=== PATIENT | male | born 1950 | race Caucasian/White ===

== ENCOUNTER 2020-04-23 07:27 | Day surgery (SDC) | payer OTHER, SELFPAY ==
[2020-04-18 10:55] VITALS: BMI 55.4
--- NOTE | 2020-04-20 09:23 | P.CONAN_ITS ---
Documented by User: Rema Frazier 04/20/20 09:24 HPI - Anesthesia Eval Consult details Narrative: 70yo M for Colonoscopy [facility] Past Medical History Medical History Arthritis HTN (hypertension) Hx of gout Sleep apnea Surgical History Surgical History H/O colonoscopy History of ankle surgery History of esophagogastroduodenoscopy (EGD) Hx of detached retina repair Social History Social History Smoking Status: Unknown if ever smoked Advance Directives Information Provided: No Meds Allergies Allergy/AdvReac Type Severity Reaction Status Date / Time No Known Allergies Allergy Verified 04/18/20 11:18 Home Medications Medication Instructions Recorded Confirmed Type allopurinol 1 tab PO DAILY 04/18/20 04/18/20 History diltiazem HCl 1 cap PO DAILY 04/18/20 04/18/20 History furosemide 1.5 tab PO DAILY 04/18/20 04/18/20 History hydralazine 1 tab PO TID 04/18/20 04/18/20 History indomethacin 1 - 2 cap PO TID 04/18/20 04/18/20 History metoprolol succinate 1 tab PO DAILY 04/18/20 04/18/20 History valsartan 1 tab PO DAILY 04/18/20 04/18/20 History Exam Exam Date and Time: April 20, 2020 0923 Height,Weight and Vital Signs: Height 5 ft 7 in Weight 160.572 kg Assessment and Plan Assessment Anesthesia Assessment: Chart Reviewed Documented by User: Junaid Mccarthy 04/23/20 07:23 [facility] Past Medical History Medical History Arthritis HTN (hypertension) Hx of gout Sleep apnea Surgical History Surgical History H/O colonoscopy History of ankle surgery History of esophagogastroduodenoscopy (EGD) Hx of detached retina repair Social History Social History Smoking Status: Unknown if ever smoked Advance Directives Information Provided: No Meds Allergies Allergy/AdvReac Type Severity Reaction Status Date / Time No Known Allergies Allergy Verified 04/18/20 11:18 Home Medications Medication Instructions Recorded Confirmed Type allopurinol 1 tab PO DAILY 04/18/20 04/18/20 History diltiazem HCl 1 cap PO DAILY 04/18/20 04/18/20 History furosemide 1.5 tab PO DAILY 04/18/20 04/18/20 History hydralazine 1 tab PO TID 04/18/20 04/18/20 History indomethacin 1 - 2 cap PO TID 04/18/20 04/18/20 History metoprolol succinate 1 tab PO DAILY 04/18/20 04/18/20 History valsartan 1 tab PO DAILY 04/18/20 04/18/20 History Exam Airway Mallampati Class: III TM Dist: >3cm Neck ROM: Full Loose/Missing/Broken Teeth: No Heart: [id number] Lungs: cta b/l Assessment and Plan Assessment Anesthesia Assessment: Anesthesia Plan Discussed, PAT Visit and Chart Reviewed Final Anesthetic Review NPO: Yes ASA Class: III Final Preanesthetic Review: No Changes in Pt Med Stat, Meds/Allgs Chart Rev iewed, Consent Obtained/Reviewed and Anes Risks/Benef Reviewed Patient Risk: Intermediate Procedure Risk: Low Anesthetic Plan Anesthetic Plan: MAC: Disposition: Standard PACU
[2020-04-23 06:59] VITALS: BP 179/87; PULSE 80; RESP 20; TEMP 36.6; O2SAT 97
[2020-04-23] MEDS: Lactated Ringers 1,000 ML 100 ML IVCONT (07:20)
[2020-04-23 08:32] VITALS: BP 141/102; PULSE 72; RESP 16; TEMP 37.4; O2SAT 98
--- NOTE | 2020-04-23 08:32 | PM.OP ---
Brief Operative Note Date of Service: 04/23/20 Pre-op diagnosis: Screening Post-op diagnosis: other (Same, Diverticulosis, Internal hemorrhoids) Procedure: Colonoscopy to cecum Surgeon: Chris Nicole Anesthesia: MAC Estimated blood loss (mL): 0 Pathology: none sent Condition: stable Disposition: PACU
[2020-04-23 08:47] VITALS: BP 119/64; PULSE 75; RESP 16; TEMP 37.4; O2SAT 96
--- NOTE | 2020-04-23 08:47 | OP_ITS ---
SURGEON: Chris Nicole MD INDICATIONS: The patient presents for evaluation of colorectal cancer screening, as well as prior history of tubular adenoma of the colon. Full consent has been obtained from him for this, including risks of bleeding and perforation. PREOPERATIVE DIAGNOSIS: POSTOPERATIVE DIAGNOSIS: PROCEDURE PERFORMED: Colonoscopy to cecum. ESTIMATED BLOOD LOSS: COMPLICATIONS: ANESTHESIA: Monitored anesthesia care. ASSISTANTS: SPECIMENS: PREOPERATIVE DIAGNOSES: Colorectal cancer screening and personal history of tubular adenoma of the colon. POSTOPERATIVE DIAGNOSES: Colorectal cancer screening and personal history of tubular adenoma of the colon, sigmoid diverticulosis, and internal hemorrhoids. DESCRIPTION OF PROCEDURE: The patient was placed in the left lateral decubitus position. The digital rectal exam revealed no abnormalities. The Olympus video pediatric colonoscope was entered into the rectum and advanced easily to the cecum. Once in the cecum, I did identify normal-appearing cecal pouch with appendiceal orifice and a normal-appearing ileocecal valve. There was transillumination of light deep in the right lower quadrant. The entire cecum and ileocecal valve appeared normal. The scope was then slowly withdrawn assessing all mucosal surfaces carefully. Preparation was excellent. I did not visualize any sign of polyps, colitis, nor angiodysplasia. There was a mild amount of sigmoid diverticulosis. In the rectum, scope was retroflexed visualizing small internal hemorrhoids, but no other pathology. The rectal mucosa appeared normal. The scope was straightened out and withdrawn from the patient. He tolerated the procedure well and was returned to the recovery area in stable condition. IMPRESSION: 1. Sigmoid diverticulosis. 2. Internal hemorrhoids. PLAN: Given the patient's negative exam, and a negative exam in 2010, and the previous history of just a small polyp removed in 2002, I do not think he will need another colonoscopy for screening until 10 years. He will otherwise see me in the interim on a p.r.n. basis. This has been discussed with his family. MD FRANCIS Borrego/RENEEL / [phone]
--- NOTE | 2020-04-23 12:31 | HO.POSTANES ---
Post Anesthesia Evaluation Post Anesthesia Evaluation Vital Signs: Vital Signs Temp Pulse Resp BP Pulse Ox 04/23/20 08:47 99.4 F 75 16 119/64 96 04/23/20 08:32 99.4 F 72 16 141/102 H 98 04/23/20 06:59 97.9 F 80 20 179/87 H 97 Anesthesia: Monitored Mental Status: Awake Pain Control: Satisfactory Nausea/Vomiting: None Hydration: Adequate Anesthesia-Related Issues: No Anes. Related Issues
== END 2020-04-23 09:04 | disposition home or self-care (01) ==
PROVIDERS: PCP Internal Medicine; Visit Provider Internal Medicine
PROC: 0DJD8ZZ Inspection of Lower Intestinal Tract, Via Natural or Artificial Opening Endoscopic (ICD-10-PCS; CPT 45378; principal; 2020-04-23 07:30)
DX: Z12.11 Encounter for screening for malignant neoplasm of colon (principal); K57.30 Diverticulosis of large intestine without perforation or abscess without bleeding; K64.8 Other hemorrhoids; Z86.010 Personal history of colon polyps
CPT/HCPCS: 45378; J2370

== ENCOUNTER 2020-06-09 10:04 | Outpatient (REF) | payer OTHER, SELFPAY ==
[2020-06-09 11:40] LABS: Anion Gap 14 (12-20); Blood Urea Nitrogen 24 mg/dL (9-16); Calcium 8.2 mg/dL (8.4-10.2); Carbon Dioxide 27 mmol/L (22-29); Chloride 104 mmol/L (96-108); Estimated Glomerular Filt Rate > 60; Glucose Fasting 109 mg/dL (60-99); Potassium 4.1 mmol/l (3.3-5.1); Sodium 141 mmol/L (135-145)
[2020-06-09 11:49] LABS: Estimated Average Glucose 100 mg/dL; Hemoglobin A1c % 5.1 %
== END 2020-06-09 10:05 | disposition home or self-care (01) ==
LOC: HO.LAB 10:04
PROVIDERS: PCP Internal Medicine; Visit Provider Surgery
DX: I83.009 Varicose veins of unspecified lower extremity with ulcer of unspecified site (principal)
CPT/HCPCS: 36415; 80048; 83036

== ENCOUNTER 2020-08-02 10:33 | Outpatient (REF) | payer OTHER, SELFPAY ==
[2020-08-02 10:52] LABS: MANUAL DIFF FLAG NO
[2020-08-02 11:01] LABS: Basophils Absolute Auto 0.1 X10*3/uL (0.0-0.2); Basophils Percent Auto 0.7 % (0-2); Eosinophils Absolute Auto 0.4 X10*3/uL (0.0-0.4); Eosinophils Percent Auto 4.9 % (0-4); Hematocrit 44.6 % (42-52); Hemoglobin 14.5 g/dl (14.0-18.0); Imm Gran Abs Auto 0.03 X10*3/uL (0.00-0.03); Imm Gran Pct Auto 0.4 % (0.0-0.4); Lymphocytes Absolute Auto 1.5 X10*3/uL (1.2-4.9); Lymphocytes Percent Auto 18.3 % (20-40); Mean Corpuscular HGB Conc 32.5 g/dl (31.0-36.0); Mean Corpuscular Hemoglobin 30.7 pg (27.0-33.0); Mean Corpuscular Volume 94.3 fL (80-98); Mean Platelet Volume 9.9 fL (9.4-12.4); Monocytes Absolute Auto 0.7 X10*3/uL (0.1-1.2); Monocytes Percent Auto 8.1 % (2-11); Neutrophils Absolute Auto 5.4 X10*3/uL (2.0-8.3); Neutrophils Percent Auto 67.6 % (45-73); Platelet Count 272 X10*3/uL (160-400); Red Blood Count 4.73 X10*6/uL (4.60-5.80); Red Cell Distribution Width 13.7 % (11.0-16.0)
[2020-08-02 11:20] LABS: Estimated Average Glucose 97 mg/dL
[2020-08-02 12:20] LABS: Alanine Aminotransferase 27 U/L (0-40); Albumin Level 4.6 g/dL (3.5-5.0); Alkaline Phosphatase 75 U/L (39-117); Anion Gap 12 (12-20); Aspartate Amino Transferase 45 U/L (5-37); Bilirubin Total 0.8 mg/dL (0.0-1.0); Blood Urea Nitrogen 33 mg/dL (9-16); Calcium 8.5 mg/dL (8.4-10.2); Carbon Dioxide 30 mmol/L (22-29); Chloride 106 mmol/L (96-108); Cholesterol 241 mg/dL; Estimated Glomerular Filt Rate > 60; Glucose Fasting 100 mg/dL (60-99); HDL Cholesterol 37 mg/dL; LDL Cholesterol Calculated 168 mg/dl; Potassium 4.7 mmol/L (3.3-5.1); Sodium 143 mmol/L (135-145); Total Protein 7.5 g/dL (6.5-8.0); Triglycerides 180 mg/dL
[2020-08-02 12:32] LABS: Uric Acid 7.6 mg/dL (3.4-7.0)
== END 2020-08-02 10:34 | disposition home or self-care (01) ==
LOC: HO.LNP 10:33
PROVIDERS: Visit Provider Internal Medicine
DX: I10 Essential (primary) hypertension (principal)
CPT/HCPCS: 80053; 80061; 83036; 84550; 85025

== ENCOUNTER 2020-09-20 09:21 | Inpatient (IN) | payer MEDICARE, OTHER, SELFPAY ==
[2020-09-20] VITALS (9 sets, daily range): BP systolic 91–146; BP diastolic 42–83; PULSE 35–63; RESP 15–24; TEMP 36.8–37.1; O2SAT 96–97; BMI 53.4
--- NOTE | ~2020-09-20 | XR_ITS ---
EXAMINATION: XR CHEST CLINICAL INFORMATION: Dyspnea COMPARISON: None TECHNIQUE: AP portable view of the chest was obtained. FINDINGS: There is no evidence of acute parenchymal disease, pneumothorax, or pleural effusion. The cardiopericardial silhouette is upper limits of normal in size. No evidence of pulmonary edema. XR/XR chest 1V IMPRESSION: No acute disease.
--- NOTE | 2020-09-20 09:30 | ECG_ITS ---
Test Reason : LOW HR Blood Pressure : / mmHG Vent. Rate : 037 BPM Atrial Rate : 037 BPM P-R Int : 184 ms QRS Dur : 094 ms QT Int : 470 ms P-R-T Axes : 000 -18 046 degrees QTc Int : 368 ms Marked sinus bradycardia Abnormal ECG No previous ECGs available Referred By: Christen Bailey Electronically Signed By:VIANEY KAMARA
--- NOTE | 2020-09-20 09:40 | ED.SOB ---
HPI - SOB/Dyspnea General Chief Complaint: Arrhythmia/Palpitations Stated Complaint: LOW HEART RATE Time Seen by Provider: 09/20/20 09:23 Source: patient Mode of arrival: ambulatory Limitations: no limitations History of Present Illness HPI Narrative: 70 yo male with HTN on valsartan, hydralazine, diltiazem, metoprolol - c/o dizziness and dyspnea x 1 week noted his PCP said HR was low last week med changes to hydralazine and valsartan - comes from wound clinic today HR in 30s c/o dizziness and dyspnea MD elicited complaint: shortness of breath Pertinent past history: other (HTN) Onset (ago): week(s) (1) Context: other (on bblockers and CCB for HTN) Severity: moderate Exacerbating factors: exertion Relieving factors: rest Associated symptoms: dizziness and lightheadedness Treatment prior to arrival: none Related Data Home Medications Medication Instructions Recorded Confirmed allopurinol 1 tab PO DAILY 04/18/20 09/20/20 diltiazem HCl 1 cap PO DAILY 04/18/20 09/20/20 furosemide 40 mg PO DAILY 04/18/20 09/20/20 hydralazine 1 tab PO TID 04/18/20 09/20/20 indomethacin 2 cap PO DAILY 04/18/20 09/20/20 metoprolol succinate 1 tab PO DAILY 04/18/20 09/20/20 valsartan 1 tab PO DAILY 04/18/20 09/20/20 spironolactone 1 tab PO BEDTIME 09/20/20 09/20/20 Allergies Allergy/AdvReac Type Severity Reaction Status Date / Time No Known Allergies Allergy Verified 04/18/20 11:18 Review of Systems Review of Systems: Constitutional : No Fever, No Chills ENT/Mouth : No sore throat, No Rhinorrhea, No Swallowing Difficulty Eyes: No Eye Pain, No Swelling, No Redness Cardiovascular : No Chest Pain, positive SOB, No Orthopnea, positive Edema Respiratory : No Cough, No Sputum, No Wheezing, positive dyspnea Gastrointestinal : No Nausea, No Vomiting, No Diarrhea, No abdominal Pain, No Hematochezia, No Melena Genitourinary : No Dysuria, No Urinary Frequency, No Hematuria Musculoskeletal : No joint pain, No Myalgias Skin : No Skin Lesions, No rash Neuro : No Weakness, No Numbness, pos Dizziness, No Headache Psych : No Anxiety/Panic, No Depression Heme/Lymph: No Bruising, No Lymphadenopathy Endocrine : No Polyuria, No Polydipsia All other systems reviewed and are negative [facility] Past Medical History Attestation statement: The following information was validated with the patient. Medical History Arthritis HTN (hypertension) Hx of gout Morbid obesity Sleep apnea Surgical History H/O colonoscopy History of ankle surgery History of esophagogastroduodenoscopy (EGD) Hx of detached retina repair Family History Family History (Updated 09/20/20 @ 15:49 by FRANK Hernandez) Mother HTN (hypertension) CVA (cerebral vascular accident) Social History Social History Alcohol intake: never Smoking Status: Never smoker Smoked in Last 30 Days: No Use of substances other than those prescribed or required for medical reasons: No Advance Directives: Yes Advance Directives Information Provided: No Advance Directives on File: No Physical Exam Vital Signs: Vital Signs: Last Vital Signs Temp 98.7 F 09/20/20 14:39 Pulse 40 L 09/20/20 16:10 Resp 15 09/20/20 16:10 BP 91/61 09/20/20 16:10 Pulse Ox 97 09/20/20 16:10 Body Mass Index 53.4 Appearance: Alert. Oriented X3. No acute distress. Eyes: Pupils equal, round and reactive to light. ENT: Pharynx normal. Neck: Normal inspection. Neck supple. CVS:Bradycardic heart rate and rhythm. Pulses normal. Respiratory: No respiratory distress. Breath sounds decreased throughout Abdomen: Soft and non-tender. obese Skin: Skin warm and dry. Normal skin color. Normal skin turgor. Extremities: pitting 1+ edema bilateral LE No calf ttp Neuro: Oriented X 3. No motor deficit. No sensory deficit. Course Course Course Narrative: 950am message sent to Dr. Srivastava discussed with Dr. Srivastava, admit to hospital, hold diuretics, try atropine, hold bb and ccb MDM - SOB/Dyspnea Medical Records Medical records narrative: 70 yo male with hx of HTN on metoprolol/diltiazem/valsartan hydralazine has c/o dizziness and dyspnea x 1 week saw his PCP last week told his heart was low - med adjustments to hydralazine and valsartan - comes from wound clinic today noted HR in 30s at this time will need labs, troponin, lytes, notify cardiology, IV calcium and glucagon suspect admission for CCB and bblocker hold and if no improvement possible PPM - currently not toxic, BP stable planned admit Lab Data Result diagrams: 09/20/20 10:31 09/20/20 11:47 Labs: Lab Results 09/20/20 09/20/20 09/20/20 Range/Units 10:21 10:31 10:31 WBC (4.8-10.8) X10*3/uL RBC (4.60-5.80) X10*6/uL Hgb (14.0-18.0) g/dl Hct (42-52) % MCV (80-98) fL MCH (27.0-33.0) pg MCHC (31.0-36.0) g/dl RDW (11.0-16.0) % Plt Count MPV Immature Gran % (Auto) (0.0-0.4) % Neut % (Auto) (45-73) % Lymph % (Auto) (20-40) % Reynolds % (Auto) (2-11) % Eos % (Auto) (0-4) % Baso % (Auto) (0-2) % Lymph # (Auto) (1.2-4.9) X10*3/uL Reynolds # (Auto) (0.1-1.2) X10*3/uL Eos # (Auto) (0.0-0.4) X10*3/uL Baso # (Auto) (0.0-0.2) X10*3/uL Abs Immat Gran (auto) (0.00-0.03) X10*3/uL Absolute Neuts (auto) (2.0-8.3) X10*3/uL Absolute Nucleated RBC (0.0-0.012) X10*3/uL Nucleated RBC % (auto) (0.0-0.2) /100WBC Smear Tech's Comments PT (10.8-13.0) SEC INR (0.9-1.1) APTT (24.1-38.0) SEC D-Dimer NG/ML Sodium 133 L (135-145) mmol/L Potassium 4.8 (3.3-5.1) mmol/L Chloride 106 (96-108) mmol/L Carbon Dioxide 17 L (22-29) mmol/L Anion Gap 15 (12-20) BUN 51 H D (9-16) mg/dL Creatinine 2.09 H (0.5-1.4) mg/dL Estim Creat Clear Calc 48.5 Estimated GFR 32 Random Glucose 122 H (60-115) mg/dL Calcium 35.7 H* D (8.4-10.2) mg/dL Magnesium (1.6-2.6) mg/dL Total Bilirubin (0.0-1.0) mg/dL Direct Bilirubin (0.0-0.5) mg/dL AST (5-37) U/L ALT (0-40) U/L Alkaline Phosphatase (39-117) U/L Troponin I High Sens (<3.5-35.0) ng/L B-Natriuretic Peptide 735 H (<100) pg/mL Total Protein (6.5-8.0) g/dL Albumin (3.5-5.0) g/dL Lipase (8-78) U/L TSH (0.32-4.0) uIU/mL COVID-19 ([facility]) Negative (Negative) COVID-19 Clin Com See Note 09/20/20 09/20/20 09/20/20 Range/Units 10:31 10:31 10:31 WBC 8.8 (4.8-10.8) X10*3/uL RBC 3.86 L (4.60-5.80) X10*6/uL Hgb 12.1 L (14.0-18.0) g/dl Hct 38.0 L (42-52) % MCV 98.4 H (80-98) fL MCH 31.3 (27.0-33.0) pg MCHC 31.8 (31.0-36.0) g/dl RDW 14.4 (11.0-16.0) % Plt Count TNP MPV TNP Immature Gran % (Auto) 0.3 (0.0-0.4) % Neut % (Auto) 77.9 H (45-73) % Lymph % (Auto) 16.2 L (20-40) % Reynolds % (Auto) 3.3 (2-11) % Eos % (Auto) 2.0 (0-4) % Baso % (Auto) 0.3 (0-2) % Lymph # (Auto) 1.4 (1.2-4.9) X10*3/uL Reynolds # (Auto) 0.3 (0.1-1.2) X10*3/uL Eos # (Auto) 0.2 (0.0-0.4) X10*3/uL Baso # (Auto) 0.0 (0.0-0.2) X10*3/uL Abs Immat Gran (auto) 0.03 (0.00-0.03) X10*3/uL Absolute Neuts (auto) 6.9 (2.0-8.3) X10*3/uL Absolute Nucleated RBC 0.000 (0.0-0.012) X10*3/uL Nucleated RBC % (auto) 0.0 (0.0-0.2) /100WBC Smear Tech's Comments VERIFIED PT (10.8-13.0) SEC INR (0.9-1.1) APTT (24.1-38.0) SEC D-Dimer NG/ML Sodium (135-145) mmol/L Potassium (3.3-5.1) mmol/L Chloride (96-108) mmol/L Carbon Dioxide (22-29) mmol/L Anion Gap (12-20) BUN (9-16) mg/dL Creatinine (0.5-1.4) mg/dL Estim Creat Clear Calc Estimated GFR Random Glucose (60-115) mg/dL Calcium (8.4-10.2) mg/dL Magnesium 2.3 (1.6-2.6) mg/dL Total Bilirubin 0.6 (0.0-1.0) mg/dL Direct Bilirubin 0.2 (0.0-0.5) mg/dL AST 49 H (5-37) U/L ALT 47 H (0-40) U/L Alkaline Phosphatase 67 (39-117) U/L Troponin I High Sens 14.1 (<3.5-35.0) ng/L B-Natriuretic Peptide (<100) pg/mL Total Protein 6.0 L (6.5-8.0) g/dL Albumin 3.7 (3.5-5.0) g/dL Lipase 63 (8-78) U/L TSH 1.22 (0.32-4.0) uIU/mL COVID-19 ([facility]) (Negative) COVID-19 Clin Com 09/20/20 09/20/20 09/20/20 Range/Units 11:38 11:38 11:47 WBC (4.8-10.8) X10*3/uL RBC (4.60-5.80) X10*6/uL Hgb (14.0-18.0) g/dl Hct (42-52) % MCV (80-98) fL MCH (27.0-33.0) pg MCHC (31.0-36.0) g/dl RDW (11.0-16.0) % Plt Count MPV Immature Gran % (Auto) (0.0-0.4) % Neut % (Auto) (45-73) % Lymph % (Auto) (20-40) % Reynolds % (Auto) (2-11) % Eos % (Auto) (0-4) % Baso % (Auto) (0-2) % Lymph # (Auto) (1.2-4.9) X10*3/uL Reynolds # (Auto) (0.1-1.2) X10*3/uL Eos # (Auto) (0.0-0.4) X10*3/uL Baso # (Auto) (0.0-0.2) X10*3/uL Abs Immat Gran (auto) (0.00-0.03) X10*3/uL Absolute Neuts (auto) (2.0-8.3) X10*3/uL Absolute Nucleated RBC (0.0-0.012) X10*3/uL Nucleated RBC % (auto) (0.0-0.2) /100WBC Smear Tech's Comments PT 11.5 (10.8-13.0) SEC INR 1.0 (0.9-1.1) APTT 39.2 H (24.1-38.0) SEC D-Dimer < 200 NG/ML Sodium 139 (135-145) mmol/L Potassium 5.8 H D (3.3-5.1) mmol/L Chloride 107 (96-108) mmol/L Carbon Dioxide 24 (22-29) mmol/L Anion Gap 14 (12-20) BUN 58 H (9-16) mg/dL Creatinine 2.31 H (0.5-1.4) mg/dL Estim Creat Clear Calc 43.9 Estimated GFR 28 Random Glucose 86 (60-115) mg/dL Calcium 9.2 D (8.4-10.2) mg/dL Magnesium (1.6-2.6) mg/dL Total Bilirubin 0.6 (0.0-1.0) mg/dL Direct Bilirubin (0.0-0.5) mg/dL AST 56 H (5-37) U/L ALT 56 H (0-40) U/L Alkaline Phosphatase 82 D (39-117) U/L Troponin I High Sens (<3.5-35.0) ng/L B-Natriuretic Peptide (<100) pg/mL Total Protein 7.4 D (6.5-8.0) g/dL Albumin 4.5 D (3.5-5.0) g/dL Lipase (8-78) U/L TSH (0.32-4.0) uIU/mL COVID-19 ([facility]) (Negative) COVID-19 Clin Com ECG Data Attestation: I personally reviewed and interpreted this ECG as follows: ECG interpretation date: 09/20/20 ECG interpretation time: 09:51 Interpretation: Rate: 37 Rhythm: sinus bradycardia [place]: left Normal P waves. Normal TIA. Normal QRS complex. ST T wave : normal no CHUCKY qTC: normal prior studies: no acute ischemia The study has been interpreted contemporaneously by me. . Critical Care Time Critical Care Time Critical Care Time: Yes Total Critical Care Time: 30 Attestation: medical consult, IV atropine I attest to this time spent taking care of the patient Discharge Plan Discharge Clinical Impression: TAMICA (acute kidney injury), Bradycardia, sinus Patient Disposition: Admitted As Inpatient
[2020-09-20] MEDS: Calcium Gluconate/NaCl,Iso-Osm 2 GM/100 ML PLAST..BAG IV (10:11)
[2020-09-20 10:46] LABS: Basophils Percent Auto 0.3 % (0-2); Hemoglobin 12.1 g/dl (14.0-18.0); MANUAL DIFF FLAG SCAN; PLT CLUMP 1; Red Cell Distribution Width 14.4 % (11.0-16.0); SCAN SMEAR FLAG 1
[2020-09-20 10:47] LABS: Eosinophils Absolute Auto 0.2 X10*3/uL (0.0-0.4); Imm Gran Abs Auto 0.03 X10*3/uL (0.00-0.03); Imm Gran Pct Auto 0.3 % (0.0-0.4); Lymphocytes Absolute Auto 1.4 X10*3/uL (1.2-4.9); Lymphocytes Percent Auto 16.2 % (20-40); Mean Corpuscular HGB Conc 31.8 g/dl (31.0-36.0); Mean Corpuscular Hemoglobin 31.3 pg (27.0-33.0); Mean Corpuscular Volume 98.4 fL (80-98); Monocytes Absolute Auto 0.3 X10*3/uL (0.1-1.2); Monocytes Percent Auto 3.3 % (2-11); Neutrophils Absolute Auto 6.9 X10*3/uL (2.0-8.3); Neutrophils Percent Auto 77.9 % (45-73); Red Blood Count 3.86 X10*6/uL (4.60-5.80); White Blood Count 8.8 X10*3/uL (4.8-10.8)
[2020-09-20 11:08] LABS: COVID-19 Test Negative (Negative)
[2020-09-20 11:11] LABS: Alanine Aminotransferase 47 U/L (0-40); Albumin Level 3.7 g/dL (3.5-5.0); Alkaline Phosphatase 67 U/L (39-117); Aspartate Amino Transferase 49 U/L (5-37); Bilirubin Direct 0.2 mg/dL (0.0-0.5); Bilirubin Total 0.6 mg/dL (0.0-1.0); Lipase 63 U/L (8-78); Magnesium 2.3 mg/dL (1.6-2.6)
[2020-09-20 11:16] LABS: B Type Natriuretic Peptide 735 pg/mL (<100); Troponin-I High Sensitivity 14.1 ng/L (<3.5-35.0)
[2020-09-20 11:25] LABS: Anion Gap 15 (12-20); Blood Urea Nitrogen 51 mg/dL (9-16); Calcium 35.7 mg/dL (8.4-10.2); Carbon Dioxide 17 mmol/L (22-29); Chloride 106 mmol/L (96-108); Creatinine Clr Calc Pharmacy 48.5; Estimated Glomerular Filt Rate 32; Glucose Random 122 mg/dL (60-115); Potassium 4.8 mmol/L (3.3-5.1); Sodium 133 mmol/L (135-145)
[2020-09-20 11:32] LABS: Thyroid Stimulating Hormone 1.22 uIU/mL (0.32-4.0)
--- NOTE | 2020-09-20 11:46 | PC.NURSE ---
Labs drawn above Iv access w/ calcium running. Re-draws ordered per Dr. Bailey. Tech at bedside to obtain
[2020-09-20 11:49] LABS: Prothrombin Time 11.5 SEC (10.8-13.0)
[2020-09-20 11:52] LABS: SLIDE REVIEW VERIFIED
[2020-09-20 11:53] LABS: D Dimer < 200 NG/ML; Partial Thromboplastin Time 39.2 SEC (24.1-38.0)
[2020-09-20] MEDS: Atropine Sulfate 1 MG/ML VIAL 0.5 MG IVPUSH (12:00)
[2020-09-20 12:38] LABS: Alanine Aminotransferase 56 U/L (0-40); Albumin Level 4.5 g/dL (3.5-5.0); Alkaline Phosphatase 82 U/L (39-117); Anion Gap 14 (12-20); Aspartate Amino Transferase 56 U/L (5-37); Bilirubin Total 0.6 mg/dL (0.0-1.0); Blood Urea Nitrogen 58 mg/dL (9-16); Calcium 9.2 mg/dL (8.4-10.2); Carbon Dioxide 24 mmol/L (22-29); Chloride 107 mmol/L (96-108); Creatinine Clr Calc Pharmacy 43.9; Estimated Glomerular Filt Rate 28; Glucose Random 86 mg/dL (60-115); Potassium 5.8 mmol/L (3.3-5.1); Sodium 139 mmol/L (135-145); Total Protein 7.4 g/dL (6.5-8.0)
--- NOTE | 2020-09-20 15:31 | PM.EVENT ---
Event Note Date of Service: 09/20/20 Event Note: Patient seen examined case discussed with APC 70-year-old gentleman with past medical history significant for hypertension, chronic intermittent leg edema, obstructive sleep apnea on cpap, chronic right leg wound being followed at wound clinic presented to [facility] with symptoms of being lightheaded,x few weeks, and shortness of breath of 1 week duration, also heart pounding, symptoms started when aldactone was added and dose of hydralazine uptitrated, Patient has history of chronic htn with sbp in 160s felt above sxs when sbp dropped to 130s In ER patient noted to have sinus bradycardia in mid 30s,labs showed hyperkalemia ,creat 2.31 from baseline 1.1 creat in 07/2020 On examination Morbidly obese,no distress lungs clear cvs bradycardic ext no edema a/p elan with hyperkalemia bradycardia case d/w APC will hold all nephrotoxins and bb and cardizem cont ydralazine ,telemonitoring,obtain nephro eval give ivf and follow labs
--- NOTE | 2020-09-20 15:38 | PM.IMHP ---
History of Present Illness Date of Service: 09/20/20 Chief Complaint: Dizziness This is a 70-year-old male who presents to the emergency department with dizziness. One month ago his blood pressure had been persistently elevated so his hydralazine dose was increased and he was started on spironolactone. Shortly after that he began having dizziness. For the past week to week and a half he started having dyspnea with minimal exertion as well as the pounding feeling in his chest. He has been feeling more fatigued. He denies any PND, orthopnea, chest pain. He was seen by his PCP this past Thursday who recommended to decrease the hydralazine back down to his previous dose. Today he was seen and the wound care clinic and he was noted to be bradycardic and continued to be dizzy and therefore was sent to the emergency department for evaluation. In the emergency department he was noted to be in sinus bradycardia with heart rate in the 30s. Lab work revealed acute kidney injury with creatinine 2.31 and hyperkalemia with potassium 5.8. BNP was 735, chest x-ray unremarkable. Patient was treated with 1 dose of atropine and calcium gluconate. Given persistent bradycardia and TAMICA, the decision was made to admit her for further management. Review of Systems Review of Systems: Yes all other systems are reviewed and are negative Constitutional: Constitutional: Denies chills and Denies fever(s) Cardiovascular: Cardiovascular: Denies chest pain, Reports palpitations, Reports dyspnea on exertion, Denies orthopnea and Denies paroxysmal nocturnal dyspnea Respiratory: Respiratory: Denies cough and Reports dyspnea on exertion Gastrointestinal: Gastrointestinal: Denies abdominal pain Endocrine: Endocrine: Reports palpitations [facility] Medical History Arthritis HTN (hypertension) Hx of gout Morbid obesity Sleep apnea Functional capacity: independent ambulation Family History (Updated 09/20/20 @ 15:49 by FRANK Hernandez) Mother HTN (hypertension) CVA (cerebral vascular accident) Family history: reviewed and not pertinent Surgical History H/O colonoscopy History of ankle surgery History of esophagogastroduodenoscopy (EGD) Hx of detached retina repair Social History Alcohol intake: never Smoking Status: Never smoker Smoked in Last 30 Days: No Use of substances other than those prescribed or required for medical reasons: No Advance Directives: Yes Advance Directives Information Provided: No Advance Directives on File: No Meds Allergies Allergy/AdvReac Type Severity Reaction Status Date / Time No Known Allergies Allergy Verified 04/18/20 11:18 Active Medications: Current Medications Generic Name Dose Route Start Last Admin Trade Name Freq PRN Reason Stop Dose Admin Pharmacy Consult 1 each 09/20/20 09:29 Consult Rx Perform Med Rec MISCELLANE ONCE PRN Consult order Home Medications Medication Instructions Recorded Confirmed Last Taken Type allopurinol 1 tab PO DAILY 04/18/20 09/20/20 Unknown History diltiazem HCl 1 cap PO DAILY 04/18/20 09/20/20 04/23/20 History furosemide 40 mg PO DAILY 04/18/20 09/20/20 Unknown History hydralazine 1 tab PO TID 04/18/20 09/20/20 04/23/20 History indomethacin 2 cap PO DAILY 04/18/20 09/20/20 Unknown History metoprolol succinate 1 tab PO DAILY 04/18/20 09/20/20 04/23/20 History valsartan 1 tab PO DAILY 04/18/20 09/20/20 04/16/20 History spironolactone 1 tab PO BEDTIME 09/20/20 09/20/20 Unknown History Physical Exam Vital Signs and Narrative: Vital Signs: Last Vital Signs Temp 98.7 F 09/20/20 14:39 Pulse 37 L 09/20/20 14:39 Resp 18 09/20/20 14:39 BP 115/83 09/20/20 14:39 Pulse Ox 97 09/20/20 14:39 Body Mass Index 53.4 Const: Nutritional Appearance: well nourished Orientation/consciousness: patient oriented x3 HENMT: Head: Yes normocephalic and Yes atraumatic Eyes: Sclerae: sclerae normal Chest: Chest palpation & inspection: normal inspection of the chest Resp: Effort & Inspection: normal respiratory effort and no respiratory distress Cardio: Jugular venous distension: no JVD Rate: bradycardic GI: Palpation (GI): Soft to palpation and nontender Neuro: General: patient oriented x3 Cranial nerves: Yes CN's II-XII intact bilaterally and Yes Bilaterally intact EOM present Extrem: Other: no edema Results Labs CBC and Chem 7: 09/20/20 10:31 09/20/20 11:47 Labs: Laboratory Results - last 24 hr 09/20/20 09/20/20 09/20/20 10:21 10:31 10:31 MCV MCH MCHC RDW Plt Count MPV Immature Gran % (Auto) Neut % (Auto) Lymph % (Auto) Hanson % (Auto) Eos % (Auto) Baso % (Auto) Lymph # (Auto) Hanson # (Auto) Eos # (Auto) Baso # (Auto) Abs Immat Gran (auto) Absolute Neuts (auto) Absolute Nucleated RBC Nucleated RBC % (auto) Smear Tech's Comments PT INR APTT D-Dimer Anion Gap 15 Estim Creat Clear Calc 48.5 Estimated GFR 32 Random Glucose 122 H Calcium 35.7 H* D Magnesium Total Bilirubin Direct Bilirubin AST ALT Alkaline Phosphatase Troponin I High Sens B-Natriuretic Peptide 735 H Total Protein Albumin Lipase TSH COVID-19 (PEARL) Negative COVID-19 [email or web address] Com See Note 09/20/20 09/20/20 09/20/20 10:31 10:31 10:31 MCV 98.4 H MCH 31.3 MCHC 31.8 RDW 14.4 Plt Count TNP MPV TNP Immature Gran % (Auto) 0.3 Neut % (Auto) 77.9 H Lymph % (Auto) 16.2 L Hanson % (Auto) 3.3 Eos % (Auto) 2.0 Baso % (Auto) 0.3 Lymph # (Auto) 1.4 Hanson # (Auto) 0.3 Eos # (Auto) 0.2 Baso # (Auto) 0.0 Abs Immat Gran (auto) 0.03 Absolute Neuts (auto) 6.9 Absolute Nucleated RBC 0.000 Nucleated RBC % (auto) 0.0 Smear Tech's Comments VERIFIED PT INR APTT D-Dimer Anion Gap Estim Creat Clear Calc Estimated GFR Random Glucose Calcium Magnesium 2.3 Total Bilirubin 0.6 Direct Bilirubin 0.2 AST 49 H ALT 47 H Alkaline Phosphatase 67 Troponin I High Sens 14.1 B-Natriuretic Peptide Total Protein 6.0 L Albumin 3.7 Lipase 63 TSH 1.22 COVID-19 (PEAR[place]) COVID-19 [email or web address] Com 09/20/20 09/20/20 09/20/20 11:38 11:38 11:47 MCV MCH MCHC RDW Plt Count MPV Immature Gran % (Auto) Neut % (Auto) Lymph % (Auto) Hanson % (Auto) Eos % (Auto) Baso % (Auto) Lymph # (Auto) Hanson # (Auto) Eos # (Auto) Baso # (Auto) Abs Immat Gran (auto) Absolute Neuts (auto) Absolute Nucleated RBC Nucleated RBC % (auto) Smear Tech's Comments PT 11.5 INR 1.0 APTT 39.2 H D-Dimer < 200 Anion Gap 14 Estim Creat Clear Calc 43.9 Estimated GFR 28 Random Glucose 86 Calcium 9.2 D Magnesium Total Bilirubin 0.6 Direct Bilirubin AST 56 H ALT 56 H Alkaline Phosphatase 82 D Troponin I High Sens B-Natriuretic Peptide Total Protein 7.4 D Albumin 4.5 D Lipase TSH COVID-19 (PEARL) COVID-19 Clin Com Imaging Radiologist's Impressions: Impressions Chest X-Ray 09/20/20 09:30 IMPRESSION: No acute disease. Assessment and Plan (1) TAMICA (acute kidney injury): Status: Acute (2) Bradycardia, sinus: Status: Acute This is a 70 year old male with history of HTN, HFpEF, morbid obesity, JADEN on cpap, recently started on aldactone who presents to the ED with dizziness found to be bradycardic with HR in 30s and TAMICA. Symptomatic sinus bradycardia r/t medications -hold cardizem, metoprolol -tele monitoring TAMICA r/t diuretics, drop in BP -hold lasix, aldactone, valsartan, indomethacin, allopurinol -gentle IVF -follow BMP -nephrology consult Hyperkalemia K 5.8 r/t above TAMICA -Kayexelate -follow BMP HTN BP low compared to previous, likely contributing to symptoms and TAMICA -Hold valsartan, lasix, aldactone -continue hydralazine -monitor blood pressure closely HFpEF echo from 2016 with preserved EF and diastolic dysfunction although bnp elevated, not clinically in heart failure -hold lasix Morbid obesity BMI 53.4 JADEN -Continue CPAP chronic RLE wound being followed at the wound clinic -continue local wound care elevated troponin, 14 likely r/t elevated renal function no chest pain dvt ppx - heparin code status - full code Attending. Dr. Iniguez
[2020-09-20] MEDS: Sodium Polystyrene Sulfon/Sorb 15 GM/60 ML ORAL.SUSP PO (16:10)
--- NOTE | 2020-09-20 16:15 | PC.NURSE ---
x1 attempt to give report- awaiting bacllback. Pt continues to be sinus maurizio, denies needs or complaints at this time.
[2020-09-20] MEDS: 0.9 % Sodium Chloride Flush 3 ML SYRINGE IVFLUSH ×2 (18:08→23:29)
[2020-09-20] MEDS: 0.9 % Sodium Chloride 500 ML 100 ML IVCONT (18:16)
[2020-09-20] MEDS: Heparin Sodium,Porcine 5,000 UNIT/ML VIAL 5000 UNIT SUBCUT (18:17)
[2020-09-20 18:54] LABS: Anion Gap 14 (12-20); Blood Urea Nitrogen 49 mg/dL (9-16); Carbon Dioxide 22 mmol/L (22-29); Chloride 108 mmol/L (96-108); Creatinine Clr Calc Pharmacy 57.3; Estimated Glomerular Filt Rate 38; Glucose Random 100 mg/dL (60-115); Potassium 5.4 mmol/L (3.3-5.1); Sodium 139 mmol/L (135-145)
[2020-09-21] VITALS (12 sets, daily range): BP systolic 127–164; BP diastolic 60–74; PULSE 59–76; RESP 16–20; TEMP 36.1–37; O2SAT 95–97
--- NOTE | 2020-09-21 00:49 | P.CONNP_ITS ---
History of Present Illness Reason for Consult Consult date: 09/20/20 Reason for consult: TAMICA, HyperK Chief Complaint Chief complaint: Symptomatic bradycardia TAMICA History of Present Illness Narrative: Ask to see PT fro TAMICA and hyperK. Note at wound care to have low HR and low BP so sent to ER note low HR and treated with atropine and IV Ca as K was 5.8. He adm to feeling dizzy past several days and his BP meds were decfr by PCP as our top last week. Overall feeling better now. He reveieved kayexlate in Er x 1. No CP/SOB. Hos outpt meds are noted and include diovan and aldactone and also a BBlocker and CCB Review of Systems Review of Systems Constitutional : No Fever, No Chills ENT/Mouth : No sore throat, No Rhinorrhea, No Swallowing Difficulty Eyes: No Eye Pain, No Swelling, No Redness Cardiovascular : No Chest Pain, positive SOB, No Orthopnea, positive Edema Respiratory : No Cough, No Sputum, No Wheezing, positive dyspnea Gastrointestinal : No Nausea, No Vomiting, No Diarrhea, No abdominal Pain, No Hematochezia, No Melena Genitourinary : No Dysuria, No Urinary Frequency, No Hematuria Musculoskeletal : No joint pain, No Myalgias Skin : No Skin Lesions, No rash Neuro : No Weakness, No Numbness, pos Dizziness, No Headache Psych : No Anxiety/Panic, No Depression Heme/Lymph: No Bruising, No Lymphadenopathy Endocrine : No Polyuria, No Polydipsia All other systems reviewed and are negative Yes all other systems are reviewed and are negative Constitutional: Denies chills and Denies fever(s) Cardiovascular: Denies chest pain, Reports palpitations, Reports dyspnea on exertion, Denies orthopnea and Denies paroxysmal nocturnal dyspnea Respiratory: Denies cough and Reports dyspnea on exertion Gastrointestinal: Denies abdominal pain Endocrine: Reports palpitations PMFSH Past Medical History Medical History Arthritis HTN (hypertension) Hx of gout Morbid obesity Sleep apnea Functional capacity: independent ambulation Family History Family History (Updated 09/20/20 @ 15:49 by FRANK Hernandez) Mother HTN (hypertension) CVA (cerebral vascular accident) Family history: reviewed and not pertinent Surgical History Surgical History H/O colonoscopy History of ankle surgery History of esophagogastroduodenoscopy (EGD) Hx of detached retina repair Social History Social History Household Members: Spouse Housing: House Do you presently have visiting nurse or other home services: No Alcohol intake: never Smoking Status: Never smoker Smoked in Last 30 Days: No Use of substances other than those prescribed or required for medical reasons: No Have you been hit, kicked, punched, or otherwise hurt by someone within the past year? If so, by whom?: No Do you feel safe in your current relationship?: No Is there a partner from a previous relationship who is making you feel unsafe now?: No Are you made to feel afraid or neglected: No Advance Directives: Yes Advance Directives Information Provided: No Advance Directives on File: No Advance Directives Date on File: 09/20/20 Do you have a plan to hurt others: No Plan Recently lost weight without trying: No Eating poorly because of decreased appetite: No Nutrition Risks: No Nutritional Risk Poor oral hygiene: No Meds Allergies Allergy/AdvReac Type Severity Reaction Status Date / Time No Known Allergies Allergy Verified 04/18/20 11:18 Active Medications: Current Medications Generic Name Dose Route Start Last Admin Trade Name Freq PRN Reason Stop Dose Admin Acetaminophen 650 mg 09/20/20 17:37 Acetaminophen 325 Mg Tablet PO Q6H PRN Pain, Mild (Pain Scale 1-3) Docusate Sodium 100 mg 09/20/20 17:37 Docusate Sodium 100 Mg Capsule PO DAILY PRN Constipation Heparin Sodium (Porcine) 5,000 unit 09/20/20 18:00 09/20/20 18:17 Heparin Sodium,Porcine 5,000 Unit/Ml Vial SUBCUT 5,000 unit Q12H VIKRAM Administration Hydralazine HCl 25 mg 09/21/20 09:00 Hydralazine Hcl 25 Mg Tablet PO TID VIKRAM Protocol Ondansetron HCl 4 mg 09/20/20 17:37 Ondansetron Hcl 4 Mg/2 Ml Vial IVPUSH Q8H PRN Nausea and Vomiting Pharmacy Consult 1 each 09/20/20 09:29 Consult Rx Perform Med Rec MISCELLANE ONCE PRN Consult order Sodium Chloride 3 ml 09/20/20 17:37 09/20/20 23:29 0.9 % Sodium Chloride Flush 3 Ml Syringe IVFLUSH 3 ml QSHIFT VIKRAM Administration Sodium Zirconium Cyclosilicate 10 gm 09/21/20 00:47 Sodium Zirconium Cyclosilicate 10 Gm Powd.Pack PO 09/21/20 00:48 ONCE STA Home Medications Medication Instructions Recorded Confirmed Last Taken Type allopurinol 1 tab PO DAILY 04/18/20 09/20/20 Unknown History diltiazem HCl 1 cap PO DAILY 04/18/20 09/20/20 04/23/20 History furosemide 40 mg PO DAILY 04/18/20 09/20/20 Unknown History hydralazine 1 tab PO TID 04/18/20 09/20/20 04/23/20 History indomethacin 2 cap PO DAILY 04/18/20 09/20/20 Unknown History metoprolol succinate 1 tab PO DAILY 04/18/20 09/20/20 04/23/20 History valsartan 1 tab PO DAILY 04/18/20 09/20/20 04/16/20 History spironolactone 1 tab PO BEDTIME 09/20/20 09/20/20 Unknown History Physical Exam Vital Signs: Last Vital Signs Temp 98.3 F 09/20/20 23:29 Pulse 62 09/20/20 23:29 Resp 16 09/20/20 23:29 BP 146/69 H 09/20/20 23:29 Pulse Ox 96 09/20/20 23:29 Body Mass Index 53.4 Const Nutritional Appearance: well nourished Orientation/consciousness: patient oriented x3 HENMT Head: Yes normocephalic and Yes atraumatic Eyes Sclerae: sclerae normal Chest Chest palpation & inspection: normal inspection of the chest Resp Effort & Inspection: normal respiratory effort and no respiratory distress Cardio Jugular venous distension: no JVD Rate: bradycardic GI Palpation (GI): Soft to palpation and nontender Neuro General: patient oriented x3 Cranial nerves: Yes CN's II-XII intact bilaterally and Yes Bilaterally intact EOM present Extrem Other: no edema Results Lab Results Result Diagrams: 09/20/20 10:31 09/20/20 18:24 Lab results: Chemistry 09/20/20 09/20/20 09/20/20 10:31 11:47 18:24 Sodium 133 L 139 139 Potassium 4.8 5.8 H D 5.4 H Carbon Dioxide 17 L 24 22 BUN 51 H D 58 H 49 H Creatinine 2.09 H 2.31 H 1.77 H Calcium 35.7 H* D 9.2 D 9.0 Hematology 09/20/20 10:31 WBC 8.8 Hgb 12.1 L Plt Count TNP Assessment and Plan (1) TAMICA (acute kidney injury): Status: Acute (2) Bradycardia, sinus: Status: Acute This is a 70 year old male with history of HTN, HFpEF, morbid obesity, JADEN on cpap, recently started on aldactone who presents to the ED with dizziness found to be bradycardic with HR in 30s and TAMICA. 1. TAMICA: most c/w renal hypoperfusion as SCr already decr with IVF and improved H R 2. Symptomatic bradycardia: multifact including combo of BBlocker and dilt and hyperK 3. HyperK: unlcear as to why K incr 4.8 to 5.8 in approx 1 hr but repeat tonignht 5.4 despite kayexlate REC: hold diovan and aldactone; lokelma x 1; track UOP, renal func and K level; avoid BBlocker w dilt combo and depending HR may need to avoid both in future; car eval for intrisinc conduction prob will follow with team
[2020-09-21] MEDS: Sodium Zirconium Cyclosilicate 10 GM POWD.PACK PO (01:35)
[2020-09-21] MEDS: Heparin Sodium,Porcine 5,000 UNIT/ML VIAL 5000 UNIT SUBCUT ×2 (06:13→17:55)
[2020-09-21 07:13] LABS: Anion Gap 15 (12-20); Blood Urea Nitrogen 39 mg/dL (9-16); Carbon Dioxide 24 mmol/L (22-29); Chloride 108 mmol/L (96-108); Creatinine Clr Calc Pharmacy 76.3; Estimated Glomerular Filt Rate 53; Glucose Random 102 mg/dL (60-115); Potassium 4.7 mmol/L (3.3-5.1); Sodium 142 mmol/L (135-145)
[2020-09-21] MEDS: 0.9 % Sodium Chloride Flush 3 ML SYRINGE IVFLUSH ×3 (07:55→21:10)
[2020-09-21] MEDS: hydrALAZINE HCl 25 MG TABLET PO ×3 (07:55→19:47)
--- NOTE | 2020-09-21 09:28 | CA_ITS ---
Transthoracic Echocardiogram Patient (Last, First, Middle): Chris Simon J Gender: Male Date of : 1950 Age: 70 Procedure Date: 09/21/2020 Procedure Type: Transthoracic [place] [facility] [place]: 167.64 cm Weight: 154.22 kg BSA: 2.51 m2 Heart Rate: bpm BP: 126 / 68 mmHg Resourcing Advisor: Referring MD: Huy Srivastava MD Symptoms: Bradycardia, aortic sclerotic murmur Study Quality: Technically Difficult ECG Rhythm: Sinus Conclusions: - The left ventricular systolic function is normal. The visually estimated ejection fraction is between 60-65%. - There is moderate calcification of the aortic valve. There is no aortic valve stenosis. Findings Procedure Information Contrast agent, definity, is being given per protocol without apparent complications. Left Ventricle Normal left ventricular cavity size. The left ventricular systolic function is normal. The visually estimated ejection fraction is between 60-65%. There is no evidence of regional wall motion abnormalities. E/E prime ratio is <8, consistent with normal filling pressures. Evidence suggests grade I (mild) diastolic dysfunction. Right Ventricle Normal right ventricular cavity size and systolic function. Atria Both atria are normal in size. Aortic Valve The aortic valve was not well visualized. There is moderate calcification of the aortic valve. There is no aortic valve stenosis. The peak aortic velocity is 2.36 m/s with a calculated peak gradient of 22 mmHg. The mean gradient is 13 mmHg. The aortic valve area is 2.88 cm2. There is no aortic valve regurgitation. Mitral Valve The mitral valve appears normal. There is no mitral valve regurgitation. There is no mitral valve stenosis. Pulmonic Valve The pulmonic valve was not well visualized. Tricuspid Valve There is trace tricuspid valve regurgitation. The pulmonary artery systolic pressure is normal. Great Vessels The aorta was not well visualized. The aortic annulus is normal in size. Venous The inferior vena cava is normal in size and collapses greater than 50% with inspiration. Pericardium/Pleural There is no evidence of pericardial effusion. Prior Study Comparison No significant change compared to prior study dated: 05/19/2015. Measurements 2D Linear Measurements IVSd: 1.70 0.6-0.9/0.6-1.0 cm LVIDd: 3.92 3.9-5.3/4.2-5.9 cm LVIDd Index: 1.56 2.4-3.2/2.2-3.1 cm/m2 LVIDs: 2.59 2.0-3.6 cm LVPWd: 1.63 0.7-1.1 cm LA Diam: 4.50 2.7-3.8/3.0-4.0 cm LAIDs Index: 1.79 1.5-2.3 cm/m2 LV Mass: 333.68 67-162/88-224 g LV Mass Index: 132.94 43-95/49-115 g/m2 LVOT Diam: 2.60 3.0+(-)1.3 cm Mitral Valve MV Pk E: 0.61 MV PK A: 0.92 MV Decel Time: 225.00 E/A: 0.70 E'Lateral: 7.62 E'Medial: 6.09 E/E' Med: 10.00 E/E' Lat: 8.00 PHT: 66.00 MVA PHT: 3.33 Decel [place]: 2.71 Aortic Valve AoV Pk Dariusz: 2.36 AoV Mn Draiusz: 1.64 AoV VTI: 0.50 AoV Pk Grad: 22.00 Aov Mn Grad: 13.00 MEERA Cont.VTI: 2.88 LVOT LVOT Pk Dariusz: 1.22 LVOT Mn Dariusz: 0.84 LVOT VTI: 0.27 LVOT Pk Grad: 6.00 LVOT Mn Grad: 3.00 LVOT Diam: 2.60 LVOT Area: 5.31 Diastolic Function MV Pk E: 0.61 MV Pk A: 0.92 E/A: 0.70 E'Medial: 6.09 E/E' Med: 10.00 E' Laterial: 7.62 E/E' Lat: 8.00 Tricuspid Valve TR Pk Dariusz: 2.06 TR Pk Grad: 17.00 RA Press: 3.00 RVSP: 20.00 Pulmonary Valve PV Pk Dariusz: 1.14 Peak PV Grad: 5.00 Updated in Other Vendor System with Status of Final Huy Srivastava MD electronically signed on 09/21/2020 1:35:02 PM with status of Final
--- NOTE | 2020-09-21 10:24 | MHC.CM.PN ---
met with pt who lives with his pt is indepedent cm interv ention is not indicated home no servceis
[2020-09-21] MEDS: carvediloL 3.125 MG TABLET PO ×2 (10:32→21:09)
[2020-09-21] MEDS: Valsartan 160 MG TABLET PO (10:32)
--- NOTE | 2020-09-21 12:09 | P.CONCA_ITS ---
History of Present Illness History of Present Illness Date of Service: 09/21/20 Consult reason: other (Bradycardia) Chief complaint: Symptomatic bradycardia TAMICA Narrative: This is a cardiology consultation regarding bradycardia. He is admitted to the hospital with complaints of dizziness. It appears that his blood pressure has been high and so apparently the hydralazine dose was increased and then he was also put on spironolactone. In the last few days, he was having shortness of breath with exertion and more fatigued. In this context, he was seen in wound care and thought to be bradycardic and he continued to be dizzy and then he sent to the ER. There the heart rate was in the 30s and subsequently, he was admitted. He was also in acute kidney injury and hyperkalemia. His cardiac BNP was also elevated. He was on diltiazem and metoprolol at the time of admission. The have been held for the last 24 hours or so. Now the heart rate is in the 60s and he states that he is feeling okay. Otherwise there is no history of any coronary disease myocardial infarction or cardiomyopathy or in fact any other cardiac issues in the past. He is morbidly obese and has obstructive sleep apnea for which she uses CPAP. Review of Systems Review of Systems: Yes all other systems are reviewed and are negative Cardiovascular: Cardiovascular: Reports as per HPI, Reports no additional cardiovascular complaints, Denies acrocyanosis, Denies cool extremities, Denies painful fingertips, Denies chest pain, Denies chest pain at rest, Denies diaphoresis, Denies syncope, Denies irregular heart rhythm, Denies claudication, Denies leg edema, Denies lightheadedness, Denies palpitations and Denies dyspnea Respiratory: Respiratory: Denies dyspnea Neurologic: Denies syncope Endocrine: Endocrine: Denies palpitations REPLACED BY [facility] Past Medical History Medical History (Updated 09/21/20 @ 12:14 by Huy Srivastava MD) Arthritis Essential hypertension HTN (hypertension) Hx of gout Morbid obesity Sleep apnea Functional capacity: independent ambulation Family History Family History (Updated 09/20/20 @ 15:49 by FRANK Hernandez) Mother HTN (hypertension) CVA (cerebral vascular accident) Family history: reviewed and not pertinent Surgical History Surgical History H/O colonoscopy History of ankle surgery History of esophagogastroduodenoscopy (EGD) Hx of detached retina repair Social History Social History Household Members: Spouse Housing: House Do you presently have visiting nurse or other home services: No Alcohol intake: never Smoking Status: Never smoker Smoked in Last 30 Days: No Use of substances other than those prescribed or required for medical reasons: No Currently Displaying Signs/Symptoms of Drug Intoxication Withdrawal: No Have you been hit, kicked, punched, or otherwise hurt by someone within the past year? If so, by whom?: No Do you feel safe in your current relationship?: No Is there a partner from a previous relationship who is making you feel unsafe now?: No Are you made to feel afraid or neglected: No Advance Directives: Yes Advance Directives Information Provided: No Advance Directives on File: No Advance Directives Date on File: 09/20/20 Do you have thoughts of harming others: None Do you have a plan to hurt others: No Plan Recently lost weight without trying: No Eating poorly because of decreased appetite: No Nutrition Risks: No Nutritional Risk Poor oral hygiene: No service: No Meds Allergies Allergy/AdvReac Type Severity Reaction Status Date / Time No Known Allergies Allergy Verified 04/18/20 11:18 Active Medications: Current Medications Generic Name Dose Route Start Last Admin Trade Name Freq PRN Reason Stop Dose Admin Acetaminophen 650 mg 09/20/20 17:37 Acetaminophen 325 Mg Tablet PO Q6H PRN Pain, Mild (Pain Scale 1-3) Carvedilol 3.125 mg 09/21/20 09:50 09/21/20 10:32 Carvedilol 3.125 Mg Tablet PO 3.125 mg BID VIKRAM Administration Protocol Docusate Sodium 100 mg 09/20/20 17:37 Docusate Sodium 100 Mg Capsule PO DAILY PRN Constipation Heparin Sodium (Porcine) 5,000 unit 09/20/20 18:00 09/21/20 06:13 Heparin Sodium,Porcine 5,000 Unit/Ml Vial SUBCUT 5,000 unit Q12H VIKRAM Administration Hydralazine HCl 25 mg 09/21/20 09:00 09/21/20 07:55 Hydralazine Hcl 25 Mg Tablet PO 25 mg TID VIKRAM Administration Protocol Ondansetron HCl 4 mg 09/20/20 17:37 Ondansetron Hcl 4 Mg/2 Ml Vial IVPUSH Q8H PRN Nausea and Vomiting Pharmacy Consult 1 each 09/20/20 09:29 Consult Rx Perform Med Rec MISCELLANE ONCE PRN Consult order Sodium Chloride 3 ml 09/20/20 17:37 09/21/20 07:55 0.9 % Sodium Chloride Flush 3 Ml Syringe IVFLUSH 3 ml QSHIFT VIKRAM Administration Valsartan 160 mg 09/21/20 10:00 09/21/20 10:32 Valsartan 160 Mg Tablet PO 160 mg DAILY VIKRAM Administration Protocol Home Medications Medication Instructions Recorded Confirmed Last Taken Type allopurinol 1 tab PO DAILY 04/18/20 09/20/20 Unknown History diltiazem HCl 1 cap PO DAILY 04/18/20 09/20/20 04/23/20 History furosemide 40 mg PO DAILY 04/18/20 09/20/20 Unknown History hydralazine 1 tab PO TID 04/18/20 09/20/20 04/23/20 History indomethacin 2 cap PO DAILY 04/18/20 09/20/20 Unknown History metoprolol succinate 1 tab PO DAILY 04/18/20 09/20/20 04/23/20 History valsartan 1 tab PO DAILY 04/18/20 09/20/20 04/16/20 History spironolactone 1 tab PO BEDTIME 09/20/20 09/20/20 Unknown History Physical Exam Vital Signs: Vital Signs: Last Vital Signs Temp 98.0 F 09/21/20 11:52 Pulse 66 09/21/20 11:52 Resp 20 09/21/20 11:52 BP 158/73 H 09/21/20 11:52 Pulse Ox 97 09/21/20 11:52 Body Mass Index 53.4 Const: General: cooperative, comfortable and no acute distress Orientation/consciousness: patient oriented x3 HENMT: Other: Unremarkable Neck: Neck: Yes normal visual inspection Chest: Chest palpation & inspection: normal inspection of the chest Resp: Auscultation: clear to auscultation bilaterally, no crackles and no wheezes Cardio: Jugular venous distension: no JVD Palpation: normal PMI Heart sounds: S1 normal heart sound present, S2 normal heart sound present, no gallops, Murmur heart sound present systolic early, II/ and at the right sternal border and no rubs GI: Palpation (GI): Soft to palpation Back/Spine/Pelvis: Other: unremarkable Skin: General skin exam: no rashes or lesions noted Neuro: General: patient oriented x3 Extrem: General: Yes no clubbing, cyanosis or edema Psych: Mental Status: mental status grossly normal Results Labs and Meds Result diagrams: 09/20/20 10:31 09/21/20 06:10 Lab results: Laboratory Results - last 24 hr 09/20/20 09/20/20 09/21/20 11:47 18:24 06:10 Sodium 139 139 142 Potassium 5.8 H D 5.4 H 4.7 Chloride 107 108 108 Carbon Dioxide 24 22 24 Anion Gap 14 14 15 BUN 58 H 49 H 39 H Creatinine 2.31 H 1.77 H 1.33 Estim Creat Clear Calc 43.9 57.3 76.3 Estimated GFR 28 38 53 Random Glucose 86 100 102 Calcium 9.2 D 9.0 9.0 Total Bilirubin 0.6 AST 56 H ALT 56 H Alkaline Phosphatase 82 D Total Protein 7.4 D Albumin 4.5 D ECG Attestation: I personally reviewed and interpreted this ECG as follows: Interpretation: EKG today shows sinus bradycardia at 37/Min; no significant ST-T changes and otherwise unremarkable. Assessment and Plan (1) Bradycardia, sinus: Status: Acute (2) Essential hypertension: Status: Acute (3) JADEN on CPAP: Status: Acute Home medications include Diltiazem 240 mg daily and metoprolol succinate ER 50 mg daily. Was 2 point 0 9 but now improved to 1.33. Potassium is also improved. High sensitivity troponin normal range. Cardiac BNP is elevated. Overall, possibly spironolactone induced renal failure but not clear. It is also possible that this sinus bradycardia could have caused reduced renal perfusion. He is now off both diltiazem and metoprolol but the blood pressures going up. Hence we can try a smaller dose of carvedilol which will have a better blood pressure effect at 3.125 mg b.i.d.. Monitor him on telemetry for another 24 hours or so. Echocardiogram for cardiac function assessment. We will follow-up.
--- NOTE | 2020-09-21 13:55 | HO.PM.IMPN ---
Subjective Subjective Date of Service: 09/21/20 Interval History: follow up for bradycardia and tamica heart rate improved dizziness resolved Review of Systems Review of Systems: Yes all other systems are reviewed and are negative Constitutional Constitutional: Denies chills and Denies fever(s) Cardiovascular Cardiovascular: Denies chest pain Respiratory Respiratory: Denies cough Gastrointestinal Gastrointestinal: Denies abdominal pain Physical Exam Vital Signs: Vital Signs: Last Vital Signs Temp 98.0 F 09/21/20 11:52 Pulse 66 09/21/20 11:52 Resp 20 09/21/20 11:52 BP 158/73 H 09/21/20 11:52 Pulse Ox 97 09/21/20 11:52 Body Mass Index 53.4 Const: Nutritional Appearance: obese Orientation/consciousness: patient oriented x3 HENMT: Head: Yes normocephalic and Yes atraumatic Eyes: Sclerae: sclerae normal Chest: Chest palpation & inspection: normal inspection of the chest Resp: Effort & Inspection: normal respiratory effort and no respiratory distress Cardio: Jugular venous distension: no JVD Rate: bradycardic GI: Palpation (GI): Soft to palpation and nontender Neuro: General: patient oriented x3 Cranial nerves: Yes CN's II-XII intact bilaterally and Yes Bilaterally intact EOM present Extrem: Other: no edema, rle wound wrapped in c/d/i bandage Objective Data Current Medications Generic Name Dose Route Start Last Admin Trade Name Freq PRN Reason Stop Dose Admin Acetaminophen 650 mg 09/20/20 17:37 Acetaminophen 325 Mg Tablet PO Q6H PRN Pain, Mild (Pain Scale 1-3) Carvedilol 3.125 mg 09/21/20 09:50 09/21/20 10:32 Carvedilol 3.125 Mg Tablet PO 3.125 mg BID VIKRAM Administration Protocol Docusate Sodium 100 mg 09/20/20 17:37 Docusate Sodium 100 Mg Capsule PO DAILY PRN Constipation Heparin Sodium (Porcine) 5,000 unit 09/20/20 18:00 09/21/20 06:13 Heparin Sodium,Porcine 5,000 Unit/Ml Vial SUBCUT 5,000 unit Q12H VIKRAM Administration Hydralazine HCl 25 mg 09/21/20 09:00 09/21/20 07:55 Hydralazine Hcl 25 Mg Tablet PO 25 mg TID VIKRAM Administration Protocol Ondansetron HCl 4 mg 09/20/20 17:37 Ondansetron Hcl 4 Mg/2 Ml Vial IVPUSH Q8H PRN Nausea and Vomiting Pharmacy Consult 1 each 09/20/20 09:29 Consult Rx Perform Med Rec MISCELLANE ONCE PRN Consult order Sodium Chloride 3 ml 09/20/20 17:37 09/21/20 07:55 0.9 % Sodium Chloride Flush 3 Ml Syringe IVFLUSH 3 ml QSHIFT VIKRAM Administration Valsartan 160 mg 09/21/20 10:00 09/21/20 10:32 Valsartan 160 Mg Tablet PO 160 mg DAILY VIKRAM Administration Protocol Labs CBC & Chem 7: 09/20/20 10:31 09/21/20 06:10 Assessment and Plan (1) TAMICA (acute kidney injury): Status: Acute (2) Bradycardia, sinus: Status: Acute Assessment and Plan: This is a 70 year old male with history of HTN, HFpEF, morbid obesity, JADEN on cpap, recently started on aldactone who presents to the ED with dizziness found to be bradycardic with HR in 30s and TAMICA. Symptomatic sinus bradycardia. HR improved, symtoms resolved r/t medications - metoprolol, cardizem Echo with preserved EF, no valvular abnormality, grade 1 diastolic dysfunction -cardiology following -monitor overnight on telemetry TAMICA SCr improved from 2.31 to 1.33 with baseline around 1 r/t diuretics, drop in BP -hold lasix, aldactone, indomethacin, allopurinol -follow BMP -nephrology following Hyperkalemia K 5.8 on admission, now 4.7 r/t above TAMICA HTN BP lower than baseline on admission, now rebounding. -Hold lasix, aldactone -continue hydralazine -resume lower dose of valsartan -start coreg in place of metoprolol -monitor blood pressure closely HFpEF echo from 2016 with preserved EF and diastolic dysfunction although bnp elevated, not clinically in heart failure -hold lasix Morbid obesity BMI 53.4 JADEN -Continue CPAP chronic RLE wound being followed at the wound clinic -continue local wound care elevated troponin, 14 likely r/t elevated renal function no chest pain dvt ppx - heparin code status - full code Attending. Dr. Mendez
--- NOTE | 2020-09-21 17:30 | PM.PNNEP ---
Subjective Subjective Date of Service: 09/21/20 Interval history: Seen and examined. Events noted Physical Exam Vital Signs: Vital Signs: Last Vital Signs Temp 97.8 F 09/21/20 15:11 Pulse 68 09/21/20 15:11 Resp 18 09/21/20 15:11 BP 140/65 H 09/21/20 15:11 Pulse Ox 96 09/21/20 15:11 Body Mass Index 53.4 Const: Nutritional Appearance: well nourished Orientation/consciousness: patient oriented x3 HENMT: Head: Yes normocephalic and Yes atraumatic Eyes: Sclerae: sclerae normal Chest: Chest palpation & inspection: normal inspection of the chest Resp: Effort & Inspection: normal respiratory effort and no respiratory distress Cardio: Jugular venous distension: no JVD Rate: bradycardic GI: Palpation (GI): Soft to palpation and nontender Neuro: General: patient oriented x3 Cranial nerves: Yes CN's II-XII intact bilaterally and Yes Bilaterally intact EOM present Extrem: Other: no edema Objective Data Labs CBC & Chem 7: 09/20/20 10:31 09/21/20 06:10 Labs: Laboratory Results - last 24 hr 09/20/20 09/21/20 18:24 06:10 Sodium 139 142 Potassium 5.4 H 4.7 Chloride 108 108 Carbon Dioxide 22 24 Anion Gap 14 15 BUN 49 H 39 H Creatinine 1.77 H 1.33 Estim Creat Clear Calc 57.3 76.3 Estimated GFR 38 53 Random Glucose 100 102 Calcium 9.0 9.0 Assessment & Plan Assessment and plan (1) TAMICA (acute kidney injury): Status: Acute (2) Bradycardia, sinus: Status: Acute Assessment and Plan: This is a 70 year old male with history of HTN, HFpEF, morbid obesity, JADEN on cpap, recently started on aldactone who presents to the ED with dizziness found to be bradycardic with HR in 30s and TAMICA. 1. TAMICA:resolving; most c/w renal hypoperfusion as SCr decr with IVF and improved HR 2. Symptomatic bradycardia: multifact including combo of BBlocker and dilt and hyperK 3. HyperK: resolved off aldactone REC: avoid aldactone; avoid BBlocker w dilt combo; will need f/u as outpt if d/c to reassess BP meds will follow with team Time Spent With Patient Time: Total time spent is greater than 50% in coordination of care (as documented) at patient's floor/unit and/or counseling patient:
--- NOTE | 2020-09-21 18:24 | PC.NURSE ---
Patient's HR sustained in the 60s. Nephro consulted for increased renal levels. Echo completed.
[2020-09-22 03:17] VITALS: BP 140/68; PULSE 60; RESP 18; TEMP 36.3; O2SAT 98
[2020-09-22] MEDS: Heparin Sodium,Porcine 5,000 UNIT/ML VIAL 5000 UNIT SUBCUT (05:38)
[2020-09-22 06:55] VITALS: BP 146/74; PULSE 63; RESP 18; TEMP 36.2; O2SAT 98
[2020-09-22 06:56] LABS: Anion Gap 12 (12-20); Blood Urea Nitrogen 27 mg/dL (9-16); Calcium 9.2 mg/dL (8.4-10.2); Carbon Dioxide 27 mmol/L (22-29); Chloride 107 mmol/L (96-108); Creatinine Clr Calc Pharmacy 97.6; Estimated Glomerular Filt Rate > 60; Glucose Random 100 mg/dL (60-115); Potassium 4.7 mmol/L (3.3-5.1); Sodium 141 mmol/L (135-145)
[2020-09-22 07:46] VITALS: BP 146/74; PULSE 63
[2020-09-22] MEDS: hydrALAZINE HCl 25 MG TABLET PO (07:46)
[2020-09-22] MEDS: 0.9 % Sodium Chloride Flush 3 ML SYRINGE IVFLUSH (07:46)
[2020-09-22 07:47] VITALS: BP 146/74; PULSE 63
[2020-09-22] MEDS: carvediloL 3.125 MG TABLET PO (07:47)
[2020-09-22] MEDS: Valsartan 160 MG TABLET PO (07:47)
--- NOTE | 2020-09-22 09:53 | PM.DS ---
DS: Providers Provider Date of Service: 09/22/20 <FRANK Hernandez - Last Filed: 09/22/20 10:26> 09/23/20 <Petey Hastings MD - Last Filed: 09/23/20 09:55> Date of admission: 09/20/20 15:35 <FRANK Hernandez - Last Filed: 09/22/20 10:26> Primary care physician: Billy Dc MD <FRANK Hernandez - Last Filed: 09/22/20 10:26> Consults: 09/20/20 15:35 Consult to Nephrology Routine Consulting Provider: Balaji Collier Reason for consultation: tamica 09/21/20 09:12 Consult to Cardiology Routine Consulting Provider: Huy Srivastava Reason for consultation: bradycardia, htn Has provider been notified: No <FRANK Hernandez - Last Filed: 09/22/20 10:26> DS: Diagnosis Discharge Diagnosis (1) Symptomatic bradycardia: Status: Acute <FRANK Hernandez - Last Filed: 09/22/20 10:26> (2) TAMICA (acute kidney injury): Status: Acute <FRANK eHrnandez - Last Filed: 09/22/20 10:26> (3) Essential hypertension: Status: Acute <FRANK Hernandez - Last Filed: 09/22/20 10:26> (4) JADEN on CPAP: Status: Acute <FRANK Hernandez - Last Filed: 09/22/20 10:26> (5) Morbid obesity with BMI of 50.0-59.9, adult: Status: Acute <FRANK Hernandez - Last Filed: 09/22/20 10:26> DS: Medications Discharge Medications Home Medications: Home Medications Medication Instructions Recorded Confirmed allopurinol 1 tab PO DAILY 04/18/20 09/20/20 diltiazem HCl 1 cap PO DAILY 04/18/20 09/20/20 furosemide 40 mg PO DAILY 04/18/20 09/20/20 hydralazine 1 tab PO TID 04/18/20 09/20/20 indomethacin 2 cap PO DAILY 04/18/20 09/20/20 metoprolol succinate 1 tab PO DAILY 04/18/20 09/20/20 valsartan 1 tab PO DAILY 04/18/20 09/20/20 spironolactone 1 tab PO BEDTIME 09/20/20 09/20/20 <FRANK Hernandez - Last Filed: 09/22/20 10:26> DS: Summary Hospital Course Hospital Course: This is a 70 year old male with history of HTN, morbid obesity, JADEN on CPAP Who presented to the emergency department with dizziness found to have severe bradycardia with heart rate in the 30s and TAMICA. Symptomatic bradycardia. EKG showed sinus bradycardia with no heart block. Likely secondary to medication. Patient was evaluated by cardiology. Metoprolol and Cardizem were placed on hold. Metoprolol was changed to carvedilol. Patient has tolerated heart rate in mid 60s or above. Dizziness has resolved. TAMICA. Secondary to renal hypoperfusion in the setting of multiple antihypertensives, diuretics and bradycardia. Nephrotoxic medication including Lasix, valsartan, Aldactone, indomethacin and allopurinol were initially placed on hold. He was treated with IV fluid. Creatinine improved from 2.31 on admission to 1.04, back to baseline. Aldactone has been discontinued. Valsartan has been resumed at a lower dose. We will place Lasix on hold, can determine further need for ongoing use with PCP. ECHO done showing EF 60-65% grade 1 diastolic dysfunction. moderate calcification of the aortic valve with no aortic valve stenosis. Seen and examined and discussed plan and finding with midlevel provider and I agree with assessment and plan as outlined here--DOS 09/22/20 <FRANK Hernandez - Last Filed: 09/22/20 10:26> Time Spent with Patient Time attestation: Total time spent providing and/or coordinating discharge services: <FRANK Hernandez - Last Filed: 09/22/20 10:26> Discharge coordination time: Greater than 30 minutes <FRANK Hernandez - Last Filed: 09/22/20 10:26> Physical Exam Vital Signs: Vital Signs: Last Vital Signs Temp 97.1 F 09/22/20 06:55 Pulse 63 09/22/20 07:47 Resp 18 09/22/20 06:55 BP 146/74 H 09/22/20 07:47 Pulse Ox 98 09/22/20 06:55 Body Mass Index 53.4 <FRANK Hernandez - Last Filed: 09/22/20 10:26> Const: Nutritional Appearance: obese <FRANK Hernandez - Last Filed: 09/22/20 10:26> Orientation/consciousness: patient oriented x3 <FRANK Hernandez - Last Filed: 09/22/20 10:26> HENMT: Head: Yes normocephalic and Yes atraumatic <FRANK Hernandez - Last Filed: 09/22/20 10:26> Eyes: Sclerae: sclerae normal <FRANK Hernandez - Last Filed: 09/22/20 10:26> Chest: Chest palpation & inspection: normal inspection of the chest <FRANK Hernandez - Last Filed: 09/22/20 10:26> Resp: Effort & Inspection: normal respiratory effort and no respiratory distress <FRANK Hernandez - Last Filed: 09/22/20 10:26> Cardio: Jugular venous distension: no JVD <FRANK Hernandez - Last Filed: 09/22/20 10:26> Rate: bradycardic <FRANK Hernandez - Last Filed: 09/22/20 10:26> GI: Palpation (GI): Soft to palpation and nontender <FRANK Hernandez - Last Filed: 09/22/20 10:26> Neuro: General: patient oriented x3 <FRANK Hernandez - Last Filed: 09/22/20 10:26> Cranial nerves: Yes CN's II-XII intact bilaterally and Yes Bilaterally intact EOM present <FRANK Hernandez - Last Filed: 09/22/20 10:26> Extrem: Other: no edema, rle wound wrapped in c/d/i bandage <FRANK Hernandez - Last Filed: 09/22/20 10:26> DS: Data Data Completed and Pending Labs on day of discharge: Laboratory Results - last 24 hr 09/22/20 06:03 Sodium 141 Potassium 4.7 Chloride 107 Carbon Dioxide 27 Anion Gap 12 BUN 27 H Creatinine 1.04 Estim Creat Clear Calc 97.6 Estimated GFR > 60 Random Glucose 100 Calcium 9.2 <FRANK Hernandez - Last Filed: 09/22/20 10:26> Discharge Plan Discharge Patient Disposition: Home, Self-Care <FRANK Hernandez - Last Filed: 09/22/20 10:26> Discharge Diagnosis: Symptomatic bradycardia TAMICA HTN <FRANK Hernandez - Last Filed: 09/22/20 10:26> Symptomatic bradycardia TAMICA HTN <Petey Hastings MD - Last Filed: 09/23/20 09:55> Referrals: Billy Dc MD [Primary Care Provider] - 1 Week <FRANK Hernandez - Last Filed: 09/22/20 10:26> Discharge Medications: New valsartan 160 mg Tablet 160 mg PO DAILY 30 Days Qty: 30 RF: 0 carvedilol 3.125 mg Tablet 3.125 mg PO BID 30 Days Qty: 60 RF: 0 Continued hydralazine 25 mg tablet 1 tab PO TID RF: 0 allopurinol 300 mg tablet 1 tab PO DAILY RF: 0 Discontinued furosemide 40 mg tablet 40 mg PO DAILY RF: 0 metoprolol succinate 50 mg tablet extended release 24 hr 1 tab PO DAILY RF: 0 diltiazem HCl 240 mg capsule,extended release 24hr 1 cap PO DAILY RF: 0 valsartan 320 mg tablet 1 tab PO DAILY RF: 0 indomethacin 50 mg capsule 2 cap PO DAILY RF: 0 spironolactone 25 mg tablet 1 tab PO BEDTIME RF: 0 <FRANK Hernandez - Last Filed: 09/22/20 10:26> Discharge Orders: Discharge Order (Routine); Ordered 09/22/20 Ordered By: Gabbie Day <FRANK Hernandez - Last Filed: 09/22/20 10:26> Activity on Discharge: As tolerated <FRANK Hernandez Last Filed: 09/22/20 10:26> As tolerated <Petey Hastings MD - Last Filed: 09/23/20 09:55> Stand Alone Forms: Patient Portal Discharge page <FRANK Hernandez Last Filed: 09/22/20 10:26> Care Plan Goals: See below <FRANK Hernandez - Last Filed: 09/22/20 10:26> Health Concerns: Slow heart rate HTN TAMICA <FRANK Hernandez - Last Filed: 09/22/20 10:26> Plan of Treatment: Your blood pressure medication has been adjusted. Valsartan dose has been decreased. Metoprolol has been changed to Carvedilol. Please take as prescribed. Lasix, Aldactone and Indomethacin have been discontinued. Call to schedule a follow up appointment with your PCP to monitor blood pressure and heart rate. <FRANK Hernandez - Last Filed: 09/22/20 10:26> Assessment: See discharge summary <FRANK Hernandez - Last Filed: 09/22/20 10:26> Discharge Date/Time: 09/22/20 11:32 <FRANK Hernandez - Last Filed: 09/22/20 10:26>
--- NOTE | 2020-09-22 10:50 | MHC.CM.PN ---
PT WILL DC HOME TODAY WITH NO SERVICES PT TO SELF ARRANGE TRANSPORT
--- NOTE | 2020-09-22 13:18 | PM.PNCARD ---
Subjective Subjective Date of Service: 09/22/20 Interval history: Seen around 11:00am. No complaints. He states that he feels well. Review of Systems Review of Systems Yes all other systems are reviewed and are negative Cardiovascular: Reports as per HPI, Reports no additional cardiovascular complaints, Denies acrocyanosis, Denies cool extremities, Denies painful fingertips, Denies chest pain, Denies chest pain at rest, Denies diaphoresis, Denies syncope, Denies irregular heart rhythm, Denies claudication, Denies leg edema, Denies lightheadedness, Denies palpitations and Denies dyspnea Respiratory: Denies dyspnea Denies syncope Endocrine: Denies palpitations Physical Exam Vital Signs: Last Vital Signs Temp 97.1 F 09/22/20 06:55 Pulse 63 09/22/20 07:47 Resp 18 09/22/20 06:55 BP 146/74 H 09/22/20 07:47 Pulse Ox 98 09/22/20 06:55 Body Mass Index 53.4 Const General: cooperative, comfortable and no acute distress Orientation/consciousness: patient oriented x3 HENNY Other: Unremarkable Neck Neck: Yes normal visual inspection Chest Chest palpation & inspection: normal inspection of the chest Resp Auscultation: clear to auscultation bilaterally, no crackles and no wheezes Cardio Jugular venous distension: no JVD Palpation: normal PMI Heart sounds: S1 normal heart sound present, S2 normal heart sound present, no gallops, Murmur heart sound present systolic early, II/ and at the right sternal border and no rubs GI Palpation (GI): Soft to palpation Back/Spine/Pelvis Other: unremarkable Skin General skin exam: no rashes or lesions noted Neuro General: patient oriented x3 Extrem General: Yes no clubbing, cyanosis or edema Psych Mental Status: mental status grossly normal Results Labs and Meds Result diagrams: 09/20/20 10:31 09/22/20 06:03 Lab results: Laboratory Results - last 24 hr 09/22/20 06:03 Sodium 141 Potassium 4.7 Chloride 107 Carbon Dioxide 27 Anion Gap 12 BUN 27 H Creatinine 1.04 Estim Creat Clear Calc 97.6 Estimated GFR > 60 Random Glucose 100 Calcium 9.2 Progress Note: A&P Assessment and plan (1) Bradycardia, sinus: Status: Acute (2) Essential hypertension: Status: Acute (3) JADEN on CPAP: Status: Acute Assessment and Plan: Home medications include Diltiazem 240 mg daily and metoprolol succinate ER 50 mg daily. K was 5.8 on arrival but improved to 4.7. Creatinine improved from 2.09-1.04. High sensitivity troponin normal range. Cardiac BNP is elevated. Overall, possibly spironolactone induced renal failure but not clear. It is also possible that this sinus bradycardia could have caused reduced renal perfusion. He is now off both diltiazem and metoprolol but the blood pressures going up. Hence on smaller dose of carvedilol which will have a better blood pressure effect at 3.125 mg b.i.d.. Telemetry appears stable. Echocardiogram with LVEF 60-65% and moderate aortic valve calcification without any stenosis. Upon discharge, we will arrange outpatient follow-up. Time Spent With Patient Time: Total time spent is greater than 50% in coordination of care (as documented) at patient's floor/unit and/or counseling patient: Time with patient: less than 15 minutes
== END 2020-09-22 11:32 | disposition home or self-care (01) | DRG 469 ==
LOC: HO.ED 11:52 → HO.EDOVER 16:02 → HO.IMC 16:03
PROVIDERS: Internal Medicine Nephrology; Admitting Provider Physician Assistant Medical; Emergency Provider Emergency Medicine; PCP Internal Medicine; Visit Provider Internal Medicine
DX: N17.9 Acute kidney failure, unspecified (principal); I11.0 Hypertensive heart disease with heart failure; I50.32 Chronic diastolic (congestive) heart failure; Z68.43 Body mass index [BMI] 50.0-59.9, adult; R00.1 Bradycardia, unspecified; E87.5 Hyperkalemia; E66.01 Morbid (severe) obesity due to excess calories; G47.33 Obstructive sleep apnea (adult) (pediatric); T44.7X5A Adverse effect of beta-adrenoreceptor antagonists, initial encounter; Y92.9 Unspecified place or not applicable; Z20.822 Contact with and (suspected) exposure to COVID-19; Z99.89 Dependence on other enabling machines and devices; Z79.899 Other long term (current) drug therapy
CPT/HCPCS: 36415; 71045; 80048; 80053; 80076; 83690; 83735; 83880; 84443; 84484; 85025; 85379; 85610; 85730; 87635; 93005; 93306; 96365; 96366; 96375; 99285; J0461; J0610; J1610; Q9957

== ENCOUNTER 2020-10-18 08:16 | Outpatient (REF) | payer OTHER, SELFPAY ==
[2020-10-18 10:42] LABS: MANUAL DIFF FLAG NO
[2020-10-18 11:17] LABS: Basophils Absolute Auto 0.1 X10*3/uL (0.0-0.2); Basophils Percent Auto 0.6 % (0-2); Eosinophils Absolute Auto 0.4 X10*3/uL (0.0-0.4); Eosinophils Percent Auto 5.6 % (0-4); Hematocrit 43.6 % (42-52); Hemoglobin 13.8 g/dl (14.0-18.0); Imm Gran Abs Auto 0.02 X10*3/uL (0.00-0.03); Imm Gran Pct Auto 0.3 % (0.0-0.4); Lymphocytes Absolute Auto 1.7 X10*3/uL (1.2-4.9); Lymphocytes Percent Auto 21.9 % (20-40); Mean Corpuscular HGB Conc 31.7 g/dl (31.0-36.0); Mean Corpuscular Hemoglobin 30.3 pg (27.0-33.0); Mean Corpuscular Volume 95.8 fL (80-98); Monocytes Absolute Auto 0.7 X10*3/uL (0.1-1.2); Neutrophils Absolute Auto 4.9 X10*3/uL (2.0-8.3); Neutrophils Percent Auto 62.6 % (45-73); Platelet Count 381 X10*3/uL (160-400); Red Blood Count 4.55 X10*6/uL (4.60-5.80); Red Cell Distribution Width 14.5 % (11.0-16.0); White Blood Count 7.9 X10*3/uL (4.8-10.8)
[2020-10-18 11:31] LABS: Estimated Average Glucose 103 mg/dL; Hemoglobin A1c % 5.2 %
[2020-10-18 11:46] LABS: Glucose Urine UA NEG (NEG); Leukocyte Esterase Urine NEG (NEG); Nitrite Urine NEG (NEG); Specific Gravity - Urine <= 1.005 (1.005-1.025); Urine Blood NEG (NEG); Urine Ketones NEG (NEG); Urine Protein NEG (NEG-TRACE)
[2020-10-18 12:00] LABS: Appearance Urine CLEAR; Color Urine YELLOW
[2020-10-18 12:14] LABS: Creatinine Urine 59.52 mg/dL; Microalbumin Urine < 5.0 mg/L
[2020-10-18 12:59] LABS: PSA,Total (Free>4and<10) 1.67 ng/mL (0.00-4.00)
[2020-10-18 13:11] LABS: Alanine Aminotransferase 25 U/L (0-40); Albumin Level 4.7 g/dL (3.5-5.0); Alkaline Phosphatase 74 U/L (39-117); Anion Gap 15 (12-20); Aspartate Amino Transferase 46 U/L (5-37); Bilirubin Total 0.7 mg/dL (0.0-1.0); Blood Urea Nitrogen 30 mg/dL (9-16); Calcium 9.3 mg/dL (8.4-10.2); Carbon Dioxide 28 mmol/L (22-29); Chloride 101 mmol/L (96-108); Cholesterol 207 mg/dL; Estimated Glomerular Filt Rate 53; Glucose Fasting 101 mg/dL (60-99); HDL Cholesterol 34 mg/dL; LDL Cholesterol Calculated 141 mg/dl; Potassium 4.4 mmol/L (3.3-5.1); Sodium 140 mmol/L (135-145); Total Protein 7.7 g/dL (6.5-8.0); Triglycerides 164 mg/dL
[2020-10-18 13:40] LABS: Reflex LDLD? No
== END 2020-10-18 08:17 | disposition home or self-care (01) ==
LOC: HO.LNP 08:16
PROVIDERS: PCP Internal Medicine; Referring Provider Internal Medicine; Visit Provider Internal Medicine
DX: Z00.00 Encounter for general adult medical examination without abnormal findings (principal); I10 Essential (primary) hypertension; R73.03 Prediabetes; E79.0 Hyperuricemia without signs of inflammatory arthritis and tophaceous disease; R79.89 Other specified abnormal findings of blood chemistry; E78.00 Pure hypercholesterolemia, unspecified; Z12.5 Encounter for screening for malignant neoplasm of prostate; R00.1 Bradycardia, unspecified; I35.9 Nonrheumatic aortic valve disorder, unspecified; G47.33 Obstructive sleep apnea (adult) (pediatric); E66.01 Morbid (severe) obesity due to excess calories; Z68.43 Body mass index [BMI] 50.0-59.9, adult; Z99.89 Dependence on other enabling machines and devices
CPT/HCPCS: 80053; 80061; 81003; 82043; 83036; 84153; 85025

== ENCOUNTER → 2021-04-23 08:29 | Outpatient (BNVA) | payer MEDICARE, SELFPAY | PROVIDERS: PCP Internal Medicine; Referring Provider Internal Medicine; Visit Provider Internal Medicine | DX: R00.1 Bradycardia, unspecified (principal); I10 Essential (primary) hypertension; I35.9 Nonrheumatic aortic valve disorder, unspecified; G47.33 Obstructive sleep apnea (adult) (pediatric); E66.01 Morbid (severe) obesity due to excess calories; Z68.43 Body mass index [BMI] 50.0-59.9, adult | CPT/HCPCS: 99212 ==

== ENCOUNTER → 2021-05-08 14:17 | Outpatient (BNVA) | payer MEDICARE, SELFPAY | PROVIDERS: PCP Internal Medicine; Visit Provider Internal Medicine | DX: G47.33 Obstructive sleep apnea (adult) (pediatric) (principal); E66.01 Morbid (severe) obesity due to excess calories; Z68.43 Body mass index [BMI] 50.0-59.9, adult | CPT/HCPCS: 99202 ==

== ENCOUNTER → 2021-06-05 13:12 | Outpatient (BNVA) | payer MEDICARE, SELFPAY | PROVIDERS: PCP Internal Medicine; Referring Provider Internal Medicine; Visit Provider Nurse Practitioner Family | DX: R00.2 Palpitations (principal); R00.1 Bradycardia, unspecified; I35.9 Nonrheumatic aortic valve disorder, unspecified; I10 Essential (primary) hypertension; G47.33 Obstructive sleep apnea (adult) (pediatric); E66.01 Morbid (severe) obesity due to excess calories; Z68.43 Body mass index [BMI] 50.0-59.9, adult | CPT/HCPCS: 93005; 99212 ==

== ENCOUNTER 2021-06-10 10:39 | Outpatient (REF) | payer MEDICARE, SELFPAY ==
[2021-06-10 12:28] LABS: Blood Urea Nitrogen 36 mg/dL (9-16); Estimated Glomerular Filt Rate > 60
== END 2021-06-10 10:40 | disposition home or self-care (01) ==
LOC: HO.LNP 10:39
PROVIDERS: PCP Internal Medicine; Visit Provider Internal Medicine
DX: Z01.812 Encounter for preprocedural laboratory examination (principal)
CPT/HCPCS: 82565; 84520

== ENCOUNTER 2021-06-24 13:37 | Outpatient (REF) | payer MEDICARE, SELFPAY ==
--- NOTE | ~2021-06-24 | CT_ITS ---
EXAMINATION: CT ANGIOGRAM CHEST CLINICAL INFORMATION: Palpitations. Abdominal aortic aneurysm. COMPARISON: Chest x-ray 09/20/2020 TECHNIQUE: Multiple axial images were obtained through the chest after the administration of 85 mL of Omnipaque 350 intravenous contrast. Reformatted coronal, sagittal and MIP imaging was provided for interpretation. Today's examination is limited secondary to quantum mottle artifact from patient body habitus. This CT examination was performed using dose optimization techniques as appropriate, variously including the following: *Automated exposure control *Adjustment of mA and/or kV according to patient size (this includes techniques or standardized protocols for targeted exams where dose is matched to indication/reason for exam; i.e. extremities or head) *Use of iterative reconstruction technique DLP: 656 mGy-cm FINDINGS: The heart is normal in size. There is no pericardial effusion. Normal caliber thoracic aorta. Normal three-vessel takeoff of the aortic arch. Visualized proximal portions of the bilateral subclavian, common carotid and vertebral arteries are patent. The main pulmonary artery is mildly prominent raising suspicion for pulmonary arterial hypertension. No pathologically enlarged mediastinal or hilar lymph nodes appreciated. No enlarged axillary lymph nodes. Central airways are patent. Lungs are well aerated. There is no lobar consolidation. No pleural effusion or pneumothorax. 3 mm right upper lobe pulmonary nodule (image 135/512, series 9). Visualized portion of the upper abdomen demonstrate diffusely decreased attenuation of the liver suggesting hepatic steatosis. An approximately 4.8 cm right renal cyst is noted. An approximately 1 cm left renal cyst is also noted. Moderate to severe degenerative changes of the spine. CT/CT angio chest aorta IMPRESSION: -Normal caliber thoracic aorta. -No lobar consolidation, pleural effusion or pneumothorax. -3 mm right upper lobe pulmonary nodule. -Diffusely decreased liver attenuation suggesting hepatic steatosis. Correlation with liver enzymes recommended. -Bilateral renal cysts suboptimally evaluated. According to the UPDATED 2017 Fleischner Society recommendations, the advised follow-up imaging for solid nodules < 6 mm is: LOW RISK PATIENT: No routine follow-up. HIGH RISK PATIENT: Optional CT at 12 months. Fleischner guidelines were followed.
--- NOTE | ~2021-06-24 | CT_ITS ---
EXAMINATION: CT SOFT TISSUE NECK WITH CONTRAST CLINICAL INFORMATION: 71-year-old with lymphadenopathy. COMPARISON: None TECHNIQUE: Following the intravenous administration of 100 mL of Omnipaque 350 intravenous contrast, helical imaging was performed in the axial plane with generation of coronal and sagittal reformatted images. This CT examination was performed using dose optimization techniques as appropriate, variously including the following: *Automated exposure control *Adjustment of mA and/or kV according to patient size (this includes techniques or standardized protocols for targeted exams where dose is matched to indication/reason for exam; i.e. extremities or head) *Use of iterative reconstruction technique DLP: 278 mGy-cm FINDINGS: Skull Base: The bony skull base is grossly intact. Visualized calvarium is intact. The left mastoid is sclerotic and contracted and is completely opacified with abnormal soft tissue in the left middle ear cavity suggesting left-sided otomastoiditis. Right mastoid and middle ear cavity are unopacified. Probable retention cyst formation along the floor of the sphenoid sinus, with erosion and/or deossification of the sphenoid sinus floor. Limited visualization of the intracranial contents demonstrates calcification of both ICAs at the carotid siphons. No acute intracranial process. The visualized orbital soft tissues are remarkable for previous lens extraction on the right. Suprahyoid Neck: The nasopharynx, software applications designer and parapharyngeal spaces appear within normal limits. The oropharynx is partially obscured by metallic hardware artifact from dentition in the oral cavity. The parotid glands are normal in morphology and attenuation. Multiple small intraparotid and periparotid lymph nodes are noted, which are not abnormally enlarged. Cannot exclude some thickening of the oropharynx. Correlate with direct visualization. The oral cavity is partially obscured by dental amalgam artifact. The visualized oral tongue, base of the tongue and floor of the mouth structures are grossly intact and unremarkable. The submandibular glands are normal in morphology and attenuation. Note is made of numerous markedly enlarged lymph nodes involving the IJ chains bilaterally and posterior cervical chains, right more than left, some of which are hypodense, with the largest of these nodes on the right measuring 4.4 cm in greatest cross-sectional dimension in the axial plane. The findings are consistent with lymphadenopathy, with some necrosis suspected. There is a possible small defect in the epiglottis which should be correlated with direct visualization. Infrahyoid Neck: There is fullness of the retropharyngeal soft tissues at the level of the hypopharynx which is nonspecific. Cannot exclude tumor in this region. The pharyngeal mucosal space of the hypopharynx appears smoothly contoured. The larynx appears within normal limits. Evaluation of the infrahyoid neck soft tissues is limited due to artifact from the chest and shoulders. There is lymphadenopathy in the IJ chains bilaterally, right more than left, with bulky lymph nodes noted. The thyroid gland is partially obscured by artifact. Upper Chest: See accompanying CT angiogram of the chest. Multiple small mediastinal lymph nodes are noted without lymphadenopathy. Visualized lung parenchyma is grossly unremarkable. Skeletal: Multilevel cervical DDD and spondylosis with lordotic reversal centered at C4-C5 and mild anterolisthesis at C2-C3. Note that the cervicothoracic spine is partially obscured by artifact. Mild cervicothoracic levoscoliosis noted. Other Comments: None. CT/CT soft tissue neck w con IMPRESSION: 1. Limited study due to large body habitus limitations. 2. Extensive cervical lymphadenopathy, with hypodensity seen within some of these enlarged lymph nodes particularly on the right suggesting necrosis. Differential diagnostic considerations include both neoplastic and infectious diseases. 3. Possible thickening of the oropharynx and question of a small defect in the epiglottis. Correlate with direct visualization for these findings. 4. Focal thickening of the prevertebral soft tissues at the level of the hypopharyngeal retropharynx of indeterminate etiology. Cannot exclude neoplastic disease in this region. Consider MRI with contrast for additional assessment. 5. Retention cysts in the sphenoid sinus along the floor of the sinus with possible erosive changes along the sphenoid sinus floor of indeterminate chronicity. This can be better evaluated with MRI without and with contrast if clinically warranted. 6. Multilevel cervical degenerative changes. The [facility] staff will call to confirm receipt of this report with acknowledgement of the findings and any recommendations.
--- NOTE | 2021-06-24 14:16 | HM_ITS ---
Conclusion: 1. Patient was monitored for total period of 6 days and 23 hours 2. Underlying rhythm is sinus bradycardia with average heart of 59 beats per minute 3. Frequent pauses noted with longest pause of 4.08 seconds at 13:42. Most of these pauses were in the afternoon time 4. Marked sinus bradycardia 28 beats per minute noted in director of enterprise strategy hours around 01:00 5. Total of 16,096 PACs accounting for 2.67% total burden accounting for frequent PACs 6. Short burst of SVT longest lasting 12 beats 7. No patient reported events MTDD
[2021-06-24] MEDS: iohexoL 350 MG/ML 100 ML INFUS..BTL IV (14:31)
== END 2021-06-24 13:38 | disposition home or self-care (01) ==
LOC: HO.CT 13:37
PROVIDERS: PCP Internal Medicine; Visit Provider Internal Medicine
DX: R00.2 Palpitations (principal); G47.33 Obstructive sleep apnea (adult) (pediatric); R59.1 Generalized enlarged lymph nodes; I71.2 Thoracic aortic aneurysm, without rupture
CPT/HCPCS: 70491; 71275; 93242; Q9967

== ENCOUNTER → 2021-07-09 14:03 | Outpatient (BNVA) | payer MEDICARE, SELFPAY | PROVIDERS: PCP Internal Medicine; Referring Provider Internal Medicine; Visit Provider Nurse Practitioner Family | DX: R00.2 Palpitations (principal); R00.1 Bradycardia, unspecified; I35.9 Nonrheumatic aortic valve disorder, unspecified; I10 Essential (primary) hypertension; G47.33 Obstructive sleep apnea (adult) (pediatric); E66.01 Morbid (severe) obesity due to excess calories; Z68.43 Body mass index [BMI] 50.0-59.9, adult | CPT/HCPCS: 99212 ==

== ENCOUNTER 2021-07-15 13:30 | Outpatient (REF) | payer MEDICARE, SELFPAY | END 2021-07-15 13:31 | disposition home or self-care (01) | LOC: HO.MRI 13:30 | PROVIDERS: PCP Internal Medicine; Visit Provider Internal Medicine | DX: Z13.89 Encounter for screening for other disorder (principal) ==

== ENCOUNTER 2021-07-19 14:54 | Outpatient (REF) | payer MEDICARE, SELFPAY ==
[2021-07-19 16:25] LABS: Anion Gap 13 (12-20); Blood Urea Nitrogen 23 mg/dL (9-16); Calcium 10.2 mg/dL (8.4-10.2); Carbon Dioxide 31 mmol/L (22-29); Chloride 100 mmol/L (96-108); Estimated Glomerular Filt Rate > 60; Glucose Random 96 mg/dL (60-115); Potassium 4.8 mmol/L (3.3-5.1); Sodium 139 mmol/L (135-145)
== END 2021-07-19 14:55 | disposition home or self-care (01) ==
LOC: HO.LAB 14:54
PROVIDERS: PCP Internal Medicine; Referring Provider Internal Medicine; Visit Provider Nurse Practitioner Family
DX: I10 Essential (primary) hypertension (principal)
CPT/HCPCS: 36415; 80048

== ENCOUNTER 2021-07-30 10:22 | Outpatient (REF) | payer MEDICARE, SELFPAY ==
[2021-07-30 11:03] LABS: Blood Urea Nitrogen 34 mg/dL (9-16); Estimated Glomerular Filt Rate > 60
== END 2021-07-30 10:23 | disposition home or self-care (01) ==
LOC: HO.LNP 10:22
PROVIDERS: PCP Internal Medicine; Visit Provider Internal Medicine
DX: R79.9 Abnormal finding of blood chemistry, unspecified (principal)
CPT/HCPCS: 82565; 84520

== ENCOUNTER 2021-08-07 10:28 | Outpatient (REF) | payer MEDICARE, SELFPAY ==
--- NOTE | ~2021-08-07 | US_ITS ---
PROCEDURE: US-GUIDED FINE-NEEDLE ASPIRATION CLINICAL INFORMATION: Right neck mass. COMPARISON: Previous neck CT June 2021. TECHNIQUE: Procedure and risks and benefits including bleeding and infection were discussed with the patient and informed consent was obtained. The right neck was prepped and draped in the usual sterile fashion. The skin and soft tissues were anesthetized with 1% lidocaine plain. Using ultrasound guidance and a 22-gauge needle, access to an enlarged right neck lymph node was obtained. Four 22-gauge FNA specimens were obtained. Specimen was sent for cytology, flow cytometry and microbiology studies. FINDINGS: Six abnormal-appearing enlarged lymph nodes are identified by ultrasound. The largest lymph node measures 3.4 x 4.1 x 4.5 cm and appears necrotic or cystic. All lymph nodes demonstrate abnormal ultrasound morphology and flow. US/US guided fine needle asp IMPRESSION: Ultrasound-guided right cervical lymph node aspiration.
[2021-08-07] MEDS: Lidocaine HCl 1 % MPF 5 ML VIAL SUBCUT (11:54)
== END 2021-08-07 10:29 | disposition home or self-care (01) ==
LOC: HO.US 10:28
PROVIDERS: Visit Provider Internal Medicine
DX: R22.1 Localized swelling, mass and lump, neck (principal)
CPT/HCPCS: 10005; 87071; 87073; 87102; 87116; 87205; 88172; 88173; 88305; 88341; 88342

== ENCOUNTER 2021-08-14 08:16 | Outpatient (REF) | payer MEDICARE, SELFPAY ==
[2021-08-14 08:58] LABS: MANUAL DIFF FLAG NO
[2021-08-14 09:17] LABS: Appearance Urine CLEAR; Color Urine YELLOW; Glucose Urine UA NEG (NEG); Leukocyte Esterase Urine NEG (NEG); Nitrite Urine NEG (NEG); PH 5.5 (5.0-8.0); Urine Blood NEG (NEG); Urine Ketones NEG (NEG); Urine Protein TRACE MG/DL (NEG-TRACE)
[2021-08-14 09:28] LABS: Basophils Percent Auto 0.3 % (0-2); Eosinophils Absolute Auto 0.3 X10*3/uL (0.0-0.4); Eosinophils Percent Auto 3.5 % (0-4); Hematocrit 43.2 % (42.0-52.0); Hemoglobin 13.7 g/dl (14.0-18.0); Imm Gran Abs Auto 0.07 X10*3/uL (0.00-0.03); Imm Gran Pct Auto 0.8 % (0.0-0.4); Lymphocytes Percent Auto 21.4 % (20-40); Mean Corpuscular HGB Conc 31.7 g/dl (31.0-36.0); Mean Corpuscular Hemoglobin 30.6 pg (27.0-33.0); Mean Corpuscular Volume 96.4 fL (80.0-98.0); Mean Platelet Volume 9.3 fL (9.4-12.4); Monocytes Absolute Auto 0.7 X10*3/uL (0.1-1.2); Monocytes Percent Auto 7.9 % (2-11); Neutrophils Absolute Auto 6.1 x10*3/uL (2.0-8.3); Neutrophils Percent Auto 66.1 % (45-73); Platelet Count 305 X10*3/uL (160-400); Red Blood Count 4.48 X10*6/uL (4.60-5.80); Red Cell Distribution Width 14.9 % (11.0-16.0); White Blood Count 9.2 X10*3/uL (4.8-10.8)
[2021-08-14 09:46] LABS: Albumin Level 4.3 g/dL (3.5-5.0); Anion Gap 13 (12-20); Blood Urea Nitrogen 29 mg/dL (9-16); Calcium 9.4 mg/dL (8.4-10.2); Carbon Dioxide 25 mmol/L (22-29); Chloride 108 mmol/L (96-108); Estimated Glomerular Filt Rate > 60; Magnesium 2.4 mg/dL (1.6-2.6); Phosphorus 3.7 mg/dL (2.7-4.5); Potassium 4.7 mmol/L (3.3-5.1); Sodium 141 mmol/L (135-145)
[2021-08-14 10:12] LABS: Vitamin D 25-OH Total 10.3 ng/mL (>30)
[2021-08-14 10:13] LABS: Creatinine Urine 93.35 mg/dL; Microalbum/Creatinine Ratio Ur 101.7 ug/mg cr; Protein/Creatinine Ratio, Ur 0.28 (<0.2); Total Protein Urine Random 26 mg/dL (<12)
[2021-08-15 12:06] LABS: Calcium (PTHI) 9.2 mg/dL (8.6-10.3); PTHI 193 pg/mL (16-77)
== END 2021-08-14 08:17 | disposition home or self-care (01) ==
LOC: HO.LAB 08:16
PROVIDERS: PCP Internal Medicine; Visit Provider Internal Medicine Nephrology
DX: I12.9 Hypertensive chronic kidney disease with stage 1 through stage 4 chronic kidney disease, or unspecified chronic kidney disease (principal); N18.32 Chronic kidney disease, stage 3b; N25.0 Renal osteodystrophy
CPT/HCPCS: 36415; 80051; 81003; 82040; 82043; 82306; 82310; 82565; 83735; 83970; 84100; 84156; 84520; 85025; 87086

== ENCOUNTER → 2021-08-20 11:18 | Outpatient (REF) | payer MEDICARE, SELFPAY ==
--- NOTE | 2021-08-20 11:21 | HM_ITS ---
Conclusion: 1. Patient was monitored for total period of 3 days 2. Baseline rhythm was normal sinus rhythm with average heart of 63 beats per minute 3. No significant pauses or bradycardia noted 4. Seven short supraventricular runs, longest lasting 6 beats 5. Total of 4782 PACs accounting for 1.75% total burden account for frequent PACs 6. No patient reported events MTDD
== END ==
LOC: HO.CARD 11:18
PROVIDERS: PCP Internal Medicine; Visit Provider Nurse Practitioner Family
DX: R00.1 Bradycardia, unspecified (principal)
CPT/HCPCS: 93242

== ENCOUNTER → 2021-09-09 13:47 | Outpatient (REF) | payer MEDICARE, SELFPAY | LOC: HO.SL 13:47 | PROVIDERS: PCP Internal Medicine; Visit Provider Internal Medicine | DX: G47.33 Obstructive sleep apnea (adult) (pediatric) (principal); E66.01 Morbid (severe) obesity due to excess calories; Z68.43 Body mass index [BMI] 50.0-59.9, adult; I10 Essential (primary) hypertension | CPT/HCPCS: 95806 ==

== ENCOUNTER → 2021-09-23 13:42 | Outpatient (BNVA) | payer MEDICARE, SELFPAY | PROVIDERS: PCP Internal Medicine; Visit Provider Internal Medicine | DX: G47.33 Obstructive sleep apnea (adult) (pediatric) (principal); E66.01 Morbid (severe) obesity due to excess calories; Z68.43 Body mass index [BMI] 50.0-59.9, adult | CPT/HCPCS: 99212 ==

== ENCOUNTER → 2021-10-29 08:18 | Outpatient (BNVA) | payer MEDICARE, SELFPAY | PROVIDERS: PCP Internal Medicine; Referring Provider Internal Medicine; Visit Provider Internal Medicine | DX: R00.1 Bradycardia, unspecified (principal); I10 Essential (primary) hypertension; I35.9 Nonrheumatic aortic valve disorder, unspecified; G47.33 Obstructive sleep apnea (adult) (pediatric); E66.01 Morbid (severe) obesity due to excess calories; Z68.43 Body mass index [BMI] 50.0-59.9, adult; Z79.899 Other long term (current) drug therapy | CPT/HCPCS: 99212 ==

== ENCOUNTER 2022-01-28 10:52 | Outpatient (REF) | payer MEDICARE, SELFPAY ==
[2022-01-28 10:57] LABS: MANUAL DIFF FLAG NO
[2022-01-28 11:04] LABS: Appearance Urine Clear; Color Urine Yellow; Glucose Urine UA Negative (Negative); Leukocyte Esterase Urine Trace (Negative); Nitrite Urine Negative (Negative); PH 5.5 (5.0-9.0); Specific Gravity - Urine 1.015 (1.005-1.025); UMIC TRIGGER UA YES; Urine Blood Negative (Negative); Urine Ketones Negative (Negative); Urine Protein Negative (Neg-Trace)
[2022-01-28 11:07] LABS: Bacteria Urine None Seen (None Seen); Hyaline Casts Urine 0-2 /LPF (0-2); Squamous Epithelial Cell Urine 0-2 /HPF (0-2); WBC Urine 0-5 /HPF (0-5)
[2022-01-28 11:18] LABS: Estimated Average Glucose 111 mg/dL; Hemoglobin A1c % 5.5 %
[2022-01-28 11:22] LABS: Alanine Aminotransferase 23 U/L (0-40); Albumin Level 4.4 g/dL (3.5-5.0); Alkaline Phosphatase 69 U/L (39-117); Anion Gap 20 (12-20); Aspartate Amino Transferase 46 U/L (5-37); Bilirubin Total 0.5 mg/dL (0.0-1.0); Blood Urea Nitrogen 41 mg/dL (9-16); Calcium 8.4 mg/dL (8.4-10.2); Carbon Dioxide 25 mmol/L (22-29); Chloride 101 mmol/L (96-108); Cholesterol 244 mg/dL; Estimated Glomerular Filt Rate 24; Glucose Fasting 105 mg/dL (60-99); HDL Cholesterol 37 mg/dL; LDL Cholesterol Calculated 166 mg/dl; Potassium 4.6 mmol/L (3.3-5.1); Sodium 141 mmol/L (135-145); Total Protein 7.4 g/dL (6.5-8.0); Triglycerides 207 mg/dL
[2022-01-28 11:35] LABS: Basophils Percent Auto 0.3 % (0-2); Eosinophils Absolute Auto 0.3 X10*3/uL (0.0-0.4); Eosinophils Percent Auto 3.7 % (0-4); Imm Gran Pct Auto 1.5 % (0.0-0.4); Lymphocytes Absolute Auto 1.7 X10*3/uL (1.2-4.9); Lymphocytes Percent Auto 25.3 % (20-40); Mean Corpuscular HGB Conc 32.2 g/dl (31.0-36.0); Mean Corpuscular Hemoglobin 30.8 pg (27.0-33.0); Mean Corpuscular Volume 95.8 fL (80.0-98.0); Mean Platelet Volume 9.6 fL (9.4-12.4); Monocytes Absolute Auto 0.7 X10*3/uL (0.1-1.2); Monocytes Percent Auto 10.3 % (2-11); NRBC Pct Auto 0.7 /100WBC (0.0-0.2); Neutrophils Absolute Auto 3.9 x10*3/uL (2.0-8.3); Neutrophils Percent Auto 58.9 % (45-73); Platelet Count 281 X10*3/uL (160-400); Red Cell Distribution Width 19.9 % (11.0-16.0); White Blood Count 6.7 X10*3/uL (4.8-10.8)
[2022-01-28 11:38] LABS: Hemoglobin 7.4 g/dl (14.0-18.0)
[2022-01-28 11:42] LABS: Microalbum/Creatinine Ratio Ur 11.7 ug/mg cr
[2022-01-28 11:43] LABS: PSA,Total (Free>4and<10) 4.98 ng/mL (0.00-4.00)
[2022-01-30 09:36] LABS: Free Prostate Spec Ag 1.3 ng/mL; Percent Free Prostate Spec Ag 25 % (calc) (>25); Prostate Specific Ag Total 5.3 ng/mL (< OR = 4.0)
== END 2022-01-28 10:53 | disposition home or self-care (01) ==
LOC: HO.LNP 10:52
PROVIDERS: Visit Provider Internal Medicine
DX: Z12.5 Encounter for screening for malignant neoplasm of prostate (principal); R73.03 Prediabetes; E78.00 Pure hypercholesterolemia, unspecified; R97.20 Elevated prostate specific antigen [PSA]; R79.89 Other specified abnormal findings of blood chemistry
CPT/HCPCS: 80053; 80061; 81001; 82043; 83036; 84153; 84154; 85025

== ENCOUNTER 2022-01-31 06:34 | Outpatient (REF) | payer MEDICARE, SELFPAY ==
[2022-01-31 06:42] LABS: MANUAL DIFF FLAG NO
[2022-01-31 07:00] LABS: Basophils Percent Auto 0.1 % (0-2); Eosinophils Percent Auto 0.6 % (0-4); Hematocrit 25.5 % (42.0-52.0); Imm Gran Abs Auto 0.14 X10*3/uL (0.00-0.03); Lymphocytes Absolute Auto 1.6 X10*3/uL (1.2-4.9); Lymphocytes Percent Auto 22.5 % (20-40); Mean Corpuscular HGB Conc 31.4 g/dl (31.0-36.0); Mean Corpuscular Hemoglobin 31.3 pg (27.0-33.0); Mean Corpuscular Volume 99.6 fL (80.0-98.0); Mean Platelet Volume 8.6 fL (9.4-12.4); Monocytes Percent Auto 14.7 % (2-11); NRBC Pct Auto 0.3 /100WBC (0.0-0.2); Neutrophils Absolute Auto 4.2 x10*3/uL (2.0-8.3); Neutrophils Percent Auto 60.1 % (45-73); Red Blood Count 2.56 X10*6/uL (4.60-5.80); Red Cell Distribution Width 21.2 % (11.0-16.0); White Blood Count 6.9 X10*3/uL (4.8-10.8)
[2022-01-31 08:11] LABS: Platelet Count 514 X10*3/uL (160-400)
== END 2022-01-31 06:35 | disposition home or self-care (01) ==
LOC: HO.LAB 06:34
PROVIDERS: PCP Internal Medicine; Visit Provider Internal Medicine
DX: D64.9 Anemia, unspecified (principal)
CPT/HCPCS: 36415; 85025

== ENCOUNTER 2022-03-04 11:16 | Outpatient (REF) | payer MEDICARE, SELFPAY ==
[2022-03-04 12:52] LABS: PSA,Total (Free>4and<10) 2.16 ng/mL (0.00-4.00)
== END 2022-03-04 11:17 | disposition home or self-care (01) ==
LOC: HO.LNP 11:16
PROVIDERS: Visit Provider Internal Medicine
DX: Z12.5 Encounter for screening for malignant neoplasm of prostate (principal); R97.20 Elevated prostate specific antigen [PSA]
CPT/HCPCS: 84153

== ENCOUNTER → 2022-03-27 11:00 | Outpatient (BNVA) | payer MEDICARE, SELFPAY | PROVIDERS: PCP Internal Medicine; Visit Provider Internal Medicine | DX: G47.33 Obstructive sleep apnea (adult) (pediatric) (principal); E66.01 Morbid (severe) obesity due to excess calories; Z68.43 Body mass index [BMI] 50.0-59.9, adult; Z68.42 Body mass index [BMI] 45.0-49.9, adult | CPT/HCPCS: 99212 ==

== ENCOUNTER → 2022-05-06 09:44 | Outpatient (BNVA) | payer MEDICARE, SELFPAY | PROVIDERS: PCP Internal Medicine; Referring Provider Internal Medicine; Visit Provider Internal Medicine | DX: I35.9 Nonrheumatic aortic valve disorder, unspecified (principal); I10 Essential (primary) hypertension; G47.33 Obstructive sleep apnea (adult) (pediatric); E66.01 Morbid (severe) obesity due to excess calories; Z68.42 Body mass index [BMI] 45.0-49.9, adult | CPT/HCPCS: 99212 ==

== ENCOUNTER → 2022-05-06 11:56 | Outpatient (RCR) | payer MEDICARE, OTHER, SELFPAY | END | disposition home or self-care (01) | LOC: HO.WCC 02-22 08:30 | PROVIDERS: PCP Internal Medicine; Visit Provider Surgery | DX: Z09 Encounter for follow-up examination after completed treatment for conditions other than malignant neoplasm (principal); L88 Pyoderma gangrenosum; I87.301 Chronic venous hypertension (idiopathic) without complications of right lower extremity; E66.01 Morbid (severe) obesity due to excess calories; C76.0 Malignant neoplasm of head, face and neck; M17.11 Unilateral primary osteoarthritis, right knee; Z92.21 Personal history of antineoplastic chemotherapy; Z92.3 Personal history of irradiation | CPT/HCPCS: 29581; 11042; 11045; 11102; 11103; 11106; 11107; 15271; 15272; 15275; 17250; 29580; 88305; 88312; 99212; 99213; 99215; Q4101; Q4158; Q4186 ==

== ENCOUNTER → 2022-09-25 10:23 | Outpatient (BNVA) | payer MEDICARE, SELFPAY | PROVIDERS: PCP Internal Medicine; Visit Provider Internal Medicine | DX: G47.33 Obstructive sleep apnea (adult) (pediatric) (principal); E66.01 Morbid (severe) obesity due to excess calories; Z68.41 Body mass index [BMI] 40.0-44.9, adult | CPT/HCPCS: 99212 ==

== ENCOUNTER 2022-12-19 12:33 | Outpatient (REF) | payer MEDICARE, SELFPAY ==
[2022-12-19 13:05] LABS: MANUAL DIFF FLAG NO
[2022-12-19 13:47] LABS: Basophils Percent Auto 0.4 % (0-2); Eosinophils Absolute Auto 0.2 X10*3/uL (0.0-0.4); Eosinophils Percent Auto 3.2 % (0-4); Hemoglobin 12.3 g/dl (14.0-18.0); Imm Gran Abs Auto 0.04 X10*3/uL (0.00-0.03); Imm Gran Pct Auto 0.6 % (0.0-0.4); Lymphocytes Absolute Auto 0.8 X10*3/uL (1.2-4.9); Mean Corpuscular HGB Conc 32.4 g/dl (31.0-36.0); Mean Corpuscular Hemoglobin 30.2 pg (27.0-33.0); Mean Corpuscular Volume 93.4 fL (80.0-98.0); Mean Platelet Volume 9.6 fL (9.4-12.4); Monocytes Absolute Auto 0.6 X10*3/uL (0.1-1.2); Monocytes Percent Auto 8.7 % (2-11); Neutrophils Absolute Auto 5.2 x10*3/uL (2.0-8.3); Neutrophils Percent Auto 75.1 % (45-73); Platelet Count 251 X10*3/uL (160-400); Red Blood Count 4.07 X10*6/uL (4.60-5.80); Red Cell Distribution Width 15.3 % (11.0-16.0); White Blood Count 6.9 X10*3/uL (4.8-10.8)
[2022-12-19 13:58] LABS: Appearance Urine Clear; Color Urine Yellow; Glucose Urine UA Negative (Negative); Leukocyte Esterase Urine Negative (Negative); Nitrite Urine Negative (Negative); Specific Gravity - Urine <= 1.005 (1.005-1.025); Urine Blood Negative (Negative); Urine Ketones Negative (Negative); Urine Protein Negative (Neg-Trace)
[2022-12-19 14:43] LABS: Creatinine Urine 15.93 mg/dL; Microalbum/Creatinine Ratio Ur 263.6 ug/mg cr; Total Protein Urine Random < 7 mg/dL (<12)
[2022-12-19 14:59] LABS: Albumin Level 4.3 g/dL (3.5-5.0); Anion Gap 18 (12-20); Blood Urea Nitrogen 20 mg/dL (9-16); Calcium 9.4 mg/dL (8.4-10.2); Carbon Dioxide 24 mmol/L (22-29); Chloride 104 mmol/L (96-108); Estimated Glomerular Filt Rate 58; Magnesium 2.6 mg/dL (1.6-2.6); Phosphorus 3.8 mg/dL (2.7-4.5); Potassium 4.4 mmol/L (3.3-5.1); Sodium 142 mmol/L (135-145)
[2022-12-19 15:17] LABS: Vitamin D 25-OH Total 27.4 ng/mL (>30)
[2022-12-22 12:42] LABS: Calcium (PTHI) 9.2 mg/dL (8.6-10.3); PTHI 215 pg/mL (16-77)
== END 2022-12-19 12:34 | disposition home or self-care (01) ==
LOC: HO.LAB 12:33
PROVIDERS: PCP Internal Medicine; Visit Provider Internal Medicine Nephrology
DX: N25.0 Renal osteodystrophy (principal); N18.31 Chronic kidney disease, stage 3a; R82.90 Unspecified abnormal findings in urine
CPT/HCPCS: 36415; 80051; 81003; 82040; 82043; 82306; 82310; 82565; 83735; 83970; 84100; 84156; 84520; 85025; 87086

== ENCOUNTER → 2023-01-30 08:22 | Outpatient (REF) | payer MEDICARE, SELFPAY ==
--- NOTE | 2023-01-30 08:26 | HM_ITS ---
* Total monitoring time 3 days. * Underlying rhythm is sinus. Average ventricular rate 40/Min. Range 27-99/Min * About 91% the time, rate less than 60/Min. * Pauses noted, longest 3.25 seconds during sleep hours. No significant daytime pauses. * Rare premature ventricular contractions. Brief runs. Longest 7 beats. * No patient markers or events in diary. MTDD
== END ==
LOC: HO.CARD 08:22
PROVIDERS: PCP Internal Medicine; Visit Provider Internal Medicine
DX: R00.1 Bradycardia, unspecified (principal)
CPT/HCPCS: 93242

== ENCOUNTER → 2023-01-30 08:26 | Outpatient (BNV) | payer MEDICARE, SELFPAY | PROVIDERS: PCP Internal Medicine; Visit Provider Internal Medicine | DX: I49.3 Ventricular premature depolarization (principal) | CPT/HCPCS: 93244 ==

== ENCOUNTER 2023-02-03 11:06 | Outpatient (REF) | payer MEDICARE, SELFPAY ==
[2023-02-03 11:55] LABS: MANUAL DIFF FLAG NO
[2023-02-03 12:11] LABS: Appearance Urine Clear; Color Urine Yellow; Glucose Urine UA Negative (Negative); Leukocyte Esterase Urine Negative (Negative); Nitrite Urine Negative (Negative); PH 5.5 (5.0-9.0); Urine Blood Negative (Negative); Urine Ketones Negative (Negative); Urine Protein Trace mg/dL (Neg-Trace)
[2023-02-03 12:14] LABS: Basophils Percent Auto 0.8 % (0-2); Eosinophils Absolute Auto 0.3 X10*3/uL (0.0-0.4); Eosinophils Percent Auto 6.3 % (0-4); Hematocrit 38.1 % (42.0-52.0); Hemoglobin 12.2 g/dl (14.0-18.0); Imm Gran Abs Auto 0.02 X10*3/uL (0.00-0.03); Imm Gran Pct Auto 0.4 % (0.0-0.4); Lymphocytes Absolute Auto 1.2 X10*3/uL (1.2-4.9); Lymphocytes Percent Auto 21.8 % (20-40); Mean Corpuscular Hemoglobin 30.5 pg (27.0-33.0); Mean Corpuscular Volume 95.3 fL (80.0-98.0); Mean Platelet Volume 9.2 fL (9.4-12.4); Monocytes Absolute Auto 0.5 X10*3/uL (0.1-1.2); Monocytes Percent Auto 9.7 % (2-11); Neutrophils Absolute Auto 3.2 x10*3/uL (2.0-8.3); Platelet Count 224 X10*3/uL (160-400); Red Cell Distribution Width 15.1 % (11.0-16.0); White Blood Count 5.3 X10*3/uL (4.8-10.8)
[2023-02-03 12:19] LABS: Estimated Average Glucose 85 mg/dL; Hemoglobin A1c % 4.6 % (<6.0)
[2023-02-03 12:31] LABS: Alanine Aminotransferase 7 U/L (0-40); Albumin Level 4.1 g/dL (3.5-5.0); Alkaline Phosphatase 53 U/L (39-117); Anion Gap 12 (12-20); Aspartate Amino Transferase 29 U/L (5-37); Bilirubin Total 0.6 mg/dL (0.0-1.0); Blood Urea Nitrogen 26 mg/dL (9-16); Calcium 9.4 mg/dL (8.4-10.2); Carbon Dioxide 29 mmol/L (22-29); Chloride 105 mmol/L (96-108); Cholesterol 227 mg/dL (<200); Estimated Glomerular Filt Rate 47; Glucose Fasting 91 mg/dL (60-99); HDL Cholesterol 45 mg/dL (>40); LDL Cholesterol Calculated 163 mg/dL (<100); Potassium 4.2 mmol/L (3.3-5.1); Sodium 142 mmol/L (135-145); Total Protein 7.3 g/dL (6.5-8.0); Triglycerides 95 mg/dL (<150)
[2023-02-03 12:47] LABS: Creatinine Urine 168.33 mg/dL; Microalbum/Creatinine Ratio Ur 49.9 ug/mg cr (<30)
[2023-02-03 12:54] LABS: PSA,Total (Free>4and<10) 1.65 ng/mL (0.00-4.00)
== END 2023-02-03 11:07 | disposition home or self-care (01) ==
LOC: HO.LNP 11:06
PROVIDERS: Visit Provider Internal Medicine
DX: I10 Essential (primary) hypertension (principal); R73.09 Other abnormal glucose; E78.00 Pure hypercholesterolemia, unspecified; R97.20 Elevated prostate specific antigen [PSA]; Z12.5 Encounter for screening for malignant neoplasm of prostate
CPT/HCPCS: 80053; 80061; 81003; 82043; 82570; 83036; 84153; 85025

== ENCOUNTER → 2023-02-09 13:42 | Outpatient (REF) | payer MEDICARE, SELFPAY ==
--- NOTE | 2023-02-09 13:45 | CA_ITS ---
Transthoracic Echocardiogram Patient (Last, First, Middle): Chris Simon J Gender: Male Date of : 1950 Age: 73 Procedure Date: 02/09/2023 Procedure Type: Transthoracic Echocardiogram Location: OP Height: 172.72 cm Weight: 120.2 kg BSA: 2.30 m2 Heart Rate: bpm BP: 142 / 72 mmHg Adult Manager: CAITLYN Referring MD: Huy Srivastava MD Faculty Dean: Saul Reaves MD Symptoms: I35.9 - Nonrheumatic aortic valve disorder, unspecified Study Quality: Technically Difficult ECG Rhythm: Sinus Conclusions: - 1. Technically limited study despite use of contrast agent 2. LV ejection fraction is normal to 70% with elevated filling pressures 3. Mild biatrial enlargement 4. Mild aortic regurgitation with increased gradient across aortic valve of unclear etiology 5. Moderately dilated ascending aorta 6. Normal measured RV systolic pressure Findings Procedure Information Contrast agent, definity, is being given per protocol without apparent complications. Left Ventricle Normal left ventricular size and systolic function. The visually estimated ejection fraction is between 65-70%. Spectral Doppler is indicative of an impaired relaxation filling pattern. Elevated filling pressures. E/E prime ratio is >15, consistent with elevated filling pressures. Right Ventricle Normal right ventricular cavity size and systolic function. Atria The left atrium is mildly dilated. Interatrial shunt cannot be excluded. The right atrium is mildly dilated. Aortic Valve The aortic valve was not well visualized. There is mild calcification of the aortic valve. The peak aortic gradient is 31 mmHg.The mean gradient is 17 mmHg. There is mild aortic valve regurgitation. Mitral Valve The mitral valve was not well visualized. There is trace mitral valve regurgitation. There is no mitral valve stenosis. Pulmonic Valve The pulmonic valve was not well visualized. Tricuspid Valve Likely normal tricuspid valve structure and function. There is trace tricuspid valve regurgitation. The right ventricular systolic pressure is normal. The right ventricular systolic pressure is 21 mmHg. Normal right atrial pressure. There is no evidence of pulmonary hypertension. Great Vessels The pulmonary artery was not well visualized. There is moderate dilatation of the ascending aorta measuring 4.80 cm. Venous The inferior vena cava is mildly dilated and collapses greater than 50% with inspiration. Pericardium/Pleural The pericardium was not well visualized. Prior Study Comparison Changes noted compared to prior study dated: 09/21/2020. Ascending aorta is measured to be 4.8 cm. Consider additional testing and also for better evaluation of aortic valve Recommendations, Care & Conclusions Consider a DOT if clinically appropriate. Measurements 2D Linear Measurements IVSd: 1.60 0.6-0.9/0.6-1.0 cm LVIDd: 5.30 3.9-5.3/4.2-5.9 cm LVIDd Index: 2.30 2.4-3.2/2.2-3.1 cm/m2 LVIDs: 3.20 2.0-3.6 cm LVPWd: 1.10 0.7-1.1 cm LA Diam: 5.10 2.7-3.8/3.0-4.0 cm LAIDs Index: 2.22 1.5-2.3 cm/m2 LV Mass: 377.65 67-162/88-224 g LV Mass Index: 164.19 43-95/49-115 g/m2 LVOT Diam: 2.60 3.0+(-)1.3 cm 2D Systolic Function EF 4C: 68.50 >55% EF 2C: 69.80 >55% EF BiP: 69.40 >55% Mitral Valve MV Pk E: 1.02 MV PK A: 0.78 MV Decel Time: 200.00 E/A: 1.30 E'Lateral: 6.85 E'Medial: 6.09 E/E' Med: 16.70 E/E' Lat: 14.90 PHT: 59.00 MVA PHT: 3.73 Decel [place]: 5.07 Aortic Valve AoV Pk Dariusz: 2.79 AoV Mn Dariusz: 1.88 AoV VTI: 0.73 AoV Pk Grad: 31.00 Aov Mn Grad: 17.00 MEERA Cont.VTI: 2.62 LVOT LVOT Pk Dariusz: 1.38 LVOT Mn Dariusz: 0.84 LVOT VTI: 0.36 LVOT Pk Grad: 8.00 LVOT Mn Grad: 4.00 LVOT Diam: 2.60 LVOT Area: 5.31 Diastolic Function MV Pk E: 1.02 MV Pk A: 0.78 E/A: 1.30 E'Medial: 6.09 E/E' Med: 16.70 E' Laterial: 6.85 E/E' Lat: 14.90 Right Ventricle TAPSE (mm): 36.10 TVS' Dariusz: 19.10 Tricuspid Valve TR Pk Dariusz: 1.81 TR Pk Grad: 13.00 RA Press: 8.00 RVSP: 21.00 Great Vessels Aorta Sinus of Valsalva: 4.20 2.0-3.[address] [place]: 2.80 1.7-3.4 cm Ao Asc: 4.80 2.1-3.4 cm Updated in Other Vendor System with Status of Final Saul Reaves MD electronically signed on 02/10/2023 11:42:59 AM with status of Final
== END ==
LOC: HO.CARD 13:42
PROVIDERS: Visit Provider Internal Medicine
DX: I35.9 Nonrheumatic aortic valve disorder, unspecified (principal)
CPT/HCPCS: 93306; Q9957

== ENCOUNTER → 2023-02-09 13:45 | Outpatient (BNV) | payer MEDICARE, SELFPAY | PROVIDERS: Visit Provider Internal Medicine Cardiovascular Disease | DX: I35.1 Nonrheumatic aortic (valve) insufficiency (principal); I35.8 Other nonrheumatic aortic valve disorders | CPT/HCPCS: 93306 ==

== ENCOUNTER 2023-02-11 10:12 | Outpatient (AMB) | payer MEDICARE, SELFPAY ==
--- NOTE | 2023-02-11 10:19 | MHC.OFFVIS ---
Intake Vital Signs 02/11/23 10:20 Height 5 ft 7 in Weight 266 lb 12.149 oz BMI 41.8 BP 148/74 H Blood Pressure Location Lt brachial Position Sitting Pulse 47 L Intake Visit Reasons: follow up echo Intake Note: follow up w/ EKG Nanoscience Technician Required: No Accompanied by: Self / Same As Patient Allergies No Known Allergies Allergy (Verified 02/11/23 10:20) Medication List - Last Reconciled 02/11/23 by Huy Srivastava MD allopurinol 300 mg PO DAILY amlodipine 10 mg PO DAILY fluoride (sodium) 1.1% (PreviDent 5000 Dry Mouth) dental DIRECTED HPI HPI Comments History of Present Illness Details Chris returns for follow-up. To recall, he was seen in the hospital in the past for bradycardia and in that context, also had acute kidney injury. He was on diltiazem and metoprolol at that time which were later stop. Bradycardia improved after that hospitalization but more recently, patient has been noticing low heart rates. Hence he underwent Holter monitor that does confirm the sinus bradycardia. Patient however states that he is actually feeling fine and has absolutely no concerns like dizziness or presyncope or shortness of breath or in fact anything of that nature. He essentially states he can do anything he wants with no limitations. [facility] [place] Medical History Arthritis Essential hypertension HTN (hypertension) Hx of gout Morbid obesity JADEN on CPAP Sleep apnea Surgical History Hx of detached retina repair History of ankle surgery History of esophagogastroduodenoscopy (EGD) H/O colonoscopy Family History Mother HTN (hypertension) CVA (cerebral vascular accident) Social History Household Members: Spouse Housing: House Do you presently have visiting nurse or other home services: No Alcohol intake: never Patient Tobacco Use Status: Never used Tobacco Advance Directives Date on File: 09/20/20 service: No Review of Systems Const Denies weakness ENT Denies dizziness Card Denies chest pain, Denies chest pain with activity, Denies syncope, Denies rapid heart rate, Denies pedal edema, Denies edema, Denies leg edema, Denies lightheadedness, Denies palpitations, Denies dyspnea, Denies dyspnea on exertion and Denies orthopnea Resp Denies cough, Denies dyspnea and Denies dyspnea on exertion GI Denies hematochezia and Denies change in stool character Musc Denies abnormal gait, Denies muscle cramps, Denies muscle weakness, Denies numbness, Denies radiating pain into limb and Denies tingling Neuro Denies abnormal gait, Denies dizziness, Denies syncope, Denies numbness, Denies tingling and Denies weakness Endo Denies palpitations Physical Exam Vital Signs: Last Vital Signs Pulse 47 L 02/11/23 10:20 BP 148/74 H 02/11/23 10:20 BMI result Body Mass Index 41.8 Const General: comfortable and no acute distress Orientation/consciousness: patient oriented x3 HEENT Other: Unremarkable Head: Yes normal to inspection Neck Neck: Yes normal visual inspection Chest Chest palpation & inspection: normal inspection of the chest Resp Auscultation: clear to auscultation bilaterally Cardio Palpation: normal PMI Heart sounds: S1 normal heart sound present, S2 normal heart sound present, no gallops, Murmur heart sound present systolic III/ and no rubs GI Palpation (GI): Soft to palpation Back/Spine/Pelvis Other: unremarkable Skin General skin exam: no rashes or lesions noted Neuro General: patient oriented x3 Extrem General: Yes normal to inspection Psych Mental Status: mental status grossly normal Office Procedures EKG Details: EKG with sinus bradycardia/47/Min; premature atrial contraction; leftward axis; no significant ST-T changes; borderline AL prolongation; and otherwise unremarkable. [id number], Complete Assessment & Plan Assessment & Plan (1) Bradycardia, sinus: Code(s): R00.1 - Bradycardia, unspecified Plan: He has fairly significant bradycardia based on recent Holter. However, clinically has got absolutely no symptoms. We will do a exercise stress test to assess for chronotropic competence. Possible need for pacemaker in the future but need to see how he does clinically. (2) Essential hypertension: Code(s): I10 - Essential (primary) hypertension Plan: On amlodipine. Due to bradycardia as well as renal insufficiency, options are somewhat limited. Also goes Nephrology for this. (3) JADEN (obstructive sleep apnea): Code(s): G47.33 - Obstructive sleep apnea (adult) (pediatric) Plan: Continue CPAP. (4) Morbid obesity with BMI of 50.0-59.9, adult: Code(s): E66.01 - Morbid (severe) obesity due to excess calories; Z68.43 - Body mass index [BMI] 50.0-59.9, adult Plan: He has lost lot of weight, almost 60-70 lb or so in the last few months. That may also sometimes lead to reduction in heart rate. (5) Aortic valve calcification: Code(s): I35.9 - Nonrheumatic aortic valve disorder, unspecified Plan: Echocardiogram report as well as images reviewed. Some of the gradients are probably related to increased stroke volume. Could have mild aortic stenosis and can not exclude bicuspid type morphology but difficult to see. Will need to follow-up on echocardiograms. (6) Ascending aortic aneurysm: Code(s): I71.21 - Aneurysm of the ascending aorta, without rupture Plan: On the echocardiogram, measurement was 4.8 cm but image quality was not ideal. We will check a noncontrast CT for further evaluation. Due to increased creatinine, avoid contrast. If necessary, we can do an MRA. Plan Discussed with who came for appointment. Orders: Orders CT chest wo IV con Today I71.21 - Aneurysm of the ascending aorta, without rupture CA stress test Today R00.1 - Bradycardia, unspecified Coding Level of Care Code Est Pt Level 4 (44440) Diagnoses Bradycardia, sinus R00.1 Essential hypertension I10 JADEN (obstructive sleep apnea) G47.33 Morbid obesity with BMI of 50.0-59.9, adult E66.01; Z68.43 Aortic valve calcification I35.9 Ascending aortic aneurysm I71.21 CPT Codes EKG - CPT: 05420-[id number], Complete ([id number])
[2023-02-11 10:20] VITALS: BP 148/74; PULSE 47; BMI 41.8
== END 2023-02-11 10:52 | disposition home or self-care (01) ==
PROVIDERS: PCP Internal Medicine; Visit Provider Internal Medicine
DX: R00.1 Bradycardia, unspecified (principal); I10 Essential (primary) hypertension; G47.33 Obstructive sleep apnea (adult) (pediatric); E66.01 Morbid (severe) obesity due to excess calories; Z68.43 Body mass index [BMI] 50.0-59.9, adult; I35.9 Nonrheumatic aortic valve disorder, unspecified; I71.21 Aneurysm of the ascending aorta, without rupture
CPT/HCPCS: 93010; 99214

== ENCOUNTER → 2023-02-11 10:12 | Outpatient (BNVA) | payer MEDICARE, SELFPAY | PROVIDERS: PCP Internal Medicine; Visit Provider Internal Medicine | DX: R00.1 Bradycardia, unspecified (principal); I71.21 Aneurysm of the ascending aorta, without rupture; I35.9 Nonrheumatic aortic valve disorder, unspecified; I10 Essential (primary) hypertension; G47.33 Obstructive sleep apnea (adult) (pediatric); E66.01 Morbid (severe) obesity due to excess calories; Z68.41 Body mass index [BMI] 40.0-44.9, adult | CPT/HCPCS: 93005; 99212 ==

== ENCOUNTER 2023-03-03 07:11 | Outpatient (REF) | payer MEDICARE, SELFPAY ==
--- NOTE | ~2023-03-03 | CT_ITS ---
EXAMINATION: CT CHEST WITHOUT CONTRAST CLINICAL INFORMATION: Ascending aortic aneurysm. COMPARISON: CTA chest 06/24/2021. TECHNIQUE: Multidetector volumetric CT imaging of the chest was done. Axial MIP volume rendering provided. Sagittal and coronal reformatted images were obtained. This CT examination was performed using dose optimization techniques as appropriate, variously including the following: *Automated exposure control *Adjustment of mA and/or kV according to patient size (this includes techniques or standardized protocols for targeted exams where dose is matched to indication/reason for exam; i.e. extremities or head) *Use of iterative reconstruction technique DLP: 280 mGy-cm FINDINGS: LUNGS: New 8 mm nodule left lower lobe. MEDIASTINUM: Significant aortic pulsation artifact limits evaluation. The aorta measures grossly 4.6 x 4.7 cm. The aortic arch and descending thoracic aorta are normal in caliber. The included upper abdominal aorta is normal in caliber. No mediastinal adenopathy. No pericardial effusion. The main pulmonary artery is dilated measuring 4.4 cm which may indicate pulmonary arterial hypertension. CORONARY ARTERY CALCIFICATION: Mild LAD and RCA coronary calcium. PLEURA: There is no pleural effusion. No pleural mass or thickening. AXILLA: No lymphadenopathy. UPPER ABDOMEN: Water density cysts in the upper kidneys. No follow-up imaging is recommended. OSSEOUS STRUCTURES: Extensive degenerative changes in the thoracic spine. CT/CT chest wo IV con IMPRESSION: Significant pulsation artifact limits evaluation. The aorta measures grossly 4.6 x 4.7 cm which could be overestimated due to pulsation artifact. This is likely not significantly changed in size from 07/04/2021. New 8 mm nodule left lower lobe. Per Fleischner Society Guidelines recommend a non-contrast chest CT at 6-12 months; if patient is high risk for malignancy, consider an additional non-contrast chest CT at 18-24 months. If patient is low risk for malignancy, non-contrast chest CT at 18-24 months is optional. Fleischner guidelines were followed.
== END 2023-03-03 07:12 | disposition home or self-care (01) ==
LOC: HO.CT 07:11
PROVIDERS: Visit Provider Internal Medicine
DX: I71.21 Aneurysm of the ascending aorta, without rupture (principal)
CPT/HCPCS: 71250

== ENCOUNTER → 2023-03-10 07:39 | Outpatient (REF) | payer MEDICARE, SELFPAY ==
--- NOTE | 2023-03-10 07:42 | CA_ITS ---
Acquisition Time: 2023-03-10 08:03:58 Total Exercise Time: 00:02:07 Test Indications: BRADYCARDIA Medications: SEE H Protocol: GINA Max HR: 116 BPM 77% of Pred: 149 BPM Max BP: 200/062 mmHG Max Work Load: 4.6 METS Exercise stress test exercise 2 min 7 sec of Gina protocol achieving 64% with no chest discomfort, moderate SOB, with isolated PVC and PACs, with exaggerated response to exercise - peak BP 200/62, with normal chronotropic response to exercise, without EKG changes and achieived workload. Breathing returned to baseline with rest. Test reviewed with Dr. Reaves Referred By: Huy Srivastava Overread By: Fatmata Perez
== END ==
LOC: HO.CARD 07:39
PROVIDERS: Visit Provider Internal Medicine
DX: R00.1 Bradycardia, unspecified (principal)
CPT/HCPCS: 93017

== ENCOUNTER → 2023-03-10 07:42 | Outpatient (BNV) | payer MEDICARE, SELFPAY | PROVIDERS: Visit Provider Nurse Practitioner | DX: R06.02 Shortness of breath (principal); R00.1 Bradycardia, unspecified | CPT/HCPCS: 93016; 93018 ==

== ENCOUNTER 2023-03-31 10:45 | Outpatient (AMB) | payer MEDICARE, SELFPAY ==
--- NOTE | 2023-03-31 10:48 | A.OFFVIS_ITS ---
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 But compared to last year he has lost about 28 lb of weight. Uses CPAP with nasal mask and it is very easy, without any issues. . Sleeps very good He has no issue with the breathing. [facility] Medical History HAYLEE on CPAP Essential hypertension Morbid obesity Hx of gout Arthritis Sleep apnea HTN (hypertension) Surgical History Hx of detached retina repair History of ankle surgery History of esophagogastroduodenoscopy (EGD) H/O colonoscopy Family History Mother HTN (hypertension) CVA (cerebral vascular accident) Social History Household Members: Spouse Housing: House Do you presently have visiting nurse or other home services: No Alcohol intake: never Patient Tobacco Use Status: Never used Tobacco Advance Directives Date on File: 09/20/20 service: No Review of Systems Const All systems reviewed & are unremarkable except as noted in HPI and below Eyes Reports no additional complaints ENT Reports no additional complaints Card Denies chest pain, Denies irregular heart rhythm and Reports dyspnea on exertion (MILD) Resp Denies cough, Reports dyspnea on exertion (MILD) and Denies wheezing GI Reports no additional complaints Reports no additional complaints Musc Reports back pain and Reports arthralgias Skin/Breast Reports system reviewed and no additional complaints, except as documented and Reports skin ulcer (CHRONIC ULCER ON THE RIGHT LEG) Neuro Reports no additional complaints Psych Reports no additional complaints Aller/Immun Denies wheezing Physical Exam Vital Signs: Last Vital Signs Pulse 60 03/31/23 10:49 BP 122/68 03/31/23 10:49 Pulse Ox 99 03/31/23 10:49 Oxygen Delivery Method Room Air 03/31/23 10:49 BMI result Body Mass Index 41.7 Const General: comfortable, no acute distress, alert, awake and other (MARKEDLY OBESE ESPECIALLY WITH A ROUND FACE AND VERY OBESE NECK) Orientation/consciousness: patient oriented x3 HEENT Head: Yes normal to inspection General nose exam: No nasal polyps present and No nasal discharge present Face and sinus: No normal facial exam (Patient has brownish pigmentation of the skin of his face and neck , ) and Yes sinuses nontender Mouth: oropharynx abnormals (VERY CROWDED AND NARROW, MALLAMPATI CLASS 4) Throat: Yes posterior oropharynx normal Eyes General: appearance normal, both eyes and all related structures Neck Neck: Yes normal visual inspection, Yes no lymphadenopathy, Yes trachea midline, Yes no JVD and Yes other (NECK CIRCUMFERENCE 22 IN,WITH EXCESSIVE LOOSE SKIN SKIN AND ADIPOSE TISSUE) Thyroid: Thyroid normal Chest Chest palpation & inspection: normal inspection of the chest, normal palpation of entire chest wall and no tenderness Resp Other: PERCUSSION NOTE NOT PERCEPTIBLE DUE TO THICK CHEST WALL. BREATH SOUNDS ARE QUITE DISTANT ESPECIALLY OVER THE BASILAR AREAS. NO WHEEZES RHONCHI ARE CREPS ARE HEARD. Cardio Palpation: PMI not normal (NOT PALPABLE) Rate: regular rate Rhythm: regular rhythm Heart sounds: no gallops and no murmurs GI Palpation (GI): Soft to palpation, nontender, No hepatosplenomegaly present, no masses and Other GI palpation findings present (ABDOMEN GROSSLY OBESE AND PROTUBERANT) Auscultation: normal bowel sounds Back/Spine/Pelvis Thoracic/Lumbar Spine: thoracic and lumbar spine normal to inspection and thoraco-lumbar ROM limited Skin General skin exam: no rashes or lesions noted and other (CHRONIC ALSO ON THE LATERAL ASPECT OF RIGHT LEG) Neuro General: patient oriented x3 and no focal motor deficits Cranial nerves: Yes CN's II-XII intact bilaterally Extrem General: Yes normal to inspection, Yes no calf tenderness and Yes edema (CHRONIC STASIS EDEMA OF THE RIGHT LEG) Psych Appearance: grossly normal and well kempt Speech and movement: Normal speech and movement present Results Reviewed Results Reviewed: Compliance report for the last 30 nights is reviewed. He missed using only on 1 night. 29/30 nights, 97% of the time. Average use per night 8 hours 19 minutes which is excellent. Pressure 16. Mild air leak is noted. Residual AHI 3.6 Assessment & Plan Assessment & Plan (1) Morbid obesity with BMI of 50.0-59.9, adult: Comment: CURRENT BMI= 41.7 HOLDING STABLE Code(s): E66.01 - Morbid (severe) obesity due to excess calories; Z68.43 - Body mass index [BMI] 50.0-59.9, adult (2) HAYLEE (obstructive sleep apnea): Code(s): G47.33 - Obstructive sleep apnea (adult) (pediatric) Plan IS A VERY REGULAR USER OF CPAP AND SLEEPS WELL. ADVISED TO CONTINUE USING CPAP EVERY NIGHT WITH NASAL MASK, AND PRESSURE OF 18 CM. Coding Level of Care Code Est Pt Level 3 (44621) Diagnoses Morbid obesity with BMI of 50.0-59.9, adult E66.01; Z68.43 HAYLEE (obstructive sleep apnea) G47.33
[2023-03-31 10:49] VITALS: BP 122/68; PULSE 60; O2SAT 99; BMI 41.7
== END 2023-03-31 11:06 | disposition home or self-care (01) ==
PROVIDERS: PCP Internal Medicine; Visit Provider Internal Medicine
DX: E66.01 Morbid (severe) obesity due to excess calories (principal); Z68.43 Body mass index [BMI] 50.0-59.9, adult; G47.33 Obstructive sleep apnea (adult) (pediatric)
CPT/HCPCS: 99213

== ENCOUNTER → 2023-03-31 10:45 | Outpatient (BNVA) | payer MEDICARE, SELFPAY | PROVIDERS: PCP Internal Medicine; Visit Provider Internal Medicine | DX: G47.33 Obstructive sleep apnea (adult) (pediatric) (principal); E66.01 Morbid (severe) obesity due to excess calories; Z68.41 Body mass index [BMI] 40.0-44.9, adult | CPT/HCPCS: 99212 ==

== ENCOUNTER 2023-05-19 12:03 | Outpatient (AMB) | payer MEDICARE, SELFPAY ==
--- NOTE | 2023-05-19 12:33 | A.OFFVIS_ITS ---
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 To recall, he was seen in the hospital in the past for bradycardia and in that context, also had acute kidney injury. He was on diltiazem and metoprolol at that time which were later stopped. Bradycardia improved after that hospitalization but more recently, patient has been noticing low heart rates. Hence he underwent Holter monitor that does confirm the sinus bradycardia. However, he absolutely denies any symptoms including chest pain or shortness of breath or palpitations or syncopal episodes extra. On rare occasions, he can get some orthostatic dizziness but nothing else. [facility] Medical History JADEN on CPAP Essential hypertension Morbid obesity Hx of gout Arthritis Sleep apnea HTN (hypertension) Surgical History Hx of detached retina repair History of ankle surgery History of esophagogastroduodenoscopy (EGD) H/O colonoscopy Family History Mother HTN (hypertension) CVA (cerebral vascular accident) Social History Household Members: Spouse Housing: House Do you presently have visiting nurse or other home services: No Alcohol intake: never Patient Tobacco Use Status: Never used Tobacco Advance Directives Date on File: 09/20/20 service: No Review of Systems Const Denies weakness ENT Denies dizziness Card Denies chest pain, Denies chest pain with activity, Denies syncope, Denies rapid heart rate, Denies pedal edema, Denies edema, Denies leg edema, Denies lightheadedness, Denies palpitations, Denies dyspnea, Denies dyspnea on exertion and Denies orthopnea Resp Denies cough, Denies dyspnea and Denies dyspnea on exertion GI Denies hematochezia and Denies change in stool character Musc Denies abnormal gait, Denies muscle cramps, Denies muscle weakness, Denies numbness, Denies radiating pain into limb and Denies tingling Neuro Denies abnormal gait, Denies dizziness, Denies syncope, Denies numbness, Denies tingling and Denies weakness Endo Denies palpitations Physical Exam Vital Signs: Last Vital Signs Pulse 48 L 05/19/23 12:35 BP 118/60 05/19/23 12:35 BMI result Body Mass Index 42.4 Const General: comfortable and no acute distress Orientation/consciousness: patient oriented x3 HEENT Other: Unremarkable Head: Yes normal to inspection Neck Neck: Yes normal visual inspection Chest Chest palpation & inspection: normal inspection of the chest Resp Auscultation: clear to auscultation bilaterally Cardio Palpation: normal PMI Heart sounds: S1 normal heart sound present, S2 normal heart sound present, no gallops, Murmur heart sound present systolic II/ and at the right sternal border and no rubs GI Palpation (GI): Soft to palpation Back/Spine/Pelvis Other: unremarkable Skin General skin exam: no rashes or lesions noted Neuro General: patient oriented x3 Extrem General: Yes normal to inspection Psych Mental Status: mental status grossly normal Assessment & Plan Assessment & Plan (1) Bradycardia, sinus: Code(s): R00.1 - Bradycardia, unspecified Plan: Holter confirms sinus bradycardia with an average rate in the 40s, but clinically, he denies any symptoms whatsoever. We did put him on the treadmill, but he states he could not keep up with the incline and hence had to stop. We will continue to monitor. No absolute need for pacemaker at this time but may need in the future. (2) Aortic valve calcification: Code(s): I35.9 - Nonrheumatic aortic valve disorder, unspecified Plan: Echocardiogram report as well as images reviewed. Some of the gradients are probably related to increased stroke volume. Could have mild aortic stenosis and can not exclude bicuspid type morphology but difficult to see. He also has high stroke volume based on LVOT VTI and that can also cause murmurs. Will need to follow-up on echocardiograms. (3) Ascending aortic aneurysm: Code(s): I71.21 - Aneurysm of the ascending aorta, without rupture Plan: On the echocardiogram, measurement was 4.8 cm but image quality was not ideal. In the noncontrast CT scan, 4.6/4.7 cm. However, thought to be possible over estimation due to pulsation artifact. Not changed since 06/2021. We discussed about this today. This will need periodic monitoring. It seems that he does get CT scans of chest for Oncology reasons and hence we can probably use that for monitoring the aneurysm. Otherwise, mainly blood pressure management. He states home blood pressures are no more than 130s. (4) Atherosclerotic cardiovascular disease: Code(s): I25.10 - Atherosclerotic heart disease of [place] coronary artery without angina pectoris Plan: CT scan describes mild LAD/RCA coronary calcification. Again clinically he has got absolutely no symptoms. In the recent ETT, he reached only 4.6 METS but no clear ischemic findings or angina. He thinks he might have had some reaction statins in the past but it has been so many years. Hence he may re-attempt. Start Crestor. (5) Essential hypertension: Code(s): I10 - Essential (primary) hypertension Plan: On amlodipine. Due to bradycardia as well as renal insufficiency, options are somewhat limited. Also goes Nephrology for this. Blood pressure looks okay. (6) JADEN (obstructive sleep apnea): Code(s): G47.33 - Obstructive sleep apnea (adult) (pediatric) Plan: Continue CPAP. (7) Morbid obesity with BMI of 50.0-59.9, adult: Code(s): E66.01 - Morbid (severe) obesity due to excess calories; Z68.43 - Body mass index [BMI] 50.0-59.9, adult Plan: He has lost lot of weight, almost 60-70 lb or so in the last few months. That may also sometimes lead to reduction in heart rate. Plan Discussed with who came for appointment. Medications: New rosuvastatin (Crestor) 20 mg PO DAILY 90 tabs 3RF Coding Level of Care Code Est Pt Level 4 (32540) Diagnoses Bradycardia, sinus R00.1 Aortic valve calcification I35.9 Ascending aortic aneurysm I71.21 Atherosclerotic cardiovascular disease I25.10 Essential hypertension I10 JADEN (obstructive sleep apnea) G47.33 Morbid obesity with BMI of 50.0-59.9, adult E66.01; Z68.43
[2023-05-19 12:35] VITALS: BP 118/60; PULSE 48; BMI 42.4
== END 2023-05-19 12:55 | disposition home or self-care (01) ==
PROVIDERS: PCP Internal Medicine; Visit Provider Internal Medicine
DX: R00.1 Bradycardia, unspecified (principal); I35.9 Nonrheumatic aortic valve disorder, unspecified; I71.21 Aneurysm of the ascending aorta, without rupture; I25.10 Atherosclerotic heart disease of native coronary artery without angina pectoris; I10 Essential (primary) hypertension; G47.33 Obstructive sleep apnea (adult) (pediatric); E66.01 Morbid (severe) obesity due to excess calories; Z68.43 Body mass index [BMI] 50.0-59.9, adult
CPT/HCPCS: 99214

== ENCOUNTER → 2023-05-19 12:03 | Outpatient (BNVA) | payer MEDICARE, SELFPAY | PROVIDERS: PCP Internal Medicine; Visit Provider Internal Medicine | DX: R00.1 Bradycardia, unspecified (principal); I35.9 Nonrheumatic aortic valve disorder, unspecified; I71.21 Aneurysm of the ascending aorta, without rupture; I25.10 Atherosclerotic heart disease of native coronary artery without angina pectoris; I10 Essential (primary) hypertension; G47.33 Obstructive sleep apnea (adult) (pediatric); E66.01 Morbid (severe) obesity due to excess calories; Z68.43 Body mass index [BMI] 50.0-59.9, adult; Z99.89 Dependence on other enabling machines and devices | CPT/HCPCS: 99212 ==

== ENCOUNTER 2023-08-14 11:43 | Outpatient (REF) | payer MEDICARE, SELFPAY ==
[2023-08-14 12:49] LABS: Free T4 (Free Thyroxine) 0.83 ng/dL (0.71-1.85); T4 Thyroxine 4.9 ug/dL (4.5-12.0); TSH reflex Free T4 4.42 uIU/mL (0.32-4.0)
== END 2023-08-14 11:44 | disposition home or self-care (01) ==
LOC: HO.LNP 11:43
PROVIDERS: Visit Provider Internal Medicine
DX: E03.9 Hypothyroidism, unspecified (principal)
CPT/HCPCS: 84436; 84439; 84443

== ENCOUNTER 2023-09-29 10:50 | Outpatient (AMB) | payer MEDICARE, SELFPAY ==
[2023-09-29 11:19] VITALS: BP 130/68; PULSE 50; O2SAT 100; BMI 42.3
--- NOTE | 2023-09-29 11:19 | A.OFFVIS_ITS ---
Vital Signs 09/29/23 11:19 Height 5 ft 7 in Weight 270 lb 1.06 oz BMI 42.3 BP 130/68 Blood Pressure Location Lt brachial Position Sitting Pulse 50 Pulse Source Pulse Oximeter Pulse Oximetry (%) 100 Oxygen Delivery Method Room Air Intake Visit Reasons: haylee Intake Note: pt is here for follow up and states he is doing is well with cpap, [place] Required: No Allergies No Known Allergies Allergy (Verified 09/29/23 11:38) Medication List - Last Reconciled 09/29/23 by Aamir Santos MD allopurinol 300 mg PO DAILY amlodipine 10 mg PO DAILY fluoride (sodium) 1.1% (PreviDent 5000 Dry Mouth) dental DIRECTED levothyroxine 25 mcg PO DAILY rosuvastatin (Crestor) 20 mg PO DAILY Do you need a note to return to daycare/school/sports/work: No HPI HPI haylee: Details: NOREEN IS 73 YEARS OLD VERY PLEASANT TANZANIAN GENTLEMAN. HE REMAINS OBESE, BUT FEELS GOOD. .REMAINS PHYSICALLY ACTIVE USES CPAP AT NIGHT AND SLEEPS BETWEEN 8-9 HOURS EVERY NIGHT. HE HAS BEEN USING CPAP REGULARLY, HE MISSED USING IT ONLY A FEW NIGHTS WHEN HE WAS ON VACATION TRAVELING IN [place]. HE HAS NO ISSUE WITH THE CPAP MACHINE OR THE MASK, EXCEPT THAT DURING HIS SLEEP THE MASKS DOES TEND TO SLIP TO THE SIDE. [facility] Medical History HAYLEE on CPAP Essential hypertension Morbid obesity Hx of gout Arthritis Sleep apnea HTN (hypertension) Surgical History Hx of detached retina repair History of ankle surgery History of esophagogastroduodenoscopy (EGD) H/O colonoscopy Family History Mother HTN (hypertension) CVA (cerebral vascular accident) Social History Household Members: Spouse Housing: House Do you presently have visiting nurse or other home services: No Alcohol intake: never Patient Tobacco Use Status: Never used Tobacco Advance Directives Date on File: 09/20/20 service: No Review of Systems Const All systems reviewed & are unremarkable except as noted in HPI and below Eyes Reports no additional complaints ENT Reports no additional complaints Card Denies chest pain, Denies irregular heart rhythm and Reports dyspnea on exertion (MILD) Resp Denies cough, Reports dyspnea on exertion (MILD) and Denies wheezing GI Reports no additional complaints Reports no additional complaints Musc Reports back pain and Reports arthralgias Skin/Breast Reports system reviewed and no additional complaints, except as documented and Reports skin ulcer (CHRONIC ULCER ON THE RIGHT LEG) Neuro Reports no additional complaints Psych Reports no additional complaints Aller/Immun Denies wheezing Physical Exam Vital Signs: Last Vital Signs Pulse 50 09/29/23 11:19 BP 130/68 09/29/23 11:19 Pulse Ox 100 09/29/23 11:19 Oxygen Delivery Method Room Air 09/29/23 11:19 BMI result Body Mass Index 42.3 Const General: comfortable, no acute distress, alert, awake and other (MARKEDLY OBESE ESPECIALLY WITH A ROUND FACE AND VERY OBESE NECK) Orientation/consciousness: patient oriented x3 HEENT Head: Yes normal to inspection General nose exam: No nasal polyps present and No nasal discharge present Face and sinus: No normal facial exam (Patient has brownish pigmentation of the skin of his face and neck , ) and Yes sinuses nontender Mouth: oropharynx abnormals (VERY CROWDED AND NARROW, MALLAMPATI CLASS 4) Throat: Yes posterior oropharynx normal Eyes General: appearance normal, both eyes and all related structures Neck Neck: Yes normal visual inspection, Yes no lymphadenopathy, Yes trachea midline, Yes no JVD and Yes other (NECK CIRCUMFERENCE 22 IN,WITH EXCESSIVE LOOSE SKIN SKIN AND ADIPOSE TISSUE) Thyroid: Thyroid normal Chest Chest palpation & inspection: normal inspection of the chest, normal palpation of entire chest wall and no tenderness Resp Other: PERCUSSION NOTE NOT PERCEPTIBLE DUE TO THICK CHEST WALL. BREATH SOUNDS ARE QUITE DISTANT ESPECIALLY OVER THE BASILAR AREAS. NO WHEEZES RHONCHI ARE CREPS ARE HEARD. Cardio Palpation: PMI not normal (NOT PALPABLE) Rate: regular rate Rhythm: regular rhythm Heart sounds: no gallops and no murmurs GI Palpation (GI): Soft to palpation, nontender, No hepatosplenomegaly present, no masses and Other GI palpation findings present (ABDOMEN GROSSLY OBESE AND PROTUBERANT) Auscultation: normal bowel sounds Back/Spine/Pelvis Thoracic/Lumbar Spine: thoracic and lumbar spine normal to inspection and thoraco-lumbar ROM limited Skin General skin exam: no rashes or lesions noted and other (CHRONIC ALSO ON THE LATERAL ASPECT OF RIGHT LEG) Neuro General: patient oriented x3 and no focal motor deficits Cranial nerves: Yes CN's II-XII intact bilaterally Extrem General: Yes normal to inspection, Yes no calf tenderness and Yes edema (CHRONIC STASIS EDEMA OF THE RIGHT LEG) Psych Appearance: grossly normal and well kempt Speech and movement: Normal speech and movement present Results Reviewed Results Reviewed: COMPLIANCE REPORT FOR THE LAST 30 NIGHTS IS REVIEWED AND HE HAS USED 26/30 NIGHTS, 87%. AVERAGE USE PER NIGHT IS 9 HOURS 1 MINUTE. THERE IS SOME AIR LEAK. AND RESIDUAL AHI 3.3 Assessment & Plan Assessment & Plan (1) Morbid obesity with BMI of 50.0-59.9, adult: Comment: HE HAS LOST SIGNIFICANT WEIGHT BUT STILL REMAINS OBESE. CURRENT BMI 42.3. HE HAS DIFFICULTY IN LOSING MORE WEIGHT. Code(s): E66.01 - Morbid (severe) obesity due to excess calories; Z68.43 - Body mass index [BMI] 50.0-59.9, adult Category: Medical Plan: DISCUSSED WITH HIM AND TOLD HIM TO TRY TO LOSE EVEN IF HE CAN DO 10 LB. (2) HAYLEE (obstructive sleep apnea): Comment: HIS SLEEP APNEA IS WELL CONTROLLED WITH THE USE OF CPAP. HE IS VERY COMPLIANT AND SLEEPS GOOD. Code(s): G47.33 - Obstructive sleep apnea (adult) (pediatric) Category: Medical Plan: COMMENDED FOR GOOD COMPLIANCE AND ADVISED TO KEEP ON USING THE CPAP EVERY NIGHT. REVISIT Q 6 MONTHS. Coding Level of Care Code Est Pt Level 3 (34290) Diagnoses Morbid obesity with BMI of 50.0-59.9, adult E66.01; Z68.43 HAYLEE (obstructive sleep apnea) G47.33
== END 2023-09-29 11:48 | disposition home or self-care (01) ==
PROVIDERS: PCP Internal Medicine; Visit Provider Internal Medicine
DX: E66.01 Morbid (severe) obesity due to excess calories (principal); Z68.43 Body mass index [BMI] 50.0-59.9, adult; G47.33 Obstructive sleep apnea (adult) (pediatric)
CPT/HCPCS: 99213

== ENCOUNTER → 2023-09-29 10:50 | Outpatient (BNVA) | payer MEDICARE, SELFPAY | PROVIDERS: PCP Internal Medicine; Visit Provider Internal Medicine | DX: G47.33 Obstructive sleep apnea (adult) (pediatric) (principal); E66.01 Morbid (severe) obesity due to excess calories; Z68.43 Body mass index [BMI] 50.0-59.9, adult | CPT/HCPCS: 99212 ==

== ENCOUNTER 2023-11-26 08:40 | Outpatient (AMB) | payer MEDICARE, SELFPAY ==
--- NOTE | 2023-11-26 09:04 | A.OFFVIS_ITS ---
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 To recall, he was seen in the hospital in the past for bradycardia and in that context, also had acute kidney injury. He was on diltiazem and metoprolol at that time which were later stopped. Bradycardia improved after that hospitalization but more recently, patient has been noticing low heart rates. Hence he underwent Holter monitor that does confirm the sinus bradycardia. He states he actually feels quite well. Does not have any exercise intolerance, dizziness, presyncope or in fact any cardiac symptoms at all. He states he is able to do all activities with no limitations. He apparently went to [place] recently and walked thousands of steps and miles with no issues. [facility] Medical History JADEN on CPAP Essential hypertension Morbid obesity Hx of gout Arthritis Sleep apnea HTN (hypertension) Surgical History Hx of detached retina repair History of ankle surgery History of esophagogastroduodenoscopy (EGD) H/O colonoscopy Family History Mother HTN (hypertension) CVA (cerebral vascular accident) Social History Household Members: Spouse Housing: House Do you presently have visiting nurse or other home services: No Alcohol intake: never Patient Tobacco Use Status: Never used Tobacco Advance Directives Date on File: 09/20/20 service: No Review of Systems Const Denies chills, Denies fatigue, Denies fever(s), Denies weight gain and Denies weight loss ENT Denies dizziness Card Denies chest pain, Denies leg edema, Denies lightheadedness, Denies palpitations, Denies dyspnea on exertion, Denies orthopnea and Denies other Resp Denies cough and Denies dyspnea on exertion GI Denies hematochezia and Denies change in stool character Musc Denies abnormal gait, Denies muscle weakness, Denies numbness, Denies radiating pain into limb and Denies tingling Neuro Denies abnormal gait, Denies dizziness, Denies numbness and Denies tingling Endo Denies fatigue and Denies palpitations Physical Exam Vital Signs: Last Vital Signs Pulse 42 L 11/26/23 09:05 BP 134/66 11/26/23 09:05 BMI result Body Mass Index 42.3 Const General: comfortable and no acute distress Orientation/consciousness: patient oriented x3 HEENT Other: Unremarkable Head: Yes normal to inspection Neck Neck: Yes normal visual inspection Chest Chest palpation & inspection: normal inspection of the chest Resp Auscultation: clear to auscultation bilaterally Cardio Palpation: normal PMI Heart sounds: S1 normal heart sound present, S2 normal heart sound present, no gallops, Murmur heart sound present systolic III/ and at the right sternal border and no rubs GI Palpation (GI): Soft to palpation Back/Spine/Pelvis Other: unremarkable Skin General skin exam: no rashes or lesions noted Neuro General: patient oriented x3 Extrem General: Yes normal to inspection Psych Mental Status: mental status grossly normal Office Procedures EKG Details: EKG with possible sinus bradycardia versus ectopic rhythm at a rate of 42/Min. Leftward axis.-similar to prior. [id number], Complete Assessment & Plan Assessment & Plan (1) Bradycardia, sinus: Code(s): R00.1 - Bradycardia, unspecified Category: Medical Plan: Asymptomatic sinus bradycardia. He did try ETT but he states that he was weak from cancer and could not keep up from deconditioning. Offered it again but he would rather not. We discussed about potential pacemaker in the future but nothing absolutely necessary at this time. He will contact us with any symptoms. (2) Aortic valve calcification: Code(s): I35.9 - Nonrheumatic aortic valve disorder, unspecified Category: Medical Plan: Echocardiogram report as well as images reviewed. Some of the gradients are probably related to increased stroke volume. Could have mild aortic stenosis and cannot exclude bicuspid type morphology but difficult to see. He also has high stroke volume based on LVOT VTI and that can also cause murmurs. May follow-up with repeat echocardiogram in the future. (3) Ascending aortic aneurysm: Code(s): I71.21 - Aneurysm of the ascending aorta, without rupture Category: Medical Plan: On the echocardiogram, measurement was 4.8 cm but image quality was not ideal. In the noncontrast CT scan, 4.6/4.7 cm. However, thought to be possible over estimation due to pulsation artifact. Not changed since 06/2021. This will need periodic monitoring. It seems that he does get CT scans of chest for Oncology reasons and hence we can probably use that for monitoring the aneurysm. Will check [facility] records. Otherwise, mainly blood pressure management. He states home blood pressures are no more than 130s. (4) Atherosclerotic cardiovascular disease: Code(s): I25.10 - Atherosclerotic heart disease of [place] coronary artery without angina pectoris Category: Medical Plan: CT scan describes mild LAD/RCA coronary calcification. Again clinically he has got absolutely no symptoms. In the recent ETT, he reached only 4.6 METS but no clear ischemic findings or angina. Currently on Crestor. Lipids will need to be rechecked at some point. (5) Essential hypertension: Code(s): I10 - Essential (primary) hypertension Category: Medical Plan: On amlodipine. Due to bradycardia as well as renal insufficiency, options are somewhat limited. Also goes Nephrology for this. Blood pressure looks okay. (6) JADEN (obstructive sleep apnea): Comment: HIS SLEEP APNEA IS WELL CONTROLLED WITH THE USE OF CPAP. HE IS VERY COMPLIANT AND SLEEPS GOOD. Code(s): G47.33 - Obstructive sleep apnea (adult) (pediatric) Category: Medical Plan: Continue CPAP. (7) Morbid obesity with BMI of 50.0-59.9, adult: Comment: HE HAS LOST SIGNIFICANT WEIGHT BUT STILL REMAINS OBESE. CURRENT BMI 42.3. HE HAS DIFFICULTY IN LOSING MORE WEIGHT. Code(s): E66.01 - Morbid (severe) obesity due to excess calories; Z68.43 - Body mass index [BMI] 50.0-59.9, adult Category: Medical Plan: He has lost lot of weight, almost 60-70 lb or so in the last few months. That may also sometimes lead to reduction in heart rate. Plan Discussed with who came for appointment. Orders: Orders CA echo transthoracic complete 6 Months I71.21 - Aneurysm of the ascending aorta, without rupture Coding Level of Care Code Est Pt Level 4 (37848) Diagnoses Bradycardia, sinus R00.1 Aortic valve calcification I35.9 Ascending aortic aneurysm I71.21 Atherosclerotic cardiovascular disease I25.10 Essential hypertension I10 JADEN (obstructive sleep apnea) G47.33 Morbid obesity with BMI of 50.0-59.9, adult E66.01; Z68.43 CPT Codes EKG - CPT: 28390-[id number], Complete ([id number])
[2023-11-26 09:05] VITALS: BP 134/66; PULSE 42; BMI 42.3
== END 2023-11-26 09:33 | disposition home or self-care (01) ==
PROVIDERS: PCP Internal Medicine; Visit Provider Internal Medicine
DX: R00.1 Bradycardia, unspecified (principal); I35.9 Nonrheumatic aortic valve disorder, unspecified; I71.21 Aneurysm of the ascending aorta, without rupture; I25.10 Atherosclerotic heart disease of native coronary artery without angina pectoris; I10 Essential (primary) hypertension; G47.33 Obstructive sleep apnea (adult) (pediatric); E66.01 Morbid (severe) obesity due to excess calories; Z68.43 Body mass index [BMI] 50.0-59.9, adult
CPT/HCPCS: 93010; 99214

== ENCOUNTER → 2023-11-26 08:40 | Outpatient (BNVA) | payer MEDICARE, SELFPAY | PROVIDERS: PCP Internal Medicine; Visit Provider Internal Medicine | DX: R00.1 Bradycardia, unspecified (principal); I35.9 Nonrheumatic aortic valve disorder, unspecified; I71.21 Aneurysm of the ascending aorta, without rupture; I25.10 Atherosclerotic heart disease of native coronary artery without angina pectoris; I10 Essential (primary) hypertension; G47.33 Obstructive sleep apnea (adult) (pediatric); E66.01 Morbid (severe) obesity due to excess calories; Z68.41 Body mass index [BMI] 40.0-44.9, adult | CPT/HCPCS: 93005; 99212 ==

== ENCOUNTER 2023-12-10 11:09 | Outpatient (REF) | payer MEDICARE, SELFPAY ==
[2023-12-10 11:34] LABS: MANUAL DIFF FLAG NO
[2023-12-10 12:43] LABS: Appearance Urine Clear; Color Urine Yellow; Glucose Urine UA Negative (Negative); Leukocyte Esterase Urine Negative (Negative); Nitrite Urine Negative (Negative); UMIC TRIGGER UA YES; Urine Blood Negative (Negative); Urine Ketones Negative (Negative); Urine Protein 30 (1+) mg/dL (Neg-Trace)
[2023-12-10 12:52] LABS: Basophils Percent Auto 0.4 % (0-2); Eosinophils Absolute Auto 0.2 X10*3/uL (0.0-0.4); Hematocrit 39.9 % (42.0-52.0); Hemoglobin 13.2 g/dl (14.0-18.0); Imm Gran Abs Auto 0.02 X10*3/uL (0.00-0.03); Imm Gran Pct Auto 0.4 % (0.0-0.4); Lymphocytes Absolute Auto 0.9 X10*3/uL (1.2-4.9); Lymphocytes Percent Auto 16.6 % (20-40); Mean Corpuscular HGB Conc 33.1 g/dl (31.0-36.0); Mean Corpuscular Hemoglobin 30.9 pg (27.0-33.0); Mean Corpuscular Volume 93.4 fL (80.0-98.0); Mean Platelet Volume 9.1 fL (9.4-12.4); Monocytes Absolute Auto 0.4 X10*3/uL (0.1-1.2); Monocytes Percent Auto 7.7 % (2-11); Neutrophils Absolute Auto 3.9 x10*3/uL (2.0-8.3); Neutrophils Percent Auto 71.9 % (45-73); Platelet Count 230 X10*3/uL (160-400); Red Blood Count 4.27 X10*6/uL (4.60-5.80); Red Cell Distribution Width 14.7 % (11.0-16.0); White Blood Count 5.4 X10*3/uL (4.8-10.8)
[2023-12-10 12:54] LABS: Bacteria Urine None Seen (None Seen); Hyaline Casts Urine 0-2 /LPF (0-2); RBC Urine 0-2 /HPF (0-2); Squamous Epithelial Cell Urine 0-2 /HPF (0-2); WBC Urine 0-5 /HPF (0-5)
[2023-12-10 13:03] LABS: Microalbum/Creatinine Ratio Ur 578.2 ug/mg cr (<30); Protein/Creatinine Ratio, Ur 0.85 (<0.2); Total Protein Urine Random 32 mg/dL (<12)
[2023-12-10 13:03] LABS: Parathyroid Hormone Intact 205.7 pg/mL (8.7-77.1)
[2023-12-10 13:08] LABS: Albumin Level 4.5 g/dL (3.5-5.0); Anion Gap 15 (12-20); Blood Urea Nitrogen 15 mg/dL (9-16); Carbon Dioxide 27 mmol/L (22-29); Chloride 103 mmol/L (96-108); Estimated Glomerular Filt Rate > 60; Magnesium 2.5 mg/dL (1.6-2.6); Phosphorus 3.5 mg/dL (2.7-4.5); Potassium 3.9 mmol/L (3.3-5.1); Sodium 141 mmol/L (135-145)
[2023-12-10 13:24] LABS: Vitamin D 25-OH Total 20.7 ng/mL (>30)
== END 2023-12-10 11:10 | disposition home or self-care (01) ==
LOC: HO.LAB 11:09
PROVIDERS: PCP Internal Medicine; Visit Provider Internal Medicine Nephrology
DX: N18.31 Chronic kidney disease, stage 3a (principal); N25.0 Renal osteodystrophy; I10 Essential (primary) hypertension
CPT/HCPCS: 36415; 80051; 81001; 82040; 82043; 82306; 82310; 82565; 82570; 83735; 83970; 84100; 84156; 84520; 85025

== ENCOUNTER 2024-02-02 11:18 | Outpatient (REF) | payer MEDICARE, SELFPAY ==
[2024-02-02 11:26] LABS: MANUAL DIFF FLAG NO
[2024-02-02 11:38] LABS: Appearance Urine Clear; Color Urine Yellow; Glucose Urine UA Negative (Negative); Leukocyte Esterase Urine Negative (Negative); Nitrite Urine Negative (Negative); PH 6.5 (5.0-9.0); Urine Blood Negative (Negative); Urine Ketones Negative (Negative); Urine Protein Trace mg/dL (Neg-Trace)
[2024-02-02 11:41] LABS: Bacteria Urine None Seen (None Seen); Hyaline Casts Urine 0-2 /LPF (0-2); RBC Urine 0-2 /HPF (0-2); Squamous Epithelial Cell Urine 0-2 /HPF (0-2); WBC Urine 0-5 /HPF (0-5)
[2024-02-02 11:57] LABS: Basophils Percent Auto 0.4 % (0-2); Eosinophils Absolute Auto 0.3 X10*3/uL (0.0-0.4); Eosinophils Percent Auto 5.5 % (0-4); Hematocrit 38.7 % (42.0-52.0); Hemoglobin 12.7 g/dl (14.0-18.0); Imm Gran Abs Auto 0.02 X10*3/uL (0.00-0.03); Imm Gran Pct Auto 0.4 % (0.0-0.4); Lymphocytes Absolute Auto 0.9 X10*3/uL (1.2-4.9); Lymphocytes Percent Auto 20.6 % (20-40); Mean Corpuscular HGB Conc 32.8 g/dl (31.0-36.0); Mean Corpuscular Hemoglobin 30.5 pg (27.0-33.0); Mean Corpuscular Volume 92.8 fL (80.0-98.0); Mean Platelet Volume 9.1 fL (9.4-12.4); Monocytes Absolute Auto 0.5 X10*3/uL (0.1-1.2); Monocytes Percent Auto 10.4 % (2-11); Neutrophils Absolute Auto 2.8 x10*3/uL (2.0-8.3); Neutrophils Percent Auto 62.7 % (45-73); Platelet Count 237 X10*3/uL (160-400); Red Blood Count 4.17 X10*6/uL (4.60-5.80); Red Cell Distribution Width 14.9 % (11.0-16.0); White Blood Count 4.5 X10*3/uL (4.8-10.8)
[2024-02-02 11:59] LABS: Estimated Average Glucose 94 mg/dL; Hemoglobin A1c % 4.9 % (<6.0)
[2024-02-02 12:04] LABS: Alanine Aminotransferase 12 U/L (0-40); Albumin Level 4.3 g/dL (3.5-5.0); Alkaline Phosphatase 63 U/L (39-117); Anion Gap 12 (12-20); Aspartate Amino Transferase 40 U/L (5-37); Bilirubin Total 0.5 mg/dL (0.0-1.0); Blood Urea Nitrogen 19 mg/dL (9-16); Calcium 9.4 mg/dL (8.4-10.2); Carbon Dioxide 28 mmol/L (22-29); Chloride 105 mmol/L (96-108); Cholesterol 128 mg/dL (<200); Estimated Glomerular Filt Rate 56; Glucose Fasting 91 mg/dL (60-99); HDL Cholesterol 41 mg/dL (>40); LDL Cholesterol Calculated 68 mg/dL (<100); Potassium 4.1 mmol/L (3.3-5.1); Sodium 141 mmol/L (135-145); Total Protein 7.8 g/dL (6.5-8.0); Triglycerides 95 mg/dL (<150)
[2024-02-02 12:11] LABS: Creatinine Urine 50.28 mg/dL; Microalbum/Creatinine Ratio Ur 208.8 ug/mg cr (<30)
[2024-02-02 12:15] LABS: PSA,Total (Free>4and<10) 1.56 ng/mL (0.00-4.00)
== END 2024-02-02 11:19 | disposition home or self-care (01) ==
LOC: HO.LNP 11:18
PROVIDERS: Visit Provider Internal Medicine
DX: I10 Essential (primary) hypertension (principal); R73.09 Other abnormal glucose; E78.00 Pure hypercholesterolemia, unspecified; R97.20 Elevated prostate specific antigen [PSA]; E03.9 Hypothyroidism, unspecified; Z12.5 Encounter for screening for malignant neoplasm of prostate
CPT/HCPCS: 80053; 80061; 81001; 82043; 82570; 83036; 84153; 84443; 85025

== ENCOUNTER 2024-03-18 11:04 | Outpatient (REF) | payer MEDICARE, SELFPAY ==
[2024-03-18 12:35] LABS: Appearance Urine Clear; Color Urine Yellow; Glucose Urine UA Negative (Negative); Leukocyte Esterase Urine Negative (Negative); Nitrite Urine Negative (Negative); Urine Blood Negative (Negative); Urine Ketones Negative (Negative); Urine Protein Trace mg/dL (Neg-Trace)
[2024-03-18 13:24] LABS: Anion Gap 12 (12-20); Blood Urea Nitrogen 17 mg/dL (9-16); Calcium 9.7 mg/dL (8.4-10.2); Carbon Dioxide 29 mmol/L (22-29); Chloride 101 mmol/L (96-108); Estimated Glomerular Filt Rate 56; Phosphorus 3.9 mg/dL (2.7-4.5); Potassium 4.3 mmol/L (3.3-5.1); Sodium 138 mmol/L (135-145)
[2024-03-18 13:26] LABS: Creatinine Urine 59.19 mg/dL; Microalbum/Creatinine Ratio Ur 163.8 ug/mg cr (<30); Protein/Creatinine Ratio, Ur 0.37 (<0.2); Total Protein Urine Random 22 mg/dL (<12)
[2024-03-18 13:39] LABS: Parathyroid Hormone Intact 217.2 pg/mL (8.7-77.1)
== END 2024-03-18 11:05 | disposition home or self-care (01) ==
LOC: HO.LAB 11:04
PROVIDERS: PCP Internal Medicine; Visit Provider Internal Medicine Nephrology
DX: N18.31 Chronic kidney disease, stage 3a (principal); N25.0 Renal osteodystrophy; I10 Essential (primary) hypertension
CPT/HCPCS: 36415; 80051; 81003; 82043; 82310; 82565; 82570; 83970; 84100; 84156; 84520

== ENCOUNTER 2024-04-05 10:52 | Outpatient (AMB) | payer MEDICARE, SELFPAY ==
[2024-04-05 11:01] VITALS: BP 130/62; PULSE 50; O2SAT 99; BMI 41.9
--- NOTE | 2024-04-05 11:01 | MHC.OFFVIS ---
Vital Signs 04/05/24 11:01 Height 5 ft 7 in Weight 267 lb 13.786 oz BMI 41.9 BP 130/62 Blood Pressure Location Lt brachial Position Sitting Pulse 50 Pulse Source Pulse Oximeter Pulse Oximetry (%) 99 Oxygen Delivery Method Room Air Intake Visit Reasons: Obstructive sleep apnea Intake Note: pt is here for follow up of JADEN and doing well. Regional Account Director Required: No Allergies No Known Allergies Allergy (Verified 04/05/24 11:28) Medication List - Last Reconciled 04/05/24 by Aamir Santos MD allopurinol 300 mg PO DAILY amlodipine 10 mg PO DAILY calcitriol 0.25 mcg PO Q OTHER DAY cholecalciferol (vitamin D3) 1,250 mcg PO QWEEK levothyroxine 25 mcg PO DAILY rosuvastatin (Crestor) 20 mg PO DAILY Do you need a note to return to daycare/school/sports/work: No HPI HPI Obstructive sleep apnea: Details: This 74 years old very pleasant gentleman a case of morbid obesity and obstructive sleep apnea, comes for 6 months follow-up. He is a very regular user of CPAP, sleeps good for 8-9 hours every night. Gets his supplies right on time. Uses fullface mask and has no issue with the mask or CPAP machine. Denies any daytime sleepiness. Weight knott he is the same as before, he does have chronic renal problem. His weight fluctuates a few lb up and down. [facility] Medical History JADEN on CPAP Essential hypertension Morbid obesity Hx of gout Arthritis Sleep apnea HTN (hypertension) Surgical History Hx of detached retina repair History of ankle surgery History of esophagogastroduodenoscopy (EGD) H/O colonoscopy Family History Mother HTN (hypertension) CVA (cerebral vascular accident) Social History Household Members: Spouse Housing: House Do you presently have visiting nurse or other home services: No Alcohol intake: never Patient Tobacco Use Status: Never used Tobacco Advance Directives Date on File: 09/20/20 service: No Review of Systems Const All systems reviewed & are unremarkable except as noted in HPI and below Eyes Reports no additional complaints ENT Reports no additional complaints Card Denies chest pain, Denies irregular heart rhythm and Reports dyspnea on exertion (MILD) Resp Denies cough, Reports dyspnea on exertion (MILD) and Denies wheezing GI Reports no additional complaints Reports no additional complaints Musc Reports back pain and Reports arthralgias Skin/Breast Reports system reviewed and no additional complaints, except as documented and Reports skin ulcer (CHRONIC ULCER ON THE RIGHT LEG) Neuro Reports no additional complaints Psych Reports no additional complaints Aller/Immun Denies wheezing Physical Exam Vital Signs: Last Vital Signs Pulse 50 04/05/24 11:01 BP 130/62 04/05/24 11:01 Pulse Ox 99 04/05/24 11:01 Oxygen Delivery Method Room Air 04/05/24 11:01 BMI result Body Mass Index 41.9 Const General: comfortable, no acute distress, alert, awake and other (MARKEDLY OBESE ESPECIALLY WITH A ROUND FACE AND VERY OBESE NECK) Orientation/consciousness: patient oriented x3 HEENT Head: Yes normal to inspection General nose exam: No nasal polyps present and No nasal discharge present Face and sinus: No normal facial exam (Patient has brownish pigmentation of the skin of his face and neck , ) and Yes sinuses nontender Mouth: oropharynx abnormals (VERY CROWDED AND NARROW, MALLAMPATI CLASS 4) Throat: Yes posterior oropharynx normal Eyes General: appearance normal, both eyes and all related structures Neck Neck: Yes normal visual inspection, Yes no lymphadenopathy, Yes trachea midline, Yes no JVD and Yes other (NECK CIRCUMFERENCE 22 IN,WITH EXCESSIVE LOOSE SKIN SKIN AND ADIPOSE TISSUE) Thyroid: Thyroid normal Chest Chest palpation & inspection: normal inspection of the chest, normal palpation of entire chest wall and no tenderness Resp Other: PERCUSSION NOTE NOT PERCEPTIBLE DUE TO THICK CHEST WALL. BREATH SOUNDS ARE QUITE DISTANT ESPECIALLY OVER THE BASILAR AREAS. NO WHEEZES RHONCHI ARE CREPS ARE HEARD. Cardio Palpation: PMI not normal (NOT PALPABLE) Rate: regular rate Rhythm: regular rhythm Heart sounds: no gallops and no murmurs GI Palpation (GI): Soft to palpation, nontender, No hepatosplenomegaly present, no masses and Other GI palpation findings present (ABDOMEN GROSSLY OBESE AND PROTUBERANT) Auscultation: normal bowel sounds Back/Spine/Pelvis Thoracic/Lumbar Spine: thoracic and lumbar spine normal to inspection and thoraco-lumbar ROM limited Skin General skin exam: no rashes or lesions noted and other (CHRONIC ALSO ON THE LATERAL ASPECT OF RIGHT LEG) Neuro General: patient oriented x3 and no focal motor deficits Cranial nerves: Yes CN's II-XII intact bilaterally Extrem General: Yes normal to inspection, Yes no calf tenderness and Yes edema (CHRONIC STASIS EDEMA OF THE RIGHT LEG) Psych Appearance: grossly normal and well kempt Speech and movement: Normal speech and movement present Results Reviewed Results Reviewed: Compliance report for the last 30 nights is reviewed. He has used 30/30 nights,. 100% average use it per night, 8 hours 54 minutes which is excellent There is a mild air leak. Pressure 16 cm. Residual AHI only 0.9 Assessment & Plan Assessment & Plan (1) Morbid obesity with BMI of 50.0-59.9, adult: Comment: HE HAS LOST SIGNIFICANT WEIGHT BUT STILL REMAINS OBESE. CURRENT BMI 42.0. HE HAS DIFFICULTY IN LOSING MORE WEIGHT. Code(s): E66.01 - Morbid (severe) obesity due to excess calories; Z68.43 - Body mass index [BMI] 50.0-59.9, adult Category: Medical Plan: He is fully aware of being obese. Trying to watch his diet. Not able to do much walking or exercise. 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 AND WOULD DO AT MUST FOOT AND LEGS EXERCISES POSSIBLE. (2) JADEN (obstructive sleep apnea): Comment: HIS SLEEP APNEA IS WELL CONTROLLED WITH THE USE OF CPAP. HE IS VERY COMPLIANT AND SLEEPS GOOD. Code(s): G47.33 - Obstructive sleep apnea (adult) (pediatric) Category: Medical Plan: COMMENDED FOR GOOD COMPLIANCE AND CONTINUE TO DO THE SAME THING Coding Level of Care Code Est Pt Level 3 (31178) Diagnoses Morbid obesity with BMI of 50.0-59.9, adult E66.01; Z68.43 JADEN (obstructive sleep apnea) G47.33
== END 2024-04-05 11:22 | disposition home or self-care (01) ==
PROVIDERS: PCP Internal Medicine; Visit Provider Internal Medicine
DX: E66.01 Morbid (severe) obesity due to excess calories (principal); Z68.43 Body mass index [BMI] 50.0-59.9, adult; G47.33 Obstructive sleep apnea (adult) (pediatric)
CPT/HCPCS: 99213

== ENCOUNTER → 2024-04-05 10:52 | Outpatient (BNVA) | payer MEDICARE, SELFPAY | PROVIDERS: PCP Internal Medicine; Visit Provider Internal Medicine | DX: G47.33 Obstructive sleep apnea (adult) (pediatric) (principal); E66.01 Morbid (severe) obesity due to excess calories; Z68.43 Body mass index [BMI] 50.0-59.9, adult | CPT/HCPCS: 99212 ==

== ENCOUNTER 2024-04-28 12:43 | Outpatient (AMB) | payer MEDICARE, SELFPAY ==
--- NOTE | 2024-04-28 12:45 | AM.OFFVISNUR ---
Vital Signs 04/28/24 12:59 04/28/24 13:01 04/28/24 13:04 BP 188/81 H 159/72 H 172/78 H Blood Pressure Location Lt brachial Lt brachial Lt brachial Position Supine Sitting Standing Pulse 45 L 43 L 49 L Pulse Source Pulse Oximeter Pulse Oximeter Pulse Oximeter Intake Visit Reasons: EKG Allergies No Known Allergies Allergy (Verified 04/05/24 11:28) Nursing Note pt is here for nurse visit with ekg pt complains of dizziness orthos were perform pt has echo and 3 day holter appointment JUDSON Pratt is aware of today's visit Office Procedures EKG [id number], Complete
[2024-04-28 12:59] VITALS: BP 188/81; PULSE 45
[2024-04-28 13:01] VITALS: BP 159/72; PULSE 43
[2024-04-28 13:04] VITALS: BP 172/78; PULSE 49
== END 2024-04-28 13:22 | disposition home or self-care (01) ==
PROVIDERS: PCP Internal Medicine; Visit Provider Nurse Practitioner Family
DX: R00.1 Bradycardia, unspecified (principal)
CPT/HCPCS: 93010

== ENCOUNTER → 2024-04-28 12:43 | Outpatient (BNVA) | payer MEDICARE, SELFPAY | PROVIDERS: PCP Internal Medicine; Visit Provider Nurse Practitioner Family | DX: R00.1 Bradycardia, unspecified (principal) | CPT/HCPCS: 93005 ==

== ENCOUNTER → 2024-05-05 09:27 | Outpatient (REF) | payer MEDICARE, SELFPAY ==
--- NOTE | 2024-05-05 09:31 | CA_ITS ---
Transthoracic Echocardiogram Patient (Last, First, Middle): Chris Simon J Gender: Male Date of : 1950 Age: 74 Procedure Date: 05/05/2024 Procedure Type: Transthoracic Echocardiogram Location: OP Height: 170.18 cm Weight: 120.66 kg BSA: 2.28 m2 Heart Rate: 49 bpm BP: 128 / 72 mmHg Counter Former: SB Referring MD: Huy Srivastava MD Symptoms: I71.21 - Aneurysm of the ascending aorta, without rupture Study Quality: Adequate w contrast ECG Rhythm: Bradycardia Conclusions: - The left ventricular systolic function is normal. The visually estimated ejection fraction is between 65-70%. - There is severe septal asymmetric hypertrophy. - There is moderate calcification of the aortic valve. - There is severe dilatation of the ascending aorta measuring 5.00 cm. Findings Procedure Information Contrast agent, definity, is being given per protocol without apparent complications. The quality of the study was technically difficult. The study quality is limited by patients body habitus. Left Ventricle Normal left ventricular cavity size. The left ventricular systolic function is normal. The visually estimated ejection fraction is between 65-70%. There is no evidence of regional wall motion abnormalities. Evidence suggests grade I (mild) diastolic dysfunction. There is severe septal asymmetric hypertrophy. Right Ventricle Mildly increased right ventricular cavity size. There is normal right ventricular systolic function. Atria Both atria are normal in size. Aortic Valve There is moderate calcification of the aortic valve. There is no aortic valve stenosis. There is trace (trivial) aortic valve regurgitation. Mitral Valve The mitral valve appears normal. There is trace mitral valve regurgitation. There is no mitral valve stenosis. Pulmonic Valve The pulmonic valve is likely normal. Tricuspid Valve There is trace tricuspid valve regurgitation. There is no evidence of pulmonary hypertension. Great Vessels The sinuses of valsalva and aortic arch are normal in size. There is severe dilatation of the ascending aorta measuring 5.00 cm. Venous The inferior vena cava is normal in size and collapses greater than 50% with inspiration. Pericardium/Pleural There is no evidence of pericardial effusion. Prior Study Comparison Changes noted compared to prior study dated: 02/09/2023. Increase in ascending aortic size. Measurements 2D Linear Measurements IVSd: 1.85 0.6-0.9/0.6-1.0 cm LVIDd: 4.29 3.9-5.3/4.2-5.9 cm LVIDd Index: 1.88 2.4-3.2/2.2-3.1 cm/m2 LVIDs: 2.28 2.0-3.6 cm LVPWd: 0.90 0.7-1.1 cm LA Diam: 4.90 2.7-3.8/3.0-4.0 cm LAIDs Index: 2.15 1.5-2.3 cm/m2 LV Mass: 280.76 67-162/88-224 g LV Mass Index: 123.14 43-95/49-115 g/m2 LVOT Diam: 2.70 3.0+(-)1.3 cm 2D Systolic Function EF 4C: 83.50 >55% EF 2C: 82.30 >55% EF BiP: 82.40 >55% Mitral Valve MV Pk E: 0.66 MV PK A: 0.73 MV Decel Time: 163.00 E/A: 0.90 E'Lateral: 5.00 E'Medial: 5.22 E/E' Med: 12.60 E/E' Lat: 13.20 PHT: 48.00 MVA PHT: 4.58 Decel Rosebud: 4.04 Aortic Valve AoV Pk Dariusz: 1.23 AoV Pk Grad: 6.00 MEERA: 5.27 LVOT LVOT Pk Dariusz: 1.16 LVOT Mn Dariusz: 0.74 LVOT VTI: 0.27 LVOT Pk Grad: 5.00 LVOT Mn Grad: 3.00 LVOT Diam: 2.70 LVOT Area: 5.73 Diastolic Function MV Pk E: 0.66 MV Pk A: 0.73 E/A: 0.90 E'Medial: 5.22 E/E' Med: 12.60 E' Laterial: 5.00 E/E' Lat: 13.20 Right Ventricle TAPSE (mm): 28.00 TVS' Dariusz: 19.70 Tricuspid Valve TR Pk Dariusz: 2.38 TR Pk Grad: 23.00 RA Press: 3.00 RVSP: 26.00 Great Vessels Aorta Sinus of Valsalva: 3.50 2.0-3.5 cm Ao Asc: 5.00 2.1-3.4 cm Ao Arch: 3.90 Pulmonary Veins Pulm Vein S/D 1.80 Pulmonary Valve PV Pk Dariusz: 1.12 Peak PV Grad: 5.00 Updated in Other Vendor System with Status of Final Huy Srivastava MD electronically signed on 05/07/2024 12:59:02 PM with status of Final
== END ==
LOC: HO.CARD 09:27
PROVIDERS: PCP Internal Medicine; Visit Provider Internal Medicine
DX: R00.1 Bradycardia, unspecified (principal); I71.21 Aneurysm of the ascending aorta, without rupture
CPT/HCPCS: 93242; 93306; Q9957

== ENCOUNTER → 2024-05-05 09:31 | Outpatient (BNV) | payer MEDICARE, SELFPAY | PROVIDERS: PCP Internal Medicine; Visit Provider Internal Medicine | DX: I42.2 Other hypertrophic cardiomyopathy (principal); I35.8 Other nonrheumatic aortic valve disorders; I71.21 Aneurysm of the ascending aorta, without rupture | CPT/HCPCS: 93306 ==

== ENCOUNTER 2024-05-20 12:33 | Outpatient (AMB) | payer MEDICARE, SELFPAY ==
--- NOTE | 2024-05-20 12:52 | MHC.OFFVIS ---
Vital Signs 05/20/24 12:53 Height 5 ft 7 in Weight 268 lb 15.423 oz BMI 42.1 BP 142/70 H Blood Pressure Location Lt brachial Position Sitting Pulse 58 Pulse Source Pulse Oximeter Intake Visit Reasons: abnormal holter monitor Allergies No Known Allergies Allergy (Verified 05/20/24 13:32) Medication List - Last Reconciled 05/20/24 by Mario Cline NP allopurinol 300 mg PO DAILY amlodipine 10 mg PO DAILY levothyroxine 25 mcg PO DAILY rosuvastatin (Crestor) 20 mg PO DAILY HPI Comments Details: This is a 74-year-old male with history of bradycardia which required hospitalization in the past. During that admission, he was discontinued from diltiazem and metoprolol resulting in improvement in his bradycardia. A subsequent Holter monitor was ordered that confirmed sinus Bradycardia, at that time patient was asymptomatic, did not pursue pacemaker. Recently, the patient contacted the office to report new symptoms of dizziness, lightheadedness and fatigue. He also mentioned that he had been prescribed calcitriol by his primary care physician. After researching the medication he believed it maybe causing dizziness so stopped taking it. Today the patient states he is doing better without any exertional chest pain, shortness of breath, presyncope, or syncope. Patient does reports some dizziness when laying down for an EKG. Additionally, the patient has a history of aortic aneurysm. [facility] Medical History JADEN on CPAP Essential hypertension Morbid obesity Hx of gout Arthritis Sleep apnea HTN (hypertension) Surgical History Hx of detached retina repair History of ankle surgery History of esophagogastroduodenoscopy (EGD) H/O colonoscopy Family History Mother HTN (hypertension) CVA (cerebral vascular accident) Social History Household Members: Spouse Housing: House Do you presently have visiting nurse or other home services: No Alcohol intake: never Patient Tobacco Use Status: Never used Tobacco Advance Directives Date on File: 09/20/20 service: No Review of Systems Const Denies weakness ENT Denies dizziness Card Denies chest pain, Denies chest pain with activity, Denies syncope, Denies rapid heart rate, Denies pedal edema, Denies edema, Denies leg edema, Denies lightheadedness, Denies palpitations, Denies dyspnea, Denies dyspnea on exertion and Denies orthopnea Resp Denies cough, Denies dyspnea and Denies dyspnea on exertion GI Denies hematochezia and Denies change in stool character Musc Denies abnormal gait, Denies muscle cramps, Denies muscle weakness, Denies numbness, Denies radiating pain into limb and Denies tingling Neuro Denies abnormal gait, Denies dizziness, Denies syncope, Denies numbness, Denies tingling and Denies weakness Endo Denies palpitations Physical Exam Vital Signs: Last Vital Signs Pulse 58 05/20/24 12:53 BP 142/70 H 05/20/24 12:53 BMI result Body Mass Index 42.1 Const General: cooperative, healthy appearing, comfortable and no acute distress Orientation/consciousness: patient oriented x3 HEENT Head: Yes normal to inspection Neck Neck: Yes normal visual inspection, Yes trachea midline and Yes supple Chest Chest palpation & inspection: normal inspection of the chest Resp Effort & Inspection: normal respiratory effort Auscultation: clear to auscultation bilaterally, no crackles, no rales, no rhonchi and no wheezes Cardio Jugular venous distension: no JVD Palpation: normal PMI Rate: regular rate Rhythm: regular rhythm Heart sounds: S1 normal heart sound present, S2 normal heart sound present, no click, no gallops, Murmur heart sound present (High-pitched, grade 3 systolic murmur at the right sternal border) and no rubs Peripheral pulses: Peripheral pulses 2+ throughout GI Inspection: Yes normal to inspection Palpation (GI): Soft to palpation Auscultation: normal bowel sounds Skin General skin exam: no rashes or lesions noted Neuro General: patient oriented x3 Extrem General: Yes normal to inspection, No no pedal edema and No calf tenderness Psych Appearance: grossly normal Mental Status: mental status grossly normal Speech and movement: Normal speech and movement present Office Procedures EKG Details: EKG today showed sinus bradycardia and junctional rhythm at 52 beats per minute, [place]. [id number], Complete Assessment & Plan Assessment & Plan (1) Symptomatic bradycardia: Code(s): R00.1 - Bradycardia, unspecified Category: Medical Plan: EKG today shows sinus bradycardia versus junctional rhythm. Since the patient is now symptomatic with the bradycardia, we will refer him to EP for evaluation and consideration of pacemaker placement. Discussed the procedural indication, the procedure, risks and benefits. All questions for answered. The patient is agreeable to the plan. (2) Holter monitor, abnormal: Code(s): R94.31 - Abnormal electrocardiogram [ECG] [EKG] Plan: 04/1924- Holter showed sinus rhythm with average heart rate of 38 beats per minute, multiple pauses, longest of 4.7 seconds. (3) Ascending aortic aneurysm: Code(s): I71.21 - Aneurysm of the ascending aorta, without rupture Category: Medical Plan: 04/1924- echo showed a normal EF, severe septal asymmetric hypertrophy, moderate calcification of the aortic valve, severe dilation of the ascending aortia measuring 5 cm. Patient has an upcoming CTA chest aorta at [facility] scheduled for 05/27/2024. Currently on rosuvastatin. Blood pressure well controlled at home per patient. Discussed diet, exercise, and weight loss. (4) HTN (hypertension): Code(s): I10 - Essential (primary) hypertension Category: Medical Plan: Blood pressure today is elevated, but the patient states has been stable at home. Due to his bradycardia, options are limited. continue amlodipine. (5) JADEN (obstructive sleep apnea): Code(s): G47.33 - Obstructive sleep apnea (adult) (pediatric) Category: Medical Plan: On CPAP, compliant. Orders: Orders AMB EKG-In Office Today R00.1 - Bradycardia, unspecified Referrals Cardiac Electrophysiology Referral R00.1 - Bradycardia, unspecified Coding Level of Care Code Est Pt Level 4 (09732) Diagnoses Symptomatic bradycardia R00.1 Holter monitor, abnormal R94.31 Ascending aortic aneurysm I71.21 HTN (hypertension) I10 JADEN (obstructive sleep apnea) G47.33 CPT Codes EKG - CPT: 62694-[id number], Complete ([id number]) Time Spent (min) 32 Comment Time spent in reviewing the chart, test results, assessment, counseling and documentation.
[2024-05-20 12:53] VITALS: BP 142/70; PULSE 58; BMI 42.1
== END 2024-05-20 13:39 | disposition home or self-care (01) ==
PROVIDERS: PCP Internal Medicine
DX: R00.1 Bradycardia, unspecified (principal); R94.31 Abnormal electrocardiogram [ECG] [EKG]; I71.21 Aneurysm of the ascending aorta, without rupture; I10 Essential (primary) hypertension; G47.33 Obstructive sleep apnea (adult) (pediatric)
CPT/HCPCS: 93010; 99214

== ENCOUNTER → 2024-05-20 12:33 | Outpatient (BNVA) | payer MEDICARE, SELFPAY | PROVIDERS: PCP Internal Medicine | DX: R94.31 Abnormal electrocardiogram [ECG] [EKG] (principal); R00.1 Bradycardia, unspecified; I71.21 Aneurysm of the ascending aorta, without rupture; I10 Essential (primary) hypertension; G47.33 Obstructive sleep apnea (adult) (pediatric) | CPT/HCPCS: 93005; 99212 ==

== ENCOUNTER → 2024-06-19 23:59 | Outpatient (BNV) | payer MEDICARE, SELFPAY ==
--- NOTE | 2024-06-22 18:56 | A.OFFVIS_ITS ---
Intake Visit Reasons: Remote device check- [employer] Allergies No Known Allergies Allergy (Verified 05/20/24 13:32) PFSH Medical History JADEN on CPAP Essential hypertension Morbid obesity Hx of gout Arthritis Sleep apnea HTN (hypertension) Surgical History Hx of detached retina repair History of ankle surgery History of esophagogastroduodenoscopy (EGD) H/O colonoscopy Family History Mother HTN (hypertension) CVA (cerebral vascular accident) Social History Household Members: Spouse Housing: House Do you presently have visiting nurse or other home services: No Alcohol intake: never Patient Tobacco Use Status: Never used Tobacco Advance Directives Date on File: 09/20/20 service: No Office Procedures Cardiac Device Check Cardiac Device Check Details: Date of service- 06/19/2024 ; Battery life >11years; normal lead parameters; AP >96%; BIOCHEMISTRY TECHNICIAN 0.7%; no significant arrhythmias. Overall normal device function. [id number] Cardiac Device Interrogation, pacemaker Procedure code (CPT) selection complete Assessment & Plan Assessment & Plan (1) Pacemaker: Code(s): Z95.0 - Presence of cardiac pacemaker Category: Medical (2) Bradycardia, sinus: Code(s): R00.1 - Bradycardia, unspecified Category: Medical Plan x Coding Level of Care Code Procedure Only Diagnoses Pacemaker Z95.0 Bradycardia, sinus R00.1 CPT Codes Cardiac Device Check - Cardiac Device 12: [id number] Cardiac Device Interrogation, pacemaker ([id number])
== END ==
PROVIDERS: PCP Internal Medicine; Visit Provider Internal Medicine
DX: R00.1 Bradycardia, unspecified (principal); Z95.0 Presence of cardiac pacemaker
CPT/HCPCS: 93294

== ENCOUNTER 2024-08-02 07:15 | Outpatient (REF) | payer MEDICARE, SELFPAY ==
[2024-08-02 11:33] LABS: Alanine Aminotransferase 28 U/L (0-40); Albumin Level 4.1 g/dL (3.5-5.0); Alkaline Phosphatase 73 U/L (39-117); Aspartate Amino Transferase 72 U/L (5-37); Bilirubin Direct 0.3 mg/dL (0.0-0.5); Bilirubin Total 0.6 mg/dL (0.0-1.0); Cholesterol 113 mg/dL (<200); HDL Cholesterol 36 mg/dL (>40); LDL Cholesterol Calculated 59 mg/dL (<100); Total Protein 7.4 g/dL (6.5-8.0); Triglycerides 93 mg/dL (<150)
[2024-08-02 13:44] LABS: Reflex LDLD? No
== END 2024-08-02 07:16 | disposition home or self-care (01) ==
LOC: HO.LNP 07:15
PROVIDERS: Visit Provider Internal Medicine
DX: E78.00 Pure hypercholesterolemia, unspecified (principal)
CPT/HCPCS: 80061; 80076

== ENCOUNTER → 2024-09-17 23:59 | Outpatient (BNV) | payer MEDICARE, SELFPAY ==
--- NOTE | 2024-09-26 14:32 | MHC.OFFVIS ---
Intake Visit Reasons: Remote device check- [employer] Allergies No Known Allergies Allergy (Verified 05/20/24 13:32) PFSH Medical History JADEN on CPAP Essential hypertension Morbid obesity Hx of gout Arthritis Sleep apnea HTN (hypertension) Surgical History Hx of detached retina repair History of ankle surgery History of esophagogastroduodenoscopy (EGD) H/O colonoscopy Family History Mother HTN (hypertension) CVA (cerebral vascular accident) Social History Household Members: Spouse Housing: House Do you presently have visiting nurse or other home services: No Alcohol intake: never Patient Tobacco Use Status: Never used Tobacco Advance Directives Date on File: 09/20/20 service: No Office Procedures Cardiac Device Check Cardiac Device Check Details: Date of service- 09/17/2024 ; Battery life >10 years; normal lead parameters; AP 98%; ELECTRICIAN YARD 2.7%; no significant arrhythmias. Overall normal device function. [id number] Cardiac Device Interrogation, pacemaker Procedure code (CPT) selection complete Assessment & Plan Assessment & Plan (1) Pacemaker: Code(s): Z95.0 - Presence of cardiac pacemaker Category: Medical (2) Symptomatic bradycardia: Code(s): R00.1 - Bradycardia, unspecified Category: Medical Plan x Coding Level of Care Code Procedure Only Diagnoses Pacemaker Z95.0 Symptomatic bradycardia R00.1 CPT Codes Cardiac Device Check - Cardiac Device 12: [id number] Cardiac Device Interrogation, pacemaker ([id number])
== END ==
PROVIDERS: PCP Internal Medicine; Visit Provider Internal Medicine
DX: R00.1 Bradycardia, unspecified (principal); Z95.0 Presence of cardiac pacemaker
CPT/HCPCS: 93294

== ENCOUNTER 2024-09-28 12:45 | Outpatient (AMB) | payer MEDICARE, SELFPAY ==
--- OUTSIDE RECORDS SUMMARY | 2024-09-28 13:06 | XMS_ITS | Patient Health Record ---
Author Organization Billy Dc MD Address [address] [place], [place] [id number] Care Team Providers Care Correction Worker Name Role Phone Billy Dc Primary Care Provider [phone] Allergies No Known Allergies Results Component Value Reference Range Notes Hemoglobin A1c Reviewed date:08/09/2024 08:25:30 AM Interpretation: Performing Lab: Notes/Report: Hemoglobin A1c 5.1 Complete Blood Count Auto Di ff Reviewed date:02/02/2024 12:45:24 PM Interpretation: Performing Lab:[facility], [address] [place] [phone] Notes/Report: White Blood Count 4.5 4.8-10.8 X10*3/uL [...] NRBC Abs Auto 0.000 0.0-0.012 X10*3/uL Comprehensive [place]. Panel Fa st Reviewed date:02/02/2024 12:40:55 PM Interpretation: Performing Lab:[facility], [address] [place] [phone] Notes/Report: Sodium 141 135-145 mmol/L Potassium 4.1 3.3-5.1 mmol/L Chloride 105 96-108 mmol/L Carbon Dioxide 28 22-29 mmol/L Anion Gap 12 12-20 Blood Urea Nitrogen 19 9-16 mg/dL Creatinine 1.26 0.5-1.4 mg/dL Estimated Glomerular Filt Rate 56 NOTE: For -Brazilian individuals, multiply the result by 1.210. Chronic [...] Panel Reviewed date:02/02/2024 12:39:01 PM Interpretation: Performing Lab:[facility], [address] [place] [phone] Notes/Report: Triglycerides 95 <150 mg/dL Desirable Triglyceride: [...] (Free>4and<10) Reviewed date:02/02/2024 12:40:38 PM Interpretation: Performing Lab:[facility], [address] [place] [phone] Notes/Report: PSA,Total (Free>4and<10) 1.56 0.00-4.00 ng/mL A [...] 4.0 and 10.0 ng/mL. PSA methodology: [place] i Chemiluminescent Microparticle Immunoassay (CMIA) TSH reflex Free T4 Reviewed date:02/02/2024 12:39:37 PM Interpretation: Performing Lab:[facility], [address] [place] [phone] Notes/Report: TSH reflex Free T4 3.00 0.32-4.0 uIU/mL Microalbumin, Random Reviewed date:02/02/2024 12:38:11 PM Interpretation: Performing Lab:[facility], [address] [place] [phone] Notes/Report: Creatinine Urine 50.28 Microalbumin Urine 105.0 Microalbum/Creatinine Ratio Ur 208.8 <30 ug/mg cr Albumin/Creatinine Ratio Reference Ranges: Normal: < 30 ug/mg creatinine Microalbuminuria: 30 - 300 ug/mg creatinine Clinical Albuminuria: > 300 ug/mg creatinine Hemoglobin A1c Reviewed date:02/02/2024 12:39:45 PM Interpretation: Performing Lab:[facility], [address] [place] [phone] Notes/Report: Hemoglobin A1c % 4.9 <6.0 % [...] average glucose, using the formula of the [id number] Average Glucose study (ADAG), Diabetes Care, Vol.31,#8, Dec. 2007 UA ClnCatch+Micro w/rflx Cul t Reviewed date:02/02/2024 12:41:45 PM Interpretation: Performing Lab:[facility], [address] [place] [phone] Notes/Report: Urine, Clean Catch Color Urine Yellow Appearance Urine Clear PH 6.5 5.0-9.0 Glucose Urine UA Negative Negative mg/dL Urine Blood Negative Negative Specific [place] - Urine 1.010 1.005-1.025 Urine Protein Trace Neg-Trace mg/dL Urine Ketones Negative Negative mg/dL Nitrite Urine Negative Negative Leukocyte Esterase Urine Negative Negative RBC Urine 0-2 0-2 /HPF WBC Urine 0-5 0-5 /HPF Squamous Epithelial Cell Urine 0-2 0-2 /HPF Bacteria Urine None Seen None Seen Hyaline Casts Urine 0-2 0-2 /LPF Liver Panel Reviewed date:08/03/2024 03:18:28 PM Interpretation: Performing Lab:[facility], [address] [place] [phone] Notes/Report: Bilirubin Total 0.6 0.0-1.0 mg/dL Bilirubin Direct 0.3 0.0-0.5 mg/dL Aspartate Amino Transferase 72 5-37 U/L Alanine Aminotransferase 28 0-40 U/L Total Protein 7.4 6.5-8.0 g/dL Albumin Level 4.1 3.5-5.0 g/dL Alkaline Phosphatase 73 39-117 U/L Lipid Panel with Reflex Reviewed date:08/03/2024 03:25:49 PM Interpretation: Performing Lab:[facility], [address] [place] [phone] Notes/Report: Triglycerides 93 <150 mg/dL Desirable Triglyceride: [...] low results in patients with liver disease. Glucose, finger stick Reviewed date:08/09/2024 08:19:04 AM Interpretation: Performing Lab: Notes/Report: Value 86 Hold Gold Reviewed date:08/02/2024 12:06:06 PM Interpretation: Performing Lab:[facility], [address] [place] [phone] Notes/Report: Hold Gold See Note Specimen held untested for 24 hours; Call to request Chemistry testing. Reason For Referral No Information Medications Medication SIG (Take, Route, Frequency, Duration) [...] a day for 30 day(s) 03/02/2014 Not-Taking traMADol HCl 50 MG 1 tablet [...] BY MOUTH EVERY DAY for 90 Active Immunizations Vaccine Route Administration Date Status Comme nts DECLINED, FLU Unknown 02/15/2013 Administered TDaP IM Intramuscular 10/27/2013 Administered WLAGRE EN PPSV23 (Pnemovax) IM Intramuscular 03/02/2014 Administered Flu Vaccine Unknown 02/28/2014 Administered Fluarix Quadrivalent IM Intramuscular 01/28/2016 Administe red Fluarix Quadrivalent IM Intramuscular 07/09/2017 Administe red Fluarix Quadrivalent IM Intramuscular 01/26/2018 Administe red Prevnar 13 IM Intramuscular 07/26/2018 Administered Fluarix Quadrivalent IM Intramuscular 01/18/2019 Administe red PPSV23 (Pnemovax) IM Intramuscular 08/01/2019 Administered Covid Vaccine Unknown 07/23/2020 Administered Pfizer Covid Vaccine Unknown 08/13/2020 Administered Pfizer SARS-COV-2 Pfizer Unknown 03/14/2021 Administered Influenza High Dose IM Intramuscular 07/02/2021 Administer ed Influenza High Dose IM Intramuscular 03/04/2022 Administer ed Influenza High Dose IM Intramuscular 02/10/2023 Administer ed Influenza High Dose IM Intramuscular 02/02/2024 Administer ed zFluzone Quadrivalent Unknown 04/27/2015 Refused Fluarix Quadrivalent Unknown 03/05/2020 Pending [employer] Social History Tobacco Use: Social History Observation [...] Never (0 point) Points 2 Interpretation Negative Problems Problem Type SNOMED Code ICD Code Onset Dates Problem Status W/U Status Risk Notes Problem Ascending aorta dilatation (607337587) Ascending aorta dilatation (447.71) Active confirmed Problem Sciatica (74736732) Sciatica (M54.30) Active confirmed Problem 323103255 Tubular adenoma of colon (D12.6) Active confirmed Problem 00655219 Essential hypert ension (I10) Active confirmed Problem 784930158 Acquired hypothy roidism (E03.9) Active confirmed Problem 7732498 Prediabetes (R73.09) Active confirmed Problem 547359846 Abnormal LFTs (R79.89) Active confirm ed Problem 163229795 History of gout (Z87.39) Active confirmed Problem 980522930 Morbid obesity d ue to excess calories (E66.01) Active confirmed Problem 12507778 Lymphadenopathy (R59.1) Active confirm ed Problem 664493298 Ascending aortic aneurysm (I71.2) Active confirmed Problem 25265177 Elevated uric ac id in blood (E79.0) Active confirmed Problem 916156679 Sensitivity to s unlight (Z91.09) Active confirmed Problem 625614347 Pure hypercholesterolemia (E78.00) Active confirmed Problem 676032967 Elevated PSA (R97.20) Active confirme d Problem 915263618 Arthritis of kne e (M17.10) Active confirmed Problem 380537367 Head and neck ca ncer (C76.0) Active confirmed Problem 642872204 Ankle arthritis (M19.079) Active confirmed Problem Cardiac pacemaker in situ (920682612) Pacemaker (Z95.0) Active confirmed Problem 164453963 Body mass index (BMI) 50.0-59.9, adult (Z68.43) Active confirmed Problem Anxiety about health (864718057) Anxiety about health (F41.8) Active confirmed Vital Signs Blood pressure diastolic 64 mm Hg 08/09/2024 angelita ght is up 7 pounds since 02-12-24 Height 65.5 in 08/09/2024 weight is up 7 pounds since 02-12-24 Blood pressure systolic 122 mm Hg 08/09/2024 angelitag ht is up 7 pounds since 02-12-24 Weight 275 lbs 08/09/2024 weight is up 7 pounds since 02-12-24 BMI 45.06 kg/m2 08/09/2024 weight is up 7 pounds since 02-12-24 Encounters Encounter Location Date Provider Diagnosis Billy Dc MD [address] [place] [id number] 02/02/2024 Billy Dc Essential hypertensi on I10 ; Encounter for immunization Z23 ; Prediabetes R73.09 ; Pure hypercholesterolemia E78.00 ; Elevated PSA R97.20 and Acquired hypothyroidism E03.9 Billy Dc MD [address] [place] [address] Drive [address] [place] [id number] 08/02/2024 Billy Dc Pure hypercholestero lemia E78.00 Billy Dc MD [address] [place] [address] [address] [place] [id number] 02/12/2024 Billy Dc Head and neck cancer C76.0 ; Abnormal LFTs R79.89 ; Essential hypertension I10 ; Prediabetes R73.09 ; Pure hypercholesterolemia E78.00 ; Elevated PSA R97.20 ; Acquired hypothyroidism E03.9 and Ascending aortic aneurysm, unspecified whether ruptured I71.21 Billy Dc MD [address] [place] [id number] 08/09/2024 Billy Dc Prediabetes R73.09 ; Sciatica M54.30 ; Pacemaker Z95.0 and Pure hypercholesterolemia E78.00 Billy Dc MD [address] [place] [address] [address] [place] [id number] 10/09/2023 Billy Dc Assessments Encounter Date Diagnosis (ICD Code) Assessment Notes Treatment Notes Treatment Clinical Notes Section Notes 02/02/2024 Essential hypertensi on (ICD-10 - I10) 02/02/2024 Encounter for immunization (ICD-10 - Z23) 08/02/2024 Pure hypercholesterolemia (ICD-10 - E78.00) 02/12/2024 Head and neck cancer (ICD-10 - C76.0) has recovered and is doing well 08/09/2024 Prediabetes (ICD-10 - R73.09) a1c is good, no need for medicatin at this time, will continue to monitor 02/02/2024 Prediabetes (ICD-10 - R73.09) 02/12/2024 Abnormal LFTs (ICD-1 0 - R79.89) has recovered. 08/09/2024 Sciatica (ICD-10 - M54.30) no weakness, will continue to monitor 02/02/2024 Pure hypercholesterolemia (ICD-10 - E78.00) 02/12/2024 Essential hypertensi on (ICD-10 - I10) stabe, at goal, will continue current regiment 08/09/2024 Pacemaker (ICD-10 - Z95.0) feels better 02/02/2024 Elevated PSA (ICD-10 - R97.20) 02/12/2024 Prediabetes (ICD-10 - R73.09) stable, no need for medication at this time 08/09/2024 Pure hypercholesterolemia (ICD-10 - E78.00) has gool ldl, will continue current regiment 02/02/2024 Acquired hypothyroid ism (ICD-10 - E03.9) 02/12/2024 Pure hypercholesterolemia (ICD-10 - E78.00) doing [...] will be doing yearly Ct and echo. 08/09/2024 Other is increase to 5.3 and is followed by dr vazquez Plan Of Treatment Pending Test Test Name Order Date ECHO EXAM OF HEART 06/23/2014 CT angio chest 04/23/2021 CT soft tissue neck w con 06/06/2021 CT soft tissue neck wo/w con 04/23/2021 MR orbits face neck wo/w con 07/02/2021 US biopsy lymph node 07/30/2021 Future Test Test Name Order Date ECHO 01/02/2021 CT angio chest 01/23/2021 CT soft tissue neck wo/w con 01/23/2021 Next Appt Details Provider Name:Billy Justin ier, 02/10/2025 07:30:00 AM, [address] [place] [address], [address], [phone], Provider Name:Billy Justin ier, 02/17/2025 09:30:00 AM, [address] [place] [address], [place] [address], [place], [place], [phone], Insurance Providers Payer Name Payer Address Payer Phone Subscriber Number Group Number Insured Name Patient Relationship to Insured Coverage Start Date Coverage End Date MEDICARE NHIC [employer]IG[employer] [address] [place] [address] [id number] Chris Simon Self - patient is the insured [employer] BC[employer] OF [facility] [id number] [place] [address] [id number] Chris Simon Self - patient is the insured Medical (General) History Medical History History ICD Code COLONOSCOPY 07/2010 - due in 5 years (has CX 3 cololonscopy dates in 2016); Colonoscopy done 04/23/[address] Corey jones in 10 years NEEDS YEARLY ECHO - Due 06/2014 colonoscopy 2019 Surgical History Surgery Date(Month/Year) fusion of ankle 1989
--- OUTSIDE RECORDS SUMMARY | 2024-09-28 13:06 | XMS_ITS | Data Portability ---
Author Organization [place] - [facility], Allergy Address [address] [address] Care Team Providers Care Operations Chief Name Role Phone WES SAHA Primary Care Provider ANALY SOLIS OTHER FRANCES HAMMOND OTHER Assessment Encounter Date Assessment Date Assessment LastModified by Organization Details LastModified Time 12/24/2023 12/24/2023 No evidence of disease on examination today. Fiberoptic examination of nasopharynx, hypopharynx and larynx was stable. Cancer surveillance in 4 months was recommended. [email or web address] Not available 12/23/2023 15:29:39 04/27/2024 04/27/2024 No evidence of disease on examination today. Fiberoptic examination of nasopharynx, hypopharynx and larynx was stable. Cancer surveillance in 4 months was recommended. [email or web address] Not available 04/26/2024 09:51:41 08/24/2024 08/24/2024 No evidence of disease on examination today. Fiberoptic examination of nasopharynx, hypopharynx was stable. Cancer surveillance in 4 months was recommended. [email or web address] Not available 08/24/2024 13:28:10 Plan of Treatment Reminders Order Date Submit Date Provider Last Modified By Organization Details Last Modified Time Details Appointments Establish ed 15 2024 01:30P M MATHEW DONG MD Not available Not available Not available Lab None recorded. Referral None recorded. Procedures None recorded. Surgeries None recorded. Imaging None recorded. Medication Orders None recorded. Patient TargetsNo targets recorded. Patient InstructionsNo instructions recorded. Reason for Referral None Reported. Results Created Date Observation Date Name Description Value Unit Range Abnormal Flag Note LastModifiedBy Organization Detail LastModifiedTime 01/07/20 24 06/24/2021 imagi ng/di agnos tic resul t No observ ation record ed. [email or web address] Not Available 01:18:35 01/07/20 24 06/24/2021 imagi ng/di agnos tic resul t No observ ation record ed. [email or web address] Not Available 01:18:41 01/07/20 24 07/22/2021 imagi ng/di agnos tic resul t No observ ation record ed. [email or web address] Not Available 01:19:20 01/07/20 24 07/22/2021 imagi ng/di agnos tic resul t No observ ation record ed. [email or web address] Not Available 01:19:27 01/07/20 24 08/04/2022 imagi ng/di agnos tic resul t No observ ation record ed. [email or web address] Not Available 01:19:36 01/07/20 24 08/07/2021 imagi ng/di agnos tic resul t No observ ation record ed. [email or web address] Not Available 01:19:46 01/07/20 24 08/07/2021 imagi ng/di agnos tic resul t No observ ation record ed. [email or web address] Not Available 01:19:54 01/07/20 24 08/08/2022 imagi ng/di agnos tic resul t No observ ation record ed. [email or web address] Not Available 01:20:13 01/07/20 24 09/09/2021 imagi ng/di agnos tic resul t No observ ation record ed. [email or web address] Not Available 01:21:18 01/07/20 24 09/16/2021 imagi ng/di agnos tic resul t No observ ation record ed. [email or web address] Not Available 01:21:22 01/07/20 24 10/07/2021 imagi ng/di agnos tic resul t No observ ation record ed. [email or web address] Not Available 01:21:51 01/07/20 24 10/07/2021 imagi ng/di agnos tic resul t No observ ation record ed. [email or web address] Not Available 01:21:57 01/07/20 24 10/07/2021 imagi ng/di agnos tic resul t No observ ation record ed. [email or web address] Not Available 01:22:06 01/07/20 24 10/07/2021 imagi ng/di agnos tic resul t No observ ation record ed. [email or web address] Not Available 01:22:15 01/07/20 24 10/08/2021 imagi ng/di agnos tic resul t No observ ation record ed. [email or web address] Not Available 01:22:18 01/07/20 24 10/09/2021 imagi ng/di agnos tic resul t No observ ation record ed. [email or web address] Not Available 01:22:21 01/07/20 24 10/10/2021 imagi ng/di agnos tic resul t No observ ation record ed. [email or web address] Not Available 01:22:34 01/07/20 24 10/21/2021 imagi ng/di agnos tic resul t No observ ation record ed. [email or web address] Not Available 01:22:45 01/07/20 24 12/04/2022 imagi ng/di agnos tic resul t No observ ation record ed. [email or web address] Not Available 01:22:56 01/07/20 24 01/01/2023 imagi ng/di agnos tic resul t No observ ation record ed. [email or web address] Not Available 01:23:00 01/07/20 24 01/06/2022 imagi ng/di agnos tic resul t No observ ation record ed. [email or web address] Not Available 01:23:04 01/07/20 24 01/06/2022 imagi ng/di agnos tic resul t No observ ation record ed. [email or web address] Not Available 01:23:05 01/07/20 24 03/23/2023 imagi ng/di agnos tic resul t No observ ation record ed. [email or web address] Not Available 01:23:30 01/07/20 24 04/14/2023 imagi ng/di agnos tic resul t No observ ation record ed. [email or web address] Not Available 01:23:37 01/07/20 24 10/21/2021 audio gram No observ ation record ed. [email or web address] Not Available 01:25:04 01/07/20 24 01/06/2022 audio gram No observ ation record ed. [email or web address] Not Available 01:25:15 Result Notes None recorded. Problems Name Problem SNOMED Code Status Onset Date Resolution Date Notes Provider Name and Address Organization Details Recorded Time Stomatiti s 81816888 Active 2022 Oral thrush; Note: Date Diagnosed: 12/12/2022 1:50 PM (B37.0) Not Available [facility] 4 03:17:13 Candidias is of mouth 22460360 Active 2022 Oral thrush; Note: Date Diagnosed: 12/12/2022 1:50 PM (B37.0) Not Available 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 Primary tumor location: Nasopharyn x Tumor staging: Stage II, T2N2 Treatment: chemo XRT Date of treatment completion : 04/07/22 Oncology team: Kendra Solis MD [address] [place] [address],[address] [place], [address] , [place] - [facility] 4 15:28:48 Follow-up visit Active 2022 Encounter for follow-up examinatio n after completed treatment for malignant neoplasm; Note: Date Diagnosed: 08/14/2022 11:05 AM (Z08) Not Available [facility] 4 03:17:14 Mixed conductiv e and sensorine ural hearing loss, bilateral 827478113 Active 2021 Mixed conductive and sensorineu ral hearing loss, bilateral; Note: Date Diagnosed: 10/21/2021 11:45 AM (H90.6) Not Available [facility] 4 03:17:14 Acute pansinusi tis 7928848 Active 2023 Acute pansinusit is, unspecifie d; Note: Date Diagnosed: 07/01/2023 10:53 AM (J01.40) Not Available [facility] 4 03:17:14 Problem Notes None recorded. Procedures Surgical History Date Name Laterality Status Provider Name and Address Organization Details Recorded Time 08/24/2024 Nasopharyn goscopy_DP completed MATHEW DONG MD [address] [place] [address],[address], [address], [place] - [facility] 08/24/2024 13:27:33 04/27/2024 FOL_DP completed MATHEW DONG MD [address] [place] [address],[address], [address], [place] - [facility] 04/26/2024 09:51:34 12/24/2023 FOL_DP completed MATHEW DONG MD [address] [place] [address],[address], [address], [place] [facility] 12/23/2023 15:30:36 Imaging Results Imaging Date Name Status LastModified by [facility] Details LastModified Time 06/24/2021 imaging/diagno stic result completed Information not available 01/07/2024 01:18:35 06/24/2021 imaging/diagno stic result completed Information not available 01/07/2024 01:18:41 07/22/2021 imaging/diagno stic result completed Information not available 01/07/2024 01:19:20 07/22/2021 imaging/diagno stic result completed Information not available 01/07/2024 01:19:27 08/04/2022 imaging/diagno stic result completed Information not available 01/07/2024 01:19:36 08/07/2021 imaging/diagno stic result completed Information not available 01/07/2024 01:19:46 08/07/2021 imaging/diagno stic result completed Information not available 01/07/2024 01:19:54 08/08/2022 imaging/diagno stic result completed Information not available 01/07/2024 01:20:13 09/09/2021 imaging/diagno stic result completed Information not available 01/07/2024 01:21:18 09/16/2021 imaging/diagno stic result completed Information not available 01/07/2024 01:21:22 10/07/2021 imaging/diagno stic result completed Information not available 01/07/2024 01:21:51 10/07/2021 imaging/diagno stic result completed Information not available 01/07/2024 01:21:57 10/07/2021 imaging/diagno stic result completed Information not available 01/07/2024 01:22:06 10/07/2021 imaging/diagno stic result completed Information not available 01/07/2024 01:22:15 10/08/2021 imaging/diagno stic result completed Information not available 01/07/2024 01:22:18 10/09/2021 imaging/diagno stic result completed Information not available 01/07/2024 01:22:21 10/10/2021 imaging/diagno stic result completed Information not available 01/07/2024 01:22:34 10/21/2021 imaging/diagno stic result completed Information not available 01/07/2024 01:22:45 12/04/2022 imaging/diagno stic result completed Information not available 01/07/2024 01:22:56 01/01/2023 imaging/diagno stic result completed Information not available 01/07/2024 01:23:00 01/06/2022 imaging/diagno stic result completed Information not available 01/07/2024 01:23:04 01/06/2022 imaging/diagno stic result completed Information not available 01/07/2024 01:23:05 03/23/2023 imaging/diagno stic result completed Information not available 01/07/2024 01:23:30 04/14/2023 imaging/diagno stic result completed Information not available 01/07/2024 01:23:37 10/21/2021 audiogram completed Information not available 01/07/2024 01:25:04 01/06/2022 audiogram completed Information not available 01/07/2024 01:25:15 Procedure Notes None recorded. Medical Equipment None Reported. Allergies No known drug allergies Medications Name Sig Start Date Stop Date Status Note LastModified by Organization Details LastModified Time furosemid e 40 mg tablet 10/14 completed Medicati on ID: [id number] B rand Name: furosemi de Send Method: E-Prescr ibed Sub s Allowed: subs OK Medic ationGen ericName : furosemi de Not Available Not Available Not Available pilocarpi ne 5 mg tablet 10/14 completed Medicati on ID: [id number] B rand Name: pilocarp ine HCl Send Method: E-Prescr ibed Sub s Allowed: subs OK Medic ationGen ericName : pilocarp ine HCl Not Available Not Available Not Available nystatin 100,000 unit/mL oral suspensio n SWISH AND SPIT USING 5ML BY MOUTH FOUR TIMES A DAY FOR 2-4 WEEKS DIRECTED 12/23 completed Not Available Not Available Not Available amlodipin e 2.5 mg tablet 08/14 completed Medicati on ID: [id number] B rand Name: amlodipi ne Send Method: E-Prescr ibed Sub s Allowed: subs OK Medic ationGen ericName : amlodipi ne Not Available Not Available Not Available tramadol 50 mg tablet TAKE ONE TABLET BY MOUTH EVERY 12 HOURS NEEDED FOR 30 DAYS active Not Available Not Available No t Available carvedilo l 3.125 mg tablet TAKE ONE TABLET BY MOUTH TWICE A DAY. MUST ADMINIST ER WITH A MEAL/JENELLE D active Not Available Not Available No t Available levothyro xine 25 mcg tablet TAKE ONE TABLET BY MOUTH EVERY DAY IN THE MORNING ON AN EMPTY STOMACH active Not Available Not Available No t Available amlodipin e 10 mg tablet TAKE ONE TABLET BY MOUTH EVERY DAY active Not Available Not Available No t Available hydralazi ne 100 mg tablet 10/14 completed Medicati on ID: [id number] B rand Name: hydralaz ine Send Method: E-Prescr ibed Sub s Allowed: subs OK Medic ationGen ericName : hydralaz ine Not Available Not Available Not Available valsartan 320 mg tablet 10/14 completed Medicati on ID: [id number] B rand Name: valsarta n Send Method: E-Prescr ibed Sub s Allowed: subs OK Medic ationGen ericName : valsarta n Not Available Not Available Not Available allopurin ol 300 mg tablet TAKE ONE TABLET BY MOUTH EVERY DAY active Not Available Not Available No t Available lorazepam 1 mg tablet 12/23 completed Medicati on ID: [id number] B rand Name: lorazepa m Send Method: E-Prescr ibed Sub s Allowed: subs OK Medic ationGen ericName : lorazepa m Not Available Not Available Not Available Vitamin D2 1,250 mcg (50,000 unit) capsule TAKE 1 CAPSULE BY MOUTH ONCE A WEEK active Not Available Not Available No t Available calcitrio l 0.25 mcg capsule TAKE ONE CAPSULE BY MOUTH EVERY OTHER DAY active Not Available Not Available No t Available amoxicill in 875 mg-potass ium clavulana te 125 mg tablet TAKE ONE TABLET BY MOUTH EVERY 12 HOURS 12/23 completed Not Available Not Available Not Available rosuvasta tin 20 mg tablet TAKE ONE TABLET BY MOUTH EVERY DAY active Not Available Not Available No t Available Vitals Date Recorded Body height Body mass index (BMI) Body weight Provider Name and Address Organization Details Last Updated DateTime 08/24/2024 167.64 cm 43.6 kg/m2 926768.94 g SERGIO DELISA [place] [facility] 08/24/2024 13:16:40 Date Recorded Body weight Body mass index (BMI) Body height Provider Name and Address Organization Details Last Updated DateTime 12/24/2023 640266.94 g 43.6 kg/m2 167.64 cm Chasity Haynes [facility] 12/24/2023 13:29:13 Date Recorded Body height Body mass index (BMI) Body weight Provider Name and Address Organization Details Last Updated DateTime 04/27/2024 167.64 cm 40.5 kg/m2 213732.68 g Gabbie Pickard [facility] 04/27/2024 12:59:44 Social History None recorded. Functional Status None recorded. Mental Status None recorded. Family History Nothing Reported. Medical History Condition Response Arthritis Y Hypertension Y Sleep Disorder Y Past Encounters Encounter ID Performer Location Encounter Start Date Encounter Closed Date Diagnosis/Indication Diagnosis SNOMED-CT Code Diagnosis ICD10 Code Diagnosis Note [id number] MATHEW DONG MD [facility] [address] [address] 12/24/2023 13:16:33 12/24/2023 13:44:00 History of malignant neoplasm of oral cavity 172348844 Z85.819 [id number] MATHEW DONG MD [facility] [address] [address] 04/27/2024 12:44:02 04/27/2024 13:25:43 History of malignant neoplasm of oral cavity 996401892 Z85.819 [id number] MATHEW DONG MD [facility] [address] [place] [address] 08/24/2024 13:07:21 08/24/2024 13:28:54 History of malignant neoplasm of oral cavity 285835172 Z85.819 Health Concerns Section Related Observation LastModified by Organization Detai ls LastModified Time None Recorded Concern Status LastModified by Organization Details LastModified Time None Recorded Advance Directives Directive None Recorded Payers Insurance Date Sequence Insurance Name Policy Number Policy Robertson Covered Member ID Robertson Member ID Guarantor Name 08/24/2024 1 [place] [employer] Chris Simon [id number] Chris Simon 08/24/2024 2 [place] [id number] Chris Simon [id number] Chris Simon Notes Date Note Type Note Provider Name and Address Organization Details Recorded Time 12/24/2023 text/html Primary tumor lo cation: NasopharynxTumor staging: Stage II, R6Y7Cxmgauvuv: chemo XRTDate of treatment completion: 04/07/22Oncology team: Kendra Solis upcoming trip to [facility] MATHEW DONG MD [address] [place] [address], [address], [place] - [facility] 12/24/2023 13:43:52 04/27/2024 text/html Primary tumor lo cation: NasopharynxTumor staging: Stage II, D6Q5Ihiyxctqb: chemo XRTDate of treatment completion: 04/07/22Oncology team: Kendra Solis renal specialist started some vit D MATHEW DONG MD [address] [place] [address], [address], [place] [facility] 04/27/2024 13:23:56 08/24/2024 text/html Primary tumor lo cation: NasopharynxTumor staging: Stage II, Q3R1Wmtjjmlyo: chemo XRTDate of treatment completion: 04/07/22Oncology team: Kendra Solis renal specialist started some vit Dsince prior visit got a pacemakerfollowing aorta w repeat CT in 6 months MATHEW DONG MD [address] [facility],[place] [address], [place], [address], [facility] - [facility] 08/24/2024 13:28:48
--- OUTSIDE RECORDS SUMMARY | 2024-09-28 13:06 | XMS_ITS ---
Author Organization Billy Dc MD Address [address] [place], [place] [id number] Care Team Providers Care Denture Waxer Name Role Phone Billy Dc Primary Care Provider Results Component Value Reference Range Notes Liver Panel Reviewed date:08/03/2024 03:18:28 PM Interpretation: Performing Lab:[facility], [address] [place] [phone] Notes/Report: Bilirubin Total 0.6 0.0-1.0 mg/dL Bilirubin Direct 0.3 0.0-0.5 mg/dL Aspartate Amino Transferase 72 5-37 U/L Alanine Aminotransferase 28 0-40 U/L Total Protein 7.4 6.5-8.0 g/dL Albumin Level 4.1 3.5-5.0 g/dL Alkaline Phosphatase 73 39-117 U/L Lipid Panel with Reflex Reviewed date:08/03/2024 03:25:49 PM Interpretation: Performing Lab:[facility], [address] [place] [phone] Notes/Report: Triglycerides 93 <150 mg/dL Desirable Triglyceride: [...] Date Provider Diagnosis Billy Dc MD [address] [place] [phone] 08/02/2024 Billy Dc Pure hypercholestero lemia E78.00 Assessments Encounter Date Diagnosis (ICD Code) Assessment Notes Treatment Notes Treatment Clinical Notes Section Notes 08/02/2024 Pure hypercholesterolemia (ICD-10 - E78.00) Plan Of Treatment Next Appt Details Provider Name:Billy delgado, 02/10/2025 07:30:00 AM, [address] [place] [address], [address], [phone], Provider Name:Billy delgado, 02/17/2025 09:30:00 AM, [address] [place] [address], [address], [phone], Progress Notes * Chris JOSEPHDOB: (74 yo M)Acc No.[id number]:08/02/2024 Progress Note Patient:?Chris JOSEPH Provider:?Billy Dc MD :1950???Age:74 Y???Sex:Male Kody e:08/02/2024 [address] [facility] [id number] Subjective: * Chief Complaints: * ???1. Fasting lipids. * Medical History:? Objective: * Vitals:? Assessment: * Assessment: 1.?Pure hypercholesterolemia - E78.00 (Primary)??? Plan: * Treatment: * Procedure Codes:?74700 VENIP UNCT, ROUTINE* * * The named appointment provid er may or may not be the originator of this progress note, and it is not deemed complete until electronically signed by the appointment provider. Sign off status: Pending * Provider:?Billy Dc MD Date:?0 08/02/2024 Generated for Natalya coker/Huseyin/Chava on:?09/28/2024 01:06 PM EDT
--- OUTSIDE RECORDS SUMMARY | 2024-09-28 13:06 | XMS_ITS ---
Author Organization Billy Dc MD Address [address] [place], [place] [id number] Care Team Providers Care Museum Exhibit Technician Name Role Phone Billy Dc Primary Care [...] Status W/U Status Risk Notes Problem Sciatica (50437550) Sciatica (M54.30) Active confirmed Problem Cardiac pacemaker in situ (602316447) Pacemaker (Z95.0) Active confirmed Vital Signs Blood pressure systolic 122 mm Hg 08/10/19 Blood pressure diastolic 64 mm Hg 025 Height 65.5 in 08/09/2024 Weight 275 lbs 08/09/2024 BMI 45.06 kg/m2 08/09/2024 weight is up 7 pounds since 02-12-24 Encounters Encounter Location Date Provider Diagnosis Billy Dc MD [address] [place] [address] [place] [phone] 08/09/2024 Billy Dc Prediabetes R73.09 ; Sciatica [...] 07:30:00 AM, [address], [address], [place], [place], [phone], Provider Name:Billy Justin ier, 02/17/2025 09:30:00 AM, [address], [address], [place], [place], [phone], Progress Notes * OPALChrisDOB: (74 yo M)Acc No.[id number]:08/09/2024 Progress Notes Patient:?Chris JOSEPH Provider:?Billy Dc MD :1950???Age:74 Y???Sex:Male Kody e:08/09/2024 Address: [address], [place], [id number] Subjective: * Chief Complaints: * ???6 month * HPI: ???Symptom(s):?patient is? 74 yo male here for 6 month follow up visit/ has sciatica for couple days/. * ROS:?General/Constitutional:?Denies?Chills.?Denies?Fatigue.?Denies?Fever.?Denies?Headache.?ENT:?Denies?Sore throat.?Respiratory:?Denies?Cough.?Denies?Shortness of breath at rest.?Denies?Shortness of breath with exertion.?Cardiovascular:?Denies?Chest pain at rest.?Denies?Chest pain with exertion.?Denies?Dizziness.?Denies?Palpitations.?Denies?Shortness of breath.?Gastrointestinal:?Denies?Diarrhea.?Denies?Nausea.? * Medical History:? * Surgical History:? * Hospitalization/Major Diagno stic Procedure:? * Medications:?TakingCarvedilo l 3.125 MG Tablet 1 tablet with food [...] Medication List reviewed and reconciled with the patientNot- Taking/PRN traMADol HCl 50 MG Tablet 1 tablet as needed Orally every 12 hrs as needed Not-Taking/PRN Percocet 5-325 MG Tablet 1 tablet as needed Orally every 6 hrs Not-Taking/PRN Omeprazole 20 MG Capsule Delayed Release 1 capsule Orally Once a day Medication List reviewed and reconciled with the patient * Allergies:?N.K.D.A.yes[Aller gies Verified] Objective: * Vitals:?Ht: 65.5, Wt: 275, B IN:45.06, BP:122/64, Wt-k.74. weight is up 7 pounds since 02-12-24. * ???Past Orders: ???Lab:Liver Panel (Order Da te - 08/02/2024) (Collection Date & Time - 08/02/2024 07:15 AM) ? Value Reference Range ?Bilirubin Total 0.6 0.0- 1.0 - mg/dL ?Bilirubin Direct 0.3 0.0 -0.5 - mg/dL ?Aspartate Amino Transferase 72 H 5-37 - U/L ?Alanine Aminotransferase 28 0-40 - U/L ?Total Protein 7.4 6.5-8. 0 - g/dL ?Albumin Level 4.1 3.5-5. 0 - g/dL ?Alkaline Phosphatase 73 39-117 - U/L ???Lab:Lipid Panel with Refl ex (Order Date - 08/02/2024) (Collection Date & Time - 08/02/2024 07:15 AM) ? Value Reference Range ?Triglycerides 93 <150 - mg/dL ?Cholesterol 113 <200 - m g/dL ?LDL Cholesterol Calculated 59 <100 - mg/dL ?HDL Cholesterol 36 L >40 - mg/dL * Examination: ???General Examination: ?GENERAL APPEARANCE:?alert, well hydrated, in no distress, male.?HEAD:?normocephalic.?SKIN:?good turgor.?HEART:?regular rate and rhythm, no murmurs, rubs, gallops.?LUNGS:?no wheezes, rales, rhonchi, good air movement, clear to auscultation bilaterally.? Assessment: * Assessment: 1.?Prediabetes - R73.09 (Pippa chidi)???2.?Sciatica - M54.30???3.?Pacemaker - Z95.0???4.?Pure hypercholesterolemia - E78.00??? Plan: * Treatment: ? Value Reference Range ?Hemoglobin A1c 5.1 ?LAB: Glucose, finger stick (Collection Date & Time - 08/09/2024)* ? Value Reference Range ?Value 86 Notes: a1c is good, no need for medicatin at this time, will continue to monitor??2.?Sciatica? Notes: no weakness, will continue to monitor??3.?Pacemaker? Notes: feels better??4.?Pure hypercholesterolemia? Continue Rosuvastatin Calcium Tablet, 20 MG, 1 tablet, Orally, Once a day.?? Notes: has gool ldl, will continue current regiment??5.?Others? Notes: is increase to 5.3 and is followed by dr vazquez?? * Procedure Codes:?71779 ASSAY , GLUCOSE, BLOOD QUANT, Modifiers: QW 68000 GLYCATED HEMOGLOBIN TEST, Modifiers: QW * * Sign off status: Completed true * Provider:?Billy Dc MD Date:?0 08/09/2024 Generated for Natalya coker/Huseyin/eTransmitting on:?09/28/2024 01:06 PM EDT History and Physical Notes * [...]
--- OUTSIDE RECORDS SUMMARY | 2024-09-28 13:06 | XMS_ITS | Encounter Summary ---
Author Organization [facility] Address [address] [facility] [address] [place] [address] Phone Care Team Providers Care Visitor Service Assistant Name Role Phone Billy Dc MD Primary Care Provider Encounter Details Date Type Department Care Team (Late st Contact Info) Description 02/07/2022 Documentation Only [facility] [address] [facility] [address] [place] [phone] Mikal Dias MD [address] [place] [address], [address] [place] [address] Social History Tobacco Use Types Packs/Day Years Used Date Smoking Tobacco: Never Assessed Sex and Gender Information Value Date Recorded Sex Assigned at Not on file Legal Sex Male 4:58 PM EST Gender Identity Not on file Sexual Orientation Not on file documented as of this encounter Plan of Treatment Upcoming Encounters Date Type Department Care Team (Late st Contact Info) Description 01/02/2025 2:30 PM EDT Office Visit [facility] [address] [place] [address] Balaji Collier MD [address] [facility] [address] [place] [phone] documented as of this encounter Visit Diagnoses Not on filedocumented in this encounter Care Teams Visitor Service Assistant Relationship Specialty Start Date End Date Billy Dc MD [address] [place] [address] [id number] [place] PCP - General 05/28/20 documented as of this encounter
--- OUTSIDE RECORDS SUMMARY | 2024-09-28 13:06 | XMS_ITS ---
Author Organization Billy Dc MD Address [address] [place], [place] [id number] Care Team Providers Care Floor Refinisher Name Role Phone Billy Dc Primary Care [...] kg/m2 02/12/2024 weight is down 3 pounds [facility] 09-07-23 Encounters Encounter Location Date Provider Diagnosis Billy Dc MD [address] [place] [address] [place] [phone] 02/12/2024 Billy Dc Head and neck cancer [...] Up: 6 Months, Reason: Provider Name:Billy delgado, 02/10/2025 07:30:00 AM, [address] [place] [address], [place] [address], [place], [place], [phone], Provider Name:Billy bishopr, 02/17/2025 09:30:00 AM, [address] [place] [address], [address], [place], [place], [phone], Progress Notes * Chris JOSEPHDOB: (74 yo M)Acc No.[id number]:02/12/2024 Patient:?Chris Joseph Provider:?Billy Dc MD :1950???Age:74 Y???Sex:Male Kody e:02/12/2024 Address: [address], [id number] Subjective: * Chief Complaints: * ???Review of labs * HPI: ???Depression Screening:?PHQ-9?Little interest or pleasure in doing things?Not at all,?Feeling down, depressed, or hopeless?Not at all,?Trouble falling or staying asleep, or sleeping too much?Not at all,?Feeling tired or having little energy?Not at all,?Poor appetite or overeating?Not at all,?Feeling bad about yourself or that you are a failure, or have let yourself or your family down?Not at all,?Trouble concentrating on things, such as reading the newspaper or watching television?Not at all,?Moving or speaking so slowly that other people could have noticed; or the opposite, being so fidgety or restless that you have been moving around a lot more than usual?Not at all,?Thoughts that you would be better off or of hurting yourself in some way?Not at all,?Total Score?0.?Interpretation and Intervention?Depression Screening Findings?Negative,?Follow-Up for Depression?: review of PHQ-9 found negative result, no follow-up needed.?Communication Needs:?Communication Needs?Does the patient have a hearing impairment?No,?Does the patient have a vision impairment??Yes,?If yes, what is the vision impairment??Glasses,?Does the patient have a cognition impairment??No.?Fall Risk:?History?Have you had any falls with injury in the past year??No,?Have you had two or more falls in the past year??No.?SDOH Questions:?SDOH Questions?In the past year have you been worried about losing housing??No,?In the past year have you or any family members you live with been unable to get any of the following when it was really needed? Check all that apply:?None.?Symptom(s):? patient is a 74 yo male here for review of recent labs and follow up of chronic issues.. is walking a little. walking in stores and the mall/ no more gout. * ROS:?General/Constitutional:?Patient denies?chills , fatigue , fever , headache.?ENT:?Patient denies?decreased sense of smell , any loss of taste , sore throat.?Respiratory:?Patient denies?shortness of breath at rest shortness of breath with exertion.?Cardiovascular:?Patient denies?chest pain with exertion chest pain at rest.?Gastrointestinal:?Patient denies?change in bowel habits abdominal pain.?Genitourinary:?Patient denies?difficulty urinating frequent urination.?Musculoskeletal:?Patient denies?muscle aches.?Peripheral Vascular:?Patient denies?red and blue toes.? * Medical History:? * Surgical History:? * Hospitalization/Major Diagno stic Procedure:? * Family History:?Father: dece ased 76 yrs, diagnosed with CHF.?Mother: 92 yrs, diagnosed with CHF.?1 brother(s) , 1 sister(s) - healthy. 1 son(s) , 2 daughter(s) - healthy. .? Father- old age Mother [place], No pertinent family medical history, No pertinent family medical history. * Social History:?Tobacco Use:?Tobacco Use/Smoking?Patient is a?nonsmoker,?Additional Findings: Tobacco Non-User?Current non-smoker, currently using no form of tobacco.?Drugs/Alcohol:?Alcohol Screen?Did you have a drink containing alcohol in the past year??Yes,?How often did you have a drink containing alcohol in the past year??2 to 4 times a month (2 points),?How many drinks did you have on a typical day when you were drinking in the past year??1 or 2 drinks (0 point),?How often did you have 6 or more drinks on one occasion in the past year??Never (0 point),?Points?2,?Interpretation?Negative.?Miscellaneous:?Children: yes. no Exercise. Home smoke detector use: yes. Housing: owning. Living with: spouse. Marital status: . Occupation: weeks/months/years, works full-time. Travel outside of the [place]: yes, [place]. * Medications:?TakingRosuvasta tin Calcium 20 MG Tablet 1 tablet Orally [...] Allergies:?N.K.D.A.yes[Aller gies Verified] Objective: * Vitals:?Ht: 65.5, Wt:268, BM I:43.91, BP:138/60 weight is down 3 pounds since 09-07-23. * ???Past Orders: ???Lab:Microalbumin, Random (Order Date - 02/02/2024) (Collection Date - 02/02/2024) ? Value Reference Range ?Creatinine Urine 50.28 - m g/dL ?Microalbumin Urine 105.0 - mg/L ?Microalbum Creatinine Ratio Ur 208.8 H <30 - ug/mg cr ???Lab:Complete Blood Count Auto Diff (Order Date - 02/02/2024) (Collection Date - 02/02/2024) ? Value Reference Range ?White Blood Count 4.5 L 4. 8-10.8 - X10*3/uL ?Red Blood Count 4.17 L 4.60 -5.80 - X10*6/uL ?Hemoglobin 12.7 L 14.0-18.0 - g/dl ?Hematocrit 38.7 L 42.0-52.0 - % ?Mean Corpuscular Volume 92.8 80.0-98.0 - fL ?Mean Corpuscular Hemoglobin 30.5 27.0-33.0 - pg ?Mean Corpuscular HGB Conc 32.8 31.0-36.0 - g/dl ?Red Cell Distribution Width 14.9 11.0-16.0 - % ?Platelet Count 237 160-4 00 - X10*3/uL ?Mean Platelet Volume 9.1 L 9.4-12.4 - fL ?Neutrophils Percent Auto 62.7 45-73 - % ?Imm Gran Pct Auto 0.4 0. 0-0.4 - % ?Lymphocytes Percent Auto 20.6 20-40 - % ?Monocytes Percent Auto 10.4 2-11 - % ?Eosinophils Percent Auto 5.5 H 0-4 - % ?Basophils Percent Auto 0.4 0-2 - % ?NRBC Pct Auto 0.0 0.0-0. 2 - /100WBC ?Neutrophils Absolute Auto 2.8 2.0-8.3 - x10*3/uL ?Imm Gran Abs Auto 0.02 0. 00-0.03 - X10*3/uL ?Lymphocytes Absolute Auto 0.9 L 1.2-4.9 - X10*3/uL ?Monocytes Absolute Auto 0.5 0.1-1.2 - X10*3/uL ?Eosinophils Absolute Auto 0.3 0.0-0.4 - X10*3/uL ?Basophils Absolute Auto 0.0 0.0-0.2 - X10*3/uL ?NRBC Abs Auto 0.000 0.0-0. 012 - X10*3/uL ???Lab:Hemoglobin A1c (Order Date - 02/02/2024) (Collection Date - 02/02/2024) ? Value Reference Range ?Hemoglobin A1c % 4.9 <6. 0 - % ?Estimated Average Glucose 94 - mg/dL ???Lab:Comprehensive [place]. P torito Fast (Order Date - 02/02/2024) (Collection Date - 02/02/2024) ? Value Reference Range ?Sodium 141 135-145 - mmo l/L ?Bilirubin Total 0.5 0.0- 1.0 - mg/dL ?Aspartate Amino Transferase 40 H 5-37 - U/L ?Alanine Aminotransferase 12 0-40 - U/L ?Total Protein 7.8 6.5-8. 0 - g/dL ?Albumin Level 4.3 3.5-5. 0 - g/dL ?Alkaline Phosphatase 63 39-117 - U/L ?Potassium 4.1 3.3-5.1 - mmol/L ?Chloride 105 96-108 - mm ol/L ?Carbon Dioxide 28 22-29 - mmol/L ?Anion Gap 12 12-20 - ?Blood Urea Nitrogen 19 H 9-16 - mg/dL ?Creatinine 1.26 0.5-1.4 - mg/dL ?Estimated Glomerular Filt Rate 56 - ?Glucose Fasting 91 60-9 9 - mg/dL ?Calcium 9.4 8.4-10.2 - m g/dL ???Lab:UA ClnCatch+Micro w/r flx Cult (Order Date - 02/02/2024) (Collection Date - 02/02/2024) ? Value Reference Range ?Color Urine Yellow - ?Appearance Urine Clear - ?PH 6.5 5.0-9.0 - ?Glucose Urine UA Negative Neg ative - mg/dL ?Urine Blood Negative Negative - ?Specific [place] - Urine 1.010 1.005-1.025 - ?Urine Protein Trace Neg-Tr mere - mg/dL ?Urine Ketones Negative Negati ve - mg/dL ?Nitrite Urine Negative Negati ve - ?Leukocyte Esterase Urine Negative Negative - ?RBC Urine 0-2 0-2 - /HPF ?WBC Urine 0-5 0-5 - /HPF ?Squamous Epithelial Cell Urine 0-2 0-2 - /HPF ?Bacteria Urine None Seen None Seen - ?Hyaline Casts Urine 0-2 0-2 - /LPF ???Lab:Lipid Panel (Order Da te - 02/02/2024) (Collection Date - 02/02/2024) ? Value Reference Range ?Triglycerides 95 <150 - mg/dL ?Cholesterol 128 <200 - m g/dL ?LDL Cholesterol Calculated 68 <100 - mg/dL ?HDL Cholesterol 41 >40 - mg/dL ???Lab:PSA,Total (Free>4and< 10) (Order Date - 02/02/2024) (Collection Date - 02/02/2024) ? Value Reference Range ?PSA,Total (Free>4and<10) 1.56 0.00-4.00 - ng/mL ???Lab:TSH reflex Free T4 (O rder Date - 02/02/2024) (Collection Date - 02/02/2024) ? Value Reference Range ?TSH reflex Free T4 3.00 0 .32-4.0 - uIU/mL * Examination: ???General Examination: ?GENERAL APPEARANCE:? alert, well hydrated, in no distress .?HEAD:? normocephalic.?EYES:? BOTH EYES, normal.?EARS:? BOTH EARS, normal.?THROAT:? abnormal? with enlarged tonsils enlarged as usual.?NECK/THYROID:? abnormal with lymphjedema, no carotid bruit, no cervical lymphadenopathy.?SKIN:? good turgor.?HEART:? no murmurs, rubs, gallops, regular rate and rhythm.?LUNGS:? no wheezes, rales, rhonchi, good air movement, clear to auscultation bilaterally.?ABDOMEN:? soft, nontender, nondistended, no rebound tenderness, no organomegaly .?RECTAL EXAM:? stool guaiac negative, no masses palpable, prostate normal.?MALE GENITOURINARY:? uncircumcised, no penile lesions or discharge, testes descended bilaterally.?EXTREMITIES:? no edema.? Assessment: * Assessment: 1.?Head and neck cancer - C7 6.0?2.?Abnormal LFTs - R79.89?3.?Essential hypertension - I10?4.?Prediabetes - R73.09?5.?Pure hypercholesterolemia - E78.00?6.?Elevated PSA - R97.20?7.?Acquired hypothyroidism - E03.9?8.?Ascending aortic aneurysm, unspecified whether ruptured - I71.21? Plan: * Treatment: 2.?Abnormal LFTs? Notes: has recovered.?? 3.?Essential hypertension? Notes: stabe, at goal, will continue current regiment?? 4.?Prediabetes? Notes: stable, no need for medication at this time?? 5.?Pure hypercholesterolemia ? Notes: doing well, is at goal, will continue current regiment?? 6.?Elevated PSA? Notes: stable, will continue to monitor?? 7.?Acquired hypothyroidism? Notes: stable, at goal, will contiue current regiment?? 8.?Others? Notes: if they don't do ct yearly will need to tell dr herbert and get echo next year/ per provider Dr. Benitez will be doing yearly Ct and echo.?? * Procedure Codes:? * Preventive Medicine:? ??Counseling:?Care goal follow-up plan:?Counseling for abnormal BMI provided?Yes,?Above Normal BMI Follow-up?Giving encouragement to exercise.? * Follow Up:?6 Months * * Sign off status: Completed true * Provider:?Billy Dc MD Date:?0 02/12/2024 Generated for Sharroni ng/Huseyin/eTransmitting on:?09/28/2024 01:06 PM EDT History and Physical [...] Total Score: 0 Interpretation and Intervention Depression Natashafelisha mattie Findings: Negative Follow-Up for Depression: : review [...] had two or more falls in the year?: No Communication Needs Communication Needs Does the patient have a hearing impairment: No Does the patient have a vision impairmen t?: Yes ?If yes, what is the vision impairment?: Glasses [...]
--- OUTSIDE RECORDS SUMMARY | 2024-09-28 13:06 | XMS_ITS | Clinical Summary ---
Author Organization [facility] Address [address] [phone] Phone Care Team Providers Care Chain Machine Operator Name Role Phone Billy Dc MD Primary Care Provider Allergies No known active allergies Medications allopurinol (ZYLOPRIM) 300 MG tablet Take 300 mg by mouth 1 (one) time each day 06/28/2020 Active LORazepam (ATIVAN) 1 MG tablet Take 1 mg by mouth every 6 (six) hours if needed for anxiety Active pilocarpine (SALAGEN) 5 MG tablet Take 5 mg by mouth in the morning and 5 mg in the evening and 5 mg before bedtime. Active nystatin (MYCOSTATIN) 762330 UNIT/ML suspension SWISH AND SPIT WITH 5ML FOUR TIMES A DAY FOR 2-4 WEEKS 12/12/2022 Active levothyroxine (SYNTHROID, LEVOTHROID) 25 MCG tablet Take 25 mcg by mouth 1 (one) time each day Active rosuvastatin (CRESTOR) 20 MG tablet Take 20 mg by mouth 1 (one) time each day Active amLODIPine (NORVASC) 10 MG tablet 1 (one) time each day Active calcitriol (Rocaltrol) 0.25 MCG capsule Take 1 capsule (0.25 mcg total) by mouth every other day 45 capsule 03/28/2024 Active ergocalciferol 1.25 MG (44336 UT) capsule Take 1 capsule (50,000 Units total) by mouth every 14 (fourteen) days 2 capsule 2 03/28/2024 Active amLODIPine (NORVASC) 10 MG tablet Take 1 tablet (10 mg total) by mouth 1 (one) time each day 90 tablet 3 03/30/2024 Active Active Problems Problem Noted Date Diagnosed Date Severe obesity 06/10/2022 Anxiety about body function or health 06/10/2022 Arthritis 06/10/2022 Arthritis of knee 06/10/2022 Ascending aorta dilatation 06/10/2022 Body mass index 40+ - severely obese 06/10/2022 H/O: gout 06/10/2022 Hyperuricemia without signs of inflammatory arthritis and tophaceous disease 06/10/2022 Liver function tests outside reference range Lymphadenopathy 06/10/2022 Other allergy status, other than to drugs and biological substances 06/10/2022 Prostate specific antigen above reference range 06/10/2022 Thoracic aortic aneurysm without rupture 023 Tubular adenoma of colon 06/10/2022 Stage 3b chronic kidney disease 04/22/2021 Renal osteodystrophy 04/22/2021 Stage 3a chronic kidney disease 10/29/2020 Essential (primary) hypertension 08/14/2020 Prediabetes 08/14/2020 Hypercholesterolemia 08/14/2020 Immunizations Immunization Administration Dates Next Due Influenza (IM) Preservative Free 019,01/26/2018,07/09/2017,01/27 Influenza Split 02/28/2014 Influenza Split High Dose Pr eservative Free IM 03/04/2022,07/02/2021 Pfizer SARS-COV-2 03/14/2021,08/13/2020,07/24/19 21 Pneumococcal Conjugate 13-Valent 11/13/2021,07/16 Pneumococcal Polysaccharide 01/08/2022,,03/02/2014 Tdap 10/27/2013 Family History Medical History Relation Comments Hypertension Mother Relation Status Comments Mother Social History Tobacco Use Types Packs/Day Years Used Date Smoking Tobacco: Never Smokeless Tobacco: Never Tobacco Cessation:Counseling Given: Not Answered Alcohol Use Standard Drinks/Week Comments Not Currently 0 (1 standard drink = 0.6 oz pur e alcohol) Sex and Gender Information Value Date Recorded Sex Assigned at Not on file Legal Sex Male 4:58 PM EST Gender Identity Not on file Sexual Orientation Not on file Last Filed Vital Signs Vital Sign Reading Time Taken Comments Blood Pressure 140/84 03/28/2024 2:35 PM EST Pulse 78 03/28/2024 2:35 PM EST Temperature - - Respiratory Rate - - Oxygen Saturation 98% 03/28/2024 2:35 PM EST Inhaled Oxygen Concentration - - Weight 120 kg (264 lb) 03/28/2024 2:35 PM EST Height 170.2 cm (5' 7 ) 02/04/2022 3:44 PM EDT Body Mass Index 41.35 02/04/2022 3:44 PM EDT Plan of Treatment Upcoming Encounters Date Type Department Care Team (Late st Contact Info) Description 01/02/2025 2:30 PM EDT [facility] [address] [place] [address] Balaji Collier MD [address] [facility] [address] [place] [address] Health Maintenance Due Date Last Done Comments Colorectal Cancer Screening: Annual FOBT 01/20/2001 Colorectal Cancer Screening: Colonoscopy 01/20/2001 Colorectal Cancer Screening: Sigmoidoscopy 01/20/2001 Influenza Vaccine (Season Ended) 2025 03/04/2022, 07/02/2021, 01/18/2019, Additional history exists Pneumococcal Vaccine: 50+ Years Completed 01/08/2022, 11/13/2021, 08/01/2019, Additional history exists Pneumococcal Vaccine: Peds (0 to 5 Years) and At-Risk Patients (6 to 49 Years) Discontinued 01/08/2022, 11/13/2021, 08/01/2019, Additional history exists Hepatitis B Vaccine Aged Out No longe r eligible based on patient's age to complete this topic Insurance Medicare [facility] Medicare [facility] Care Teams Chain Machine Operator Relationship Specialty Start Date End Date Billy Dc MD [address] [place] [address] [id number] [place], [place] PCP - General 05/28/20
[2024-09-28 13:16] VITALS: BP 124/70; PULSE 61; O2SAT 100; BMI 41.6
--- NOTE | 2024-09-28 13:16 | MHC.OFFVIS ---
Vital Signs 09/28/24 13:16 Height 5 ft 7 in Weight 265 lb 10.512 oz BMI 41.6 BP 124/70 Blood Pressure Location Lt brachial Position Sitting Pulse 61 Pulse Source Pulse Oximeter Pulse Oximetry (%) 100 Oxygen Delivery Method Room Air Intake Visit Reasons: Obstructive sleep apnea Intake Note: pt is here for follow up and states he is doing well Jitney Driver Required: No Allergies No Known Allergies Allergy (Verified 09/28/24 13:21) Do you need a note to return to daycare/school/sports/work: No HPI HPI Obstructive sleep apnea: Details: NOREEN IS A VERY [place] 74-YEAR-OLD HERE FOR 6 MONTH FOLLOW-UP FOR HIS OBSTRUCTIVE SLEEP APNEA. HE USES THE CPAP EVERY NIGHT, HAS BEEN SLEEPING WELL AND DENIES DAYTIME SLEEPINESS. HAS NOT HAD ANY TROUBLE RECEIVING SUPPLIES FOR CPAP MACHINE. HAS NOT HAD ANY RECENT RESPIRATORY ILLNESSES. DENIES SHORTNESS OF BREATH WITH EXERTION BUT RECENTLY HAD A PACEMAKER PLACED DUE TO BRADYCARDIA. HIS WEIGHT REMAINS UNCHANGED. [facility] Medical History JADEN on CPAP Essential hypertension Morbid obesity Hx of gout Arthritis Sleep apnea HTN (hypertension) Surgical History Hx of detached retina repair History of ankle surgery History of esophagogastroduodenoscopy (EGD) H/O colonoscopy Family History Mother HTN (hypertension) CVA (cerebral vascular accident) Social History Household Members: Spouse Housing: House Do you presently have visiting nurse or other home services: No Alcohol intake: never Patient Tobacco Use Status: Never used Tobacco Advance Directives Date on File: 09/20/20 service: No Review of Systems Const All systems reviewed & are unremarkable except as noted in HPI and below Eyes Reports no additional complaints ENT Reports no additional complaints Card Denies chest pain, Denies irregular heart rhythm and Reports dyspnea on exertion (MILD) Resp Denies cough, Reports dyspnea on exertion (MILD) and Denies wheezing GI Reports no additional complaints Reports no additional complaints Musc Reports back pain and Reports arthralgias Skin/Breast Reports system reviewed and no additional complaints, except as documented and Reports skin ulcer (ULCER ON THE RIGHT LEG HAS HEALED) Neuro Reports no additional complaints Psych Reports no additional complaints Aller/Immun Denies wheezing Physical Exam Vital Signs: Last Vital Signs Pulse 61 09/28/24 13:16 BP 124/70 09/28/24 13:16 Pulse Ox 100 09/28/24 13:16 Oxygen Delivery Method Room Air 09/28/24 13:16 BMI result Body Mass Index 41.6 Const General: comfortable, no acute distress, alert, awake and other (MARKEDLY OBESE ESPECIALLY WITH A ROUND FACE AND VERY OBESE NECK) Orientation/consciousness: patient oriented x3 HEENT Head: Yes normal to inspection General nose exam: No nasal polyps present and No nasal discharge present Face and sinus: No normal facial exam (Patient has brownish pigmentation of the skin of his face and neck , ) and Yes sinuses nontender Mouth: oropharynx abnormals (VERY CROWDED AND NARROW, MALLAMPATI CLASS 4) Throat: Yes posterior oropharynx normal Eyes General: appearance normal, both eyes and all related structures Neck Neck: Yes normal visual inspection, Yes no lymphadenopathy, Yes trachea midline, Yes no JVD and Yes other (NECK CIRCUMFERENCE 22 IN,WITH EXCESSIVE LOOSE SKIN SKIN AND ADIPOSE TISSUE) Thyroid: Thyroid normal Chest Chest palpation & inspection: normal inspection of the chest, normal palpation of entire chest wall and no tenderness Resp Other: PERCUSSION NOTE NOT PERCEPTIBLE DUE TO THICK CHEST WALL. BREATH SOUNDS ARE QUITE DISTANT ESPECIALLY OVER THE BASILAR AREAS. NO WHEEZES RHONCHI ARE CREPS ARE HEARD. Effort & Inspection: normal respiratory effort Auscultation: clear to auscultation bilaterally Cardio Palpation: PMI not normal (NOT PALPABLE) Rate: regular rate Rhythm: regular rhythm Heart sounds: no gallops and no murmurs GI Palpation (GI): Soft to palpation, nontender, No hepatosplenomegaly present, no masses and Other GI palpation findings present (ABDOMEN GROSSLY OBESE AND PROTUBERANT) Auscultation: normal bowel sounds Back/Spine/Pelvis Thoracic/Lumbar Spine: thoracic and lumbar spine normal to inspection and thoraco-lumbar ROM limited Skin General skin exam: no rashes or lesions noted and other (CHRONIC ALSO ON THE LATERAL ASPECT OF RIGHT LEG) Neuro General: patient oriented x3 and no focal motor deficits Cranial nerves: Yes CN's II-XII intact bilaterally Extrem General: Yes normal to inspection, Yes no calf tenderness and Yes edema (CHRONIC STASIS EDEMA OF THE RIGHT LEG) Psych Appearance: grossly normal and well kempt Speech and movement: Normal speech and movement present Results Reviewed Results Reviewed: CPAP COMPLIANCE REPORT FOR THE LAST 30 DAYS REVIEWED PATIENT USING CPAP FOR LAST 30/30 DAYS WITH AN AVERAGE USAGE 8 HOURS IN 50 MINUTES AHI 0.9. Assessment & Plan Assessment & Plan (1) JADEN (obstructive sleep apnea): Comment: HE IS A KNOWN CASE OF OBSTRUCTIVE SLEEP APNEA. FOR MANY YEARS CONTINUES TO USE THE CPAP VERY REGULARLY AND CONTINUES TO SLEEP WELL. HE KEEPS HIS OLD CP[facility] MACHINE [facility] [place], AND USES THAT FOR A FEW NIGHTS THAT HE SPENDS AT THE [place] IN SUM[place]. Code(s): G47.33 - Obstructive sleep apnea (adult) (pediatric) Category: Medical Plan: CONTINUE USING CPAP WITH NASAL MASK EVERY NIGHT. CONTINUE WEIGHT REDUCTION WITH DAILY EXERCISE AND WATCHING DIET. (2) Morbid obesity with BMI of 50.0-59.9, adult: Comment: HE HAS LOST SIGNIFICANT WEIGHT BUT STILL REMAINS OBESE. CURRENT BMI 42.0. HE HAS DIFFICULTY IN LOSING MORE WEIGHT. HE HAS LOST A FEW MORE LB SINCE LAST VISIT. Code(s): E66.01 - Morbid (severe) obesity due to excess calories; Z68.43 - Body mass index [BMI] 50.0-59.9, adult Category: Medical Plan: AGAIN TALKED TO HIM ABOUT THE WEIGHT AND ADVISED TO KEEP ON LOSING EVEN IF IT IS A FEW LB PER MONTH Coding Level of Care Code Est Pt Level 3 (90835) Diagnoses JADEN (obstructive sleep apnea) G47.33 Morbid obesity with BMI of 50.0-59.9, adult E66.01; Z68.43
== END 2024-09-28 13:42 | disposition home or self-care (01) ==
LOC: HO.HPS 12:46
PROVIDERS: PCP Internal Medicine; Visit Provider Internal Medicine
DX: G47.33 Obstructive sleep apnea (adult) (pediatric) (principal); E66.01 Morbid (severe) obesity due to excess calories; Z68.43 Body mass index [BMI] 50.0-59.9, adult
CPT/HCPCS: 99213

== ENCOUNTER → 2024-09-28 12:45 | Outpatient (BNVA) | payer MEDICARE, SELFPAY | PROVIDERS: PCP Internal Medicine; Visit Provider Internal Medicine | DX: G47.33 Obstructive sleep apnea (adult) (pediatric) (principal); E66.01 Morbid (severe) obesity due to excess calories; Z68.43 Body mass index [BMI] 50.0-59.9, adult; Z99.89 Dependence on other enabling machines and devices | CPT/HCPCS: 99212 ==

== ENCOUNTER 2024-11-03 12:40 | Outpatient (AMB) | payer MEDICARE, SELFPAY ==
[2024-11-03 12:59] VITALS: BP 118/62; PULSE 66; BMI 40.7
--- NOTE | 2024-11-03 12:59 | MHC.OFFVIS ---
Vital Signs 11/03/24 12:59 Height 5 ft 7 in Weight 260 lb 2.327 oz BMI 40.7 BP 118/62 Blood Pressure Location Lt brachial Position Sitting Pulse 66 Pulse Source Pulse Oximeter Intake Visit Reasons: 1 year f/up/ dr engel/ repair surgery Allergies No Known Allergies Allergy (Verified 09/28/24 13:21) Medication List - Last Reconciled 11/03/24 by Huy Srivastava MD allopurinol 300 mg PO DAILY amlodipine 10 mg PO DAILY carvedilol 3.125 mg PO BID levothyroxine 25 mcg PO DAILY rosuvastatin (Crestor) 20 mg PO DAILY HPI Comments Details: Chris returns for follow-up regarding various concerns including bradycardia, aortic aneurysm among others. Recently underwent a pacemaker for the bradycardia issue. With regard to the aortic aneurysm, he has seen cardiac surgery at [facility] but it seems that a follow-up appointment has been set up for 6 months. No plans for immediate intervention. Otherwise, he is just about the same as before. With activities, he can get short of breath which is unchanged from before but otherwise no angina or any other concerning symptoms. [facility] Medical History JADEN on CPAP Essential hypertension Morbid obesity Hx of gout Arthritis Sleep apnea HTN (hypertension) Surgical History Hx of detached retina repair History of ankle surgery History of esophagogastroduodenoscopy (EGD) H/O colonoscopy Family History Mother HTN (hypertension) CVA (cerebral vascular accident) Social History Household Members: Spouse Housing: House Do you presently have visiting nurse or other home services: No Alcohol intake: never Patient Tobacco Use Status: Never used Tobacco Advance Directives Date on File: 09/20/20 service: No Review of Systems Const Denies weakness ENT Denies dizziness Card Denies chest pain, Denies chest pain with activity, Denies syncope, Denies rapid heart rate, Denies pedal edema, Denies edema, Denies leg edema, Denies lightheadedness, Denies palpitations, Denies dyspnea, Reports dyspnea on exertion and Denies orthopnea Resp Denies cough, Denies dyspnea and Reports dyspnea on exertion GI Denies hematochezia and Denies change in stool character Musc Denies abnormal gait, Denies muscle cramps, Denies muscle weakness, Denies numbness, Denies radiating pain into limb and Denies tingling Neuro Denies abnormal gait, Denies dizziness, Denies syncope, Denies numbness, Denies tingling and Denies weakness Endo Denies palpitations Physical Exam Vital Signs: Last Vital Signs Pulse 66 11/03/24 12:59 BP 118/62 11/03/24 12:59 BMI result Body Mass Index 40.7 Const General: comfortable and no acute distress Orientation/consciousness: patient oriented x3 HEENT Other: Unremarkable Head: Yes normal to inspection Neck Neck: Yes normal visual inspection Chest Chest palpation & inspection: normal inspection of the chest Resp Auscultation: clear to auscultation bilaterally Cardio Palpation: normal PMI Heart sounds: S1 normal heart sound present, S2 normal heart sound present, no gallops, Murmur heart sound present systolic II/ and at the right sternal border and no rubs GI Palpation (GI): Soft to palpation Back/Spine/Pelvis Other: unremarkable Skin General skin exam: no rashes or lesions noted Neuro General: patient oriented x3 Extrem General: Yes normal to inspection Psych Mental Status: mental status grossly normal Assessment & Plan Assessment & Plan (1) Ascending aortic aneurysm: Code(s): I71.21 - Aneurysm of the ascending aorta, without rupture Category: Medical Plan: Per CTA at [facility], ascending aortic size 5.3/5cm. He has already seen cardiac surgery. Repeat CTA was planned in 6 months time. Otherwise, mainly blood pressure management. (2) Bradycardia, sinus: Code(s): R00.1 - Bradycardia, unspecified Category: Medical Plan: Status post permanent pacemaker. Can be followed remotely. (3) Aortic valve calcification: Code(s): I35.9 - Nonrheumatic aortic valve disorder, unspecified Category: Medical Plan: Echocardiogram report as well as images reviewed. Some of the gradients are probably related to increased stroke volume. Could have mild aortic stenosis and cannot exclude bicuspid type morphology but difficult to see. He also has high stroke volume based on LVOT VTI and that can also cause murmurs. Repeat study. (4) Atherosclerotic cardiovascular disease: Code(s): I25.10 - Atherosclerotic heart disease of [place] coronary artery without angina pectoris Category: Medical Plan: CT scan describes mild LAD/RCA coronary calcification. Clinically, he has got no angina. Previously, unremarkable ETT. Continue statins. (5) Essential hypertension: Code(s): I10 - Essential (primary) hypertension Category: Medical Plan: Stable. No changes. (6) JADEN (obstructive sleep apnea): Comment: HE IS A KNOWN CASE OF OBSTRUCTIVE SLEEP APNEA. FOR MANY YEARS CONTINUES TO USE THE CPAP VERY REGULARLY AND CONTINUES TO SLEEP WELL. HE KEEPS HIS OLD CPAP MACHINE [place], AND USES THAT FOR A FEW NIGHTS THAT HE SPENDS AT [facility] [place] IN SUMMER. Code(s): G47.33 - Obstructive sleep apnea (adult) (pediatric) Category: Medical Plan: Continue CPAP. (7) Morbid obesity with BMI of 50.0-59.9, adult: Comment: HE HAS LOST SIGNIFICANT WEIGHT BUT STILL REMAINS OBESE. CURRENT BMI 42.0. HE HAS DIFFICULTY IN LOSING MORE WEIGHT. HE HAS LOST A FEW MORE LB SINCE LAST VISIT. Code(s): E66.01 - Morbid (severe) obesity due to excess calories; Z68.43 - Body mass index [BMI] 50.0-59.9, adult Category: Medical Plan: He has lost lot of weight but still overweight. I am not clear if he will be able to lose anymore. Plan Discussion Notes We talked about the need for an echocardiogram to evaluate his aortic valve calcification and the potential implications of his previous cancer treatment on his cardiovascular health. I advised him to continue his current lifestyle adjustments for managing sleep apnea and to remain vigilant for any new symptoms. We agreed on scheduling follow-up appointments as necessary, with a planned review in six months. Patient was informed and verbally consented to the use of an ambient scribe for clinic note documentation during this visit. Orders: Orders CA echo transthoracic complete Today I35.9 - Nonrheumatic aortic valve disorder, unspecified Patient Instructions: - Continue monitoring pacemaker online. - Undergo an echocardiogram as scheduled to assess heart function. - Maintain lifestyle adjustments for sleep apnea management. - Watch for any new symptoms and report them promptly. - Attend follow-up appointments, with a review planned in six months. Coding Level of Care Code Est Pt Level 4 (93991) Complex EM visit Add On G2211 Diagnoses Ascending aortic aneurysm I71.21 Bradycardia, sinus R00.1 Aortic valve calcification I35.9 Atherosclerotic cardiovascular disease I25.10 Essential hypertension I10 JADEN (obstructive sleep apnea) G47.33 Morbid obesity with BMI of 50.0-59.9, adult E66.01; Z68.43
--- OUTSIDE RECORDS SUMMARY | 2024-11-03 13:41 | XMS_ITS | Clinical Summary ---
Author Organization [facility] Address [address] [address] Phone Care Team Providers Care Lapper Name Role Phone Billy Dc MD Primary [...] 5 mg before bedtime. Active nystatin (MYCOSTATIN) 137902 UNIT/ML suspension SWISH AND SPIT WITH 5ML [...] 45 capsule 03/28/2024 Active ergocalciferol 1.25 MG (20458 UT) capsule Take 1 capsule (50,000 Units [...] Visit [facility] [address] [place] [address] Balaji Collier MD [address] [facility] [address] [place] [address] Health Maintenance Due Date Last [...] age to complete this topic Insurance Medicare [facility] Medicare [facility] Care Teams Lapper Relationship Specialty Start Date End Date Billy Dc MD [address] [place] [address] [id number] [place], [place] PCP - General 05/28/20
== END 2024-11-03 13:38 | disposition home or self-care (01) ==
PROVIDERS: PCP Internal Medicine; Visit Provider Internal Medicine
DX: I71.21 Aneurysm of the ascending aorta, without rupture (principal); R00.1 Bradycardia, unspecified; I35.9 Nonrheumatic aortic valve disorder, unspecified; I25.10 Atherosclerotic heart disease of native coronary artery without angina pectoris; I10 Essential (primary) hypertension; G47.33 Obstructive sleep apnea (adult) (pediatric); E66.01 Morbid (severe) obesity due to excess calories; Z68.43 Body mass index [BMI] 50.0-59.9, adult
CPT/HCPCS: 99214; G2211

== ENCOUNTER → 2024-11-03 12:40 | Outpatient (BNVA) | payer MEDICARE, SELFPAY | PROVIDERS: PCP Internal Medicine; Visit Provider Internal Medicine | DX: I71.21 Aneurysm of the ascending aorta, without rupture (principal); I35.9 Nonrheumatic aortic valve disorder, unspecified; I25.10 Atherosclerotic heart disease of native coronary artery without angina pectoris; I10 Essential (primary) hypertension; G47.33 Obstructive sleep apnea (adult) (pediatric); E66.01 Morbid (severe) obesity due to excess calories; R00.1 Bradycardia, unspecified; Z68.41 Body mass index [BMI] 40.0-44.9, adult | CPT/HCPCS: 99212 ==

== ENCOUNTER → 2024-12-13 10:33 | Outpatient (REF) | payer MEDICARE, SELFPAY ==
--- NOTE | 2024-12-13 10:44 | CA_ITS ---
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 Normal LV ejection fraction of 60 65% with at least moderate asymmetric septal hypertrophy with impaired relaxation filling pattern 2. Mildly dilated left atrium 3. Calcific aortic valve changes noted with the early mild aortic stenosis with mild aortic regurgitation. 4. Normal measured RV systolic pressure 5. Severely dilated ascending aorta at 5.1 cm 6. No gross pericardial effusion Findings Procedure Information Contrast agent, definity, is being given per protocol without apparent complications. Left Ventricle Normal left ventricular size, thickness, and systolic function. The visually estimated ejection fraction is between 60-65%. Spectral Doppler is indicative of an impaired relaxation filling pattern. E/E prime ratio is between 8 and 15 consistent with indeterminate filling pressures. There is moderate septal asymmetric hypertrophy. Right Ventricle Normal right ventricular cavity size and systolic function. Atria The left atrium is mildly dilated. There is no evidence of interatrial shunt. The right atrium is normal in size. Aortic Valve There is moderate calcification of the aortic valve. The peak aortic gradient is 20 mmHg.The mean gradient is 12 mmHg. There is mild aortic valve regurgitation. Mitral Valve Likely normal mitral valve structure and function. There is trace mitral valve regurgitation. There is no mitral valve stenosis. Pulmonic Valve The pulmonic valve was not well visualized. Tricuspid Valve Likely normal tricuspid valve structure and function. There is trace tricuspid valve regurgitation. The right ventricular systolic pressure is normal. The right ventricular systolic pressure is 22 mmHg. Normal right atrial pressure. There is no evidence of pulmonary hypertension. Great Vessels The pulmonary artery was not well visualized. There is severe dilatation of the ascending aorta measuring 5.10 cm. Venous The inferior vena cava is normal in size and collapses greater than 50% with inspiration. Pericardium/Pleural There is no evidence of pericardial effusion. Prior Study Comparison No significant change compared to prior study dated: 05/05/2024. Measurements 2D Linear Measurements IVSd: 1.13 0.6-0.9/0.6-1.0 cm LVIDd: 4.66 3.9-5.3/4.2-5.9 cm LVIDd Index: 2.07 2.4-3.2/2.2-3.1 cm/m2 LVIDs: 3.21 2.0-3.6 cm LVPWd: 0.98 0.7-1.1 cm LA Diam: 4.10 2.7-3.8/3.0-4.0 cm LAIDs Index: 1.82 1.5-2.3 cm/m2 LV Mass: 217.60 67-162/88-224 g LV Mass Index: 96.71 43-95/49-115 g/m2 LVOT Diam: 2.60 3.0+(-)1.3 cm 2D Systolic Function EF 4C: 63.80 >55% EF 2C: 57.70 >55% EF BiP: 61.10 >55% Mitral Valve MV Pk E: 0.61 MV PK A: 0.58 MV Decel Time: 212.00 E/A: 1.10 E'Lateral: 5.98 E'Medial: 5.55 E/E' Med: 11.00 E/E' Lat: 10.30 PHT: 62.00 MVA PHT: 3.55 Decel Churchill: 2.89 Aortic Valve AoV Pk Dariusz: 2.23 AoV Mn Dariusz: 1.63 AoV VTI: 0.51 AoV Pk Grad: 20.00 Aov Mn Grad: 12.00 MEERA Cont.VTI: 2.38 LVOT LVOT Pk Dariusz: 0.99 LVOT Mn Dariusz: 0.66 LVOT VTI: 0.23 LVOT Pk Grad: 4.00 LVOT Mn Grad: 2.00 LVOT Diam: 2.60 LVOT Area: 5.31 Diastolic Function MV Pk E: 0.61 MV Pk A: 0.58 E/A: 1.10 E'Medial: 5.55 E/E' Med: 11.00 E' Laterial: 5.98 E/E' Lat: 10.30 Tricuspid Valve TV Pk Dariusz: 0.88 TV Mn Dariusz: 0.62 TV Pk Grad: 3.00 TV Mn Grad: 2.00 TR Pk Dariusz: 2.17 TR Pk Grad: 19.00 RA Press: 3.00 RVSP: 22.00 Great Vessels Aorta Sinus of Valsalva: 4.07 2.0-3.5 cm Ao Asc: 5.10 2.1-3.4 cm Updated in Other Vendor System with Status of Final Saul Reaves MD electronically signed on 12/14/2024 4:06:37 PM with status of Final
--- OUTSIDE RECORDS SUMMARY | 2024-12-13 11:37 | XMS_ITS | Patient Health Record ---
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 Panel Fa st Reviewed date:02/02/2024 12:40:55 PM Interpretation: Performing Lab:[facility], [address] [place] [phone] Notes/Report: Sodium 141 135-145 mmol/L Potassium 4.1 3.3-5.1 mmol/L Chloride 105 96-108 mmol/L Carbon Dioxide 28 22-29 mmol/L Anion Gap 12 12-20 Blood Urea Nitrogen 19 9-16 mg/dL Creatinine 1.26 0.5-1.4 mg/dL Estimated Glomerular Filt Rate 56 NOTE: For -Latvian individuals, multiply the result by 1.210. Chronic [...] Panel Reviewed date:02/02/2024 12:39:01 PM Interpretation: Performing Lab:[facility], [address] [place] [phone] Notes/Report: Triglycerides 95 <150 mg/dL Desirable Triglyceride: [...] (Free>4and<10) Reviewed date:02/02/2024 12:40:38 PM Interpretation: Performing Lab:[facility], [address] [place] [phone] Notes/Report: PSA,Total (Free>4and<10) 1.56 0.00-4.00 ng/mL A [...] 4.0 and 10.0 ng/mL. PSA methodology: Barbosa Fitonic AGnity i Chemiluminescent Microparticle Immunoassay (CMIA) TSH reflex Free T4 Reviewed date:02/02/2024 12:39:37 PM Interpretation: Performing Lab:[facility], [address] [place] [phone] Notes/Report: TSH reflex Free T4 3.00 0.32-4.0 uIU/mL Microalbumin, Random Reviewed date:02/02/2024 12:38:11 PM Interpretation: Performing Lab:[facility], [address] [place] [phone] Notes/Report: Creatinine Urine 50.28 Microalbumin Urine 105.0 Microalbum/Creatinine Ratio Ur 208.8 <30 ug/mg cr Albumin/Creatinine Ratio Reference Ranges: Normal: < 30 ug/mg creatinine Microalbuminuria: 30 - 300 ug/mg creatinine Clinical Albuminuria: > 300 ug/mg creatinine Hemoglobin A1c Reviewed date:02/02/2024 12:39:45 PM Interpretation: Performing Lab:[facility], [address] [place] [phone] Notes/Report: Hemoglobin A1c % 4.9 <6.0 % [...] average glucose, using the formula of the N0J-Dnhfhrc Average Glucose study (ADAG), Diabetes Care, Vol.31,#8, Dec. 2007 UA ClnCatch+Micro w/rflx Cul t Reviewed date:02/02/2024 12:41:45 PM Interpretation: Performing Lab:[facility], [address] [place] [phone] Notes/Report: Urine, Clean Catch Color Urine Yellow Appearance Urine Clear PH 6.5 5.0-9.0 Glucose Urine UA Negative Negative mg/dL Urine Blood Negative Negative Specific [place] - Urine 1.010 1.005-1.025 Urine Protein Trace Neg-Trace mg/dL Urine Ketones Negative Negative mg/dL Nitrite Urine Negative Negative Leukocyte Esterase Urine Negative Negative RBC Urine 0-2 0-2 /HPF WBC Urine 0-5 0-5 /HPF Squamous Epithelial Cell Urine 0-2 0-2 /HPF Bacteria Urine None Seen None Seen Hyaline Casts Urine 0-2 0-2 /LPF Liver Panel Reviewed date:08/03/2024 03:18:28 PM Interpretation: Performing Lab:[facility], [address] [place] [phone] Notes/Report: Bilirubin Total 0.6 0.0-1.0 mg/dL Bilirubin Direct 0.3 0.0-0.5 mg/dL Aspartate Amino Transferase 72 5-37 U/L Alanine Aminotransferase 28 0-40 U/L Total Protein 7.4 6.5-8.0 g/dL Albumin Level 4.1 3.5-5.0 g/dL Alkaline Phosphatase 73 39-117 U/L Lipid Panel with Reflex Reviewed date:08/03/2024 03:25:49 PM Interpretation: Performing Lab:[facility], [address] [place] [phone] Notes/Report: Triglycerides 93 <150 mg/dL Desirable Triglyceride: [...] Gold Reviewed date:08/02/2024 12:06:06 PM Interpretation: Performing Lab:[facility], [address] [place] [phone] Notes/Report: Hold Gold See Note Specimen held [...] 6 hrs for 5 days 03/27/2016 Not-Taking Levothyroxine Sodium 25 MCG TAKE ONE TABLET BY MOUTH EVERY DAY IN THE MORNING ON AN EMPTY STOMACH for 30 Active Omeprazole 20 MG 1 capsule Orally Onc e a day for 30 day(s) 03/02/2014 Not-Taking traMADol HCl 50 MG 1 tablet as needed Orally every 12 hrs as needed for 30 days 08/09/2024 Active amLODIPine Besylate 10 MG 1 tablet Orall y Once a day Active Allopurinol 300 MG TAKE ONE TABLET [...] Status Risk Notes Problem Ascending aorta dilatation (447.71) Active confirmed Problem Sciatica (72359305) Sciatica (M54.30) Active confirmed Problem 903352388 Tubular adenoma of colon (D12.6) Active confirmed Problem 47121758 Essential hypert ension (I10) Active confirmed Problem 310674669 Acquired hypothy roidism (E03.9) Active confirmed Problem 5620377 Prediabetes (R73.09) Active confirmed Problem 428256043 Abnormal LFTs (R79.89) Active confirm ed Problem 420079193 History of gout (Z87.39) Active confirmed Problem 575723469 Morbid obesity d ue to excess calories (E66.01) Active confirmed Problem 60163649 Lymphadenopathy (R59.1) Active confirm ed Problem 174644316 Ascending aortic aneurysm (I71.2) Active confirmed Problem 06703685 Elevated uric ac id in blood (E79.0) Active confirmed Problem 547860408 Sensitivity to s unlight (Z91.09) Active confirmed Problem 422624790 Pure hypercholesterolemia (E78.00) Active confirmed Problem 019111941 Elevated PSA (R97.20) Active confirme d Problem 982958826 Arthritis of kne e (M17.10) Active confirmed Problem 074273303 Head and neck ca ncer (C76.0) Active confirmed Problem 395522773 Ankle arthritis (M19.079) Active confirmed Problem Cardiac pacemaker in situ (470046697) Pacemaker (Z95.0) Active confirmed Problem 694830454 Body mass index (BMI) 50.0-59.9, adult (Z68.43) Active confirmed Problem Anxiety about health (010999093) Anxiety about health (F41.8) Active confirmed Vital Signs Blood pressure diastolic 64 mm Hg 08/09/2024 angelita ght is up 7 pounds since 9-27-24 Height 65.5 in 08/09/2024 weight is up 7 pounds since 02-12-24 Blood pressure systolic 122 mm Hg 08/09/2024 weig ht is up 7 pounds since 02-12-24 Weight 275 lbs 08/09/2024 weight is up 7 pounds since 02-12-24 BMI 45.06 kg/m2 08/09/2024 weight is up 7 pounds since 02-12-24 Encounters Encounter Location Date Provider Diagnosis Billy Dc MD [address] [place] [id number] 02/02/2024 Billy Dc Essential hypertensi on I10 ; Encounter for immunization Z23 ; Prediabetes R73.09 ; Pure hypercholesterolemia E78.00 ; Elevated PSA R97.20 and Acquired hypothyroidism E03.9 Billy Dc MD [address] [place] [id number] 08/02/2024 Billy Dc Pure hypercholestero lemia E78.00 Billy Dc MD [address] [place] [address] Drive [address] [place] [id number] 02/12/2024 Billy Dc Head and neck cancer C76.0 ; Abnormal LFTs R79.89 ; Essential hypertension I10 ; Prediabetes R73.09 ; Pure hypercholesterolemia E78.00 ; Elevated PSA R97.20 ; Acquired hypothyroidism E03.9 and Ascending aortic aneurysm, unspecified whether ruptured I71.21 Billy Dc MD [address] [place] [address] [address] [place] [id number] 08/09/2024 Billy Dc Prediabetes R73.09 ; Sciatica [...] Name:Billy Justin ier, 02/10/2025 07:30:00 AM, [address] [facility], [address], [place], [place], [id number], Provider Name:Billy Justin ier, 02/17/2025 09:30:00 AM, [address], [address], [place], [place], [id number], Insurance Providers Payer Name Payer Address Payer Phone Subscriber Number Group Number Insured Name Patient Relationship to Insured Coverage Start Date Coverage End Date MEDICARE NHIC [address] [place] [address] [id number] Chris Simon Self - patient is the insured [employer] [place] [address] [place] [address] [id number] Chris Simon Self - patient is the insured Medical (General) History Medical History History ICD Code COLONOSCOPY 07/2010 - due in 5 years (has CX 3 cololonscopy dates in 2016); Colonoscopy done 04/23/[address] Corey jones in 10 years NEEDS YEARLY ECHO - Due 06/2014 colonoscopy 2019 Surgical History Surgery Date(Month/Year) fusion of ankle 1989
--- OUTSIDE RECORDS SUMMARY | 2024-12-13 11:37 | XMS_ITS | Patient Health Record ---
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 Name Role Phone Billy Dc MD Primary Care Provider Noreen Huebr Unavailable [phone] Reason For Referral No Information Medications Medication SIG (Take, Route, Frequency, Duration) Notes Start Date End Date Status Furosemide 40 MG 1 tablet Oral Once a day Active hydrALAZINE HCl 25 MG TAKE ONE TABLET BY MOUTH THREE TIMES A DAY WITH FOOD Oral for 60 Active Indomethacin 50 MG TAKE 1-2 CAPSULES BY MOUTH THREE TIMES A DAY WITH FOOD Oral for 45 Twice a day Active Metoprolol Succinate ER 50 MG TAKE ONE TABLET BY MOUTH EVERY DAY Oral for 90 Active dilTIAZem HCl ER Coated Beads 240 MG TAKE ONE CAPSULE BY MOUTH EVERY DAY Oral for 90 Active Valsartan 320 MG TAKE ONE TABLET BY MOUTH EVERY DAY Oral for 90 Active Allopurinol 300 MG TAKE ONE TABLET BY MOUTH EVERY DAY Oral for 90 Active Immunizations Vaccine Route Administration Date Status Comme nts Influenza Unknown 02/24/2020 Administered Social History Tobacco Use: Social History Observation Description Date Details (start date - stop date) Never Smoker NA - NA Tobacco Use/Smoking Question Answer Notes Patient is a nonsmoker Alcohol Screen Question Answer Notes Did you have a drink contain ing alcohol in the past year? Yes How often did you have a dri nk containing alcohol in the past year? Monthly or less (1 point) How many drinks did you have on a typical day when you were drinking in the past year? 1 or 2 drinks (0 point) Points 1 Interpretation Negative Section Notes: Nonsmoker; no sig alcohol Problems Problem Type SNOMED Code ICD Code Onset Dates Problem Status W/U Status Risk Notes Problem Screening for malignant neoplasm of colon (523447567) Encounter for screening for malignant neoplasm of colon (Z12.11) Active confirmed Problem History of adenomatous polyp of colon (345960156) History of adenomatous polyp of colon (Z86.010) Active confirmed Problem Preprocedural examination (735687011343246) Preprocedural examination (Z01.818) Active confirmed Plan Of Treatment Future Test Test Name Order Date COLONOSCOPY 03/09/2020 Insurance Providers Payer Name Payer Address Payer Phone Subscriber Number Group Number Insured Name Patient Relationship to Insured Coverage Start Date Coverage End Date [facility] [address] [place] [phone] [id number] NOREEN JOSEPH Self - patient is the insured Medical (General) History Medical History History ICD Code Hypertension Sleep apnea- CPAP machine Tubular adenoma removed in 2002 and neg. colonoscopy in 2010 EGD in 2002-minimal gastritis-biopsies n egative for H. pylori Gout Denies PA,DM,CVA,Lung disease,renal dise ase Arthritis in ankles Surgical History Surgery Date(Month/Year) Broken ankles-has hardware Open wound on right pretibia l area--being [facility]--s/p debridement Detached retina OD
--- OUTSIDE RECORDS SUMMARY | 2024-12-13 11:37 | XMS_ITS | Clinical Summary ---
Author Organization [facility] Address [address] [address] Phone Care Team Providers Care Case Picker Name Role Phone Billy Dc MD Primary Care Provider [phone] Allergies No known active allergies Medications allopurinol [...] 5 mg before bedtime. Active nystatin (MYCOSTATIN) 974804 UNIT/ML suspension SWISH AND SPIT WITH 5ML [...] 45 capsule 03/28/2024 Active ergocalciferol 1.25 MG (00975 UT) capsule Take 1 capsule (50,000 Units [...] Visit [facility] [address] [place] [address] Balaji Collier MD [address] [facility] [address] [place] [address] Health Maintenance Due Date Last Done Comments Colorectal Cancer Screening: Annual FOBT 01/20/2001 Colorectal Cancer Screening: Colonoscopy 01/20/2001 Colorectal Cancer Screening: Sigmoidoscopy 01/20/2001 Influenza Vaccine (#1) 2025 2, 07/02/2021, 01/18/2019, Additional history exists Pneumococcal Vaccine: 50+ Years Completed 01/08/2022, 11/13/2021, 08/01/2019, Additional history exists Pneumococcal Vaccine: Peds (0 to 5 Years) and At-Risk Patients (6 to 49 Years) Discontinued 01/08/2022, 11/13/2021, 08/01/2019, Additional history exists Hepatitis B Vaccine Aged Out No longe r eligible based on patient's age to complete this topic Insurance Medicare [facility] Medicare [facility] Care Teams Case Picker Relationship Specialty Start Date End Date Billy Dc MD [address] [place] [address] [address] [place], [place] PCP - General 05/28/20
--- OUTSIDE RECORDS SUMMARY | 2024-12-13 11:38 | XMS_ITS | Data Portability ---
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; Note: Date Diagnosed: 10/09/2021 6:46 PM (C11.1) Not Available [facility] 4 03:17:13 Mixed conductiv e and sensorine ural hearing loss, bilateral 727858879 Active 2021 Mixed conductive and sensorineu ral hearing loss, bilateral; Note: Date Diagnosed: 10/21/2021 11:45 AM (H90.6) Not Available [facility] 4 03:17:14 Follow-up visit Active 2022 Encounter for follow-up examinatio n after completed treatment for malignant neoplasm; Note: Date Diagnosed: 08/14/2022 11:05 AM (Z08) Not Available [facility] 4 03:17:14 Stomatiti s 92455291 Active 2022 Oral thrush; Note: Date Diagnosed: 12/12/2022 1:50 PM (B37.0) Not Available [facility] 4 03:17:13 Candidias is of mouth 59364481 Active 2022 Oral thrush; Note: Date Diagnosed: 12/12/2022 1:50 PM (B37.0) Not Available [facility] 4 03:17:13 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 Procedures Surgical History Date Name Laterality Status Provider Name and Address Organization Details Recorded Time 08/24/2024 Nasopharyn goscopy_DP completed MATHEW DONG MD [address] [place] [address], [phone], [place] - [facility] 08/24/2024 13:27:33 04/27/2024 FOL_DP completed MATHEW DONG MD [address] [place] [address], [phone], [place] [facility] 04/26/2024 09:51:34 12/24/2023 FOL_DP completed AMTHEW DONG MD [address] [place] [address],[address], [address], [place] - [facility] 12/23/2023 15:30:36 Imaging Results None recorded. Procedure Notes None recorded. Medical Equipment None Reported. Allergies No known drug allergies Medications Name Sig Start Date Stop Date Status Note LastModified by Organization Details LastModified Time furosemid e 40 mg tablet 10/14 completed Medicati on ID: [id number] B rand Name: furosemi de Send Method: E-Prescr ibed Sub s Allowed: subs OK Medic ationGen ericName : furosemi de Not Available Not Available Not Available pilocarpi ne 5 mg tablet 10/14 completed Medicati on ID: [id number] B rand Name: pilocarp ine HCl Send [...] mg tablet 08/14 completed Medicati on ID: [id number] B rand Name: amlodipi ne Send Method: [...] mg tablet 10/14 completed Medicati on ID: [id number] B rand Name: hydralaz ine Send Method: E-Prescr ibed Sub s Allowed: subs OK Medic ationGen ericName : hydralaz ine Not Available Not Available Not Available valsartan 320 mg tablet 10/14 completed Medicati on ID: [id number] B rand Name: valsarta n Send Method: E-Prescr ibed Sub s Allowed: subs OK Medic ationGen ericName : valsarta n Not Available Not Available Not Available allopurin ol 300 mg tablet TAKE ONE TABLET BY MOUTH EVERY DAY active Not Available Not Available No t Available lorazepam 1 mg tablet 12/23 completed Medicati on ID: [id number] B rand Name: lorazepa m Send Method: [...] Updated DateTime 08/24/2024 167.64 cm 43.6 kg/m2 014948.94 g SERGIO HERCULES [place] - [facility] 08/24/2024 13:16:40 Date Recorded Body weight Body mass index (BMI) Body height Provider Name and Address Organization Details Last Updated DateTime 12/24/2023 661954.94 g 43.6 kg/m2 167.64 cm Chasity Haynes [place] - [facility] 12/24/2023 13:29:13 Date Recorded Body height Body mass index (BMI) Body weight Provider Name and Address Organization Details Last Updated DateTime 04/27/2024 167.64 cm 40.5 kg/m2 140886.68 g Gabbie Pickard [place] - [facility] 04/27/2024 12:59:44 Social History None recorded. Functional Status None recorded. Mental Status None recorded. Family History Nothing Reported. Medical History Condition Response Arthritis Y Hypertension Y Sleep Disorder Y Past Encounters Encounter ID Performer Location Encounter Start Date Encounter Closed Date Diagnosis/Indication Diagnosis SNOMED-CT Code Diagnosis ICD10 Code Diagnosis Note [id number] MATHEW DONG MD [facility] [address] [place] [address] 12/24/2023 13:16:33 12/24/2023 13:44:00 History of malignant neoplasm of oral cavity 414311596 Z85.819 [id number] MATHEW DONG MD [facility] [address] [place] [address] 04/27/2024 12:44:02 04/27/2024 13:25:43 History of malignant neoplasm of oral cavity 578602461 Z85.819 [id number] MATHEW DONG MD [facility] [address] [place] [address] 08/24/2024 13:07:21 08/24/2024 13:28:54 History of malignant neoplasm of oral cavity 887143122 Z85.819 Health Concerns Section Related Observation LastModified by Organization Detai ls LastModified Time None Recorded Concern Status LastModified by Organization Details LastModified Time None Recorded Advance Directives Directive None Recorded Payers Insurance Date Sequence Insurance Name Policy Number Policy Robertson Covered Member ID Robertson Member ID Guarantor Name 08/24/2024 1 [place] [employer] Chris Simon [id number] Chris Simon 08/24/2024 2 [place] [id number] Chris Simon [id number] Chris Simon
== END ==
LOC: HO.CARD 10:33
PROVIDERS: PCP Internal Medicine; Visit Provider Internal Medicine
DX: I35.9 Nonrheumatic aortic valve disorder, unspecified (principal)
CPT/HCPCS: 93306; Q9957

== ENCOUNTER → 2024-12-13 10:44 | Outpatient (BNV) | payer MEDICARE, SELFPAY | PROVIDERS: PCP Internal Medicine; Visit Provider Internal Medicine Cardiovascular Disease | DX: I42.2 Other hypertrophic cardiomyopathy (principal); I35.8 Other nonrheumatic aortic valve disorders; I35.2 Nonrheumatic aortic (valve) stenosis with insufficiency; I71.21 Aneurysm of the ascending aorta, without rupture | CPT/HCPCS: 93306 ==

== ENCOUNTER → 2024-12-16 23:59 | Outpatient (BNV) | payer MEDICARE, SELFPAY ==
--- NOTE | 2024-12-26 14:10 | MHC.OFFVIS ---
Intake Visit Reasons: Remote device check- [employer] Allergies No Known Allergies Allergy (Verified 09/28/24 13:21) PFSH Medical History JADEN on CPAP Essential hypertension Morbid obesity Hx of gout Arthritis Sleep apnea HTN (hypertension) Surgical History Hx of detached retina repair History of ankle surgery History of esophagogastroduodenoscopy (EGD) H/O colonoscopy Family History Mother HTN (hypertension) CVA (cerebral vascular accident) Social History Household Members: Spouse Housing: House Do you presently have visiting nurse or other home services: No Alcohol intake: never Patient Tobacco Use Status: Never used Tobacco Advance Directives Date on File: 09/20/20 service: No Office Procedures Cardiac Device Check Cardiac Device Check Details: Date of service- 12/16/2024 ; Battery life >12 years; normal lead parameters; AP 99%; SUPERVISOR GLUING 15%; no significant arrhythmias. Overall normal device function. [id number] Cardiac Device Interrogation, pacemaker Procedure code (CPT) selection complete Assessment & Plan Assessment & Plan (1) Pacemaker: Code(s): Z95.0 - Presence of cardiac pacemaker Category: Medical (2) Junctional (loly) bradycardia: Code(s): R00.1 - Bradycardia, unspecified Category: Medical Plan x Coding Level of Care Code Procedure Only Diagnoses Pacemaker Z95.0 Junctional (loly) bradycardia R00.1 CPT Codes Cardiac Device Check - Cardiac Device 12: 35040-[id number] Cardiac Device Interrogation, pacemaker ([id number])
== END ==
PROVIDERS: PCP Internal Medicine; Visit Provider Internal Medicine
DX: R00.1 Bradycardia, unspecified (principal); Z95.0 Presence of cardiac pacemaker
CPT/HCPCS: 93294

== ENCOUNTER 2024-12-28 09:30 | Outpatient (REF) | payer MEDICARE, SELFPAY ==
[2024-12-28 09:53] LABS: MANUAL DIFF FLAG NO
--- OUTSIDE RECORDS SUMMARY | 2024-12-28 09:58 | XMS_ITS | Patient Health Record ---
Author Organization [facility] Address [address] [place] [address] Care Team Providers Care Litharge Supervisor Name Role Phone Billy Dc MD Primary Care Provider Noreen Huber Unavailable [phone] Reason For Referral No Information Medications Medication [...] Problem Screening for malignant neoplasm of colon (179650845) Encounter for screening for malignant neoplasm of colon (Z12.11) Active confirmed Problem History of adenomatous polyp of colon (Z86.010) Active confirmed Problem Preprocedural examination (098113380779980) Preprocedural examination (Z01.818) Active confirmed Plan Of Treatment Future Test Test Name Order Date COLONOSCOPY 03/09/2020 Insurance Providers Payer Name Payer Address Payer Phone Subscriber Number Group Number Insured Name Patient Relationship to Insured Coverage Start Date Coverage End Date [facility] [address] [place] [address] [phone] [id number] NOREEN JOSEPH Self - patient is the insured Medical (General) History Medical History History ICD Code Hypertension Sleep apnea- CPAP machine Tubular adenoma removed in 2002 and neg. colonoscopy in 2010 EGD in 2002-minimal gastritis-biopsies n egative for H. pylori Gout Denies [place],DM,CVA,Lung disease,renal dise ase Arthritis in ankles Surgical History Surgery Date(Month/Year) Broken ankles-has hardware Open wound on right pretibia l area--being [facility]--s/p debridement Detached retina OD
--- OUTSIDE RECORDS SUMMARY | 2024-12-28 09:58 | XMS_ITS | Clinical Summary ---
Author Organization [facility] Address [address] [address] Phone Care Team Providers Care Wood Buffer Name Role Phone Billy Dc MD Primary [...] 5 mg before bedtime. Active nystatin (MYCOSTATIN) 231963 UNIT/ML suspension SWISH AND SPIT WITH 5ML [...] 45 capsule 03/28/2024 Active ergocalciferol 1.25 MG (96235 UT) capsule Take 1 capsule (50,000 Units [...] Visit [facility] [address] [place] [address] Balaji Collier MD [address] [facility] [address] [place] [address] Health Maintenance Due Date Last [...] age to complete this topic Insurance Medicare [facility] Medicare [facility] Care Teams Wood Buffer Relationship Specialty Start Date End Date Billy Dc MD [address] [place] [address] [address] [place], [place] PCP - General 05/28/20
--- OUTSIDE RECORDS SUMMARY | 2024-12-28 09:58 | XMS_ITS | Patient Health Record ---
Author Organization Billy Dc MD Address [address] [place], [place] [id number] Care Team Providers Care Heeler Name Role Phone Billy Dc Primary Care Provider [phone] Allergies No Known Allergies Results Component Value Reference Range Notes Hemoglobin A1c Reviewed date:08/09/2024 08:25:30 AM Interpretation: Performing Lab: Notes/Report: Hemoglobin A1c 5.1 Complete Blood Count Auto Di ff Reviewed date:02/02/2024 12:45:24 PM Interpretation: Performing Lab:[facility], [address] [place] [address] Notes/Report: White Blood Count 4.5 4.8-10.8 X10*3/uL [...] NRBC Abs Auto 0.000 0.0-0.012 X10*3/uL Comprehensive Sherman. Panel Fa st Reviewed date:02/02/2024 12:40:55 PM Interpretation: Performing Lab:[facility], [address] [place] [address] Notes/Report: Sodium 141 135-145 mmol/L Potassium 4.1 3.3-5.1 mmol/L Chloride 105 96-108 mmol/L Carbon Dioxide 28 22-29 mmol/L Anion Gap 12 12-20 Blood Urea Nitrogen 19 9-16 mg/dL Creatinine 1.26 0.5-1.4 mg/dL Estimated Glomerular Filt Rate 56 NOTE: For -Togolese individuals, multiply the result by 1.210. Chronic [...] Panel Reviewed date:02/02/2024 12:39:01 PM Interpretation: Performing Lab:[facility], [address] [place] [address] Notes/Report: Triglycerides 95 <150 mg/dL Desirable Triglyceride: [...] (Free>4and<10) Reviewed date:02/02/2024 12:40:38 PM Interpretation: Performing Lab:[facility], [address] [place] [address] Notes/Report: PSA,Total (Free>4and<10) 1.56 0.00-4.00 ng/mL A [...] 4.0 and 10.0 ng/mL. PSA methodology: Barbosa Combinature Biopharmnity i Chemiluminescent Microparticle Immunoassay (CMIA) TSH reflex Free T4 Reviewed date:02/02/2024 12:39:37 PM Interpretation: Performing Lab:[facility], [address] [place] [address] Notes/Report: TSH reflex Free T4 3.00 0.32-4.0 uIU/mL Microalbumin, Random Reviewed date:02/02/2024 12:38:11 PM Interpretation: Performing Lab:[facility], [address] [place] [address] Notes/Report: Creatinine Urine 50.28 Microalbumin Urine 105.0 Microalbum/Creatinine Ratio Ur 208.8 <30 ug/mg cr Albumin/Creatinine Ratio Reference Ranges: Normal: < 30 ug/mg creatinine Microalbuminuria: 30 - 300 ug/mg creatinine Clinical Albuminuria: > 300 ug/mg creatinine Hemoglobin A1c Reviewed date:02/02/2024 12:39:45 PM Interpretation: Performing Lab:[facility], [address] [place] [address] Notes/Report: Hemoglobin A1c % 4.9 <6.0 % [...] average glucose, using the formula of the U6Q-Tigjakj Average Glucose study (ADAG), Diabetes Care, Vol.31,#8, Dec. 2007 UA ClnCatch+Micro w/rflx Cul t Reviewed date:02/02/2024 12:41:45 PM Interpretation: Performing Lab:[facility], [address] [place] [phone] Notes/Report: Urine, Clean Catch Color Urine Yellow Appearance Urine Clear PH 6.5 5.0-9.0 Glucose Urine UA Negative Negative mg/dL Urine Blood Negative Negative Specific [place] - Urine 1.010 1.005-1.025 Urine Protein Trace Neg-Trace mg/dL Urine Ketones Negative Negative mg/dL Nitrite Urine Negative Negative Leukocyte Esterase Urine Negative Negative RBC Urine 0-2 0-2 /HPF WBC Urine 0-5 0-5 /HPF Squamous Epithelial Cell Urine 0-2 0-2 /HPF Bacteria Urine None Seen None Seen Hyaline Casts Urine 0-2 0-2 /LPF Liver Panel Reviewed date:08/03/2024 03:18:28 PM Interpretation: Performing Lab:[facility], [address] [place] [phone] Notes/Report: Bilirubin Total 0.6 0.0-1.0 mg/dL Bilirubin Direct 0.3 0.0-0.5 mg/dL Aspartate Amino Transferase 72 5-37 U/L Alanine Aminotransferase 28 0-40 U/L Total Protein 7.4 6.5-8.0 g/dL Albumin Level 4.1 3.5-5.0 g/dL Alkaline Phosphatase 73 39-117 U/L Lipid Panel with Reflex Reviewed date:08/03/2024 03:25:49 PM Interpretation: Performing Lab:[facility], [address] [place] [phone] Notes/Report: Triglycerides 93 <150 mg/dL Desirable Triglyceride: [...] Gold Reviewed date:08/02/2024 12:06:06 PM Interpretation: Performing Lab:[facility], [address] [place] [phone] Notes/Report: Hold Gold See Note Specimen held [...] Status Risk Notes Problem Ascending aorta dilatation (238037271) Ascending aorta dilatation (447.71) Active confirmed Problem Sciatica (89090256) Sciatica (M54.30) Active confirmed Problem 239091913 Tubular adenoma of colon (D12.6) Active confirmed Problem 37304327 Essential hypert ension (I10) Active confirmed Problem 443281575 Acquired hypothy roidism (E03.9) Active confirmed Problem 9779407 Prediabetes (R73.09) Active confirmed Problem 834368349 Abnormal LFTs (R79.89) Active confirm ed Problem 603359435 History of gout (Z87.39) Active confirmed Problem 115277115 Morbid obesity d ue to excess calories (E66.01) Active confirmed Problem 05587497 Lymphadenopathy (R59.1) Active confirm ed Problem 996353362 Ascending aortic aneurysm (I71.2) Active confirmed Problem 05777675 Elevated uric ac id in blood (E79.0) Active confirmed Problem 131049081 Sensitivity to s unlight (Z91.09) Active confirmed Problem 018457597 Pure hypercholesterolemia (E78.00) Active confirmed Problem 188084472 Elevated PSA (R97.20) Active confirme d Problem 259637449 Arthritis of kne e (M17.10) Active confirmed Problem 995930530 Head and neck ca ncer (C76.0) Active confirmed Problem 594510300 Ankle arthritis (M19.079) Active confirmed Problem Cardiac pacemaker in situ (932604821) Pacemaker (Z95.0) Active confirmed Problem 369712943 Body mass index (BMI) 50.0-59.9, adult (Z68.43) Active confirmed Problem Anxiety about health (324942997) Anxiety about health (F41.8) Active confirmed Vital [...] Location Date Provider Diagnosis Billy Dc MD [address] [place] [address] [address] [place] [id number] 02/02/2024 Billy Dc Essential hypertensi on I10 ; Encounter for immunization Z23 ; Prediabetes R73.09 ; Pure hypercholesterolemia E78.00 ; Elevated PSA R97.20 and Acquired hypothyroidism E03.9 Billy Dc MD [address] [place] [address] [address] [place] [id number] 08/02/2024 Billy Dc Pure hypercholestero lemia E78.00 Billy Dc MD [address] [place] [address] [address] [place] [id number] 02/12/2024 Billy Dc Head and neck cancer C76.0 ; Abnormal LFTs R79.89 ; Essential hypertension I10 ; Prediabetes R73.09 ; Pure hypercholesterolemia E78.00 ; Elevated PSA R97.20 ; Acquired hypothyroidism E03.9 and Ascending aortic aneurysm, unspecified whether ruptured I71.21 Billy Dc MD [address] [place] [address] [address] [place] [id number] 08/09/2024 Billy Dc Prediabetes R73.09 ; Sciatica [...] Name:Billy Justin ier, 02/10/2025 07:30:00 AM, [address], [address], [place], [place], [id number], Provider Name:Billy Justin ier, 02/17/2025 09:30:00 AM, [address], [address], [place], [place], [id number], Insurance Providers Payer Name Payer Address Payer Phone Subscriber Number Group Number Insured Name Patient Relationship to Insured Coverage Start Date Coverage End Date MEDICARE [employer]IG[employer] [address] [place] [address] [id number] Chris Simon Self - patient is the insured MEDEX BCBS OF [facility] [address] [place] [address] [id number] Chris Simon Self - patient is the insured Medical (General) History Medical History History ICD Code COLONOSCOPY 07/2010 - due in 5 years (has CX 3 cololonscopy dates in 2016); Colonoscopy done 04/23/[address] Corey jones in 10 years NEEDS YEARLY ECHO - Due 06/2014 colonoscopy 2019 Surgical History Surgery Date(Month/Year) fusion of ankle 1989
[2024-12-28 10:44] LABS: Hematocrit 37.8 % (42.0-52.0); Hemoglobin 12.8 g/dl (14.0-18.0); Imm Gran Abs Auto 0.02 X10*3/uL (0.00-0.03); Imm Gran Pct Auto 0.4 % (0.0-0.4); Lymphocytes Absolute Auto 1.0 X10*3/uL (1.2-4.9); Mean Corpuscular HGB Conc 33.9 g/dl (31.0-36.0); Mean Corpuscular Hemoglobin 30.3 pg (27.0-33.0); Mean Corpuscular Volume 89.6 fL (80.0-98.0); NRBC Abs Auto 0.000 X10*3/uL (0.0-0.012); NRBC Pct Auto 0.0 /100WBC (0.0-0.2); Platelet Count 216 X10*3/uL (160-400); Red Blood Count 4.22 X10*6/uL (4.60-5.80); White Blood Count 5.5 X10*3/uL (4.8-10.8)
[2024-12-28 11:03] LABS: Appearance Urine Clear; Glucose Urine UA Negative (Negative); PH 8.0 (5.0-9.0); Specific Gravity - Urine 1.010 (1.005-1.025)
[2024-12-28 11:22] LABS: Parathyroid Hormone Intact 197.5 pg/mL (8.7-77.1)
[2024-12-28 11:33] LABS: Albumin Level 4.5 g/dL (3.5-5.0); Anion Gap 13 (12-20); Blood Urea Nitrogen 15 mg/dL (9-16); Calcium 8.8 mg/dL (8.4-10.2); Carbon Dioxide 28 mmol/L (22-29); Chloride 98 mmol/L (96-108); Estimated Glomerular Filt Rate > 60; Magnesium 2.2 mg/dL (1.6-2.6); Potassium 4.0 mmol/L (3.3-5.1); Sodium 135 mmol/L (135-145)
[2024-12-28 12:04] LABS: Microalbum/Creatinine Ratio Ur 40.2 ug/mg cr (<30); Protein/Creatinine Ratio, Ur 0.13 (<0.2); Total Protein Urine Random 8 mg/dL (<12)
== END 2024-12-28 09:31 | disposition home or self-care (01) ==
LOC: HO.LAB 09:30
PROVIDERS: PCP Internal Medicine; Visit Provider Internal Medicine Nephrology
DX: I12.9 Hypertensive chronic kidney disease with stage 1 through stage 4 chronic kidney disease, or unspecified chronic kidney disease (principal); N18.31 Chronic kidney disease, stage 3a; N25.0 Renal osteodystrophy
CPT/HCPCS: 36415; 80051; 81001; 82040; 82043; 82306; 82310; 82565; 82570; 83735; 83970; 84100; 84156; 84520; 85025

== ENCOUNTER 2025-01-23 14:01 | Outpatient (AMB) | payer MEDICARE, SELFPAY ==
--- OUTSIDE RECORDS SUMMARY | 2023-10-09 05:02 | XMS_ITS ---
Author Organization Billy Dc MD Address [address] [place] [phone] Care Team Providers Care Research And Development Director Name Role Phone Billy Dc Primary Care Provider REASON FOR VISIT refill Levothyroxine Medications Medication SIG (Take, Route, Frequency, Duration) Notes Start Date End Date Status Levothyroxine Sodium 25 MCG TAKE ONE TAB LET BY MOUTH EVERY DAY IN THE MORNING ON AN EMPTY STOMACH Orally Once a day for 90 days Active Encounters Encounter Location Date Provider Diagnosis Billy Dc MD [address] [facility] [address] [place], [place] [phone] 10/09/2023 Billy Dc Plan Of Treatment Medication Medication Name Sig Start Date Stop Date Notes Levothyroxine Sodium 25 MCG TAKE ONE TAB LET BY MOUTH EVERY DAY IN THE MORNING ON AN EMPTY STOMACH Orally Once a day for 90 days Next Appt Details Provider Name:Billy delgado, 02/10/2025 07:30:00 AM, [address] [place] [address] Drive, [address], [place], [phone], Provider Name:Billy Justin darior, 02/17/2025 09:30:00 AM, [address] [facility], [address], [place], [phone], Progress Notes * Chris JOSEPHDOB: 2 (73 yo M)Acc No.[id number]:10/09/2023 Patient: Chris Norris :1950 A ge:73 Y S ex:Male [facility] [place] [address] * Refills Refill Levothyroxine Sodium Tablet, 25 MCG, Orally, 90, TAKE ONE TABLET BY MOUTH EVERY DAY IN THE MORNING ON AN EMPTY STOMACH, Once a day, 90 days, Refills=4 * true * Date: Generated for Natalya coker/Huseyin/Arielitting on: 0 01/23/2025 04:23 PM EDT
--- OUTSIDE RECORDS SUMMARY | 2024-02-02 03:00 | XMS_ITS ---
Author Organization Billy Dc MD Address [address] [place], [place] [phone] Care Team Providers Care Ict Quality Assurance Engineer Name Role Phone Billy Dc Primary Care Provider Results Component Value Reference Range Notes Complete Blood Count Auto Di ff Reviewed date:02/02/2024 12:45:24 PM Interpretation: Performing Lab:[facility], [address] [place] [phone] Notes/Report: White Blood Count 4.5 4.8-10.8 X10*3/uL [...] NRBC Abs Auto 0.000 0.0-0.012 X10*3/uL Comprehensive [place]. Panel Fa st Reviewed date:02/02/2024 12:40:55 PM Interpretation: Performing Lab:[facility], [address] [place] [phone] Notes/Report: Sodium 141 135-145 mmol/L Potassium 4.1 3.3-5.1 mmol/L Chloride 105 96-108 mmol/L Carbon Dioxide 28 22-29 mmol/L Anion Gap 12 12-20 Blood Urea Nitrogen 19 9-16 mg/dL Creatinine 1.26 0.5-1.4 mg/dL Estimated Glomerular Filt Rate 56 NOTE: For -[place] individuals, multiply the result by 1.210. Chronic [...] Panel Reviewed date:02/02/2024 12:39:01 PM Interpretation: Performing Lab:[address] [phone] Notes/Report: Triglycerides 95 <150 mg/dL Desirable Triglyceride: [...] (Free>4and<10) Reviewed date:02/02/2024 12:40:38 PM Interpretation: Performing Lab:[address] [phone] Notes/Report: PSA,Total (Free>4and<10) 1.56 0.00-4.00 ng/mL A [...] T4 Reviewed date:02/02/2024 12:39:37 PM Interpretation: Performing Lab:[address] [place] [address] Notes/Report: TSH reflex Free T4 3.00 0.32-4.0 uIU/mL Microalbumin, Random Reviewed date:02/02/2024 12:38:11 PM Interpretation: Performing Lab:[address] [address] Notes/Report: Creatinine Urine 50.28 Microalbumin Urine 105.0 Microalbum/Creatinine Ratio Ur 208.8 <30 ug/mg cr Albumin/Creatinine Ratio Reference Ranges: Normal: < 30 ug/mg creatinine Microalbuminuria: 30 - 300 ug/mg creatinine Clinical Albuminuria: > 300 ug/mg creatinine Hemoglobin A1c Reviewed date:02/02/2024 12:39:45 PM Interpretation: Performing Lab:[address] [phone] Notes/Report: Hemoglobin A1c % 4.9 <6.0 % [...] average glucose, using the formula of the T5C-Lmslfif Average Glucose study (ADAG), Diabetes Care, Vol.31,#8, Dec. 2007 UA ClnCatch+Micro w/rflx Cul t Reviewed date:02/02/2024 12:41:45 PM Interpretation: Performing Lab:[address] [phone] Notes/Report: Urine, Clean Catch Color Urine Yellow Appearance Urine Clear PH 6.5 5.0-9.0 Glucose Urine UA Negative Negative mg/dL Urine Blood Negative Negative Specific [place] - Urine 1.010 1.005-1.025 Urine Protein Trace [...] Date Provider Diagnosis Billy Dc MD [address] [place] [address] [place] [phone] 02/02/2024 Billy Dc Essential hypertensi on I10 [...] Treatment Next Appt Details Provider Name:Billy delgado, 02/10/2025 07:30:00 AM, [address] [place] [address], Suite [facility], [place], [place], [phone], Provider Name:Billy delgado, 02/17/2025 09:30:00 AM, [address] [place] [address], Suite [facility], [place], [place], [phone], Progress Notes * Chris JOSEPHDOB: 2 (75 yo M)Acc No.[id number]:02/02/2024 Progress Note Patient: Chris BANEGAS Provider: Alvarado Dc MD :1950 A ge:74 Y S ex:Male Date:02/02/2024 Address: [address] [id number] Subjective: * Chief Complaints: * 1 . [...] - 02/02/2024 07:00 AM) L AB: Comprehensive [place]. Panel Fast (Collection Date & Time - [...] - 02/02/2024 07:00 AM) L AB: Comprehensive [place]. Panel Fast (Collection Date & Time - [...] - 02/02/2024 07:00 AM) L AB: Comprehensive [place]. Panel Fast (Collection Date & Time - [...] - 02/02/2024 07:00 AM) L AB: Comprehensive [place]. Panel Fast (Collection Date & Time - [...] FLU VAC NO FEE SCHED SAME DAY, [address] VENIPUNCT, ROUTINE* * * The named appointment provid er may or may not be the originator of this progress note, and it is not deemed complete until electronically signed by the appointment provider. Sign off status: Pending * Provider: Alvarado Dc MD Date: 0 02/02/2024 Generated for Natalya coker/Huseyin/Chava on: 0 01/23/2025 04:23 PM EDT
--- OUTSIDE RECORDS SUMMARY | 2024-02-12 05:30 | XMS_ITS ---
Author Organization Billy Dc MD Address [address] [place], [place] [phone] Care Team Providers Care Bulk Pigment Reducer Name Role Phone Billy Dc Primary Care [...] kg/m2 02/12/2024 weight is down 3 pounds on license of [facility] 09-07-23 Encounters Encounter Location Date Provider Diagnosis Billy Dc MD [address] [place] [address] [place] [phone] 02/12/2024 Billy Dc Head and neck cancer [...] 6 Months, Reason: Provider Name:Billy Justin ier, 02/10/2025 07:30:00 AM, [address] [place] [address], [address], [phone], Provider Name:Billy bishopr, 02/17/2025 09:30:00 AM, [address] [place] [address], [place] [address], [place], [place], [phone], Progress Notes * Chris JOSEPHDOB: 2 (74 yo M)Acc No.[id number]:02/12/2024 Patient: O robbrayanChris Provider: Alvarado Dc MD :1950 A ge:74 Y S ex:Male Date:02/12/2024 Address: [address], [id number] Subjective: * Chief Complaints: * R eview [...] - healthy. . Father- old age Mother [place], No pertinent family medical history, No pertinent [...] Travel outside of the [place]: yes, [facility]. * Medications: T akingRosuvastatin Calcium 20 MG [...] Average Glucose 94 - mg/dL L ab:Comprehensive [place]. Panel Fast (Order Date - 02/02/2024) (Collection [...] mg/dL Urine Blood Negative Negative - Specific [place] - Urine 1.010 1.005-1.025 - Urine Protein [...] Counseling: C are goal follow-up plan: C meghanseling for abnormal BMI provided?Yes, A tracie Normal BMI Follow-up G vicki encouragement to exercise. * Follow Up: 6 Months * * Sign off status: Completed true * Provider: Alvarado Dc MD Date: 02/12/2024 Generated for Sharroni john paul/Huseyin/eTvilmasmitting on: 01/23/2025 04:24 PM EDT History and Physical Notes * [...]
--- OUTSIDE RECORDS SUMMARY | 2024-08-02 03:15 | XMS_ITS ---
Author Organization Billy Dc MD Address [address] [place], [place] [phone] Care Team Providers Care Crossband Layer Name Role Phone Billy Dc Primary Care Provider Results Component Value Reference Range Notes Liver Panel Reviewed date:08/03/2024 03:18:28 PM Interpretation: Performing Lab:[facility], [address] [place] [phone] Notes/Report: Bilirubin Total 0.6 0.0-1.0 mg/dL Bilirubin Direct 0.3 0.0-0.5 mg/dL Aspartate Amino Transferase 72 5-37 U/L Alanine Aminotransferase 28 0-40 U/L Total Protein 7.4 6.5-8.0 g/dL Albumin Level 4.1 3.5-5.0 g/dL Alkaline Phosphatase 73 39-117 U/L Lipid Panel with Reflex Reviewed date:08/03/2024 03:25:49 PM Interpretation: Performing Lab:[facility], [address] [place] [phone] Notes/Report: Triglycerides 93 <150 mg/dL Desirable Triglyceride: [...] Location Date Provider Diagnosis Billy Dc MD [address] [place] [phone] 08/02/2024 Billy Dc Pure hypercholestero lemia E78.00 Assessments Encounter Date Diagnosis (ICD Code) Assessment Notes Treatment Notes Treatment Clinical Notes Section Notes 08/02/2024 Pure hypercholesterolemia (ICD-10 - E78.00) Plan Of Treatment Next Appt Details Provider Name:Billy delgado, 02/10/2025 07:30:00 AM, [address] [place] [address], [address], [phone], Provider Name:Billy delgado, 02/17/2025 09:30:00 AM, [address] [place] [address], [address], [phone], Progress Notes * Chris JOSEPHDOB: 2 (75 yo M)Acc No.[id number]:08/02/2024 Progress Note Patient: Chris BANEGAS Provider: Alvarado Dc MD :1950 A ge:74 Y S ex:Male Date:08/02/2024 Address: [place], [id number] Subjective: * Chief Complaints: * 1 . [...] 08/02/2024 Generated for Natalya coker/Huseyin/Arielitting on: 0 01/23/2025 04:24 PM EDT
--- OUTSIDE RECORDS SUMMARY | 2024-08-09 04:30 | XMS_ITS ---
Author Organization Billy Dc MD Address [address] [place], [place] [phone] Care Team Providers Care Nurse Outreach Case Manager Name Role Phone Billy Dc Primary Care Provider Allergies No Known Allergies Results Component Value [...] Status W/U Status Risk Notes Problem Sciatica (21611365) Sciatica (M54.30) Active confirmed Problem Cardiac pacemaker in situ (938170976) Pacemaker (Z95.0) Active confirmed Vital Signs Blood pressure systolic 122 mm Hg 08/10/19 Blood pressure diastolic 64 mm Hg 025 Height 65.5 in 08/09/2024 Weight 275 lbs 08/09/2024 BMI 45.06 kg/m2 08/09/2024 weight is up 7 pounds since 02-12-24 Encounters Encounter Location Date Provider Diagnosis Billy Dc MD [address] [place] [address] [place] [phone] 08/09/2024 Billy Dc Prediabetes R73.09 ; Sciatica [...] Next Appt Details Provider Name:Billy Justin ier, 02/10/2025 07:30:00 AM, [address], [address], [place], [place], [phone], Provider Name:Blily Justin ier, 02/17/2025 09:30:00 AM, [address], [address], [place], [place], [phone], Progress Notes * Chris JOSEPHDOB: (74 yo M)Acc No.[id number]:08/09/2024 Progress Notes Patient: Chris BANEGAS Provider: Alvarado Dc MD :1950 A ge:74 Y S ex:Male Date:08/09/2024 Address:[address] [place] [address] , [place], [id number] Subjective: * Chief Complaints: * 6 month [...] 2947 ASSAY, GLUCOSE, BLOOD QUANT, Modifiers: QW 61949 GLYCATED HEMOGLOBIN TEST, Modifiers: QW * * Sign off status: Completed true * Provider: Alvarado Dc MD Date: 0 08/09/2024 Generated for Natalay coker/Huseyin/Arielitting on: 0 01/23/2025 04:23 PM EDT History and Physical Notes * [...]
--- OUTSIDE RECORDS SUMMARY | 2025-01-23 16:24 | XMS_ITS | Clinical Summary ---
Author Organization [facility] Address [address] [address] Phone Care Team Providers Care Appraisal Technician Name Role Phone Billy Dc MD Primary Care Provider Allergies No known active allergies Medications allopurinol (ZYLOPRIM) 300 MG tablet Take 300 mg by mouth 1 (one) time each day 06/28/19 21 Active LORazepam (ATIVAN) 1 MG tablet Take 1 mg by mouth every 6 (six) hours if needed for anxiety Active pilocarpine (SALAGEN) 5 MG tablet Take 5 mg by mouth in the morning and 5 mg in the evening and 5 mg before bedtime. Active nystatin (MYCOSTATIN) 835249 UNIT/ML suspension SWISH AND SPIT WITH 5ML FOUR TIMES A DAY FOR 2-4 WEEKS 12/13/19 23 Active levothyroxine (SYNTHROID, LEVOTHROID) 25 MCG tablet Take 25 mcg by mouth 1 (one) time each day Active rosuvastatin (CRESTOR) 20 MG tablet Take 20 mg by mouth 1 (one) time each day Active amLODIPine (NORVASC) 10 MG tablet 1 (one) time each day Active ergocalciferol 1.25 MG (15652 UT) capsule Take 1 capsule (50,000 Units total) by mouth every 14 (fourteen) days 2 capsule 2 03/28/20 24 Active Additional Information Patient not taking.Reported on 01/02/2025 amLODIPine (NORVASC) 10 MG tablet Take 1 tablet (10 mg total) by mouth 1 (one) time each day 90 tablet 3 03/30/20 24 025 Active Additional Information Patient not taking.Reported on 01/02/2025 carvedilol (COREG) 3.125 MG tablet TAKE ONE TABLET BY MOUTH TWICE A DAY. MUST ADMINISTER WITH A MEAL/FOOD 07/23/19 25 Active calcitriol (Rocaltrol) 0.25 MCG capsule Take 1 capsule (0.25 mcg total) by mouth every other day 45 capsule 01/04/20 25 025 Active calcitriol (Rocaltrol) 0.25 MCG capsule Take 1 capsule (0.25 mcg total) by mouth every other day 45 capsule 03/28/20 24 025 Discontinued Active Problems Problem Noted Date Diagnosed Date Cardiac pacemaker in situ 01/02/2025 Sciatica 01/02/2025 Dysphagia 12/29/2024 Acute pansinusitis 07/01/2023 Overview (01/02/2025): Acute pansinusitis, unspecified; Note: Date Diagnosed: 07/01/2023 10:53 AM (J01.40) History of malignant neoplasm of oral cavity Overview (01/02/2025): Primary tumor location: Nasopharynx Tumor staging: Stage II, T2N2 Treatment: chemo XRT Date of treatment completion: 04/07/22 Oncology team: Kendra Ye Candidiasis of mouth 12/12/2022 Overview (01/02/2025): Oral thrush; Note: Date Diagnosed: 12/12/2022 1:50 PM (B37.0) Stomatitis 12/12/2022 Overview (01/02/2025): Oral thrush; Note: Date Diagnosed: 12/12/2022 1:50 PM (B37.0) Encounter for follow-up exam ination after completed treatment for malignant neoplasm 08/14/2022 Overview (01/02/2025): Encounter for follow-up examination after completed treatment for malignant neoplasm; Note: Date Diagnosed: 08/14/2022 11:05 AM (Z08) Severe obesity 06/10/2022 Anxiety about body function [...] rupture 023 Tubular adenoma of colon 06/10/2022 Mixed conductive and sensorineural hearing loss, bilateral 10/21/2021 Overview (01/02/2025): Mixed conductive and sensorineural hearing loss, bilateral; Note: Date Diagnosed: 10/21/2021 11:45 AM (H90.6) 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 10/09/2021 Overview (01/02/2025): 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; Note: Date Diagnosed: 10/09/2021 6:46 PM (C11.1) Stage 3b chronic kidney disease 04/22/2021 Renal osteodystrophy 04/22/2021 Stage 3a chronic kidney disease 10/29/2020 Essential (primary) hypertension 08/14/2020 Prediabetes 08/14/2020 Hypercholesterolemia 08/14/2020 Encounters Date Type Department Care Team Description 01/02/2025 2:30 PM EDT Office Visit [facility] [address] [place] [address] Balaji Collier MD Stage 3a chronic kidney disease (HCC) (Primary Dx); Renal osteodystrophy 12/30/2024 Office Communication [facility] [address] [phone] Prasanna Mendez 12/29/2024 Office Communication [facility] [address] [phone] Ritesh Diaz MD 12/28/2024 Orders Only [facility] [address] [facility] [address] [place] [address] Balaji Collier MD from Last 3 Months Immunizations Immunization Administration Dates Next Due Influenza (IM) Preservative Free 019,01/26/2018,07/09/2017,01/27 Influenza Split 02/28/2014 Influenza Split High Dose Pr eservative Free IM 03/04/2022,07/02/2021 Pfizer SARS-COV-2 03/14/2021,08/13/2020,07/24/19 21 Pneumococcal Conjugate 13-Valent 11/13/2021,07/16 Pneumococcal Polysaccharide 01/08/2022, 0,03/02/2014 Tdap 10/27/2013 Family History Medical History Relation Comments Hypertension Mother Relation Status Comments Father Mother Social History Tobacco Use Types Packs/Day [...] Sign Reading Time Taken Comments Blood Pressure 110/64 01/02/2025 2:42 PM EDT Pulse 58 01/02/2025 2:42 PM EDT Temperature - - Respiratory Rate - - Oxygen Saturation 98% 01/02/2025 2:42 PM EDT Inhaled Oxygen Concentration - - Weight 115 kg (253 lb 3.2 oz) 01/02/2025 2:42 PM EDT Height 170.2 cm (5' 7 ) 02/04/2022 3:44 PM EDT Body Mass Index 39.66 02/04/2022 3:44 PM EDT Plan of Treatment Upcoming Encounters Date Type Department Care Team (Late st Contact Info) Description 01/08/2026 1:15 PM EDT Office Visit [facility] [address] [place] [address] Balaji Collier MD [address] [phone] Health Maintenance Due Date Last Done Comments [...] on patient's age to complete this topic Procedures Procedure Name Priority Date/Time Associated Diagnosis Comments PROTEIN / CREATININE RATIO, URINE Routine 12/28/2024 10:47 AM EDT ALBUMIN, URINE, RANDOM Routine 12/28/2024 10:47 AM EDT URINALYSIS WITH MICROSCOPIC Routine 12/28/2024 10:47 AM EDT VITAMIN D 25 HYDROXY Routine 12/28/2024 9:52 AM EDT ALBUMIN Routine 12/28/2024 9:52 AM EDT MAGNESIUM Routine 12/28/2024 9:52 AM EDT PHOSPHATE ( PHOSPHORUS) Routine 12/28/2024 9:52 AM EDT CALCIUM Routine 12/28/2024 9:52 AM EDT CREATININE, BLOOD Routine 12/28/2024 9:5 2 AM EDT BUN Routine 12/28/2024 9:52 AM EDT ELECTROLYTE PANEL Routine 12/28/2024 9:5 2 AM EDT PTH, INTACT (HC) Routine 12/28/2024 9:52 AM EDT CBC AND DIFFERENTIAL Routine 12/28/2024 9:52 AM EDT from Last 3 Months Results * Protein, Total, Random Urine w/Creatinine (Protein/Creat Ratio) (12/28/2024 10:47 AM EDT) Protein Urine Random 8 <12 mg/dL See order comments Protein/Creatin ine Ratio, Urine 0.13 <0.2 See order comments Comment: The spot urine protein:creatinine ratio may increase to 0.3 during normal . 12/28/2024 10:4 7 AM EDT 12/28/2024 10:47 AM EDT us Balaji Collier MD LAB URINE ORDERABLES Final Re sult Performing Organization Address [facility] de Phone Number [facility] See order comments [place] [address] * (ABNORMAL) Albumin, urine, random (12/28/2024 10:47 AM EDT) Creatinine, Urine 59.68 mg/dL Se e order comments Urine Microalbumin 24.0 mg/L See order comments Microalbumin/Crea tinine Ratio 40.2(H) <30 ug/mg cr See order comments Comment: Albumin/Creatinine Ratio Reference Ranges: Normal: < 30 ug/mg creatinine Microalbuminuria: 30 - 300 ug/mg creatinine Clinical Albuminuria: > 300 ug/mg creatinine 12/28/2024 10:4 7 AM EDT 12/28/2024 10:47 AM EDT us Balaji Collier MD LAB URINE ORDERABLES Final Re sult Performing Organization Address [facility] Co de Phone Number [facility] See order comments [place] [address] * Urinalysis with microscopic (12/28/2024 10:47 AM EDT) Color Urine Yellow See orde r comments Appearance Urine Clear See order comments pH Urine 8.0 5.0 - 9.0 See order comments Glucose Urine Negative Negative mg/dL See order comments Blood, Urine Negative Negative See ord er comments Specific [place] Urine 1.010 1.005 - 1.025 See order comments Protein Urine Negative Neg-Trace mg/dL See order comments Ketones, Urine Negative Negative mg/dL See order comments Nitrite, Urine Negative Negative See o rder comments Leukocyte Esterase Urine Negative Negative See order comments RBC, Urine 0-2 0 - 2 /HPF See orde r comments WBC 0-5 0 - 5 /HPF See order comments Squamous Epithelial, Urine 0-2 0 - 2 /HPF See order comments Bacteria, Urine None Seen None Seen See order comments Hyaline Casts, Urine 0-2 0 - 2 /LPF See order comments 12/28/2024 10:4 7 AM EDT 12/28/2024 10:47 AM EDT Balaji Collier MD LAB URINE ORDERABLES Final Re sult Performing Organization Address [facility] de Phone Number [place] See order comments [place] [address] * Creatinine (12/28/2024 9:52 AM EDT) Creatinine Serum 1.16 0.5 - 1.4 mg/dL See order comments eGFR (Calc) >60 See orde r comments Comment: Chronic Kidney Disease: Estimated GFR < 60 mL/min/1.73m2 Severe Kidney Disease: Estimated GFR < 15 mL/min/1.73m2 12/28/2024 9:52 AM EDT 12/28/2024 9:52 AM EDT Balaji Collier MD LAB BLOOD ORDERABLES Final Re sult Performing Organization Address [facility] de Phone Number [place] See order comments [place] [address] * (ABNORMAL) PTH, Intact (12/28/2024 9:52 AM EDT) Parathyroid Hormone, Intact 197.5(H) 8.7 - 77.1 pg/mL See order comments 12/28/2024 9:52 AM EDT 12/28/2024 9:52 AM EDT us Balaji Collier MD LAB [id number] SOLICITED RESULTS Final Result Performing Organization Address [facility] de Phone Number [facility] See order comments [place] [address] * (ABNORMAL) Vitamin D 25 Hydroxy (12/28/2024 9:52 AM EDT) Vitamin D, 25-Hydroxy 26.3(L) >30 ng/mL See order comments Comment: Health Based Reference Values* < 20 ng/mL Deficient 20-30 ng/mL Insufficient > 30 ng/mL Sufficient *John SAL. N Engl J Med. 2007;357:266-280 There is no well-established upper level of normal vitamin D levels. Some laboratories use 50 ng/mL as an upper limit of normal. However, toxicity is patient-dependent and may occur at any level. Careful correlation with the patient's presentation is necessary and, if there is concern for vitamin D toxicity, treatment should be considered irrespective of the serum level. Care must be taken in interpreting Vitamin D results from different laboratories and methodologies. Published data demonstrated that results from patients undergoing hemodialysis may show a negative bias when tested with various automated 25-OH vitamin D assays when compared to LC-MS/MS. When testing samples from patients whose predominant form of Vitamin D is Vitamin D2, such as patients receiving Vitamin D2 supplementation, results that are subtherapeutic should be confirmed with another method such as LC-MS/MS. 12/28/2024 9:52 AM EDT 12/28/2024 9:52 AM EDT us Balaji Collier MD LAB BLOOD ORDERABLES Final Re sult Performing Organization Address [facility] de Phone Number [place] See order comments [place] [address] * (ABNORMAL) CBC and Differential (12/28/2024 9:52 AM EDT) WBC 5.5 4.8 - 10.8 X10*3/uL See order comments RBC 4.22(L) 4.60 - 5.80 X10*6/uL See order comments Hgb 12.8(L) 14.0 - 18.0 g/dl See order comments Hematocrit 37.8(L) 42.0 - 52.0 % See order comments MCV 89.6 80.0 - 98.0 fL See order comments MCH 30.3 27.0 - 33.0 pg See order comments MCHC 33.9 31.0 - 36.0 g/dl See order comments RDW 14.2 11.0 - 16.0 % See order comments Platelets 216 160 - 400 X10*3/uL See order comments MPV 8.4(L) 9.4 - 12.4 fL See order comments Neutrophils % Auto 67.6 45 - 73 % See order comments Immature Granulocytes 0.4 0.0 - 0.4 % See order comments Lymphocytes Relative 17.6(L) 20 - 40 % See order comments Monocytes 9.0 2 - 11 % See order comments Eosinophils Relative 4.8(H) 0 - 4 % See order comments Basophils Relative 0.6 0 - 2 % See order comments nRBC Count 0.0 0.0 - 0.2 /100WBC See order comments Neutrophils Absolute 3.7 2.0 - 8.3 x10*3/uL See order comments Immature Grans (Absolute) 0.02 0.00 - 0.03 X10*3/uL See order comments Lymphocytes Absolute 1.0(L) 1.2 - 4.9 X10*3/uL See order comments Monocytes Absolute 0.5 0.1 - 1.2 X10*3/uL See order comments Eosinophils Absolute 0.3 0.0 - 0.4 X10*3/uL See order comments Basophils Absolute 0.0 0.0 - 0.2 X10*3/uL See order comments NRBC Absolute 0.000 0.0 - 0.012 X10*3/uL See order comments 12/28/2024 9:52 AM EDT 12/28/2024 9:52 AM EDT us Balaji Collier MD LAB BLOOD ORDERABLES Final Re sult [place] See order comments [place] [address] * BUN (12/28/2024 9:52 AM EDT) BUN 15 9 - 16 mg/dL See order comments 12/28/2024 9:52 AM EDT 12/28/2024 9:52 AM EDT Balaji Collier MD LAB BLOOD ORDERABLES Final Re sult Performing Organization Address [facility] Phone Number [place] See order comments [place] [address] * Phosphorus (12/28/2024 9:52 AM EDT) Phosphorus, Serum 3.9 2.7 - 4.5 mg/dL See order comments 12/28/2024 9:52 AM EDT 12/28/2024 9:52 AM EDT Balaji Collier MD LAB BLOOD ORDERABLES Final Re sult Performing Organization Address [facility] Phone Number [place] See order comments [place] [address] * Magnesium (12/28/2024 9:52 AM EDT) Magnesium 2.2 1.6 - 2.6 mg/dL See order comments 12/28/2024 9:52 AM EDT 12/28/2024 9:52 AM EDT Balaji Collier MD LAB BLOOD ORDERABLES Final Re sult Performing Organization Address [facility] de Phone Number [place] See order comments [place] [address] * Calcium (12/28/2024 9:52 AM EDT) Calcium 8.8 8.4 - 10.2 mg/dL See order comments 12/28/2024 9:52 AM EDT 12/28/2024 9:52 AM EDT Balaji Collier MD LAB BLOOD ORDERABLES Final Re sult Performing Organization Address [facility] Co de Phone Number [place] See order comments [place] [address] * Albumin (12/28/2024 9:52 AM EDT) Albumin 4.5 3.5 - 5.0 g/dL See order comments 12/28/2024 9:52 AM EDT 12/28/2024 9:52 AM EDT Balaji Collier MD LAB BLOOD ORDERABLES Final Re sult Performing Organization Address [facility] Co de Phone Number [facility] See order comments [place] [address] * Electrolyte panel (12/28/2024 9:52 AM EDT) Sodium 135 135 - 145 mmol/L See order comments Potassium 4.0 3.3 - 5.1 mmol/L See order comments Chloride 98 96 - 108 mmol/L See order comments Bicarbonate (CO2) 28 22 - 29 mmol/L See order comments Anion Gap 13 12 - 20 See order comments 12/28/2024 9:52 AM EDT 12/28/2024 9:52 AM EDT Balaji Collier MD LAB BLOOD ORDERABLES Final Re sult Performing Organization Address [facility] Co de Phone Number [facility] See order comments [place] [address] from Last 3 Months Insurance Medicare [facility] Medicare [facility] Care Teams Appraisal Technician Relationship Specialty Start Date End Date Billy Dc MD [address] [place] [address] [id number] [place], [place] PCP - General 05/28/20
--- OUTSIDE RECORDS SUMMARY | 2025-01-23 16:24 | XMS_ITS | Patient Health Record ---
Author Organization Billy Dc MD Address [address] [place], [place] [id number] Care Team Providers Care Senior Field Engineer Name Role Phone Billy Dc Primary Care Provider Allergies No Known Allergies Results Component Value Reference Range Notes Hemoglobin A1c Reviewed date:08/09/2024 08:25:30 AM Interpretation: Performing Lab: Notes/Report: Hemoglobin A1c 5.1 Complete Blood Count Auto Di ff Reviewed date:02/02/2024 12:45:24 PM Interpretation: Performing Lab:[facility], [address] [place] [phone] Notes/Report: White Blood Count 4.5 4.8-10.8 X10*3/uL [...] NRBC Abs Auto 0.000 0.0-0.012 X10*3/uL Comprehensive Hatch. Panel Fa st Reviewed date:02/02/2024 12:40:55 PM Interpretation: Performing Lab:[facility], [address] [place] [phone] Notes/Report: Sodium 141 135-145 mmol/L Potassium 4.1 3.3-5.1 mmol/L Chloride 105 96-108 mmol/L Carbon Dioxide 28 22-29 mmol/L Anion Gap 12 12-20 Blood Urea Nitrogen 19 9-16 mg/dL Creatinine 1.26 0.5-1.4 mg/dL Estimated Glomerular Filt Rate 56 NOTE: For -[place] individuals, multiply the result by 1.210. Chronic [...] Panel Reviewed date:02/02/2024 12:39:01 PM Interpretation: Performing Lab:[facility], [address] [place] [phone] Notes/Report: Triglycerides 95 <150 mg/dL Desirable Triglyceride: [...] (Free>4and<10) Reviewed date:02/02/2024 12:40:38 PM Interpretation: Performing Lab:[facility], [address] [place] [phone] Notes/Report: PSA,Total (Free>4and<10) 1.56 0.00-4.00 ng/mL A [...] 4.0 and 10.0 ng/mL. PSA methodology: Barbosa Andelnity i Chemiluminescent Microparticle Immunoassay (CMIA) TSH reflex Free T4 Reviewed date:02/02/2024 12:39:37 PM Interpretation: Performing Lab:[facility], [address] [place] [phone] Notes/Report: TSH reflex Free T4 3.00 0.32-4.0 uIU/mL Microalbumin, Random Reviewed date:02/02/2024 12:38:11 PM Interpretation: Performing Lab:[facility], [address] [place] [phone] Notes/Report: Creatinine Urine 50.28 Microalbumin Urine 105.0 Microalbum/Creatinine Ratio Ur 208.8 <30 ug/mg cr Albumin/Creatinine Ratio Reference Ranges: Normal: < 30 ug/mg creatinine Microalbuminuria: 30 - 300 ug/mg creatinine Clinical Albuminuria: > 300 ug/mg creatinine Hemoglobin A1c Reviewed date:02/02/2024 12:39:45 PM Interpretation: Performing Lab:[facility], [address] [place] [phone] Notes/Report: Hemoglobin A1c % 4.9 <6.0 % [...] average glucose, using the formula of the L5A-Izpzzuz Average Glucose study (ADAG), Diabetes Care, Vol.31,#8, Dec. 2007 UA ClnCatch+Micro w/rflx Cul t Reviewed date:02/02/2024 12:41:45 PM Interpretation: Performing Lab:[facility], [address] [place] [phone] Notes/Report: Urine, Clean Catch Color Urine Yellow Appearance Urine Clear PH 6.5 5.0-9.0 Glucose Urine UA Negative Negative mg/dL Urine Blood Negative Negative Specific [place] - Urine 1.010 1.005-1.025 Urine Protein Trace Neg-Trace mg/dL Urine Ketones Negative Negative mg/dL Nitrite Urine Negative Negative Leukocyte Esterase Urine Negative Negative RBC Urine 0-2 0-2 /HPF WBC Urine 0-5 0-5 /HPF Squamous Epithelial Cell Urine 0-2 0-2 /HPF Bacteria Urine None Seen None Seen Hyaline Casts Urine 0-2 0-2 /LPF Liver Panel Reviewed date:08/03/2024 03:18:28 PM Interpretation: Performing Lab:[facility], [address] [place] [phone] Notes/Report: Bilirubin Total 0.6 0.0-1.0 mg/dL Bilirubin Direct 0.3 0.0-0.5 mg/dL Aspartate Amino Transferase 72 5-37 U/L Alanine Aminotransferase 28 0-40 U/L Total Protein 7.4 6.5-8.0 g/dL Albumin Level 4.1 3.5-5.0 g/dL Alkaline Phosphatase 73 39-117 U/L Lipid Panel with Reflex Reviewed date:08/03/2024 03:25:49 PM Interpretation: Performing Lab:[facility], [address] [place] [phone] Notes/Report: Triglycerides 93 <150 mg/dL Desirable Triglyceride: [...] Gold Reviewed date:08/02/2024 12:06:06 PM Interpretation: Performing Lab:[facility], [address] [place] [phone] Notes/Report: Hold Gold See Note Specimen held [...] Status Risk Notes Problem Ascending aorta dilatation (774297406) Ascending aorta dilatation (447.71) Active confirmed Problem Sciatica (79298162) Sciatica (M54.30) Active confirmed Problem 762957748 Tubular adenoma of colon (D12.6) Active confirmed Problem 03509558 Essential hypert ension (I10) Active confirmed Problem 899246596 Acquired hypothy roidism (E03.9) Active confirmed Problem 4221488 Prediabetes (R73.09) Active confirmed Problem 024514935 Abnormal LFTs (R79.89) Active confirm ed Problem 949440242 History of gout (Z87.39) Active confirmed Problem 950579256 Morbid obesity d ue to excess calories (E66.01) Active confirmed Problem 76983745 Lymphadenopathy (R59.1) Active confirm ed Problem 700808114 Ascending aortic aneurysm (I71.2) Active confirmed Problem 55072682 Elevated uric ac id in blood (E79.0) Active confirmed Problem 874121395 Sensitivity to s unlight (Z91.09) Active confirmed Problem 230527271 Pure hypercholesterolemia (E78.00) Active confirmed Problem 311326938 Elevated PSA (R97.20) Active confirme d Problem 737385271 Arthritis of kne e (M17.10) Active confirmed Problem 597500485 Head and neck ca ncer (C76.0) Active confirmed Problem 026583494 Ankle arthritis (M19.079) Active confirmed Problem Cardiac pacemaker in situ (042289391) Pacemaker (Z95.0) Active confirmed Problem 217718816 Body mass index (BMI) 50.0-59.9, adult (Z68.43) Active confirmed Problem Anxiety about health (444407466) Anxiety about health (F41.8) Active confirmed Vital [...] Location Date Provider Diagnosis Billy Dc MD [address] [place] [address] Drive [address] [place] [id number] 02/02/2024 Billy Dc Essential hypertensi on I10 ; Encounter for immunization Z23 ; Prediabetes R73.09 ; Pure hypercholesterolemia E78.00 ; Elevated PSA R97.20 and Acquired hypothyroidism E03.9 Billy Dc MD [address] [place] [address] Drive [address] [place] [id number] 08/02/2024 Billy Dc Pure hypercholestero lemia E78.00 Billy Dc MD [address] [place] [address] Drive [address] [place] [id number] 02/12/2024 Billy Dc Head and neck cancer C76.0 ; Abnormal LFTs R79.89 ; Essential hypertension I10 ; Prediabetes R73.09 ; Pure hypercholesterolemia E78.00 ; Elevated PSA R97.20 ; Acquired hypothyroidism E03.9 and Ascending aortic aneurysm, unspecified whether ruptured I71.21 Billy Dc MD [address] [place] [address] [address] [place] [id number] 08/09/2024 Billy Dc Prediabetes R73.09 ; Sciatica [...] Name:Billy Justin ier, 02/10/2025 07:30:00 AM, [address], [address], [place], [place], [id number], Provider Name:Billy Justin ier, 02/17/2025 09:30:00 AM, [address], [address], [place], [place], [phone], Insurance Providers Payer Name Payer Address Payer Phone Subscriber Number Group Number Insured Name Patient Relationship to Insured Coverage Start Date Coverage End Date MEDICARE NHIC [address]IG[address] [place] [address] [id number] Chris Simon Self - patient is the insured MEDEX BCBS OF [facility] [id number] [place] [phone] [id number] Chris Simon Self - patient is the insured Medical (General) History Medical History History ICD Code COLONOSCOPY 07/2010 - due in 5 years (has CX 3 cololonscopy dates in 2016); Colonoscopy done 04/23/[address] Corey jones in 10 years NEEDS YEARLY ECHO - Due 06/2014 colonoscopy 2019 Surgical History Surgery Date(Month/Year) fusion of ankle 1989
--- OUTSIDE RECORDS SUMMARY | 2025-01-23 16:24 | XMS_ITS | Patient Health Record ---
Author Organization [facility] Address [address] [place] [address] Care Team Providers Care Sales Performance Manager Name Role Phone Billy Dc MD Primary Care Provider Noreen Huber Unavailable [phone] Reason For Referral No Information Medications Medication [...] Problem Screening for malignant neoplasm of colon (379276151) Encounter for screening for malignant neoplasm of colon (Z12.11) Active confirmed Problem History of adenomatous polyp of colon (746989943) History of adenomatous polyp of colon (Z86.010) Active confirmed Problem Preprocedural examination (953015604846236) Preprocedural examination (Z01.818) Active confirmed Plan Of Treatment Future Test Test Name Order Date COLONOSCOPY 03/09/2020 Insurance Providers Payer Name Payer Address Payer Phone Subscriber Number Group Number Insured Name Patient Relationship to Insured Coverage Start Date Coverage End Date [facility] [address] [place] [phone] [id number] NOREEN JOSEPH Self - patient is the insured Medical (General) History Medical History History ICD Code Hypertension Sleep apnea- CPAP machine Tubular adenoma removed in 2002 and neg. colonoscopy in 2010 EGD in 2002-minimal gastritis-biopsies n egative for H. pylori Gout Denies MT,DM,CVA,Lung disease,renal dise ase Arthritis in ankles Surgical History Surgery Date(Month/Year) Broken ankles-has hardware Open wound on right pretibia l area--being treated at [facility] [place]s/p debridement Detached retina OD
--- OUTSIDE RECORDS SUMMARY | 2025-01-23 16:24 | XMS_ITS | Encounter Summary ---
Author Organization [facility] Address [address] [facility] [address] [place] [address] Phone Care Team Providers Care Associate Creative Director Name Role Phone Billy Dc MD Primary Care Provider Encounter Details Date Type Department Care Team (Late st Contact Info) Description 02/07/2022 Documentation Only [facility] [address] [facility] [address] [place] [phone] Mikal Dias MD [address] [place] [address], [address] [place] [address] Social History Tobacco Use Types Packs/Day Years [...] Visit [facility] [address] [place] [address] Balaji Collier MD [address] [facility] [address] [place] [phone] documented as of this encounter Visit Diagnoses Not on filedocumented in this encounter Care Teams Associate Creative Director Relationship Specialty Start Date End Date Billy Dc MD [address] [place] [address] [id number] [place] PCP - General 05/28/20 documented as of this encounter
--- NOTE | 2025-01-23 17:33 | MHC.OFFVIS ---
Intake Visit Reasons: Medtronic device check, High RV threshold Allergies No Known Allergies Allergy (Verified 09/28/24 13:21) PFSH Medical History JADEN on CPAP Essential hypertension Morbid obesity Hx of gout Arthritis Sleep apnea HTN (hypertension) Surgical History Hx of detached retina repair History of ankle surgery History of esophagogastroduodenoscopy (EGD) H/O colonoscopy Family History Mother HTN (hypertension) CVA (cerebral vascular accident) Social History Household Members: Spouse Housing: House Do you presently have visiting nurse or other home services: No Alcohol intake: never Patient Tobacco Use Status: Never used Tobacco Advance Directives Date on File: 09/20/20 service: No Office Procedures Cardiac Device Check Cardiac Device Check Details: Medtronic dual-chamber pacemaker interrogation today. Patient brought in due to high RV threshold on remote monitoring. Evaluated by Medtronic rep Virgen. RV sensing and impedance trends are stable, RV output change to 3.5 at 1 milliseconds capture management off. Presenting rhythm a paced, V sensed, 60 beats per minute, a paces 98.9%, V paces 8.1%. 24640-[id number] Cardiac Device Check, pacemaker dual lead Procedure code (CPT) selection complete Assessment & Plan Assessment & Plan (1) Malfunction of electrode lead of cardiac pacemaker: Code(s): T82.198A - Other mechanical complication of other cardiac electronic device, initial encounter Plan: possible micro dislodgement per Rep, Capturing well at higher outpt, Does not V pace frequently - following remotely Coding Level of Care Code Procedure Only Diagnoses Malfunction of electrode lead of cardiac pacemaker T82.198A CPT Codes Cardiac Device Check - Cardiac Device 2: [id number]-[id number] Cardiac Device Check, pacemaker dual lead ([id number]) Time Spent (min) 15
== END 2025-01-23 14:45 | disposition home or self-care (01) ==
PROVIDERS: PCP Internal Medicine; Visit Provider Nurse Practitioner Family
DX: T82.110A Breakdown (mechanical) of cardiac electrode, initial encounter (principal)
CPT/HCPCS: 93280

== ENCOUNTER → 2025-01-23 14:01 | Outpatient (BNVA) | payer MEDICARE, SELFPAY | PROVIDERS: PCP Internal Medicine; Visit Provider Nurse Practitioner Family | DX: T82.198A Other mechanical complication of other cardiac electronic device, initial encounter (principal) | CPT/HCPCS: 93280 ==

== ENCOUNTER 2025-02-10 10:41 | Outpatient (REF) | payer MEDICARE, SELFPAY ==
--- OUTSIDE RECORDS SUMMARY | 2024-02-02 03:00 | XMS_ITS ---
Author Organization Billy Dc MD Address [address] [place], [place] [phone] Care Team Providers Care Implementation Consultant Name Role Phone Billy Dc Primary Care Provider [phone] Results Component Value Reference Range Notes Complete Blood Count Auto Di ff Reviewed date:02/02/2024 12:45:24 PM Interpretation: Performing Lab:[facility], [address] [place] [phone] Notes/Report: White Blood Count 4.5 4.8-10.8 X10*3/uL [...] NRBC Abs Auto 0.000 0.0-0.012 X10*3/uL Comprehensive [place]. Panel Fa st Reviewed date:02/02/2024 12:40:55 PM Interpretation: Performing Lab:[facility], [address] [place] [phone] Notes/Report: Sodium 141 135-145 mmol/L Potassium 4.1 3.3-5.1 mmol/L Chloride 105 96-108 mmol/L Carbon Dioxide 28 22-29 mmol/L Anion Gap 12 12-20 Blood Urea Nitrogen 19 9-16 mg/dL Creatinine 1.26 0.5-1.4 mg/dL Estimated Glomerular Filt Rate 56 NOTE: For -[place] individuals, multiply the result by 1.210. Chronic [...] Panel Reviewed date:02/02/2024 12:39:01 PM Interpretation: Performing Lab:[address] [phone] Notes/Report: Triglycerides 95 <150 mg/dL Desirable Triglyceride: [...] (Free>4and<10) Reviewed date:02/02/2024 12:40:38 PM Interpretation: Performing Lab:[address] [phone] Notes/Report: PSA,Total (Free>4and<10) 1.56 0.00-4.00 ng/mL A [...] T4 Reviewed date:02/02/2024 12:39:37 PM Interpretation: Performing Lab:[address] [place] [address] Notes/Report: TSH reflex Free T4 3.00 0.32-4.0 uIU/mL Microalbumin, Random Reviewed date:02/02/2024 12:38:11 PM Interpretation: Performing Lab:[address] [address] Notes/Report: Creatinine Urine 50.28 Microalbumin Urine 105.0 Microalbum/Creatinine Ratio Ur 208.8 <30 ug/mg cr Albumin/Creatinine Ratio Reference Ranges: Normal: < 30 ug/mg creatinine Microalbuminuria: 30 - 300 ug/mg creatinine Clinical Albuminuria: > 300 ug/mg creatinine Hemoglobin A1c Reviewed date:02/02/2024 12:39:45 PM Interpretation: Performing Lab:[address] [address] Notes/Report: Hemoglobin A1c % 4.9 <6.0 % [...] average glucose, using the formula of the O8N-Yvjfufb Average Glucose study (ADAG), Diabetes Care, Vol.31,#8, Dec. 2007 UA ClnCatch+Micro w/rflx Cul t Reviewed date:02/02/2024 12:41:45 PM Interpretation: Performing Lab:[address] [address] Notes/Report: Urine, Clean Catch Color Urine Yellow Appearance Urine Clear PH 6.5 5.0-9.0 Glucose Urine UA Negative Negative mg/dL Urine Blood Negative Negative Specific [place] - Urine 1.010 1.005-1.025 Urine Protein Trace [...] Date Provider Diagnosis Billy Dc MD [address] [place], [place] [phone] 02/02/2024 Billy Dc Essential hypertensi on I10 [...] Of Treatment Next Appt Details Provider Name:Billy Justin ier, 02/17/2025 09:30:00 AM, [address], [address], [place], [place], [phone], Progress Notes * Chris JOSEPHDOB: 2 (75 yo M)Acc No.[id number]:02/02/2024 Progress Note Patient: Kadeem SESAYNED Chris Provider: Alvarado Dc MD :1950 A ge:74 Y S ex:Male Date:02/02/2024 Address: [address], [id number] Subjective: * Chief Complaints: * 1 . [...] - 02/02/2024 07:00 AM) L AB: Comprehensive [place]. Panel Fast (Collection Date & Time - [...] - 02/02/2024 07:00 AM) L AB: Comprehensive [place]. Panel Fast (Collection Date & Time - [...] - 02/02/2024 07:00 AM) L AB: Comprehensive [place]. Panel Fast (Collection Date & Time - [...] - 02/02/2024 07:00 AM) L AB: Comprehensive [place]. Panel Fast (Collection Date & Time - [...] FLU VAC NO FEE SCHED SAME DAY, [address] VENIPUNCT, ROUTINE* * * The named appointment provid er may or may not be the originator of this progress note, and it is not deemed complete until electronically signed by the appointment provider. Sign off status: Pending * Provider: Alvarado Dc MD Date: 0 02/02/2024 Generated for Natalya coker/Faxing/eTransmitting on: 0 02/10/2025 12:12 PM EDT
--- OUTSIDE RECORDS SUMMARY | 2024-02-12 05:30 | XMS_ITS ---
Author Organization Billy Dc MD Address [address] [place], [place] [phone] Care Team Providers Care Cuffing Machine Operator Name Role Phone Billy Dc Primary Care Provider [phone] Allergies No Known Allergies REASON FOR VISIT [...] 02/12/2024 weight is down 3 pounds formerly [facility] 09-07-23 Encounters Encounter Location Date Provider Diagnosis Billy Dc MD [address] [place] [address] [place] [phone] 02/12/2024 Billy Dc Head and neck cancer [...] Follow Up: 6 Months, Reason: Provider Name:Billy Justin ier, 02/17/2025 09:30:00 AM, [address] [place] [address], [address], [place], [phone], Progress Notes * Chris JOSEPHDOB: 2 (74 yo M)Acc No.[id number]:02/12/2024 Patient: Chris Norris Provider: Alvarado Dc MD :1950 A ge:74 Y S ex:Male Date:02/12/2024 Address: [address], [id number] Subjective: * Chief Complaints: * R eview [...] - healthy. . Father- old age Mother [place], No pertinent family medical history, No pertinent [...] , I nterpretation N egative. M iscellaneous: Maximus rothmanen: yes. no Exercise. Home smoke detector use: yes. Housing: owning. Living with: spouse. Marital status: . Occupation: weeks/months/years, works full-time. Travel outside of the [place]: yes, [place]. * Medications: T akingRosuvastatin Calcium 20 MG [...] Average Glucose 94 - mg/dL L ab:Comprehensive [place]. Panel Fast (Order Date - 02/02/2024) (Collection [...] mg/dL Urine Blood Negative Negative - Specific [place] - Urine 1.010 1.005-1.025 - Urine Protein [...] MD Date: 0 02/12/2024 Generated for Natalya coker/Huseyin/Arielitting on: 0 02/10/2025 12:12 PM EDT History and Physical Notes * HPI [...]
--- OUTSIDE RECORDS SUMMARY | 2024-08-02 03:15 | XMS_ITS ---
Author Organization Billy Dc MD Address [address] [place], [place] [id number] Care Team Providers Care Scratcher Name Role Phone Billy cD Primary Care Provider [phone] Results Component Value Reference Range Notes Liver Panel Reviewed date:08/03/2024 03:18:28 PM Interpretation: Performing Lab:[facility], [address] [place] [phone] Notes/Report: Bilirubin Total 0.6 0.0-1.0 mg/dL Bilirubin Direct 0.3 0.0-0.5 mg/dL Aspartate Amino Transferase 72 5-37 U/L Alanine Aminotransferase 28 0-40 U/L Total Protein 7.4 6.5-8.0 g/dL Albumin Level 4.1 3.5-5.0 g/dL Alkaline Phosphatase 73 39-117 U/L Lipid Panel with Reflex Reviewed date:08/03/2024 03:25:49 PM Interpretation: Performing Lab:[facility], [address] [place] [phone] Notes/Report: Triglycerides 93 <150 mg/dL Desirable Triglyceride: [...] Location Date Provider Diagnosis Billy Dc MD [address] [place] [address] [place] [phone] 08/02/2024 Billy Dc Pure hypercholestero lemia E78.00 Assessments Encounter Date Diagnosis (ICD Code) Assessment Notes Treatment Notes Treatment Clinical Notes Section Notes 08/02/2024 Pure hypercholesterolemia (ICD-10 - E78.00) Plan Of Treatment Next Appt Details Provider Name:Billy Justin ier, 02/17/2025 09:30:00 AM, [address] [place] [address], [address] [place] [address], [phone], Progress Notes * Chris JOSEPHDOB: 2 (75 yo M)Acc No.[id number]:08/02/2024 Progress Note Patient: Chris BANEGAS Provider: Alvarado Dc MD :1950 A ge:74 Y S ex:Male Date:08/02/2024 Address: [address] [id number] Subjective: * Chief Complaints: * 1 . [...] 0 08/02/2024 Generated for Natalya coker/Huseyin/Arielitting on: 0 02/10/2025 12:13 PM EDT
--- OUTSIDE RECORDS SUMMARY | 2024-08-09 04:30 | XMS_ITS ---
Author Organization Billy Dc MD Address [address] [place], [place] [phone] Care Team Providers Care Library Manager Name Role Phone Billy Dc Primary Care Provider [phone] Allergies No Known Allergies Results Component [...] Status W/U Status Risk Notes Problem Sciatica (37341100) Sciatica (M54.30) Active confirmed Problem Cardiac pacemaker in situ (953426896) Pacemaker (Z95.0) Active confirmed Vital Signs Blood pressure systolic 122 mm Hg 08/10/19 Blood pressure diastolic 64 mm Hg 025 Height 65.5 in 08/09/2024 Weight 275 lbs 08/09/2024 BMI 45.06 kg/m2 08/09/2024 weight is up 7 pounds since 02-12-24 Encounters Encounter Location Date Provider Diagnosis Billy Dc MD [address] [place] [address] [place] [phone] 08/09/2024 Billy Dc Prediabetes R73.09 ; Sciatica [...] Name:Billy Justin ier, 02/17/2025 09:30:00 AM, [address], [address], [place], [place], [phone], Progress Notes * Chris JOSEPHDOB: 2 (74 yo M)Acc No.[id number]:08/09/2024 Progress Notes Patient: O Chris LEE Provider: Alvarado Dc MD :1950 A ge:74 Y S ex:Male Date:08/09/2024 Address:[address] [place] [address] , [facility], [id number] Subjective: * Chief Complaints: * 6 month [...] 2947 ASSAY, GLUCOSE, BLOOD QUANT, Modifiers: QW 90449 GLYCATED HEMOGLOBIN TEST, Modifiers: QW * * Sign off status: Completed true * Provider: Alvarado Dc MD Date: 0 08/09/2024 Generated for Natalya coker/Huseyin/eTransmitting on: 0 02/10/2025 12:12 PM EDT History [...]
--- OUTSIDE RECORDS SUMMARY | 2025-02-10 03:30 | XMS_ITS ---
Author Organization Billy Dc MD Address [address] [place], [place] [phone] Care Team Providers Care Editor Managing Director Name Role Phone Billy Dc Primary Care Provider Results Component Value Reference Range Notes Complete Blood Count Auto Di ff (Not yet reviewed by provider) Interpretation: Performing Lab:[facility], [address] [place] [phone] Notes/Report: White Blood Count 6.3 4.8-10.8 X10*3/uL [...] Abs Auto 0.000 0.0-0.012 X10*3/uL Lipid Panel (Not yet reviewe d by provider) Interpretation: Performing Lab:[facility], [address] [place] [phone] Notes/Report: Triglycerides 84 <150 mg/dL Desirable Triglyceride: [...] in patients with liver disease. PSA,Total (Free>4and<10) (No t yet reviewed by provider) Interpretation: Performing Lab:[address] [phone] Notes/Report: PSA,Total (Free>4and<10) 17.74 0.00-4.00 ng/mL A [...] Microparticle Immunoassay (CMIA) TSH reflex Free T4 (Not yet reviewed by provider) Interpretation: Performing Lab:[address] [phone] Notes/Report: TSH reflex Free T4 4.05 0.32-4.0 uIU/mL Hemoglobin A1c (Not yet revi ewed by provider) Interpretation: Performing Lab:[address] [phone] Notes/Report: Hemoglobin A1c % 5.1 <6.0 % [...] average glucose, using the formula of the T9Q-Tlyyibh Average Glucose study (ADAG), Diabetes Care, Vol.31,#8, 2007 UA ClnCatch+Micro w/rflx Cul t (Not yet reviewed by provider) Interpretation: Performing Lab:[address] [phone] Notes/Report: Urine, Clean Catch Color Urine Yellow Appearance Urine Clear PH 6.5 5.0-9.0 Glucose Urine UA Negative Negative mg/dL Urine Blood Negative Negative Specific [place] - Urine 1.020 1.005-1.025 Urine Protein 30 [...] Date Provider Diagnosis Billy Dc MD [address] [facility] [address] [place], [place] [phone] 02/10/2025 Billy Dc Essential hypertensi on I10 ; Prediabetes R73.09 ; Pure hypercholesterolemia E78.00 ; Elevated PSA R97.20 ; Acquired hypothyroidism E03.9 and Encounter for administration of vaccine Z23 Assessments Encounter Date Diagnosis (ICD Code) Assessment Notes Treatment Notes Treatment Clinical Notes Section Notes 02/10/2025 Essential hypertensi on (ICD-10 - I10) 02/10/2025 Prediabetes (ICD-10 - R73.09) 02/10/2025 Pure hypercholesterolemia (ICD-10 - E78.00) 02/10/2025 Elevated PSA (ICD-10 - R97.20) 02/10/2025 Acquired hypothyroid ism (ICD-10 - E03.9) 02/10/2025 Encounter for administration of vaccine (ICD-10 - Z23) Plan Of Treatment Pending Test Test Name Order Date Complete Blood Count Auto Diff 5 Comprehensive [place]. Panel Fast 5 Lipid Panel 02/10/2025 PSA,Total (Free>4and<10) 02/10/2025 TSH reflex Free T4 02/10/2025 Microalbumin, Random 02/10/2025 Hemoglobin A1c 02/10/2025 UA ClnCatch+Micro w/rflx Cult 02/10/2025 Next Appt Details Provider Name:Billy delgado, 02/17/2025 09:30:00 AM, [address] [facility] [address], [address], [place], [place], [phone], Progress Notes * Ean JOSEPH: 2 (75 yo M)Acc No.[id number]:02/10/2025 Progress Note Patient: Chris BANEGAS Provider: Alvarado Dc MD :1950 A ge:75 Y S ex:Male Date:02/10/2025 Address:[address] [place] [address] [place], [phone] Subjective: * Chief Complaints: * 1 . Yearly fasting labs. * Medical History: Objective: * Vitals: Assessment: * Assessment: 1. E ssential hypertension - I10 (Primary) 2 . P rediabetes - R73.09 ? 3 . P ure hypercholesterolemia - E78.00 4 . E levated PSA - R97.20? 5. A cquired hypothyroidism - E03.9 6 . E ncounter for administration of vaccine - Z23 Plan: * Treatment: 2. P rediabetes L AB: Complete Blood Count Auto Diff (Collection Date & Time - 02/10/2025 07:30 AM) L AB: Comprehensive [place]. Panel Fast L AB: Lipid Panel (Collection Date & Time - 02/10/2025 07:30 AM) L AB: PSA,Total (Free>4and<10) (Collection Date & Time - 02/10/2025 07:30 AM) L AB: TSH reflex Free T4 (Collection Date & Time - 02/10/2025 07:30 AM) L AB: Microalbumin, Random L AB: Hemoglobin A1c (Collection Date & Time - 02/10/2025 07:30 AM) L AB: UA ClnCatch+Micro w/rflx Cult (Collection Date & Time - 02/10/2025 07:30 AM) 3. P ure hypercholesterolemia L AB: Complete Blood Count Auto Diff (Collection Date & Time - 02/10/2025 07:30 AM) L AB: Comprehensive [place]. Panel Fast L AB: Lipid Panel (Collection Date & Time - 02/10/2025 07:30 AM) L AB: PSA,Total (Free>4and<10) (Collection Date & Time - 02/10/2025 07:30 AM) L AB: TSH reflex Free T4 (Collection Date & Time - 02/10/2025 07:30 AM) L AB: Microalbumin, Random L AB: Hemoglobin A1c (Collection Date & Time - 02/10/2025 07:30 AM) L AB: UA ClnCatch+Micro w/rflx Cult (Collection Date & Time - 02/10/2025 07:30 AM) 4. E levated PSA L AB: Complete Blood Count Auto Diff (Collection Date & Time - 02/10/2025 07:30 AM) L AB: Comprehensive [place]. Panel Fast L AB: Lipid Panel (Collection Date & Time - 02/10/2025 07:30 AM) L AB: PSA,Total (Free>4and<10) (Collection Date & Time - 02/10/2025 07:30 AM) L AB: TSH reflex Free T4 (Collection Date & Time - 02/10/2025 07:30 AM) L AB: Microalbumin, Random L AB: Hemoglobin A1c (Collection Date & Time - 02/10/2025 07:30 AM) L AB: UA ClnCatch+Micro w/rflx Cult (Collection Date & Time - 02/10/2025 07:30 AM) 5. A cquired hypothyroidism L AB: Complete Blood Count Auto Diff (Collection Date & Time - 02/10/2025 07:30 AM) L AB: Comprehensive [place]. Panel Fast L AB: Lipid Panel (Collection Date & Time - 02/10/2025 07:30 AM) L AB: PSA,Total (Free>4and<10) (Collection Date & Time - 02/10/2025 07:30 AM) L AB: TSH reflex Free T4 (Collection Date & Time - 02/10/2025 07:30 AM) L AB: Microalbumin, Random L AB: Hemoglobin A1c (Collection Date & Time - 02/10/2025 07:30 AM) L AB: UA ClnCatch+Micro w/rflx Cult (Collection Date & Time - 02/10/2025 07:30 AM) * Immunizations: Influenza High Dose : 0.5 mL (Dose No:1) (Route: Intramuscular) given by Nancy Yanez , Office Staff on Left Deltoid * Procedure Codes: 9 0662 FLU VACC PRSV FREE INC ANTIG, 20184 VENIPUNCT, ROUTINE*, G0008 ADMN FLU VAC NO FEE SCHED SAME DAY * * The named appointment provid er may or may not be the originator of this progress note, and it is not deemed complete until electronically signed by the appointment provider. Sign off status: Pending * Provider: lAvarado Dc MD Date: 02/10/2025 Generated for Natalya coker/Huseyin/Chava on: 02/10/2025 12:11 PM EDT
[2025-02-10 10:45] LABS: MANUAL DIFF FLAG NO
[2025-02-10 11:05] LABS: Appearance Urine Clear; Glucose Urine UA Negative (Negative); PH 6.5 (5.0-9.0); Specific Gravity - Urine 1.020 (1.005-1.025); UMIC TRIGGER UACC YES
[2025-02-10 11:08] LABS: UACC Culture Trigger YES
[2025-02-10 11:12] LABS: Hematocrit 37.6 % (42.0-52.0); Hemoglobin 12.4 g/dl (14.0-18.0); Imm Gran Abs Auto 0.03 X10*3/uL (0.00-0.03); Imm Gran Pct Auto 0.5 % (0.0-0.4); Lymphocytes Absolute Auto 0.9 X10*3/uL (1.2-4.9); Mean Corpuscular HGB Conc 33.0 g/dl (31.0-36.0); Mean Corpuscular Hemoglobin 30.5 pg (27.0-33.0); Mean Corpuscular Volume 92.4 fL (80.0-98.0); NRBC Abs Auto 0.000 X10*3/uL (0.0-0.012); NRBC Pct Auto 0.0 /100WBC (0.0-0.2); Platelet Count 234 X10*3/uL (160-400); Red Blood Count 4.07 X10*6/uL (4.60-5.80); White Blood Count 6.3 X10*3/uL (4.8-10.8)
[2025-02-10 11:16] LABS: Hemoglobin A1C 103.7671 umol/L; Total Hemoglobin (HGBA1C) 3190.6621 umol/L
[2025-02-10 11:26] LABS: Alanine Aminotransferase 21 U/L (0-40); Albumin Level 4.3 g/dL (3.5-5.0); Alkaline Phosphatase 68 U/L (39-117); Anion Gap 11 (12-20); Aspartate Amino Transferase 65 U/L (5-37); Blood Urea Nitrogen 17 mg/dL (9-16); Calcium 9.1 mg/dL (8.4-10.2); Carbon Dioxide 29 mmol/L (22-29); Chloride 105 mmol/L (96-108); Cholesterol 117 mg/dL (<200); Estimated Glomerular Filt Rate 50; HDL Cholesterol 37 mg/dL (>40); Potassium 3.9 mmol/L (3.3-5.1); Sodium 141 mmol/L (135-145); Total Protein 7.4 g/dL (6.5-8.0); Triglycerides 84 mg/dL (<150)
[2025-02-10 11:38] LABS: PSA,Total (Free>4and<10) 17.74 ng/mL (0.00-4.00)
[2025-02-10 12:07] LABS: Free T4 (Free Thyroxine) 0.73 ng/dL (0.71-1.85)
--- OUTSIDE RECORDS SUMMARY | 2025-02-10 12:12 | XMS_ITS | Patient Health Record ---
Author Organization Billy Dc MD Address [address] [place], [place] [phone] Care Team Providers Care Blower Insulator Name Role Phone Billy Dc Primary Care Provider Allergies No Known Allergies Results Component Value Reference Range Notes Hemoglobin A1c Reviewed date:08/09/2024 08:25:30 AM Interpretation: Performing Lab: Notes/Report: Hemoglobin A1c 5.1 Liver Panel Reviewed date:08/03/2024 03:18:28 PM Interpretation: Performing Lab:[facility], [address] [place] [phone] Notes/Report: Bilirubin Total 0.6 0.0-1.0 mg/dL Bilirubin Direct 0.3 0.0-0.5 mg/dL Aspartate Amino Transferase 72 5-37 U/L Alanine Aminotransferase 28 0-40 U/L Total Protein 7.4 6.5-8.0 g/dL Albumin Level 4.1 3.5-5.0 g/dL Alkaline Phosphatase 73 39-117 U/L Lipid Panel with Reflex Reviewed date:08/03/2024 03:25:49 PM Interpretation: Performing Lab:[facility], [address] [place] [phone] Notes/Report: Triglycerides 93 <150 mg/dL Desirable Triglyceride: [...] low results in patients with liver disease. Complete Blood Count Auto Di ff (Not yet reviewed by provider) Interpretation: Performing Lab:[facility], [address] [place] [phone] Notes/Report: White Blood Count 6.3 4.8-10.8 X10*3/uL [...] yet reviewe d by provider) Interpretation: Performing Lab:[address] [address] Notes/Report: Triglycerides 84 <150 mg/dL Desirable Triglyceride: [...] in patients with liver disease. PSA,Total (Free>4and<10) (N ot yet reviewed by provider) Interpretation: Performing Lab:[address] [address] Notes/Report: PSA,Total (Free>4and<10) 17.74 0.00-4.00 ng/mL A [...] (Not yet reviewed by provider) Interpretation: Performing Lab:[address] [address] Notes/Report: TSH reflex Free T4 4.05 0.32-4.0 uIU/mL Hemoglobin A1c (Not yet revi ewed by provider) Interpretation: Performing Lab:[address] [address] Notes/Report: Hemoglobin A1c % 5.1 <6.0 % [...] average glucose, using the formula of the N0O-Cymmkro Average Glucose study (ADAG), Diabetes Care, Vol.31,#8, Dec. 2007 UA ClnCatch+Micro w/rflx Cul t (Not yet reviewed by provider) Interpretation: Performing Lab:[address] [address] Notes/Report: Urine, Clean Catch Color Urine Yellow Appearance Urine Clear PH 6.5 5.0-9.0 Glucose Urine UA Negative Negative mg/dL Urine Blood Negative Negative Specific [address] - Urine 1.020 1.005-1.025 Urine Protein 30 (1+) Neg-Trace mg/dL Urine Ketones Negative Negative mg/dL Nitrite Urine Negative Negative Leukocyte Esterase Urine Small (1+) Negative RBC Urine 0-2 0-2 /HPF WBC Urine 6-10 0-5 /HPF Squamous Epithelial Cell Urine 0-2 0-2 /HPF Bacteria Urine None Seen None Seen Hyaline Casts Urine 0-2 0-2 /LPF Glucose, finger stick Reviewed date:08/09/2024 08:19:04 AM Interpretation: Performing Lab: Notes/Report: Value 86 Hold Gold Reviewed date:08/02/2024 12:06:06 PM Interpretation: Performing Lab:[facility], [address] [place] [address] Notes/Report: Hold Gold See Note Specimen held untested for 24 hours; Call to request Chemistry testing. Comprehensive Met. Panel (No t yet reviewed by provider) Interpretation: Performing Lab:[facility], [address] [place] [address] Notes/Report: Sodium 141 135-145 mmol/L Potassium 3.9 3.3-5.1 mmol/L Chloride 105 96-108 mmol/L Carbon Dioxide 29 22-29 mmol/L Anion Gap 11 12-20 Blood Urea Nitrogen 17 9-16 mg/dL Creatinine 1.40 0.5-1.4 mg/dL Estimated Glomerular Filt Rate 50 Chronic Kidney Disease: Estimated GFR < 60 mL/min/1.73m2 Severe Kidney Disease: Estimated GFR < 15 mL/min/1.73m2 Glucose Random 90 60-115 mg/dL Calcium 9.1 8.4-10.2 mg/dL Bilirubin Total 0.7 0.0-1.0 mg/dL Aspartate Amino Transferase 65 5-37 U/L Alanine Aminotransferase 21 0-40 U/L Total Protein 7.4 6.5-8.0 g/dL Albumin Level 4.3 3.5-5.0 g/dL Alkaline Phosphatase 68 39-117 U/L Free T4 (Free Thyroxine) (N ot yet reviewed by provider) Interpretation: Performing Lab:[facility], [address] [place] [phone] Notes/Report: Free T4 (Free Thyroxine) 0.73 0.71-1.85 ng/dL Reason For Referral No Information Medications Medication [...] High Dose IM Intramuscular 02/02/2024 Administer ed Influenza High Dose IM Intramuscular 02/10/2025 Administer ed zFluzone Quadrivalent Unknown 04/27/2015 Refused [...] Status Risk Notes Problem Ascending aorta dilatation (843021810) Ascending aorta dilatation (447.71) Active confirmed Problem Sciatica (44328631) Sciatica (M54.30) Active confirmed Problem 131381604 Tubular adenoma of colon (D12.6) Active confirmed Problem 48808437 Essential hypert ension (I10) Active confirmed Problem 429763879 Acquired hypothy roidism (E03.9) Active confirmed Problem 3480537 Prediabetes (R73.09) Active confirmed Problem 208579607 Abnormal LFTs (R79.89) Active confirm ed Problem 523970672 History of gout (Z87.39) Active confirmed Problem 495603178 Morbid obesity d ue to excess calories (E66.01) Active confirmed Problem 86608668 Lymphadenopathy (R59.1) Active confirm ed Problem 758222134 Ascending aortic aneurysm (I71.2) Active confirmed Problem 21434054 Elevated uric ac id in blood (E79.0) Active confirmed Problem 601283059 Sensitivity to s unlight (Z91.09) Active confirmed Problem 139397155 Pure hypercholesterolemia (E78.00) Active confirmed Problem 054261923 Elevated PSA (R97.20) Active confirme d Problem 926695850 Arthritis of kne e (M17.10) Active confirmed Problem 044852926 Head and neck ca ncer (C76.0) Active confirmed Problem 786529633 Ankle arthritis (M19.079) Active confirmed Problem Cardiac pacemaker in situ (798948235) Pacemaker (Z95.0) Active confirmed Problem 154786349 Body mass index (BMI) 50.0-59.9, adult (Z68.43) Active confirmed Problem Anxiety about health (167101672) Anxiety about health (F41.8) Active confirmed Vital [...] Location Date Provider Diagnosis Billy Dc MD [address] [place] [address] Drive [address] [place] [id number] 08/02/2024 Billy Dc Pure hypercholestero lemia E78.00 Billy Dc MD [address] [place] [address] [id number] 02/10/2025 Billy Dc Essential hypertensi on I10 ; Prediabetes R73.09 ; Pure hypercholesterolemia E78.00 ; Elevated PSA R97.20 ; Acquired hypothyroidism E03.9 and Encounter for administration of vaccine Z23 Billy Dc MD [address] [place] [id number] 02/12/2024 Billy Dc Head and neck cancer C76.0 ; Abnormal LFTs R79.89 ; Essential hypertension I10 ; Prediabetes R73.09 ; Pure hypercholesterolemia E78.00 ; Elevated PSA R97.20 ; Acquired hypothyroidism E03.9 and Ascending aortic aneurysm, unspecified whether ruptured I71.21 Billy Dc MD [address] [place] [address] Drive [address] [place] [id number] 08/09/2024 Billy Dc Prediabetes R73.09 ; Sciatica M54.30 ; Pacemaker Z95.0 and Pure hypercholesterolemia E78.00 Assessments Encounter Date Diagnosis (ICD Code) Assessment Notes Treatment Notes Treatment Clinical Notes Section Notes 08/02/2024 Pure hypercholesterolemia (ICD-10 - E78.00) 02/10/2025 Essential hypertensi on (ICD-10 - I10) 02/10/2025 Prediabetes (ICD-10 - R73.09) 02/12/2024 Head and neck cancer (ICD-10 - C76.0) has recovered and is doing well 08/09/2024 Prediabetes (ICD-10 - R73.09) a1c is good, no need for medicatin at this time, will continue to monitor 02/10/2025 Pure hypercholesterolemia (ICD-10 - E78.00) 02/12/2024 Abnormal LFTs (ICD-1 0 - R79.89) has recovered. 08/09/2024 Sciatica (ICD-10 - M54.30) no weakness, will continue to monitor 02/10/2025 Elevated PSA (ICD-10 - R97.20) 02/12/2024 Essential hypertensi on (ICD-10 - I10) stabe, at goal, will continue current regiment 08/09/2024 Pacemaker (ICD-10 - Z95.0) feels better 02/10/2025 Acquired hypothyroid ism (ICD-10 - E03.9) 02/12/2024 Prediabetes (ICD-10 - R73.09) stable, no need for medication at this time 08/09/2024 Pure hypercholesterolemia (ICD-10 - E78.00) has gool ldl, will continue current regiment 02/10/2025 Encounter for administration of vaccine (ICD-10 - Z23) 02/12/2024 Pure hypercholesterolemia (ICD-10 - E78.00) doing [...] Order Date ECHO EXAM OF HEART 06/23/2014 Complete Blood Count Auto Diff 5 Comprehensive Met. Panel 02/10/2025 Comprehensive [place]. Panel Fast Lipid Panel 02/10/2025 PSA,Total (Free>4and<10) 02/10/2025 Free T4 (Free Thyroxine) 02/10/2025 TSH reflex Free T4 02/10/2025 Microalbumin, Random 02/10/2025 CT angio chest 04/23/2021 CT soft tissue neck w con 06/06/2021 CT soft tissue neck wo/w con 04/23/2021 MR orbits face neck wo/w con 07/02/2021 US biopsy lymph node 07/30/2021 Hemoglobin A1c 02/10/2025 UA ClnCatch+Micro w/rflx Cult 02/10/2025 Future Test Test Name Order Date ECHO 01/02/2021 CT angio chest 01/23/2021 CT soft tissue neck wo/w con 01/23/2021 Next Appt Details Provider Name:Billy Justin ier, 02/17/2025 09:30:00 AM, [address] [facility], [address], [place], [place], [phone], Insurance Providers Payer Name Payer Address Payer Phone Subscriber Number Group Number Insured Name Patient Relationship to Insured Coverage Start Date Coverage End Date MEDICARE NHIC RIGO [address] [place] [address] [id number] Chris Simon Self - patient is the insured MEDEX BC[facility] [id number] [place] [address] [id number] Chris Simon Self - patient is the insured Medical (General) History Medical History History ICD Code COLONOSCOPY 07/2010 - due in 5 years (has CX 3 cololonscopy dates in 2016); Colonoscopy done 04/23/[address] Corey jones in 10 years NEEDS YEARLY ECHO - Due 06/2014 colonoscopy 2019 Surgical History Surgery Date(Month/Year) fusion of ankle 1989
--- OUTSIDE RECORDS SUMMARY | 2025-02-10 12:12 | XMS_ITS | Clinical Summary ---
Author Organization [facility] Address [address] [address] Phone Care Team Providers Care Plumber Supervisor Name Role Phone Billy Dc MD Primary Care Provider Allergies No known active allergies Medications allopurinol (ZYLOPRIM) 300 MG tablet Take 300 mg by mouth 1 (one) time each day 1 Active LORazepam (ATIVAN) 1 MG tablet Take 1 mg by mouth every 6 (six) hours if needed for anxiety Active pilocarpine (SALAGEN) 5 MG tablet Take 5 mg by mouth in the morning and 5 mg in the evening and 5 mg before bedtime. Active nystatin (MYCOSTATIN) 215487 UNIT/ML suspension SWISH AND SPIT WITH 5ML FOUR TIMES A DAY FOR 2-4 WEEKS 3 Active levothyroxine (SYNTHROID, LEVOTHROID) 25 MCG tablet Take 25 mcg by mouth 1 (one) time each day Active rosuvastatin (CRESTOR) 20 MG tablet Take 20 mg by mouth 1 (one) time each day Active amLODIPine (NORVASC) 10 MG tablet 1 (one) time each day Active ergocalciferol 1.25 MG (52759 UT) capsule Take 1 capsule (50,000 Units total) by mouth every 14 (fourteen) days 2 capsule 2 4 Active Additional Information Patient not taking.Reported on 01/02/2025 amLODIPine (NORVASC) 10 MG tablet Take 1 tablet (10 mg total) by mouth 1 (one) time each day 90 tablet 3 4 03/30/20 25 Active Additional Information Patient not taking.Reported on 01/02/2025 carvedilol (COREG) 3.125 MG tablet TAKE ONE TABLET BY MOUTH TWICE A DAY. MUST ADMINISTER WITH A MEAL/FOOD Active calcitriol (Rocaltrol) 0.25 MCG capsule Take 1 capsule (0.25 mcg total) by mouth every other day 45 capsule 04/03/20 Active Active Problems Problem Noted Date Diagnosed [...] Office Visit [facility] [address] [place] [address] Balaji Collier MD Stage 3a chronic kidney disease (HCC) (Primary Dx); Renal osteodystrophy 12/30/2024 Office Communication [facility] [address] [phone] Prasanna Mendez 12/29/2024 Office Communication [facility] [address] [phone] Ritesh Diaz MD 12/28/2024 Orders Only [facility] [address] [phone] Balaji Collier MD from Last 3 Months [...] Visit [facility] the [address] [place] [address] Balaji Collier MD [address] [facility] [address] [place] [address] Health Maintenance Due Date Last Done Comments Colorectal Cancer Screening: Annual FOBT 01/20/2001 Colorectal Cancer Screening: Colonoscopy 01/20/2001 Colorectal Cancer Screening: Sigmoidoscopy 01/20/2001 Influenza Vaccine (#1) 2025 , 07/02/2021, 01/18/2019, Additional history exists Pneumococcal Vaccine: [...] ORDERABLES Final Re sult Performing Organization Address [facility] Phone Number [place] See order comments [place] [address] * (ABNORMAL) Albumin, urine, random (12/28/2024 10:47 [...] ORDERABLES Final Re sult Performing Organization Address [facility] Co de Phone Number [facility] See order comments [place] [address] * Urinalysis with microscopic (12/28/2024 10:47 AM EDT) Color Urine Yellow See orde r comments Appearance Urine Clear See order comments pH Urine 8.0 5.0 - 9.0 See order comments Glucose Urine Negative Negative mg/dL See order comments Blood, Urine Negative Negative See ord er comments Specific [place] Urine 1.010 1.005 - 1.025 See order [...] ORDERABLES Final Re sult Performing Organization Address [facility] Phone Number [place] See order comments [place] [address] * Creatinine (12/28/2024 9:52 AM EDT) Creatinine Serum 1.16 0.5 - 1.4 mg/dL See order comments eGFR (Calc) >60 See orde r comments Comment: Chronic Kidney Disease: Estimated GFR < 60 mL/min/1.73m2 Severe Kidney Disease: Estimated GFR < 15 mL/min/1.73m2 12/28/2024 9:52 AM EDT 12/28/2024 9:52 AM EDT Balaji Collier MD LAB BLOOD ORDERABLES Final Re sult Performing Organization Address [facility] Co de Phone Number [place] See order comments [place] [address] * (ABNORMAL) PTH, Intact (12/28/2024 9:52 AM EDT) Parathyroid Hormone, Intact 197.5(H) 8.7 - 77.1 pg/mL See order comments 12/28/2024 9:52 AM EDT 12/28/2024 9:52 AM EDT Balaji Collier MD LAB [id number] SOLICITED RESULTS Final Result [place] See order comments [place] [address] * (ABNORMAL) Vitamin D 25 Hydroxy (12/28/2024 [...] MD LAB BLOOD ORDERABLES Final Re sult [place] See order comments [place] [address] * (ABNORMAL) CBC and Differential (12/28/2024 9:52 [...] order comments [place] [address] * BUN (12/28/2024 9:52 AM EDT) BUN 15 9 - 16 mg/dL See order comments 12/28/2024 9:52 AM EDT 12/28/2024 9:52 AM EDT us Balaji Collier MD LAB BLOOD ORDERABLES Final Re sult Performing Organization Address [facility] Phone Number [place] See order comments [place] [address] * Phosphorus (12/28/2024 9:52 AM EDT) Phosphorus, Serum 3.9 2.7 - 4.5 mg/dL See order comments 12/28/2024 9:52 AM EDT 12/28/2024 9:52 AM EDT us Balaji Collier MD LAB BLOOD ORDERABLES Final Re sult Performing Organization Address [facility] Phone Number [place] See order comments [place] [address] * Magnesium (12/28/2024 9:52 AM EDT) Magnesium 2.2 1.6 - 2.6 mg/dL See order comments 12/28/2024 9:52 AM EDT 12/28/2024 9:52 AM EDT us Balaji Collier MD LAB BLOOD ORDERABLES Final Re sult Performing Organization Address [facility] Phone Number [place] See order comments [place] [address] * Calcium (12/28/2024 9:52 AM EDT) Calcium 8.8 8.4 - 10.2 mg/dL See order comments 12/28/2024 9:52 AM EDT 12/28/2024 9:52 AM EDT us Balaji Collier MD LAB BLOOD ORDERABLES Final Re sult Performing Organization Address [facility] Phone Number [place] See order comments [place] [address] * Albumin (12/28/2024 9:52 AM EDT) Albumin 4.5 3.5 - 5.0 g/dL See order comments 12/28/2024 9:52 AM EDT 12/28/2024 9:52 AM EDT Balaji Collier MD LAB BLOOD ORDERABLES Final Re sult Performing Organization Address [facility] Co de Phone Number [place] See order comments [place] [address] * Electrolyte panel (12/28/2024 9:52 AM EDT) [...] ORDERABLES Final Re sult Performing Organization Address [facility] Phone Number [place] See order comments [place] [address] from Last [address] [facility] Medicare [facility] Care Teams Plumber Supervisor Relationship Specialty Start Date End Date Billy Dc MD [address] [employer], [place] PCP - General 05/28/20
--- OUTSIDE RECORDS SUMMARY | 2025-02-10 12:12 | XMS_ITS | Encounter Summary ---
Author Organization [facility] Address [address] [facility] [address] [place] [address] Phone Care Team Providers Care Code Inspector Name Role Phone Billy Dc MD Primary Care Provider Encounter Details Date Type Department Care Team (Late st Contact Info) Description 02/07/2022 Documentation Only [facility] [address] [facility] [address] [place] [phone] Mikal Dias MD [address] [place] [address], [address] [place] [address] Social History Tobacco Use Types Packs/Day Years [...] Visit [facility] [address] [place] [address] Balaji Collier MD [address] [facility] [address] [place] [phone] documented as of this encounter Visit Diagnoses Not on filedocumented in this encounter Care Teams Code Inspector Relationship Specialty Start Date End Date Billy Dc MD [address] [place] [address] [address] [place] PCP - General 05/28/20 documented as of this encounter
--- OUTSIDE RECORDS SUMMARY | 2025-02-10 12:12 | XMS_ITS | Patient Health Record ---
Author Organization [facility] Address [address] [place] [address] Care Team Providers Care Machine Fancy Stitcher Name Role Phone Billy Dc MD Primary Care Provider Noreen Huber Unavailable [phone] Reason For Referral No Information Medications Medication [...] Problem Screening for malignant neoplasm of colon (316121185) Encounter for screening for malignant neoplasm of colon (Z12.11) Active confirmed Problem History of adenomatous polyp of colon (541132254) History of adenomatous polyp of colon (Z86.010) Active confirmed Problem Preprocedural examination (781081604877977) Preprocedural examination (Z01.818) Active confirmed Plan Of Treatment Future Test Test Name Order Date COLONOSCOPY 03/09/2020 Insurance Providers Payer Name Payer Address Payer Phone Subscriber Number Group Number Insured Name Patient Relationship to Insured Coverage Start Date Coverage End Date [facility] [address] [place] [phone] [id number] NOREEN JOSEPH Self - patient is the insured Medical (General) History Medical History History ICD Code Hypertension Sleep apnea- CPAP machine Tubular adenoma removed in 2002 and neg. colonoscopy in 2010 EGD in 2002-minimal gastritis-biopsies n egative for H. pylori Gout Denies IA,DM,CVA,Lung disease,renal dise ase Arthritis in ankles Surgical History Surgery Date(Month/Year) Broken ankles-has hardware Open wound on right pretibia l area--being treated at the [facility]--s/p debridement Detached retina OD
[2025-02-10 12:16] LABS: Microalbum/Creatinine Ratio Ur 27.6 ug/mg cr (<30)
== END 2025-02-10 10:42 | disposition home or self-care (01) ==
LOC: HO.LNP 10:41
PROVIDERS: Visit Provider Internal Medicine
DX: Z12.5 Encounter for screening for malignant neoplasm of prostate (principal); I10 Essential (primary) hypertension; R73.09 Other abnormal glucose; E78.00 Pure hypercholesterolemia, unspecified; R97.20 Elevated prostate specific antigen [PSA]; E03.9 Hypothyroidism, unspecified
CPT/HCPCS: 80053; 80061; 81001; 82043; 82570; 83036; 84153; 84439; 84443; 85025; 87086

== ENCOUNTER 2025-02-24 12:42 | Outpatient (REF) | payer MEDICARE, SELFPAY ==
[2025-02-24 20:33] LABS: PSA,Total (Free>4and<10) 2.95 ng/mL (0.00-4.00)
== END 2025-02-24 12:43 | disposition home or self-care (01) ==
LOC: HO.LNP 12:42
PROVIDERS: Visit Provider Internal Medicine
DX: R97.20 Elevated prostate specific antigen [PSA] (principal); Z12.5 Encounter for screening for malignant neoplasm of prostate
CPT/HCPCS: 84153

== ENCOUNTER 2025-03-03 09:43 | Outpatient (REF) | payer MEDICARE, SELFPAY ==
--- OUTSIDE RECORDS SUMMARY | 2023-09-07 05:15 | XMS_ITS ---
Author Organization Billy Dc MD Address [address] [place], [place] [id number] Care Team Providers Care Hotel Night Auditor Name Role Phone Billy Dc Primary Care Provider [phone] Allergies No Known Allergies REASON FOR VISIT 2 month, No Covid symptoms Medications Medication SIG (Take, Route, Frequency, Duration) Notes Start Date End Date Status Allopurinol 300 MG TAKE ONE TABLET BY MOUTH ONCE DAILY for 90 Active Levothyroxine Sodium 25 MCG 1 tablet in the morning on an empty stomach Orally Once a day for 30 day(s) 06/15/2023 Active traMADol HCl 50 MG 1 tablet as needed Orally every 12 hrs as needed for 30 days 07/09/2017 Not-Taking Percocet 5-325 MG 1 tablet as needed Orally every 6 hrs for 5 days 03/27/2016 Not-Taking Omeprazole 20 MG 1 capsule Orally Onc e a day for 30 day(s) 03/02/2014 Not-Taking amLODIPine Besylate 10 MG 1 tablet Orall y Once a day Active Rosuvastatin Calcium 20 MG 1 tablet Oral ly Once a day for 30 day(s) Active Vital Signs Blood pressure systolic 140 mm Hg 09/07/19 24 Blood pressure diastolic 62 mm Hg 024 Height 65.5 in 09/07/2023 Weight 271 lbs 09/07/2023 BMI 44.41 kg/m2 09/07/2023 weight is up 2 pounds since 06-15-23 Encounters Encounter Location Date Provider Diagnosis Billy Dc MD [address] [place] [address] [place] [phone] 09/07/2023 [facility] Essential hypertension I10 Assessments Encounter Date Diagnosis (ICD Code) Assessment Notes Treatment Notes Treatment Clinical Notes Section Notes 09/07/2023 Essential hypertension (ICD-10 - I10) doing well at present, will continue current regiment Plan Of Treatment Treatment Notes Assessment Notes Essential hypertension doing well at pre sent, will continue current regiment Next Appt Details Provider Name:Billy delgado, 05/26/2025 09:00:00 AM, [address] [place] [address], [address], [phone], Provider Name:Billy delgado, 08/22/2025 07:00:00 AM, [address] [place] [address], [address], [phone], Provider Name:Billy delgado, 02/13/2026 07:00:00 AM, [address] [place] [address], [address], [phone], Provider Name:Billy delgado, 02/20/2026 09:30:00 AM, [address] [place] [address], [address], [phone], Progress Notes * Chris JOSEPHDOB: (73 yo M)Acc No.[id number]:09/07/2023 Progress Notes Patient: Chris Norris Provider: Alvarado Dc MD :1950 A ge:73 Y S ex:Male Date:09/07/2023 Address: [address], [place], [id number] Subjective: * Chief Complaints: * 2 monthNo Covid symptoms * HPI: S ymptom(s): patient is a 73 yo male here for2 month follow up. has been on rosuvastatin for [address] aleman. * ROS: G eneral/Constitutional: Denies C hills. D enies F atigue. D enies F ever. D enies H eadache. E NT: Patient denies d ecreased sense of smell , any loss of taste , sore throat. D enies S ore throat. R espiratory: Denies C ough. D enies S hortness of breath at rest. D enies S hortness of breath with exertion. G astrointestinal: Denies D iarrhea. D enies N ausea. M usculoskeletal: Patient denies m uscle aches. P eripheral Vascular: Patient denies r ed and blue toes. * Medical History: * Surgical History: * Hospitalization/Major Diagno stic Procedure: * Medications: T akingRosuvastatin Calcium 20 MG Tablet 1 tablet Orally Once a dayamLODIPine Besylate 10 MG Tablet 1 tablet Orally Once a dayAllopurinol 300 MG Tablet TAKE ONE TABLET BY MOUTH ONCE DAILY Levothyroxine Sodium 25 MCG Tablet 1 tablet in the morning on an empty stomach Orally Once a dayTaking Rosuvastatin Calcium 20 MG Tablet 1 tablet Orally Once a dayTaking amLODIPine Besylate 10 MG Tablet 1 tablet Orally Once a dayTaking Allopurinol 300 MG Tablet TAKE ONE TABLET BY MOUTH ONCE DAILY Taking Levothyroxine Sodium 25 MCG Tablet 1 tablet in the morning on an empty stomach Orally Once a dayNot-Taking/PRNtraMADol HCl 50 MG Tablet 1 tablet as needed Orally every 12 hrs as neededPercocet 5-325 MG Tablet 1 tablet as needed Orally every 6 hrsOmeprazole 20 MG Capsule Delayed Release 1 capsule Orally Once a dayNot-Taking/PRN traMADol HCl 50 MG Tablet 1 tablet as needed Orally every 12 hrs as neededNot-Taking/PRN Percocet 5-325 MG Tablet 1 tablet as needed Orally every 6 hrsNot-Taking/PRN Omeprazole 20 MG Capsule Delayed Release 1 capsule Orally Once a dayDiscontinuedNystatin 018054 UNIT/ML Suspension 4 mL Mouth/Throat Four times a dayMedication List reviewed and reconciled with the patientDiscontinued Nystatin 814386 UNIT/ML Suspension 4 mL Mouth/Throat Four times a dayMedication List reviewed and reconciled with the patient * Allergies: N .K.D.A.yes[Allergies Verified] Objective: * Vitals: H t: 65.5, Wt:271, BMI:44.41, BP:140/62, Repeat BP:130/70 weight is up 2 pounds since 06-15-23. * P ast Orders: L ab:Free T4 (Free Thyroxine) (Order Date - 08/14/2023) (Collection Date - 08/14/2023) Value Reference Range Free T4 (Free Thyroxine) 0.83 0.71-1.85 - ng/ dL L ab:T4 Thyroxine (Order Date - 08/14/2023) (Collection Date - 08/14/2023) Value Reference Range T4 Thyroxine 4.9 4.5-12.0 - ug/dL L ab:TSH reflex Free T4 (Order Date - 08/14/2023) (Collection Date - 08/14/2023) Value Reference Range TSH reflex Free T4 4.42 H 0.32-4.0 - uIU/mL * Examination: G eneral Examination: GENERAL APPEARANCE: alert, well hydrated, in no distress , male. HEAD: normocephalic. SKIN: good turgor. HEART: no murmurs, rubs, gallops, regular rate and rhythm. LUNGS: no wheezes, rales, rhonchi, good air movement, clear to auscultation bilaterally. Assessment: * Assessment: 1. E ssential hypertension - I10 (Primary) Plan: * Treatment: * Procedure Codes: * * Sign off status: Completed true * Provider: Alvarado Dc MD Date: 0 09/07/2023 Generated for Natalya coker/Huseyin/Chava on: 1 11:10 AM EDT History and Physical Notes * HPI (History of Present Illness) Category Sub-Category Detail Notes Category Not es Symptom(s) patient is a 73 yo male here for2 month follow up. has been on rosuvastatin for [address] aleman Examination Category Sub-Category Detail Notes Category Not es General Examination GENERAL APPEARANCE: alert, w ell hydrated, in no distress , male HEAD: normocephalic HEART: no murmurs, rubs, ga llops, regular rate and rhythm LUNGS: no wheezes, rales, r honchi, good air movement, clear to auscultation bilaterally SKIN: good turgor
--- OUTSIDE RECORDS SUMMARY | 2023-10-09 05:02 | XMS_ITS ---
Author Organization Billy Dc MD Address [address] [place] [phone] Care Team Providers Care Top Closer Name Role Phone Billy Dc Primary Care Provider [phone] REASON FOR VISIT refill Levothyroxine Medications Medication SIG (Take, Route, Frequency, Duration) Notes Start Date End Date Status Levothyroxine Sodium 25 MCG TAKE ONE TAB LET BY MOUTH EVERY DAY IN THE MORNING ON AN EMPTY STOMACH Orally Once a day for 90 days Active Encounters Encounter Location Date Provider Diagnosis Billy Dc MD [address] [facility] [address] [place], [place] [phone] 10/09/2023 Billy Dc Plan Of Treatment Medication Medication Name Sig Start Date Stop Date Notes Levothyroxine Sodium 25 MCG TAKE ONE TAB LET BY MOUTH EVERY DAY IN THE MORNING ON AN EMPTY STOMACH Orally Once a day for 90 days Next Appt Details Provider Name:Billy delgado, 05/26/2025 09:00:00 AM, [address] [place] [address] Drive, [address], [place], [phone], Provider Name:Billy Justin danny, 08/22/2025 07:00:00 AM, [address] [facility], [address], [place], [place], [phone], Provider Name:Billy Justin danny, 02/13/2026 07:00:00 AM, [address] [place] [address], [address], [place], [phone], Provider Name:Billy Justin darior, 02/20/2026 09:30:00 AM, [address] [place] [address], [address], [place], [phone], Progress Notes * Chris JOSEPHDOB: 2 (73 yo M)Acc No.[id number]:10/09/2023 Patient: Kadeem Chris vuong :1950 A ge:73 Y S ex:Male Address: [address], [place] [address] * Refills Refill Levothyroxine Sodium Tablet, 25 MCG, Orally, 90, TAKE ONE TABLET BY MOUTH EVERY DAY IN THE MORNING ON AN EMPTY STOMACH, Once a day, 90 days, Refills=4 * true * Date: Generated for Natalya coker/Huseyin/Chava on: 11:11 AM EDT
--- OUTSIDE RECORDS SUMMARY | 2024-02-02 03:00 | XMS_ITS ---
Author Organization Billy Dc MD Address [address] [place], [place] [phone] Care Team Providers Care Cloth Hauler Name Role Phone Billy Dc Primary Care Provider [phone] Results Component Value Reference Range Notes Complete Blood Count Auto Di ff Reviewed date:02/02/2024 12:45:24 PM Interpretation: Performing Lab:[facility], [address] [place] [phone] Notes/Report: White Blood Count 4.5 4.8-10.8 X10*3/uL [...] NRBC Abs Auto 0.000 0.0-0.012 X10*3/uL Comprehensive [place]. Panel Fa st Reviewed date:02/02/2024 12:40:55 PM Interpretation: Performing Lab:[facility], [address] [place] [phone] Notes/Report: Sodium 141 135-145 mmol/L Potassium 4.1 3.3-5.1 mmol/L Chloride 105 96-108 mmol/L Carbon Dioxide 28 22-29 mmol/L Anion Gap 12 12-20 Blood Urea Nitrogen 19 9-16 mg/dL Creatinine 1.26 0.5-1.4 mg/dL Estimated Glomerular Filt Rate 56 NOTE: For -Citizen Of [place] individuals, multiply the result by 1.210. Chronic [...] Panel Reviewed date:02/02/2024 12:39:01 PM Interpretation: Performing Lab:[address] [phone] Notes/Report: Triglycerides 95 <150 mg/dL Desirable Triglyceride: [...] (Free>4and<10) Reviewed date:02/02/2024 12:40:38 PM Interpretation: Performing Lab:[address] [phone] Notes/Report: PSA,Total (Free>4and<10) 1.56 0.00-4.00 ng/mL A [...] T4 Reviewed date:02/02/2024 12:39:37 PM Interpretation: Performing Lab:[address] [place] [address] Notes/Report: TSH reflex Free T4 3.00 0.32-4.0 uIU/mL Microalbumin, Random Reviewed date:02/02/2024 12:38:11 PM Interpretation: Performing Lab:[address] [phone] Notes/Report: Creatinine Urine 50.28 Microalbumin Urine 105.0 Microalbum/Creatinine Ratio Ur 208.8 <30 ug/mg cr Albumin/Creatinine Ratio Reference Ranges: Normal: < 30 ug/mg creatinine Microalbuminuria: 30 - 300 ug/mg creatinine Clinical Albuminuria: > 300 ug/mg creatinine Hemoglobin A1c Reviewed date:02/02/2024 12:39:45 PM Interpretation: Performing Lab:[address] [phone] Notes/Report: Hemoglobin A1c % 4.9 <6.0 % [...] average glucose, using the formula of the I9P-Ilmwxcb Average Glucose study (ADAG), Diabetes Care, Vol.31,#8, Dec. 2007 UA ClnCatch+Micro w/rflx Cul t Reviewed date:02/02/2024 12:41:45 PM Interpretation: Performing Lab:[address] [phone] Notes/Report: Urine, Clean Catch Color Urine Yellow Appearance Urine Clear PH 6.5 5.0-9.0 Glucose Urine UA Negative Negative mg/dL Urine Blood Negative Negative Specific [place] - Urine 1.010 1.005-1.025 Urine Protein Trace [...] Location Date Provider Diagnosis Billy Dc MD [address] [place] [address] [place] [phone] 02/02/2024 Billy Dc Essential hypertensi on I10 [...] Details Provider Name:Billy delgado, 05/26/2025 09:00:00 AM, [address] [place] [address], [address], [phone], Provider Name:Billy delgado, 08/22/2025 07:00:00 AM, [address] [place] [address], [address], [phone], Provider Name:Billy delgado, 02/13/2026 07:00:00 AM, [address] [place] [address], [address], [phone], Provider Name:Billy delgado, 02/20/2026 09:30:00 AM, [address] [place] [address], [address], [phone], Progress Notes * Chris JOSEPHDOB: 2 (75 yo M)Acc No.[id number]:02/02/2024 Progress Note Patient: Kadeem Chris LEE Provider: Alvarado Dc MD :1950 A ge:74 Y S ex:Male Date:02/02/2024 Address: [address] [id number] Subjective: * Chief Complaints: * 1 . [...] - 02/02/2024 07:00 AM) L AB: Comprehensive [place]. Panel Fast (Collection Date & Time - [...] - 02/02/2024 07:00 AM) L AB: Comprehensive [place]. Panel Fast (Collection Date & Time - [...] - 02/02/2024 07:00 AM) L AB: Comprehensive [place]. Panel Fast (Collection Date & Time - [...] - 02/02/2024 07:00 AM) L AB: Comprehensive [place]. Panel Fast (Collection Date & Time - [...] FLU VAC NO FEE SCHED SAME DAY, [address] VENIPUNCT, ROUTINE* * * The named appointment provid er may or may not be the originator of this progress note, and it is not deemed complete until electronically signed by the appointment provider. Sign off status: Pending * Provider: Alvarado Dc MD Date: 0 02/02/2024 Generated for Natalya coker/Huseyin/Arielitting on: 1 11:09 AM EDT
--- OUTSIDE RECORDS SUMMARY | 2024-02-12 05:30 | XMS_ITS ---
Author Organization Billy Dc MD Address [address] [place], [place] [phone] Care Team Providers Care Rotary Drier Feeder Name Role Phone Billy Dc Primary Care [...] kg/m2 02/12/2024 weight is down 3 pounds formerly [facility] 09-07-23 Encounters Encounter Location Date Provider Diagnosis Billy Dc MD [address] [place] [address] [place] [phone] 02/12/2024 Billy Dc Head and neck cancer [...] Reason: Provider Name:Billy delgado, 05/26/2025 09:00:00 AM, [address] [place] [address], [address], [phone], Provider Name:Billy delgado, 08/22/2025 07:00:00 AM, [address] [place] [address], [address], [phone], Provider Name:Billy delgado, 02/13/2026 07:00:00 AM, [address] [place] [address], [address] [place] [address], [phone], Provider Name:Billy delgado, 02/20/2026 09:30:00 AM, [address] [place] [address], [address], [phone], Progress Notes * Chris JOSEPHDOB: 2 (74 yo M)Acc No.[id number]:02/12/2024 Patient: Chris Norris Provider: Alvarado Dc MD :1950 A ge:74 Y S ex:Male Date:02/12/2024 Address: [address], [place], [id number] Subjective: * Chief Complaints: * R eview [...] - healthy. . Father- old age Mother [place], No pertinent family medical history, No pertinent [...] outside of the [place]: yes, [employer] [place]. * Medications: T akingRosuvastatin Calcium 20 MG [...] Average Glucose 94 - mg/dL L ab:Comprehensive [place]. Panel Fast (Order Date - 02/02/2024) (Collection [...] mg/dL Urine Blood Negative Negative - Specific [place] - Urine 1.010 1.005-1.025 - Urine Protein [...] 0 02/12/2024 Generated for Natalya coker/Huseyin/Chava on: 1 11:10 [...]
--- OUTSIDE RECORDS SUMMARY | 2024-08-02 03:15 | XMS_ITS ---
Author Organization Billy Dc MD Address [address] [place], [place] [phone] Care Team Providers Care Golf Sales Manager Name Role Phone Billy Dc Primary Care Provider Results Component Value Reference Range Notes Liver Panel Reviewed date:08/03/2024 03:18:28 PM Interpretation: Performing Lab:[facility], [address] [place] [phone] Notes/Report: Bilirubin Total 0.6 0.0-1.0 mg/dL Bilirubin Direct 0.3 0.0-0.5 mg/dL Aspartate Amino Transferase 72 5-37 U/L Alanine Aminotransferase 28 0-40 U/L Total Protein 7.4 6.5-8.0 g/dL Albumin Level 4.1 3.5-5.0 g/dL Alkaline Phosphatase 73 39-117 U/L Lipid Panel with Reflex Reviewed date:08/03/2024 03:25:49 PM Interpretation: Performing Lab:[facility], [address] [place] [phone] Notes/Report: Triglycerides 93 <150 mg/dL Desirable Triglyceride: [...] Location Date Provider Diagnosis Billy Dc MD [address] [place] [phone] 08/02/2024 Billy Dc Pure hypercholestero lemia E78.00 Assessments Encounter Date Diagnosis (ICD Code) Assessment Notes Treatment Notes Treatment Clinical Notes Section Notes 08/02/2024 Pure hypercholesterolemia (ICD-10 - E78.00) Plan Of Treatment Next Appt Details Provider Name:Billy delgado, 05/26/2025 09:00:00 AM, [address] [place] [address], [phone], Provider Name:Billy delgado, 08/22/2025 07:00:00 AM, [address] [place] [address], [address], [phone], Provider Name:Billy delgado, 02/13/2026 07:00:00 AM, [address] [place] [address], [phone], Provider Name:Billy delgado, 02/20/2026 09:30:00 AM, [address] [place] [address], [phone], Progress Notes * Ean JOSEPH: 2 (75 yo M)Acc No.[id number]:08/02/2024 Progress Note Patient: Chris BANEGAS Provider: Alvarado Dc MD :1950 A ge:74 Y S ex:Male Date:08/02/2024 Address:[address] [place] [address] , [place], [id number] Subjective: * Chief Complaints: * 1 . [...] 08/02/2024 Generated for Natalya coker/Huseyin/Arielitting on: 1 11:10 AM EDT
--- OUTSIDE RECORDS SUMMARY | 2024-08-09 04:30 | XMS_ITS ---
Author Organization Billy Dc MD Address [address] [place], [place] [phone] Care Team Providers Care Silver Plater Name Role Phone Billy Dc Primary Care Provider [phone] Allergies No Known Allergies Results Component [...] Status W/U Status Risk Notes Problem Sciatica (78620276) Sciatica (M54.30) Active confirmed Problem Cardiac pacemaker in situ (642618933) Pacemaker (Z95.0) Active confirmed Vital Signs Blood pressure systolic 122 mm Hg 08/10/19 Blood pressure diastolic 64 mm Hg 025 Height 65.5 in 08/09/2024 Weight 275 lbs 08/09/2024 BMI 45.06 kg/m2 08/09/2024 weight is up 7 pounds since 02-12-24 Encounters Encounter Location Date Provider Diagnosis Billy Dc MD [address] [place] [address] [place] [phone] 08/09/2024 Billy Dc Prediabetes R73.09 ; Sciatica [...] Justin ier, 05/26/2025 09:00:00 AM, [address] [facility], [address], [place], [place], [phone], Provider Name:Billy Justin ier, 08/22/2025 07:00:00 AM, [address], [place], [place], [phone], Provider Name:Billy Justin ier, 02/13/2026 07:00:00 AM, [address] [place] [address], [address], [place], [place], [phone], Provider Name:Billy Justin ier, 02/20/2026 09:30:00 AM, [address] [place] [address], Suite [facility], [place], [place], [phone], Progress Notes * OPAL ChrisDOB: (74 yo M)Acc No.[id number]:08/09/2024 Progress Notes Patient: Chris BANEGAS Provider: Alvarado Dc MD :1950 A ge:74 Y S ex:Male Date:08/09/2024 Address:[address] [place] [address] , [place], [id number] Subjective: * Chief Complaints: * 6 month [...] 2947 ASSAY, GLUCOSE, BLOOD QUANT, Modifiers: QW 74180 GLYCATED HEMOGLOBIN TEST, Modifiers: QW * * Sign off status: Completed true * Provider: Alvarado Dc MD Date: 0 08/09/2024 Generated for Natalya coker/Huseyin/Arielitting on: 1 11:10 AM EDT History and [...]
--- OUTSIDE RECORDS SUMMARY | 2025-02-10 03:30 | XMS_ITS ---
Author Organization Billy Dc MD Address [address] [place], [place] [id number] Care Team Providers Care Financial Services Auditor Name Role Phone Billy Dc Primary Care Provider Results Component Value Reference Range Notes Complete Blood Count Auto Di ff Reviewed date:02/10/2025 12:25:34 PM Interpretation: Performing Lab:[facility], [address] [place] [phone] Notes/Report: White Blood Count 6.3 4.8-10.8 X10*3/uL [...] Panel Reviewed date:02/10/2025 12:17:48 PM Interpretation: Performing Lab:[facility], [address] [place] [phone] Notes/Report: Triglycerides 84 <150 mg/dL Desirable Triglyceride: [...] Reviewed date:02/17/2025 10:20:41 AM Interpretation:FAYE 02/17/25 Performing Lab:[address] [address] Notes/Report: PSA,Total (Free>4and<10) 17.74 0.00-4.00 ng/mL A [...] T4 Reviewed date:02/10/2025 12:17:29 PM Interpretation: Performing Lab:[address] [address] Notes/Report: TSH reflex Free T4 4.05 0.32-4.0 uIU/mL Microalbumin, Random Reviewed date:02/10/2025 12:25:09 PM Interpretation: Performing Lab:[address] [address] Notes/Report: Creatinine Urine 191.98 Microalbumin Urine 53.0 Microalbum/Creatinine Ratio Ur 27.6 <30 ug/mg cr Albumin/Creatinine Ratio Reference Ranges: Normal: < 30 ug/mg creatinine Microalbuminuria: 30 - 300 ug/mg creatinine Clinical Albuminuria: > 300 ug/mg creatinine Hemoglobin A1c Reviewed date:02/10/2025 12:25:42 PM Interpretation: Performing Lab:[address] [address] Notes/Report: Hemoglobin A1c % 5.1 <6.0 % [...] average glucose, using the formula of the Q0V-Spmefjg Average Glucose study (ADAG), Diabetes Care, Vol.31,#8, Dec. 2007 UA ClnCatch+Micro w/rflx Cul t Reviewed date:02/10/2025 04:27:47 PM Interpretation: Performing Lab:[facility], [address] [place] [address], [place] [address] Notes/Report: Urine, Clean Catch Color Urine Yellow Appearance Urine Clear PH 6.5 5.0-9.0 Glucose Urine UA Negative Negative mg/dL Urine Blood Negative Negative Specific [place] - Urine 1.020 1.005-1.025 Urine Protein 30 [...] Date Provider Diagnosis Billy Dc MD [address] [facility] [address] [place], [place] [phone] 02/10/2025 Billy Dc Essential hypertensi on I10 [...] Pending Test Test Name Order Date Comprehensive [place]. Panel Fast Next Appt Details Provider Name:Billy Justin ier, 05/26/2025 09:00:00 AM, [address], [address], [place], [place], [phone], Provider Name:Billy Justin ier, 08/22/2025 07:00:00 AM, [address], [address], [place], [phone], Provider Name:Billy Justin ier, 02/13/2026 07:00:00 AM, [address], [address], [place], [place], [phone], Provider Name:Billy Justin ier, 02/20/2026 09:30:00 AM, [address], [address], [place], [phone], Progress Notes * OPAL ChrisDOB: 2 (75 yo M)Acc No.[id number]:02/10/2025 Progress Note Patient: Chris BANEGAS Provider: Alvarado Dc MD :1950 A ge:75 Y S ex:Male Date:02/10/2025 Address:[address] [place] [address] [address] STEPHENWICHOUriel Santos [phone] Subjective: * Chief Complaints: * 1 . [...] Treatment: 2. P rediabetes L AB: Comprehensive [place]. Panel Fast L AB: Complete Blood Count [...] 3. P ure hypercholesterolemia L AB: Comprehensive [place]. Panel Fast L AB: Complete Blood Count [...] 4. E levated PSA L AB: Comprehensive [place]. Panel Fast L AB: Complete Blood Count [...] 5. A cquired hypothyroidism L AB: Comprehensive [place]. Panel Fast L AB: Complete Blood Count [...] 0662 FLU VACC PRSV FREE INC ANTIG, 68941 VENIPUNCT, ROUTINE*, G0008 ADMN FLU VAC NO FEE SCHED SAME DAY * * The named appointment provid er may or may not be the originator of this progress note, and it is not deemed complete until electronically signed by the appointment provider. Sign off status: Pending * Provider: Alvarado Dc MD Date: 0 02/10/2025 Generated for Natalya coker/Huseyin/Arielitting on: 1 11:10 AM EDT
--- OUTSIDE RECORDS SUMMARY | 2025-02-17 05:30 | XMS_ITS ---
Author Organization Billy Dc MD Address [address] [place], [place] [phone] Care Team Providers Care Top Flavor Attendant Name Role Phone Billy Dc Primary Care [...] Status W/U Status Risk Notes Problem Anxiety ([id number]) Anxiety (F41.9) Active confirmed Vital Signs Blood pressure systolic 120 mm Hg 02/18/20 25 Blood pressure diastolic 64 mm Hg 025 Height 65.5 in 02/17/2025 Weight 245 lbs 02/17/2025 BMI 40.15 kg/m2 02/17/2025 weight is down 30 pounds [facility] 3-25-25 Encounters Encounter Location Date Provider Diagnosis Billy Dc MD [address] [place] [address] [place] [phone] 02/17/2025 Billy Dc Elevated PSA R97.20 ; [...] I71.2) need notes from dr vazquez at [facility]/ REQUEST MADE TO [facility] MED RECORDS 02/17/2025 Anxiety (ICD-10 - F41.9) [...] need notes fro m dr vazquez at [facility]/ REQUEST MADE TO [facility] MED RECORDS Anxiety patient verbalized u nderstanding [...] Reason: Provider Name:Billy delgado, 05/26/2025 09:00:00 AM, [address] [place] [address], [address], [place], [place], [phone], Provider Name:Billy bishopr, 08/22/2025 07:00:00 AM, [address], [address], [place], [phone], Provider Name:Billy Justin ier, 02/13/2026 07:00:00 AM, [address], [address], [place], [phone], Provider Name:Billy Justin ier, 02/20/2026 09:30:00 AM, [address], [address], [place], [phone], Progress Notes * Chris JOSEPHDOB: (75 yo M)Acc No.[id number]:02/17/2025 Patient: Chris BANEGAS Provider: Alvarado Dc MD :1950 A ge:75 Y S ex:Male Date:02/17/2025 Address:[address] [place] [address] , [place], [id number] Subjective: * Chief Complaints: * R eview [...] mg/dL Urine Blood Negative Negative - Specific [place] - Urine 1.020 1.005-1.025 - Urine Protein [...] Procedure Codes: 8 2270 TEST FOR BLOOD, [id number] Complex e/m visit add on * Follow Up: 3 Months * * Sign off status: Completed true * Provider: Alvarado Dc MD Date: Generated for Natalya coker/Huseyin/Bernardoransmitting on: 11:09 AM EDT History and Physical Notes * [...]
--- OUTSIDE RECORDS SUMMARY | 2025-02-24 04:30 | XMS_ITS ---
Author Organization Billy Dc MD Address [address] [place], [place] [phone] Care Team Providers Care Voltmeter Operator Name Role Phone Billy Dc Primary Care Provider [phone] Results Component Value Reference Range Notes PSA,Total (Free>4and<10) Reviewed date:02/28/2025 12:35:13 PM Interpretation: Performing Lab:[facility], [address] [place] [phone] Notes/Report: PSA,Total (Free>4and<10) 2.95 0.00-4.00 ng/mL A [...] Location Date Provider Diagnosis Billy Dc MD [address] [place] [address] [place] [phone] 02/24/2025 Billy Dc Elevated PSA R97.20 Assessments Encounter Date Diagnosis (ICD Code) Assessment Notes Treatment Notes Treatment Clinical Notes Section Notes 02/24/2025 Elevated PSA (ICD-10 - R97.20) Plan Of Treatment Next Appt Details Provider Name:Billy delgado, 05/26/2025 09:00:00 AM, [address] [place] [address], Suite [facility], [place], [place], [phone], Provider Name:Billy delgado, 08/22/2025 07:00:00 AM, [address] [place] [address], [address], [phone], Provider Name:Billy delgado, 02/13/2026 07:00:00 AM, [address] [place] [address], Suite [facility], [place], [place], [phone], Provider Name:Billy delgado, 02/20/2026 09:30:00 AM, [address] [place] [address], [address], [phone], Progress Notes * CAROLYNNNED ChrisDOB: 2 (75 yo M)Acc No.[id number]:02/24/2025 Progress Note Patient: Chris BANEGAS Provider: Alvarado [...] MD Date: Generated for Natalya coker/Huseyin/Chava on: 11:10 AM EDT
--- OUTSIDE RECORDS SUMMARY | 2025-03-03 05:00 | XMS_ITS ---
Author Organization Billy Dc MD Address [address] [place] [phone] Care Team Providers Care Orthotic Fitter Name Role Phone Billy Dc Primary Care Provider REASON FOR VISIT PSA Encounters Encounter Location Date Provider Diagnosis Billy Dc MD [address] [facility] [address] [place] [phone] 03/03/2025 Billy Dc Elevated PSA measurement R97.20 Assessments Encounter Date Diagnosis (ICD Code) Assessment Notes Treatment Notes Treatment Clinical Notes Section Notes 03/03/2025 Elevated PSA measurement (ICD-10 - R97.20) Plan Of Treatment Pending Test Test Name Order Date PSA,Total (Free>4and<10) 03/03/2025 Next Appt Details Provider Name:Billy delgado, 05/26/2025 09:00:00 AM, [address] [facility], [address], [place], [place], [phone], Provider Name:Billy delgado, 08/22/2025 07:00:00 AM, [address], [address], [place], [phone], Provider Name:Billy Justin ier, 02/13/2026 07:00:00 AM, [address], [address], [place], [phone], Provider Name:Billy Justin ier, 02/20/2026 09:30:00 AM, [address], [address], [place], [phone], Progress Notes * Chris JOSEPHDOB: (75 yo M)Acc No.[id number]:03/03/2025 Progress Note Patient: Chris BANEGAS Provider: Alvarado Dc MD :1950 A ge:75 Y S ex:Male Date:03/03/2025 Address:[address] [place] [address] [place], [id number] Subjective: * Chief Complaints: * 1 . PSA. * Medical History: Objective: * Vitals: Assessment: * Assessment: 1. E levated PSA measurement - R97.20 Plan: * Treatment: * Procedure Codes: 3 6415 VENIPUNCT, ROUTINE* * * The named appointment provid er may or may not be the originator of this progress note, and it is not deemed complete until electronically signed by the appointment provider. Sign off status: Pending * Provider: Alvarado Dc MD Date: Generated for Natalya coker/Huseyin/Dextersmitting on: 11:09 AM EDT
--- OUTSIDE RECORDS SUMMARY | 2025-03-03 11:09 | XMS_ITS | Clinical Summary ---
Author Organization [facility] Address [address] [phone] Phone Care Team Providers Care Advertising Clerk Name Role Phone Billy Dc MD Primary Care Provider [phone] Allergies No known active allergies Medications allopurinol [...] 5 mg before bedtime. Active nystatin (MYCOSTATIN) 699686 UNIT/ML suspension SWISH AND SPIT WITH 5ML FOUR TIMES A DAY FOR 2-4 WEEKS 3 Active levothyroxine (SYNTHROID, LEVOTHROID) 25 MCG tablet Take 25 mcg by mouth 1 (one) time each day Active rosuvastatin (CRESTOR) 20 MG tablet Take 20 mg by mouth 1 (one) time each day Active amLODIPine (NORVASC) 10 MG tablet 1 (one) time each day Active ergocalciferol 1.25 MG (71310 UT) capsule Take 1 capsule (50,000 Units [...] Thoracic aortic aneurysm without rupture 023 Tubular adenomatous polyp of colon 06/10/2022 Mixed conductive and sensorineural [...] Office Visit [facility] [address] [place] [address] Balaji Collier MD Stage 3a chronic kidney disease (HCC) (Primary Dx); Renal osteodystrophy 12/30/2024 Office Communication [facility] [address] [phone] Prasanna Mendez 12/29/2024 Office Communication [facility] [address] [phone] Ritesh Diaz MD 12/28/2024 Orders Only [facility] [address] [phone] Balaji Collier MD from Last 3 Months [...] Visit [facility] the [address] [place] [address] Balaji Collier MD [address] [facility] [address] [place] [address] Health Maintenance Due Date Last [...] ORDERABLES Final Re sult Performing Organization Address [facility] de Phone Number [place] See order comments [place] [address] * (ABNORMAL) Albumin, urine, random (12/28/2024 10:47 [...] ORDERABLES Final Re sult Performing Organization Address [facility] Co de Phone Number [facility] See order comments [place] [address] * Urinalysis with microscopic (12/28/2024 10:47 AM EDT) Color Urine Yellow See orde r comments Appearance Urine Clear See order comments pH Urine 8.0 5.0 - 9.0 See order comments Glucose Urine Negative Negative mg/dL See order comments Blood, Urine Negative Negative See ord er comments Specific [place] Urine 1.010 1.005 - 1.025 See order [...] ORDERABLES Final Re sult Performing Organization Address [facility] de Phone Number [place] See order comments [place] [address] * Creatinine (12/28/2024 9:52 AM EDT) Creatinine Serum 1.16 0.5 - 1.4 mg/dL See order comments eGFR (Calc) >60 See orde r comments Comment: Chronic Kidney Disease: Estimated GFR < 60 mL/min/1.73m2 Severe Kidney Disease: Estimated GFR < 15 mL/min/1.73m2 12/28/2024 9:52 AM EDT 12/28/2024 9:52 AM EDT Balaji Collier MD LAB BLOOD ORDERABLES Final Re sult Performing Organization Address [facility] de Phone Number [place] See order comments [place] [address] * (ABNORMAL) PTH, Intact (12/28/2024 9:52 AM EDT) Parathyroid Hormone, Intact 197.5(H) 8.7 - 77.1 pg/mL See order comments 12/28/2024 9:52 AM EDT 12/28/2024 9:52 AM EDT Balaji Collier MD LAB [id number] SOLICITED RESULTS Final Result Performing Organization Address City/[facility]/ZIP Co de Phone Number [place] See order comments [place] [address] * (ABNORMAL) Vitamin D 25 Hydroxy (12/28/2024 [...] order comments [place] [address] * (ABNORMAL) CBC and Differential (12/28/2024 9:52 [...] order comments [place] [address] * BUN (12/28/2024 9:52 AM EDT) BUN 15 9 - 16 mg/dL See order comments 12/28/2024 9:52 AM EDT 12/28/2024 9:52 AM EDT us Balaji Collier MD LAB BLOOD ORDERABLES Final Re sult Performing Organization Address [facility] Phone Number [place] See order comments [place] [address] * Phosphorus (12/28/2024 9:52 AM EDT) Phosphorus, Serum 3.9 2.7 - 4.5 mg/dL See order comments 12/28/2024 9:52 AM EDT 12/28/2024 9:52 AM EDT us Balaji Collier MD LAB BLOOD ORDERABLES Final Re sult Performing Organization Address [facility] Phone Number [place] See order comments [place] [address] * Magnesium (12/28/2024 9:52 AM EDT) Magnesium 2.2 1.6 - 2.6 mg/dL See order comments 12/28/2024 9:52 AM EDT 12/28/2024 9:52 AM EDT us Balaji Collier MD LAB BLOOD ORDERABLES Final Re sult Performing Organization Address [facility] Phone Number [place] See order comments [place] [address] * Calcium (12/28/2024 9:52 AM EDT) Calcium 8.8 8.4 - 10.2 mg/dL See order comments 12/28/2024 9:52 AM EDT 12/28/2024 9:52 AM EDT us Balaji Collier MD LAB BLOOD ORDERABLES Final Re sult Performing Organization Address [facility] Phone Number [place] See order comments [place] [address] * Albumin (12/28/2024 9:52 AM EDT) Albumin 4.5 3.5 - 5.0 g/dL See order comments 12/28/2024 9:52 AM EDT 12/28/2024 9:52 AM EDT Balaji Collier MD LAB BLOOD ORDERABLES Final Re sult Performing Organization Address City/[facility] Co de Phone Number [place] See order comments [place] [address] * Electrolyte panel (12/28/2024 9:52 AM EDT) [...] ORDERABLES Final Re sult Performing Organization Address [facility] de Phone Number [place] See order comments [place] [address] from Last 3 Months Insurance Medicare [facility] Medicare [facility] Care Teams Advertising Clerk Relationship Specialty Start Date End Date Billy Dc MD [address] [place], [place] PCP - General 05/28/20
--- OUTSIDE RECORDS SUMMARY | 2025-03-03 11:10 | XMS_ITS | Patient Health Record ---
Author Organization [facility] Address [address] [place] [address] Care Team Providers Care Intermediate Project Manager Name Role Phone Billy Dc MD Primary Care Provider Noreen Huber Unavailable [phone] Reason For Referral No Information Medications Medication SIG (Take, Route, Frequency, Duration) Notes Start Date End Date Status Furosemide 40 MG 1 tablet Oral Once a day Active hydrALAZINE HCl 25 MG TAKE ONE TABLET BY MOUTH THREE TIMES A DAY WITH FOOD Oral; Duration: 60 Active Indomethacin 50 MG TAKE 1-2 CAPSULES BY MOUTH THREE TIMES A DAY WITH FOOD Oral; Duration: 45 Twice a day Active Metoprolol Succinate ER 50 MG TAKE ONE TABLET BY MOUTH EVERY DAY Oral; Duration: 90 Active dilTIAZem HCl ER Coated Beads 240 MG TAKE ONE CAPSULE BY MOUTH EVERY DAY Oral; Duration: 90 Active Valsartan 320 MG TAKE ONE TABLET BY MOUTH EVERY DAY Oral; Duration: 90 Active Allopurinol 300 MG TAKE ONE TABLET BY MOUTH EVERY DAY Oral; Duration: 90 Active Immunizations Vaccine Route Administration Date [...] Problem Screening for malignant neoplasm of colon (809891602) Encounter for screening for malignant neoplasm of colon (Z12.11) Active confirmed Problem History of adenomatous polyp of colon (957065158) History of adenomatous polyp of colon (Z86.010) Active confirmed Problem Preprocedural examination (741961131256794) Preprocedural examination (Z01.818) Active confirmed Plan Of Treatment Future Test Test Name Order Date COLONOSCOPY 03/09/2020 Insurance Providers Payer Name Payer Address Payer Phone Subscriber Number Group Number Insured Name Patient Relationship to Insured Coverage Start Date Coverage End Date [facility] [address] [place] [phone] [id number] NOREEN JOSEPH Self - patient is the insured Medical (General) History Medical History History ICD Code Hypertension Sleep apnea- CPAP machine Tubular adenoma removed in 2002 and neg. colonoscopy in 2010 EGD in 2002-minimal gastritis-biopsies n egative for H. pylori Gout Denies ID,DM,CVA,Lung disease,renal dise ase Arthritis in ankles Surgical History Surgery Date(Month/Year) Broken ankles-has hardware Open wound on right pretibia l area--[place] [facility] [place] [facility] [place] de[place] Detached retina OD
--- OUTSIDE RECORDS SUMMARY | 2025-03-03 11:11 | XMS_ITS | Encounter Summary ---
Author Organization [facility] Address [address] [facility] [address] [place] [address] Phone Care Team Providers Care Presentation Team Member Name Role Phone Billy Dc MD Primary Care Provider Encounter Details Date Type Department Care Team (Late st Contact Info) Description 02/07/2022 Documentation Only [facility] [address] [facility] [address] [place] [phone] Mikal Dias MD [address] [place] [address], [address] [place] [address] Social History Tobacco Use Types Packs/Day Years [...] [facility] [address] [place] [address] Balaji Collier MD [address] [facility] [address] [place] [phone] documented as of this encounter Visit Diagnoses Not on filedocumented in this encounter Care Teams Presentation Team Member Relationship Specialty Start Date End Date Billy Dc MD [address] [place] [address] [address] [place] PCP - General 05/28/20 documented as of this encounter
--- OUTSIDE RECORDS SUMMARY | 2025-03-03 11:11 | XMS_ITS | Patient Health Record ---
Author Organization Billy Dc MD Address [address] [place], [place] [id number] Care Team Providers Care Dredge Hand Name Role Phone Billy Dc Primary Care Provider Allergies No Known Allergies Results Component Value Reference Range Notes Hemoglobin A1c Reviewed date:08/09/2024 08:25:30 AM Interpretation: Performing Lab: Notes/Report: Hemoglobin A1c 5.1 Liver Panel Reviewed date:08/03/2024 03:18:28 PM Interpretation: Performing Lab:[facility], [address] [place] [phone] Notes/Report: Bilirubin Total 0.6 0.0-1.0 mg/dL Bilirubin Direct 0.3 0.0-0.5 mg/dL Aspartate Amino Transferase 72 5-37 U/L Alanine Aminotransferase 28 0-40 U/L Total Protein 7.4 6.5-8.0 g/dL Albumin Level 4.1 3.5-5.0 g/dL Alkaline Phosphatase 73 39-117 U/L Lipid Panel with Reflex Reviewed date:08/03/2024 03:25:49 PM Interpretation: Performing Lab:[facility], [address] [place] [phone] Notes/Report: Triglycerides 93 <150 mg/dL Desirable Triglyceride: [...] disease. Complete Blood Count Auto Di ff Reviewed date:02/10/2025 12:25:34 PM Interpretation: Performing Lab:[facility], [address] [place] [phone] Notes/Report: White Blood Count 6.3 4.8-10.8 X10*3/uL [...] Panel Reviewed date:02/10/2025 12:17:48 PM Interpretation: Performing Lab:[address] [phone] Notes/Report: Triglycerides 84 <150 mg/dL Desirable Triglyceride: [...] Reviewed date:02/17/2025 10:20:41 AM Interpretation:FAYE 02/17/25 Performing Lab:[address] [phone] Notes/Report: PSA,Total (Free>4and<10) 17.74 0.00-4.00 ng/mL A [...] T4 Reviewed date:02/10/2025 12:17:29 PM Interpretation: Performing Lab:[address] [phone] Notes/Report: TSH reflex Free T4 4.05 0.32-4.0 uIU/mL Microalbumin, Random Reviewed date:02/10/2025 12:25:09 PM Interpretation: Performing Lab:[address] [phone] Notes/Report: Creatinine Urine 191.98 Microalbumin Urine 53.0 Microalbum/Creatinine Ratio Ur 27.6 <30 ug/mg cr Albumin/Creatinine Ratio Reference Ranges: Normal: < 30 ug/mg creatinine Microalbuminuria: 30 - 300 ug/mg creatinine Clinical Albuminuria: > 300 ug/mg creatinine Hemoglobin A1c Reviewed date:02/10/2025 12:25:42 PM Interpretation: Performing Lab:[address] [phone] Notes/Report: Hemoglobin A1c % 5.1 <6.0 % [...] average glucose, using the formula of the R4M-Vcpquay Average Glucose study (ADAG), Diabetes Care, Vol.31,#8, Dec. 2007 UA ClnCatch+Micro w/rflx Cul t Reviewed date:02/10/2025 04:27:47 PM Interpretation: Performing Lab:[address] [phone] Notes/Report: Urine, Clean Catch Color Urine Yellow Appearance Urine Clear PH 6.5 5.0-9.0 Glucose Urine UA Negative Negative mg/dL Urine Blood Negative Negative Specific [place] - Urine 1.020 1.005-1.025 Urine Protein 30 (1+) Neg-Trace mg/dL Urine Ketones Negative Negative mg/dL Nitrite Urine Negative Negative Leukocyte Esterase Urine Small (1+) Negative RBC Urine 0-2 0-2 /HPF WBC Urine 6-10 0-5 /HPF Squamous Epithelial Cell Urine 0-2 0-2 /HPF Bacteria Urine None Seen None Seen Hyaline Casts Urine 0-2 0-2 /LPF PSA,Total (Free>4and<10) Reviewed date:02/28/2025 12:35:13 PM Interpretation: Performing Lab:[address] [phone] Notes/Report: PSA,Total (Free>4and<10) 2.95 0.00-4.00 ng/mL A [...] Barbosa Alinity i Chemiluminescent Microparticle Immunoassay (CMIA) Glucose, finger stick Reviewed date:08/09/2024 08:19:04 AM Interpretation: Performing Lab: Notes/Report: Value 86 Occult Blood, Stool, Guaiac Reviewed date:02/17/2025 12:13:38 PM Interpretation:Negative Performing Lab: Notes/Report: Negative Occult Blood, Stool, Guaiac Neg Hold Gold Reviewed date:08/02/2024 12:06:06 PM Interpretation: Performing Lab:[facility], [address] [place] [phone] Notes/Report: Hold Gold See Note Specimen held untested for 24 hours; Call to request Chemistry testing. Comprehensive Met. Panel Reviewed date:02/10/2025 12:41:00 PM Interpretation: Performing Lab:[facility], [address] [place] [phone] Notes/Report: Sodium 141 135-145 mmol/L Potassium 3.9 [...] 68 39-117 U/L Free T4 (Free Thyroxine) Reviewed date:02/10/2025 12:26:02 PM Interpretation: Performing Lab:[facility], [address] [place] [phone] Notes/Report: Free T4 (Free Thyroxine) 0.73 0.71-1.85 ng/dL Urine Culture Reviewed date:02/11/2025 04:15:27 PM Interpretation: Performing Lab:[facility], [address] [place] [phone] Notes/Report: Urine Culture Report Result Urine Culture < 10,000 cfu/ml Reason For Referral No Information Medications Medication SIG (Take, Route, Frequency, Duration) Notes Start Date End Date Status amLODIPine Besylate 10 MG 1 tablet Orall y Once a day Active Allopurinol 300 MG TAKE ONE TABLET BY MOUTH EVERY DAY for 90 Active Rosuvastatin Calcium 20 MG 1 tablet Oral ly Once a day Active traMADol HCl 50 MG 1 tablet as needed Orally every 12 hrs as needed for 30 days 08/09/2024 Not-Taking Levothyroxine Sodium 25 MCG TAKE ONE TABLET BY MOUTH EVERY DAY IN THE MORNING ON AN EMPTY STOMACH Active Carvedilol 3.125 MG 1 tablet with food Orally Twice a day Active LORazepam 0.5 MG 1 tablet Orally Once a day as needed for 30 days 02/17/2025 Active Percocet 5-325 MG 1 tablet as needed Orally every 6 hrs for 5 days 03/27/2016 Not-Taking Omeprazole 20 MG 1 capsule Orally Onc e a day for 30 day(s) 03/02/2014 Not-Taking Immunizations Vaccine Route Administration Date Status Comme [...] Status Risk Notes Problem Ascending aorta dilatation (885654031) Ascending aorta dilatation (447.71) Active confirmed Problem Sciatica (14011701) Sciatica (M54.30) Active confirmed Problem Anxiety (31801769) Anxiety (F41.9) Active confirmed Problem 431861630 Tubular adenoma of colon (D12.6) Active confirmed Problem 41075703 Essential hypert ension (I10) Active confirmed Problem 979700184 Acquired hypothy roidism (E03.9) Active confirmed Problem 9397236 Prediabetes (R73.09) Active confirmed Problem 457343924 Abnormal LFTs (R79.89) Active confirm ed Problem 865792806 History of gout (Z87.39) Active confirmed Problem 313176887 Morbid obesity d ue to excess calories (E66.01) Active confirmed Problem 67648180 Lymphadenopathy (R59.1) Active confirm ed Problem 810745865 Ascending aortic aneurysm (I71.2) Active confirmed Problem 29421076 Elevated uric ac id in blood (E79.0) Active confirmed Problem 634424568 Sensitivity to s unlight (Z91.09) Active confirmed Problem 129337875 Pure hypercholesterolemia (E78.00) Active confirmed Problem 411278467 Elevated PSA (R97.20) Active confirme d Problem 139613687 Arthritis of kne e (M17.10) Active confirmed Problem 355718023 Head and neck ca ncer (C76.0) Active confirmed Problem 730976593 Ankle arthritis (M19.079) Active confirmed Problem Cardiac pacemaker in situ (259297573) Pacemaker (Z95.0) Active confirmed Problem 711402463 Body mass index (BMI) 50.0-59.9, adult (Z68.43) Active confirmed Problem Anxiety about health (133253075) Anxiety about health (F41.8) Active confirmed Vital Signs Blood pressure diastolic 64 mm Hg 02/17/2025 angelita ght is down 30 pounds since 08-09-24 Height 65.5 in 02/17/2025 weight is down 30 pounds since 08-09-24 Blood pressure systolic 120 mm Hg 02/17/2025 weig ht is down 30 pounds since 3-25-25 Weight 245 lbs 02/17/2025 weight is down 30 pounds since 08-09-24 BMI 40.15 kg/m2 02/17/2025 weight is down 30 pounds since 08-09-24 Encounters Encounter Location Date Provider Diagnosis Billy Dc MD [address] [place] [id number] 08/02/2024 Billy Dc Pure hypercholestero lemia E78.00 Billy Dc MD [address] [place] [id number] 02/10/2025 Billy Dc Essential hypertensi on I10 ; Encounter for administration of vaccine Z23 ; Prediabetes R73.09 ; Pure hypercholesterolemia E78.00 ; Elevated PSA R97.20 and Acquired hypothyroidism E03.9 Billy Dc MD [address] [place] [id number] 02/24/2025 Billy cD Elevated PSA R97.20 Billy Dc MD [address] [place] [id number] 03/03/2025 Billy Dc Elevated PSA measure ment R97.20 Billy Dc MD [address] [place] [id number] 08/09/2024 Billy Dc Prediabetes R73.09 ; Sciatica M54.30 ; Pacemaker Z95.0 and Pure hypercholesterolemia E78.00 Billy Dc MD [address] [place] [id number] 02/17/2025 Billy Dc Elevated PSA R97.20 ; [...] for administration of vaccine (ICD-10 - Z23) 02/24/2025 Elevated PSA (ICD-10 - R97.20) 03/03/2025 Elevated PSA measurement (ICD-10 - R97.20) 08/09/2024 Prediabetes (ICD-10 - R73.09) a1c is good, no need for medicatin at this time, will continue to monitor 02/17/2025 Elevated PSA (ICD-10 - R97.20) will repeat PSA, pending PSA 02/17/2025 Ascending aortic aneurysm (ICD-10 - I71.2) need notes from dr vazquez at [facility]/ REQUEST MADE TO [facility] MED RECORDS 02/10/2025 Prediabetes (ICD-10 - R73.09) 08/09/2024 Sciatica (ICD-10 - M54.30) no weakness, will continue to monitor 02/17/2025 Anxiety (ICD-10 - F41.9) patient verbalized understanding of medication and directions for use 02/10/2025 Pure hypercholesterolemia (ICD-10 - E78.00) 08/09/2024 Pacemaker (ICD-10 - Z95.0) feels better 02/17/2025 Essential hypertensi on (ICD-10 - I10) stable, will contiue current regiment 02/10/2025 Elevated PSA (ICD-10 - R97.20) 08/09/2024 Pure hypercholesterolemia (ICD-10 - E78.00) has gool ldl, will continue current regiment 02/17/2025 Prediabetes (ICD-10 - R73.09) stable, no need for medication at this time 02/10/2025 Acquired hypothyroid ism (ICD-10 - E03.9) 02/17/2025 Pure hypercholesterolemia (ICD-10 - E78.00) stable, will cntinue current regiment 02/17/2025 Acquired hypothyroid ism (ICD-10 - E03.9) doing well, will continue current regiment 02/17/2025 Colon cancer screeni ng (ICD-10 - Z12.11) guaiac negative 02/17/2025 Depression screening (ICD-10 - Z13.31) negative screen 08/09/2024 Other is increase to 5.3 and is followed by dr vazquez Plan Of Treatment Pending Test Test Name Order Date ECHO EXAM OF HEART 06/23/2014 Comprehensive [place]. Panel Fast PSA Free and Total 02/17/2025 PSA,Total (Free>4and<10) 03/03/2025 CT angio chest 04/23/2021 CT soft tissue neck w con 06/06/2021 CT soft tissue neck wo/w con 04/23/2021 MR orbits face neck wo/w con 07/02/2021 US biopsy lymph node 07/30/2021 Future Test Test Name Order Date ECHO 01/02/2021 CT angio chest 01/23/2021 CT soft tissue neck wo/w con 01/23/2021 Next Appt Details Provider Name:Billy Justin ier, 05/26/2025 09:00:00 AM, [address] [place] [address], [address] [place] [address], [phone], Provider Name:Billy Justin ier, 08/22/2025 07:00:00 AM, [address] [place] [address], Suite [facility], [place], [place], [phone], Provider Name:Billy Elizabeth Justin ier, 02/13/2026 07:00:00 AM, [address] [place] [address], [address] [place] [address], [phone], Provider Name:Billy Justin ier, 02/20/2026 09:30:00 AM, [address] [place] [address], Suite [facility], [place], [place], [phone], Insurance Providers Payer Name Payer Address Payer Phone Subscriber Number Group Number Insured Name Patient Relationship to Insured Coverage Start Date Coverage End Date [employer] [address] [place] [address] [id number] Chris Simon Self - patient is the insured [employer] [place] [address] [place] [phone] [id number] Chris Simon Self - patient is the insured Medical (General) History Medical History History ICD Code COLONOSCOPY 07/2010 - due in 5 years (has CX 3 cololonscopy dates in 2016); Colonoscopy done 04/23/[address] Corey jones in 10 years NEEDS YEARLY ECHO - Due 06/2014 colonoscopy 2019 Surgical History Surgery Date(Month/Year) fusion of ankle 1990
[2025-03-03 14:51] LABS: PSA,Total (Free>4and<10) 2.27 ng/mL (0.00-4.00)
== END 2025-03-03 09:44 | disposition home or self-care (01) ==
LOC: HO.LNP 09:43
PROVIDERS: Visit Provider Internal Medicine
DX: R97.20 Elevated prostate specific antigen [PSA] (principal); Z12.5 Encounter for screening for malignant neoplasm of prostate
CPT/HCPCS: 84153

== ENCOUNTER → 2025-03-16 23:59 | Outpatient (BNV) | payer MEDICARE, SELFPAY ==
--- NOTE | 2025-03-22 16:05 | A.OFFVIS_ITS ---
Intake Visit Reasons: Remote device check- [employer] Allergies No Known Allergies Allergy (Verified 09/28/24 13:21) PFSH Medical History JADEN on CPAP Essential hypertension Morbid obesity Hx of gout Arthritis Sleep apnea HTN (hypertension) Surgical History Hx of detached retina repair History of ankle surgery History of esophagogastroduodenoscopy (EGD) H/O colonoscopy Family History Mother HTN (hypertension) CVA (cerebral vascular accident) Social History Household Members: Spouse Housing: House Do you presently have visiting nurse or other home services: No Alcohol intake: never Patient Tobacco Use Status: Never used Tobacco Advance Directives Date on File: 09/20/20 service: No Office Procedures Cardiac Device Check Cardiac Device Check Details: Date of service 03/16/2025- Battery life >11 years; normal lead parameters; AP >99%; [employer]QUIPMENT REMOVER 5.2%; no significant arrhythmias. Overall normal device function. [id number] Cardiac Interrogation, subcut cardiac rhythm monitor Procedure code (CPT) selection complete Assessment & Plan Assessment & Plan (1) Pacemaker: Code(s): Z95.0 - Presence of cardiac pacemaker Category: Medical (2) Symptomatic bradycardia: Code(s): R00.1 - Bradycardia, unspecified Category: Medical Plan x Coding Level of Care Code Procedure Only Diagnoses Pacemaker Z95.0 Symptomatic bradycardia R00.1 CPT Codes Cardiac Device Check - Cardiac Device 16: [id number] Cardiac Interrogation, subcut cardiac rhythm monitor ([id number])
== END ==
PROVIDERS: PCP Internal Medicine; Visit Provider Internal Medicine
DX: R00.1 Bradycardia, unspecified (principal); Z95.0 Presence of cardiac pacemaker
CPT/HCPCS: 93298

== ENCOUNTER 2025-03-30 10:39 | Outpatient (AMB) | payer MEDICARE, SELFPAY ==
--- OUTSIDE RECORDS SUMMARY | 2023-10-09 04:02 | XMS_ITS ---
Author Organization Billy Dc MD Address [address] [place] [phone] Care Team Providers Care Dairy Husbandman Name Role Phone Billy Dc Primary Care Provider REASON FOR VISIT refill Levothyroxine Medications Medication SIG (Take, Route, Frequency, Duration) Notes Start Date End Date Status Levothyroxine Sodium 25 MCG TAKE ONE TAB LET BY MOUTH EVERY DAY IN THE MORNING ON AN EMPTY STOMACH Orally Once a day for 90 days Active Encounters Encounter Location Date Provider Diagnosis Billy Dc MD [address] [facility] [address] [place], [place] [phone] 10/09/2023 Billy Dc Plan Of Treatment Medication Medication Name Sig Start Date Stop Date Notes Levothyroxine Sodium 25 MCG TAKE ONE TAB LET BY MOUTH EVERY DAY IN THE MORNING ON AN EMPTY STOMACH Orally Once a day for 90 days Next Appt Details Provider Name:Billy delgado, 05/26/2025 09:00:00 AM, [address] [place] [address] Drive, [address], [place], [phone], Provider Name:Billy Justin danny, 08/22/2025 07:00:00 AM, [address] [facility], [address], [place], [phone], Provider Name:Billy Justin danny, 02/13/2026 07:00:00 AM, [address] [place] [address], [address], [place], [phone], Provider Name:Billy Justin darior, 02/20/2026 09:30:00 AM, [address] [place] [address], [address], [place], [phone], Progress Notes * Chris JOSEPHDOB: 2 (73 yo M)Acc No.[id number]:10/09/2023 Patient: Kadeem Chris vuong :1950 A ge:73 Y S ex:Male Address: [address], [place] [address] * Refills Refill Levothyroxine Sodium Tablet, 25 MCG, Orally, 90, TAKE ONE TABLET BY MOUTH EVERY DAY IN THE MORNING ON AN EMPTY STOMACH, Once a day, 90 days, Refills=4 * true * Date: Generated for Natalya coker/Huseyin/Chava on: 05/30/2024 01:06 PM EST
--- OUTSIDE RECORDS SUMMARY | 2024-02-02 02:00 | XMS_ITS ---
Author Organization Billy Dc MD Address [address] [place], [place] [id number] Care Team Providers Care Telesales Advisor Name Role Phone Billy Dc Primary Care Provider [phone] Results Component Value Reference Range Notes Complete Blood Count Auto Di ff Reviewed date:02/02/2024 12:45:24 PM Interpretation: Performing Lab:[facility], [address] [place] [phone] Notes/Report: White Blood Count 4.5 4.8-10.8 X10*3/uL Red Blood Count 4.17 4.60-5.80 X10*6/uL Hemoglobin 12.7 14.0-18.0 g/dl Hematocrit 38.7 42.0-52.0 % Mean Corpuscular Volume 92.8 80.0-98.0 fL Mean Corpuscular Hemoglobin 30.5 27.0-33.0 pg Mean Corpuscular HGB Conc 32.8 31.0-36.0 g/dl Red Cell Distribution Width 14.9 11.0-16.0 % Platelet Count 237 160-400 X10*3/uL Mean Platelet Volume 9.1 9.4-12.4 fL Neutrophils Percent Auto 62.7 45-73 % Imm Gran Pct Auto 0.4 0.0-0.4 % Lymphocytes Percent Auto 20.6 20-40 % Monocytes Percent Auto 10.4 2-11 % Eosinophils Percent Auto 5.5 0-4 % Basophils Percent Auto 0.4 0-2 % NRBC Pct Auto 0.0 0.0-0.2 /100WBC Neutrophils Absolute Auto 2.8 2.0-8.3 x10*3/u L Imm Gran Abs Auto 0.02 0.00-0.03 X10*3/uL Lymphocytes Absolute Auto 0.9 1.2-4.9 X10*3/u L Monocytes Absolute Auto 0.5 0.1-1.2 X10*3/uL Eosinophils Absolute Auto 0.3 0.0-0.4 X10*3/u L Basophils Absolute Auto 0.0 0.0-0.2 X10*3/uL NRBC Abs Auto 0.000 0.0-0.012 X10*3/uL Comprehensive [place]. Panel Fa st Reviewed date:02/02/2024 12:40:55 PM Interpretation: Performing Lab:[facility], [address] [place] [phone] Notes/Report: Sodium 141 135-145 mmol/L Potassium 4.1 3.3-5.1 mmol/L Chloride 105 96-108 mmol/L Carbon Dioxide 28 22-29 mmol/L Anion Gap 12 12-20 Blood Urea Nitrogen 19 9-16 mg/dL Creatinine 1.26 0.5-1.4 mg/dL Estimated Glomerular Filt Rate 56 NOTE: For -[place] individuals, multiply the result by 1.210. Chronic Kidney Disease: Estimated GFR < 60 mL/min/1.73m2 Severe Kidney Disease: Estimated GFR < 15 mL/min/1.73m2 Glucose Fasting 91 60-99 mg/dL Calcium 9.4 8.4-10.2 mg/dL Bilirubin Total 0.5 0.0-1.0 mg/dL Aspartate Amino Transferase 40 5-37 U/L Alanine Aminotransferase 12 0-40 U/L Total Protein 7.8 6.5-8.0 g/dL Albumin Level 4.3 3.5-5.0 g/dL Alkaline Phosphatase 63 39-117 U/L Lipid Panel Reviewed date:02/02/2024 12:39:01 PM Interpretation: Performing Lab:[address] [phone] Notes/Report: Triglycerides 95 <150 mg/dL Desirable Triglyceride: less than 150 mg/dL Borderline High Triglyceride 150-199 mg/dL High Triglyceride: 200-499 mg/dL Very High Triglyceride: greater than or equal to 5OO mg/dL Cholesterol 128 <200 mg/dL Desirable Cholesterol: less than 200 mg/dL Borderline High Cholesterol: 200-239 mg/dL High Cholesterol: greater than 239 mg/dL LDL Cholesterol Calculated 68 <100 mg/dL Desirable LDL: less than 100 mg/dL Near Optimal/Above Optimal LDL: 110-129 mg/dL Borderline High LDL: 130-159 mg/dL High LDL: 160-189 mg/dL Very High LDL: greater than or equal to 190 mg/dL HDL Cholesterol 41 >40 mg/dL Desirable HDL: greater than 40 mg/dL Note: This HDL assay may give artificially low results in patients with liver disease. PSA,Total (Free>4and<10) Reviewed date:02/02/2024 12:40:38 PM Interpretation: Performing Lab:[address] [phone] Notes/Report: PSA,Total (Free>4and<10) 1.56 0.00-4.00 ng/mL A Free PSA was not performed: The percentage of Free PSA can be used to enhance the differentiation of prostate cancer from benign prostatic disease in subjects whose PSA levels are between 4.0 and 10.0 ng/mL. For subjects whose PSA levels are below 4.0 or above 10.0 ng/mL, the risk of prostate cancer is determined on the basis of the PSA alone. Therefore the % Free PSA is recommended only for those subjects whose PSA levels are between 4.0 and 10.0 ng/mL. PSA methodology: Barbosa Alinity i Chemiluminescent Microparticle Immunoassay (CMIA) TSH reflex Free T4 Reviewed date:02/02/2024 12:39:37 PM Interpretation: Performing Lab:[address] [place] [address] Notes/Report: TSH reflex Free T4 3.00 0.32-4.0 uIU/mL Microalbumin, Random Reviewed date:02/02/2024 12:38:11 PM Interpretation: Performing Lab:[address] [phone] Notes/Report: Creatinine Urine 50.28 Microalbumin Urine 105.0 Microalbum/Creatinine Ratio Ur 208.8 <30 ug/mg cr Albumin/Creatinine Ratio Reference Ranges: Normal: < 30 ug/mg creatinine Microalbuminuria: 30 - 300 ug/mg creatinine Clinical Albuminuria: > 300 ug/mg creatinine Hemoglobin A1c Reviewed date:02/02/2024 12:39:45 PM Interpretation: Performing Lab:[address] [phone] Notes/Report: Hemoglobin A1c % 4.9 <6.0 % Hemoglobin A1C Reference Range Adults: 4.8 - 6.0 % Non diabetic: < 6.0 % Goal: < 7.0 % Additional Action Suggested: > 8.0 % Note: Hemoglobin A1c results are invalid for patients with abnormal amounts of HbF. Blood transfusions may impact the HbA1c concentration in the patient sample. Estimated Average Glucose 94 eAG = Estimated average glucose which is %A1C expressed as average glucose, using the formula of the [id number]-[id number] Average Glucose study (ADAG), Diabetes Care, Vol.31,#8, Dec. 2007 UA ClnCatch+Micro w/rflx Cul t Reviewed date:02/02/2024 12:41:45 PM Interpretation: Performing Lab:[address] [phone] Notes/Report: Urine, Clean Catch Color Urine Yellow Appearance Urine Clear PH 6.5 5.0-9.0 Glucose Urine UA Negative Negative mg/dL Urine Blood Negative Negative Specific [place] - Urine 1.010 1.005-1.025 Urine Protein Trace Neg-Trace mg/dL Urine Ketones Negative Negative mg/dL Nitrite Urine Negative Negative Leukocyte Esterase Urine Negative Negative RBC Urine 0-2 0-2 /HPF WBC Urine 0-5 0-5 /HPF Squamous Epithelial Cell Urine 0-2 0-2 /HPF Bacteria Urine None Seen None Seen Hyaline Casts Urine 0-2 0-2 /LPF REASON FOR VISIT fasting yearly labs Immunizations Vaccine Route Administration Date Status Comme nts Influenza High Dose IM Intramuscular 02/02/2024 Administer ed Encounters Encounter Location Date Provider Diagnosis Billy Dc MD [address] [place] [address] [place] [phone] 02/02/2024 Billy Dc Essential hypertensi on I10 ; Encounter for immunization Z23 ; Prediabetes R73.09 ; Pure hypercholesterolemia E78.00 ; Elevated PSA R97.20 and Acquired hypothyroidism E03.9 Assessments Encounter Date Diagnosis (ICD Code) Assessment Notes Treatment Notes Treatment Clinical Notes Section Notes 02/02/2024 Essential hypertensi on (ICD-10 - I10) 02/02/2024 Encounter for immunization (ICD-10 - Z23) 02/02/2024 Prediabetes (ICD-10 - R73.09) 02/02/2024 Pure hypercholesterolemia (ICD-10 - E78.00) 02/02/2024 Elevated PSA (ICD-10 - R97.20) 02/02/2024 Acquired hypothyroid ism (ICD-10 - E03.9) Plan Of Treatment Next Appt Details Provider Name:Billy delgado, 05/26/2025 09:00:00 AM, [address] [place] [address], [address], [phone], Provider Name:Billy delgado, 08/22/2025 07:00:00 AM, [address] [place] [address], [address], [phone], Provider Name:Billy delgado, 02/13/2026 07:00:00 AM, [address] [place] [address], [address], [phone], Provider Name:Billy delgado, 02/20/2026 09:30:00 AM, [address] [place] [address], [address], [phone], Progress Notes * Chris JOSEPHDOB: 2 (75 yo M)Acc No.[id number]:02/02/2024 Progress Note Patient: Kadeem Chris LEE Provider: Alvarado Dc MD :1950 A ge:74 Y S ex:Male Date:02/02/2024 Address: [address] [id number] Subjective: * Chief Complaints: * 1 . Fasting yearly labs. * Medical History: Objective: * Vitals: Assessment: * Assessment: 1. E ncounter for immunization - Z23 (Primary) 2 . E ssential hypertension - I10 3 . P rediabetes - R73.09 4 . P ure hypercholesterolemia - E78.00 5 . E levated PSA - R97.20 6 . A cquired hypothyroidism - E03.9 Plan: * Treatment: 2. P rediabetes L AB: Complete Blood Count Auto Diff (Collection Date & Time - 02/02/2024 07:00 AM) L AB: Comprehensive [place]. Panel Fast (Collection Date & Time - 02/02/2024 07:00 AM) L AB: Lipid Panel (Collection Date & Time - 02/02/2024 07:00 AM) L AB: PSA,Total (Free>4and<10) (Collection Date & Time - 02/02/2024 07:00 AM) L AB: TSH reflex Free T4 (Collection Date & Time - 02/02/2024 07:00 AM) L AB: Microalbumin, Random (Collection Date & Time - 02/02/2024 07:00 AM) L AB: Hemoglobin A1c (Collection Date & Time - 02/02/2024 07:00 AM) L AB: UA ClnCatch+Micro w/rflx Cult (Collection Date & Time - 02/02/2024 07:00 AM) 3. P ure hypercholesterolemia L AB: Complete Blood Count Auto Diff (Collection Date & Time - 02/02/2024 07:00 AM) L AB: Comprehensive [place]. Panel Fast (Collection Date & Time - 02/02/2024 07:00 AM) L AB: Lipid Panel (Collection Date & Time - 02/02/2024 07:00 AM) L AB: PSA,Total (Free>4and<10) (Collection Date & Time - 02/02/2024 07:00 AM) L AB: TSH reflex Free T4 (Collection Date & Time - 02/02/2024 07:00 AM) L AB: Microalbumin, Random (Collection Date & Time - 02/02/2024 07:00 AM) L AB: Hemoglobin A1c (Collection Date & Time - 02/02/2024 07:00 AM) L AB: UA ClnCatch+Micro w/rflx Cult (Collection Date & Time - 02/02/2024 07:00 AM) 4. E levated PSA L AB: Complete Blood Count Auto Diff (Collection Date & Time - 02/02/2024 07:00 AM) L AB: Comprehensive [place]. Panel Fast (Collection Date & Time - 02/02/2024 07:00 AM) L AB: Lipid Panel (Collection Date & Time - 02/02/2024 07:00 AM) L AB: PSA,Total (Free>4and<10) (Collection Date & Time - 02/02/2024 07:00 AM) L AB: TSH reflex Free T4 (Collection Date & Time - 02/02/2024 07:00 AM) L AB: Microalbumin, Random (Collection Date & Time - 02/02/2024 07:00 AM) L AB: Hemoglobin A1c (Collection Date & Time - 02/02/2024 07:00 AM) L AB: UA ClnCatch+Micro w/rflx Cult (Collection Date & Time - 02/02/2024 07:00 AM) 5. A cquired hypothyroidism L AB: Complete Blood Count Auto Diff (Collection Date & Time - 02/02/2024 07:00 AM) L AB: Comprehensive [place]. Panel Fast (Collection Date & Time - 02/02/2024 07:00 AM) L AB: Lipid Panel (Collection Date & Time - 02/02/2024 07:00 AM) L AB: PSA,Total (Free>4and<10) (Collection Date & Time - 02/02/2024 07:00 AM) L AB: TSH reflex Free T4 (Collection Date & Time - 02/02/2024 07:00 AM) L AB: Microalbumin, Random (Collection Date & Time - 02/02/2024 07:00 AM) L AB: Hemoglobin A1c (Collection Date & Time - 02/02/2024 07:00 AM) L AB: UA ClnCatch+Micro w/rflx Cult (Collection Date & Time - 02/02/2024 07:00 AM) * Immunizations: Influenza High Dose : 0.5 mL (Dose No:1) (Route: Intramuscular) given by Nancy Yanez , Office Staff on Left Deltoid * Procedure Codes: 9 0662 FLU VACC PRSV FREE INC ANTIG, G0008 ADMN FLU VAC NO FEE SCHED SAME DAY, [address]603 VENIPUNCT, ROUTINE* * * The named appointment provid er may or may not be the originator of this progress note, and it is not deemed complete until electronically signed by the appointment provider. Sign off status: Pending * Provider: Alvarado Dc MD Date: 0 02/02/2024 Generated for Natalya coker/Huseyin/Chava on: 05/30/2024 01:04 PM EST
--- OUTSIDE RECORDS SUMMARY | 2024-02-12 04:30 | XMS_ITS ---
Author Organization Billy Dc MD Address [address] [place], [place] [phone] Care Team Providers Care Cook Fishing Vessel Name Role Phone Billy Dc Primary Care Provider Allergies No Known Allergies REASON FOR VISIT review of labs Medications Medication SIG (Take, Route, Frequency, Duration) Notes Start Date End Date Status Omeprazole 20 MG 1 capsule Orally Onc e a day for 30 day(s) 03/02/2014 Not-Taking Percocet 5-325 MG 1 tablet as needed Orally every 6 hrs for 5 days 03/27/2016 Not-Taking traMADol HCl 50 MG 1 tablet as needed Orally every 12 hrs as needed for 30 days 07/09/2017 Not-Taking Levothyroxine Sodium 25 MCG TAKE ONE TABLET BY MOUTH EVERY DAY IN THE MORNING ON AN EMPTY STOMACH Orally Once a day for 90 days Active Allopurinol 300 MG TAKE ONE TABLET BY MOUTH ONCE DAILY for 90 Active amLODIPine Besylate 10 MG 1 tablet Orall y Once a day Active Rosuvastatin Calcium 20 MG 1 tablet Oral ly Once a day for 30 day(s) Active Social History Tobacco Use: Social History Observation Description Date Details (start date - stop date) Never Smoker NA - NA Tobacco Use/Smoking Question Answer Notes Patient is a nonsmoker Additional Findings: Tobacco Non-User Cu rrent non-smoker, currently using no form of tobacco Alcohol Screen Question Answer Notes Did you have a drink contain ing alcohol in the past year? Yes How often did you have a dri nk containing alcohol in the past year? 2 to 4 times a month (2 points) How many drinks did you have on a typical day when you were drinking in the past year? 1 or 2 drinks (0 point) How often did you have 6 or more drinks on one occasion in the past year? Never (0 point) Points 2 Interpretation Negative Vital Signs Blood pressure systolic 138 mm Hg 02/12/20 24 Blood pressure diastolic 60 mm Hg 024 Height 65.5 in 02/12/2024 Weight 268 lbs 02/12/2024 BMI 43.91 kg/m2 02/12/2024 weight is down 3 pounds [facility] 09-07-23 Encounters Encounter Location Date Provider Diagnosis Billy Dc MD [address] [place] [address] [place] [phone] 02/12/2024 Billy Dc Head and neck cancer C76.0 ; Abnormal LFTs R79.89 ; Essential hypertension I10 ; Prediabetes R73.09 ; Pure hypercholesterolemia E78.00 ; Elevated PSA R97.20 ; Acquired hypothyroidism E03.9 and Ascending aortic aneurysm, unspecified whether ruptured I71.21 Assessments Encounter Date Diagnosis (ICD Code) Assessment Notes Treatment Notes Treatment Clinical Notes Section Notes 02/12/2024 Head and neck cancer (ICD-10 - C76.0) has recovered and is doing well 02/12/2024 Abnormal LFTs (ICD-1 0 - R79.89) has recovered. 02/12/2024 Essential hypertensi on (ICD-10 - I10) stabe, at goal, will continue current regiment 02/12/2024 Prediabetes (ICD-10 - R73.09) stable, no need for medication at this time 02/12/2024 Pure hypercholesterolemia (ICD-10 - E78.00) doing well, is at goal, will continue current regiment 02/12/2024 Elevated PSA (ICD-10 - R97.20) stable, will continue to monitor 02/12/2024 Acquired hypothyroid ism (ICD-10 - E03.9) stable, at goal, will contiue current regiment 02/12/2024 Ascending aortic aneurysm, unspecified whether ruptured (ICD-10 - I71.21) 02/12/2024 Other if they don't do ct yearly will need to tell dr herbert and get echo next year/ per provider Dr. Benitez will be doing yearly Ct and echo. Plan Of Treatment Treatment Notes Assessment Notes Head and neck cancer has recovered and i s doing well Abnormal LFTs has recovered. Essential hypertension stabe, at goal, w ill continue current regiment Prediabetes stable, no need for medication at this time Pure hypercholesterolemia doing well, is at goal, will continue current regiment Elevated PSA stable, will continu e to monitor Acquired hypothyroidism stable, at goal, will contiue current regiment Other if they don't do ct yearly will need to tell dr herbert and get echo next year/ per provider Dr. Benitez will be doing yearly Ct and echo. Next Appt Details Follow Up: 6 Months, Reason: Provider Name:Billy delgado, 05/26/2025 09:00:00 AM, [address] [place] [address], [address], [phone], Provider Name:Billy delgado, 08/22/2025 07:00:00 AM, [address] [place] [address], [address], [phone], Provider Name:Billy delgado, 02/13/2026 07:00:00 AM, [address] [place] [address], [address] [place] [address], [phone], Provider Name:Billy delgado, 02/20/2026 09:30:00 AM, [address] [place] [address], [address], [phone], Progress Notes * Chris JOSEPHDOB: 2 (74 yo M)Acc No.[id number]:02/12/2024 Patient: Chris Norris Provider: Alvarado Dc MD :1950 A ge:74 Y S ex:Male Date:02/12/2024 Address: [address], [place], [id number] Subjective: * Chief Complaints: * R eview of labs * HPI: D epression Screening: PHQ-9 L ittle interest or pleasure in doing things N ot at all, F eeling down, depressed, or hopeless N ot at all, T rouble falling or staying asleep, or sleeping too much N ot at all, F eeling tired or having little energy N ot at all, P oor appetite or overeating N ot at all, F eeling bad about yourself or that you are a failure, or have let yourself or your family down N ot at all, T rouble concentrating on things, such as reading the newspaper or watching television N ot at all, M oving or speaking so slowly that other people could have noticed; or the opposite, being so fidgety or restless that you have been moving around a lot more than usual N ot at all, T houghts that you would be better off or of hurting yourself in some way N ot at all, T otal Score 0 . I nterpretation and Intervention D epression Screening Findings N egative, F ollow-Up for Depression : review of PHQ-9 found negative result, no follow-up needed. C ommunication Needs: Communication Needs D oes the patient have a hearing impairment N o, D oes the patient have a vision impairment? Y es, I f yes, what is the vision impairment? G lasses, D oes the patient have a cognition impairment? N o. F all Risk: History H ave you had any falls with injury in the past year? N o, H ave you had two or more falls in the past year? N o. S JADEN Questions: SDOH Questions I n the past year have you been worried about losing housing? N o, I n the past year have you or any family members you live with been unable to get any of the following when it was really needed? Check all that apply: N one. S ymptom(s): patient is a 74 yo male here for review of recent labs and follow up of chronic issues.. is walking a little. walking in stores and the mall/ no more gout. * ROS: G eneral/Constitutional: Patient denies c hills , fatigue , fever , headache. ? E NT: Patient denies d ecreased sense of smell , any loss of taste , sore throat. R espiratory: Patient denies s hortness of breath at rest shortness of breath with exertion. C ardiovascular: Patient denies c hest pain with exertion chest pain at rest. G astrointestinal: Patient denies c hange in bowel habits abdominal pain. G enitourinary: Patient denies d ifficulty urinating frequent urination.? M usculoskeletal: Patient denies m uscle aches. P eripheral Vascular: Patient denies r ed and blue toes. * Medical History: * Surgical History: * Hospitalization/Major Diagno stic Procedure: * Family History: F ather: 76 yrs, diagnosed with CHF. M other: 92 yrs, diagnosed with CHF. 1 brother(s) , 1 sister(s) - healthy. 1 son(s) , 2 daughter(s) - healthy. . Father- old age Mother [place], No pertinent family medical history, No pertinent family medical history. * Social History: T obacco Use: T obacco Use/Smoking P atient is a n onsmoker, A dditional Findings: Tobacco Non-User C urrent non-smoker, currently using no form of tobacco. D rugs/Alcohol: A lcohol Screen D id you have a drink containing alcohol in the past year? Y es, H ow often did you have a drink containing alcohol in the past year? 2 to 4 times a month (2 points), H ow many drinks did you have on a typical day when you were drinking in the past year? 1 or 2 drinks (0 point), H ow often did you have 6 or more drinks on one occasion in the past year? N ever (0 point), P oints 2 , I nterpretation N egative. M iscellaneous: C hildren: yes. no Exercise. Home smoke detector use: yes. Housing: owning. Living with: spouse. Marital status: . Occupation: weeks/months/years, works full-time. Travel outside of the [place]: yes, [employer] [place]. * Medications: T akingRosuvastatin Calcium 20 MG Tablet 1 tablet Orally Once a dayamLODIPine Besylate 10 MG Tablet 1 tablet Orally Once a dayAllopurinol 300 MG Tablet TAKE ONE TABLET BY MOUTH ONCE DAILY Levothyroxine Sodium 25 MCG Tablet TAKE ONE TABLET BY MOUTH EVERY DAY IN THE MORNING ON AN EMPTY STOMACH Orally Once a dayTaking Rosuvastatin Calcium 20 MG Tablet 1 tablet Orally Once a dayTaking amLODIPine Besylate 10 MG Tablet 1 tablet Orally Once a dayTaking Allopurinol 300 MG Tablet TAKE ONE TABLET BY MOUTH ONCE DAILY Taking Levothyroxine Sodium 25 MCG Tablet TAKE ONE TABLET BY MOUTH EVERY DAY IN THE MORNING ON AN EMPTY STOMACH Orally Once a dayNot-Taking/PRNtraMADol HCl 50 MG Tablet 1 tablet as needed Orally every 12 hrs as neededPercocet 5-325 MG Tablet 1 tablet as needed Orally every 6 hrsOmeprazole 20 MG Capsule Delayed Release 1 capsule Orally Once a dayMedication List reviewed and reconciled with the patientNot-Taking/PRN traMADol HCl 50 MG Tablet 1 tablet as needed Orally every 12 hrs as neededNot-Taking/PRN Percocet 5-325 MG Tablet 1 tablet as needed Orally every 6 hrsNot-Taking/PRN Omeprazole 20 MG Capsule Delayed Release 1 capsule Orally Once a dayMedication List reviewed and reconciled with the patient * Allergies: N .K.D.A.yes[Allergies Verified] Objective: * Vitals: H t: 65.5, Wt:268, BMI:43.91, BP:138/60 weight is down 3 pounds since 09-07-23. * P ast Orders: L ab:Microalbumin, Random (Order Date - 02/02/2024) (Collection Date - 02/02/2024) Value Reference Range Creatinine Urine 50.28 - mg/dL Microalbumin Urine 105.0 - mg/L Microalbum Creatinine Ratio Ur 208.8 H <30 - ug/ mg cr L ab:Complete Blood Count Auto Diff (Order Date - 02/02/2024) (Collection Date - 02/02/2024) Value Reference Range White Blood Count 4.5 L 4.8-10.8 - X10*3/uL Red Blood Count 4.17 L 4.60-5.80 - X10*6/uL Hemoglobin 12.7 L 14.0-18.0 - g/dl Hematocrit 38.7 L 42.0-52.0 - % Mean Corpuscular Volume 92.8 80.0-98.0 - fL Mean Corpuscular Hemoglobin 30.5 27.0-33.0 - pg Mean Corpuscular HGB Conc 32.8 31.0-36.0 - g/ dl Red Cell Distribution Width 14.9 11.0-16.0 - % Platelet Count 237 160-400 - X10*3/uL Mean Platelet Volume 9.1 L 9.4-12.4 - fL Neutrophils Percent Auto 62.7 45-73 - % Imm Gran Pct Auto 0.4 0.0-0.4 - % Lymphocytes Percent Auto 20.6 20-40 - % Monocytes Percent Auto 10.4 2-11 - % Eosinophils Percent Auto 5.5 H 0-4 - % Basophils Percent Auto 0.4 0-2 - % NRBC Pct Auto 0.0 0.0-0.2 - /100WBC Neutrophils Absolute Auto 2.8 2.0-8.3 - x10* 3/uL Imm Gran Abs Auto 0.02 0.00-0.03 - X10*3/uL Lymphocytes Absolute Auto 0.9 L 1.2-4.9 - X10* 3/uL Monocytes Absolute Auto 0.5 0.1-1.2 - X10*3/ uL Eosinophils Absolute Auto 0.3 0.0-0.4 - X10* 3/uL Basophils Absolute Auto 0.0 0.0-0.2 - X10*3/ uL NRBC Abs Auto 0.000 0.0-0.012 - X10*3/uL L ab:Hemoglobin A1c (Order Date - 02/02/2024) (Collection Date - 02/02/2024) Value Reference Range Hemoglobin A1c % 4.9 <6.0 - % Estimated Average Glucose 94 - mg/dL L ab:Comprehensive [place]. Panel Fast (Order Date - 02/02/2024) (Collection Date - 02/02/2024) Value Reference Range Sodium 141 135-145 - mmol/L Bilirubin Total 0.5 0.0-1.0 - mg/dL Aspartate Amino Transferase 40 H 5-37 - U/L Alanine Aminotransferase 12 0-40 - U/L Total Protein 7.8 6.5-8.0 - g/dL Albumin Level 4.3 3.5-5.0 - g/dL Alkaline Phosphatase 63 39-117 - U/L Potassium 4.1 3.3-5.1 - mmol/L Chloride 105 96-108 - mmol/L Carbon Dioxide 28 22-29 - mmol/L Anion Gap 12 12-20 - Blood Urea Nitrogen 19 H 9-16 - mg/dL Creatinine 1.26 0.5-1.4 - mg/dL Estimated Glomerular Filt Rate 56 - Glucose Fasting 91 60-99 - mg/dL Calcium 9.4 8.4-10.2 - mg/dL L ab:UA ClnCatch+Micro w/rflx Cult (Order Date - 02/02/2024) (Collection Date - 02/02/2024) Value Reference Range Color Urine Yellow - Appearance Urine Clear - PH 6.5 5.0-9.0 - Glucose Urine UA Negative Negative - mg/dL Urine Blood Negative Negative - Specific [place] - Urine 1.010 1.005-1.025 - Urine Protein Trace Neg-Trace - mg/dL Urine Ketones Negative Negative - mg/dL Nitrite Urine Negative Negative - Leukocyte Esterase Urine Negative Negative - RBC Urine 0-2 0-2 - /HPF WBC Urine 0-5 0-5 - /HPF Squamous Epithelial Cell Urine 0-2 0-2 - /HP F Bacteria Urine None Seen None Seen - Hyaline Casts Urine 0-2 0-2 - /LPF L ab:Lipid Panel (Order Date - 02/02/2024) (Collection Date - 02/02/2024) Value Reference Range Triglycerides 95 <150 - mg/dL Cholesterol 128 <200 - mg/dL LDL Cholesterol Calculated 68 <100 - mg/dL HDL Cholesterol 41 >40 - mg/dL L ab:PSA,Total (Free>4and<10) (Order Date - 02/02/2024) (Collection Date - 02/02/2024) Value Reference Range PSA,Total (Free>4and<10) 1.56 0.00-4.00 - ng/ mL L ab:TSH reflex Free T4 (Order Date - 02/02/2024) (Collection Date - 02/02/2024) Value Reference Range TSH reflex Free T4 3.00 0.32-4.0 - uIU/mL * Examination: G eneral Examination: GENERAL APPEARANCE: alert, well hydrated, in no distress . HEAD: normocephalic. EYES: BOTH EYES, normal. EARS: BOTH EARS, normal. THROAT: abnormal with enlarged tonsils enlarged as usual. NECK/THYROID: abnormal with lymphjedema, no carotid bruit, no cervical lymphadenopathy. SKIN: good turgor. HEART: no murmurs, rubs, gallops, regular rate and rhythm. LUNGS: no wheezes, rales, rhonchi, good air movement, clear to auscultation bilaterally. ABDOMEN: soft, nontender, nondistended, no rebound tenderness, no organomegaly . RECTAL EXAM: stool guaiac negative, no masses palpable, prostate normal. MALE GENITOURINARY: uncircumcised, no penile lesions or discharge, testes descended bilaterally. EXTREMITIES: no edema. Assessment: * Assessment: 1. H ead and neck cancer - C76.0 2 . A bnormal LFTs - R79.89 3 . E ssential hypertension - I10 4 . P rediabetes - R73.09 5 . P ure hypercholesterolemia - E78.00?6. E levated PSA - R97.20 7 . A cquired hypothyroidism - E03.9 8 . A scending aortic aneurysm, unspecified whether ruptured - I71.21 Plan: * Treatment: 2. A bnormal LFTs Notes: has recovered. 3. E ssential hypertension Notes: stabe, at goal, will continue current regiment 4. P rediabetes Notes: stable, no need for medication at this time 5. P ure hypercholesterolemia Notes: doing well, is at goal, will continue current regiment 6. E levated PSA Notes: stable, will continue to monitor 7. A cquired hypothyroidism Notes: stable, at goal, will contiue current regiment 8. O thers Notes: if they don't do ct yearly will need to tell dr herbert and get echo next year/ per provider Dr. Benitez will be doing yearly Ct and echo. * Procedure Codes: * Preventive Medicine: Counseling: C are goal follow-up plan: C ounseling for abnormal BMI provided?Yes, A tracie Normal BMI Follow-up G iving encouragement to exercise. * Follow Up: 6 Months * * Sign off status: Completed true * Provider: Alvarado Dc MD Date: 0 02/12/2024 Generated for Natalya coker/Huseyin/Chava on: 05/30/2024 01:05 PM EST History and Physical Notes * HPI (History of Present Illness) Category Sub-Category Detail Notes Category Not es Symptom(s) patient is a 74 yo male here for review of recent labs and follow up of chronic issues.. is walking a little. walking in stores and the mall/ no more gout. Depression Screening PHQ-9 Little inte rest or pleasure in doing things: Not at all Feeling down, depressed, or hopeless: No t at all Trouble falling or staying asleep, or sl eeping too much: Not at all Feeling tired or having little energy: N ot at all Poor appetite or overeating: Not at all Feeling bad about yourself o r that you are a failure, or have let yourself or your family down: Not at all Trouble concentrating on thi ngs, such as reading the newspaper or watching television: Not at all Moving or speaking so slowly that other people could have noticed; or the opposite, being so fidgety or restless that you have been moving around a lot more than usual: Not at all Thoughts that you would be b hyacinth off or of hurting yourself in some way: Not at all Total Score: 0 Interpretation and Intervention Depression Adrienne phelps Findings: Negative Follow-Up for Depression: : review of PH Q-9 found negative result, no follow-up needed SDOH Questions SDOH Questions In the past year have you been worried about losing housing?: No In the past year have you or any family members you live with been unable to get any of the following when it was really needed? Check all that apply:: None Fall Risk History Have you had any falls with injury i n the past year?: No Have you had two or more falls in the st year?: No Communication Needs Communication Needs Does the patient have a hearing impairment: No Does the patient have a vision impairmen t?: Yes If yes, what is the vision impairment?: Glasses Does the patient have a cognition impair ment?: No Examination Category Sub-Category Detail Notes Category Not es General Examination GENERAL APPEARANCE: alert, w ell hydrated, in no distress HEAD: normocephalic EYES: BOTH EYES, normal EARS: BOTH EARS, normal THROAT: abnormal with enlarg ed tonsils enlarged as usual NECK/THYROID: abnormal with lymphj edema, no carotid bruit, no cervical lymphadenopathy HEART: no murmurs, rubs, ga llops, regular rate and rhythm LUNGS: no wheezes, rales, r honchi, good air movement, clear to auscultation bilaterally ABDOMEN: soft, nontender, non distended, no rebound tenderness, no organomegaly SKIN: good turgor EXTREMITIES: no edema MALE GENITOURINARY: uncircumcised, no pe nile lesions or discharge, testes descended bilaterally RECTAL EXAM: stool guaiac negativ e, no masses palpable, prostate normal
--- OUTSIDE RECORDS SUMMARY | 2024-08-02 02:15 | XMS_ITS ---
Author Organization Billy Dc MD Address [address] [place], [place] [id number] Care Team Providers Care Affiliate Manager Name Role Phone Billy Dc Primary Care Provider [phone] Results Component Value Reference Range Notes Liver Panel Reviewed date:08/03/2024 03:18:28 PM Interpretation: Performing Lab:[facility], [address] [place] [phone] Notes/Report: Bilirubin Total 0.6 0.0-1.0 mg/dL Bilirubin Direct 0.3 0.0-0.5 mg/dL Aspartate Amino Transferase 72 5-37 U/L Alanine Aminotransferase 28 0-40 U/L Total Protein 7.4 6.5-8.0 g/dL Albumin Level 4.1 3.5-5.0 g/dL Alkaline Phosphatase 73 39-117 U/L Lipid Panel with Reflex Reviewed date:08/03/2024 03:25:49 PM Interpretation: Performing Lab:[facility], [address] [place] [phone] Notes/Report: Triglycerides 93 <150 mg/dL Desirable Triglyceride: less than 150 mg/dL Borderline High Triglyceride 150-199 mg/dL High Triglyceride: 200-499 mg/dL Very High Triglyceride: greater than or equal to 5OO mg/dL Cholesterol 113 <200 mg/dL Desirable Cholesterol: less than 200 mg/dL Borderline High Cholesterol: 200-239 mg/dL High Cholesterol: greater than 239 mg/dL LDL Cholesterol Calculated 59 <100 mg/dL Desirable LDL: less than 100 mg/dL Near Optimal/Above Optimal LDL: 110-129 mg/dL Borderline High LDL: 130-159 mg/dL High LDL: 160-189 mg/dL Very High LDL: greater than or equal to 190 mg/dL HDL Cholesterol 36 >40 mg/dL Desirable HDL: greater than 40 mg/dL Note: This HDL assay may give artificially low results in patients with liver disease. REASON FOR VISIT fasting lipids Encounters Encounter Location Date Provider Diagnosis Billy Dc MD [address] [place] [id number] 08/02/2024 Billy Dc Pure hypercholestero lemia E78.00 Assessments Encounter Date Diagnosis (ICD Code) Assessment Notes Treatment Notes Treatment Clinical Notes Section Notes 08/02/2024 Pure hypercholesterolemia (ICD-10 - E78.00) Plan Of Treatment Next Appt Details Provider Name:Billy delgado, 05/26/2025 09:00:00 AM, [address] [place] [address], [phone], Provider Name:Billy delgado, 08/22/2025 07:00:00 AM, [address] [place] [address], [address], [phone], Provider Name:Billy delgado, 02/13/2026 07:00:00 AM, [address] [place] [address], [phone], Provider Name:Billy delgado, 02/20/2026 09:30:00 AM, [address] [place] [address], [phone], Progress Notes * Ean JOSEPH: 2 (75 yo M)Acc No.[id number]:08/02/2024 Progress Note Patient: Chris BANEGAS Provider: Alvarado Dc MD :1950 A ge:74 Y S ex:Male Date:08/02/2024 Address:[address] [place] [address] , [place], [phone] Subjective: * Chief Complaints: * 1 . Fasting lipids. * Medical History: Objective: * Vitals: Assessment: * Assessment: 1. P ure hypercholesterolemia - E78.00 (Primary) Plan: * Treatment: * Procedure Codes: 3 6415 VENIPUNCT, ROUTINE* * * The named appointment provid er may or may not be the originator of this progress note, and it is not deemed complete until electronically signed by the appointment provider. Sign off status: Pending * Provider: Alvarado Dc MD Date: 0 08/02/2024 Generated for Natalya coker/Huseyin/Arielitting on: 1 05/30/2024 01:05 PM EST
--- OUTSIDE RECORDS SUMMARY | 2024-08-09 03:30 | XMS_ITS ---
Author Organization Billy Dc MD Address [address] [place], [place] [phone] Care Team Providers Care Instructor [employer]ence [employer] Name Role Phone Billy Dc Primary Care Provider [phone] Allergies No Known Allergies Results Component Value Reference Range Notes Hemoglobin A1c Reviewed date:08/09/2024 08:25:30 AM Interpretation: Performing Lab: Notes/Report: Hemoglobin A1c 5.1 Glucose, finger stick Reviewed date:08/09/2024 08:19:04 AM Interpretation: Performing Lab: Notes/Report: Value 86 REASON FOR VISIT 6 month Medications Medication SIG (Take, Route, Frequency, Duration) Notes Start Date End Date Status Rosuvastatin Calcium 20 MG 1 tablet Oral ly Once a day Active Carvedilol 3.125 MG 1 tablet with food Orally Twice a day Active Percocet 5-325 MG 1 tablet as needed Orally every 6 hrs for 5 days 03/27/2016 Not-Taking Omeprazole 20 MG 1 capsule Orally Onc e a day for 30 day(s) 03/02/2014 Not-Taking Allopurinol 300 MG TAKE ONE TABLET BY MOUTH EVERY DAY for 90 Active traMADol HCl 50 MG 1 tablet as needed Orally every 12 hrs as needed for 30 days 08/09/2024 Active amLODIPine Besylate 10 MG 1 tablet Orall y Once a day Active Levothyroxine Sodium 25 MCG TAKE ONE TABLET BY MOUTH EVERY DAY IN THE MORNING ON AN EMPTY STOMACH Orally Once a day for 90 days Active Problems Problem Type SNOMED Code ICD Code Onset Dates Problem Status W/U Status Risk Notes Problem Sciatica (50055516) Sciatica (M54.30) Active confirmed Problem Cardiac pacemaker in situ (111234423) Pacemaker (Z95.0) Active confirmed Vital Signs Blood pressure systolic 122 mm Hg 08/10/19 Blood pressure diastolic 64 mm Hg 025 Height 65.5 in 08/09/2024 Weight 275 lbs 08/09/2024 BMI 45.06 kg/m2 08/09/2024 weight is up 7 pounds since 02-12-24 Encounters Encounter Location Date Provider Diagnosis Billy Dc MD [address] [place] [address] [place] [phone] 08/09/2024 Billy Dc Prediabetes R73.09 ; Sciatica M54.30 ; Pacemaker Z95.0 and Pure hypercholesterolemia E78.00 Assessments Encounter Date Diagnosis (ICD Code) Assessment Notes Treatment Notes Treatment Clinical Notes Section Notes 08/09/2024 Prediabetes (ICD-10 - R73.09) a1c is good, no need for medicatin at this time, will continue to monitor 08/09/2024 Sciatica (ICD-10 - M54.30) no weakness, will continue to monitor 08/09/2024 Pacemaker (ICD-10 - Z95.0) feels better 08/09/2024 Pure hypercholesterolemia (ICD-10 - E78.00) has gool ldl, will continue current regiment 08/09/2024 Other is increase to 5.3 and is followed by dr vazquez Plan Of Treatment Medication Medication Name Sig Start Date Stop Date Notes Rosuvastatin Calcium 20 MG 1 tablet Orally Once a day traMADol HCl 50 MG 1 tablet as needed O rally every 12 hrs as needed for 30 days 08/09/2024 Treatment Notes Assessment Notes Prediabetes a1c is good, no need for medicatin at this time, will continue to monitor Sciatica no weakness, will co ntinue to monitor Pacemaker feels better Pure hypercholesterolemia has gool ldl, will continue current regiment Other is increase to 5.3 a nd is followed by dr vazquez Next Appt Details Provider Name:Billy Justin ier, 05/26/2025 09:00:00 AM, [address] [facility], [address], [place], [place], [phone], Provider Name:Billy Justin ier, 08/22/2025 07:00:00 AM, [address], [address], [place], [place], [phone], Provider Name:Billy Justin ier, 02/13/2026 07:00:00 AM, [address] [place] [address], [address], [place], [place], [phone], Provider Name:Billy Justin ier, 02/20/2026 09:30:00 AM, [address] [place] [address], Suite [facility], [place], [place], [phone], Progress Notes * OPAL ChrisDOB: (74 yo M)Acc No.[id number]:08/09/2024 Progress Notes Patient: Chris BANEGAS Provider: Alvarado Dc MD :1950 A ge:74 Y S ex:Male Date:08/09/2024 Address:[address] [place] [address] , [place], [id number] Subjective: * Chief Complaints: * 6 month * HPI: S ymptom(s): patient is 74 yo male here for 6 month follow up visit/ has sciatica for couple days/. * ROS: G eneral/Constitutional: Denies C hills. D enies F atigue. D enies F ever. D enies H eadache. E NT: Denies S ore throat. R espiratory: Denies C ough. D enies S hortness of breath at rest. D enies S hortness of breath with exertion. C ardiovascular: Denies C hest pain at rest. D enies C hest pain with exertion. D enies D izziness. D enies P alpitations. D enies S hortness of breath. G astrointestinal: Denies D iarrhea. D enies N ausea. * Medical History: * Surgical History: * Hospitalization/Major Diagno stic Procedure: * Medications: T akingCarvedilol 3.125 MG Tablet 1 tablet with food Orally Twice a day Rosuvastatin Calcium 20 MG Tablet 1 tablet Orally Once a day amLODIPine Besylate 10 MG Tablet 1 tablet Orally Once a day Levothyroxine Sodium 25 MCG Tablet TAKE ONE TABLET BY MOUTH EVERY DAY IN THE MORNING ON AN EMPTY STOMACH Orally Once a day Allopurinol 300 MG Tablet TAKE ONE TABLET BY MOUTH EVERY DAY Taking Carvedilol 3.125 MG Tablet 1 tablet with food Orally Twice a day Taking Rosuvastatin Calcium 20 MG Tablet 1 tablet Orally Once a day Taking amLODIPine Besylate 10 MG Tablet 1 tablet Orally Once a day Taking Levothyroxine Sodium 25 MCG Tablet TAKE ONE TABLET BY MOUTH EVERY DAY IN THE MORNING ON AN EMPTY STOMACH Orally Once a day Taking Allopurinol 300 MG Tablet TAKE ONE TABLET BY MOUTH EVERY DAY Not-Taking/PRNtraMADol HCl 50 MG Tablet 1 tablet as needed Orally every 12 hrs as needed Percocet 5-325 MG Tablet 1 tablet as needed Orally every 6 hrs Omeprazole 20 MG Capsule Delayed Release 1 capsule Orally Once a day Medication List reviewed and reconciled with the patientNot-Taking/PRN traMADol HCl 50 MG Tablet 1 tablet as needed Orally every 12 hrs as needed Not-Taking/PRN Percocet 5-325 MG Tablet 1 tablet as needed Orally every 6 hrs Not-Taking/PRN Omeprazole 20 MG Capsule Delayed Release 1 capsule Orally Once a day Medication List reviewed and reconciled with the patient * Allergies: N .K.D.A.yes[Allergies Verified] Objective: * Vitals: H t: 65.5, Wt: 275, BMI:45.06, BP:122/64, Wt-k.74. weight is up 7 pounds since 02-12-24. * P ast Orders: L ab:Liver Panel (Order Date - 08/02/2024) (Collection Date & Time - 08/02/2024 07:15 AM) Value Reference Range Bilirubin Total 0.6 0.0-1.0 - mg/dL Bilirubin Direct 0.3 0.0-0.5 - mg/dL Aspartate Amino Transferase 72 H 5-37 - U/L Alanine Aminotransferase 28 0-40 - U/L Total Protein 7.4 6.5-8.0 - g/dL Albumin Level 4.1 3.5-5.0 - g/dL Alkaline Phosphatase 73 39-117 - U/L L ab:Lipid Panel with Reflex (Order Date - 08/02/2024) (Collection Date & Time - 08/02/2024 07:15 AM) Value Reference Range Triglycerides 93 <150 - mg/dL Cholesterol 113 <200 - mg/dL LDL Cholesterol Calculated 59 <100 - mg/dL HDL Cholesterol 36 L >40 - mg/dL * Examination: G eneral Examination: GENERAL APPEARANCE: a lert, well hydrated, in no distress, male. HEAD: n ormocephalic. SKIN: g ood turgor. HEART: r egular rate and rhythm, no murmurs, rubs, gallops.? LUNGS: n o wheezes, rales, rhonchi, good air movement, clear to auscultation bilaterally. Assessment: * Assessment: 1. P rediabetes - R73.09 (Primary) 2 . S ciatica - M54.30 3 . P acemaker - Z95.0 4 . P ure hypercholesterolemia - E78.00 ? Plan: * Treatment: Value Reference Range H emoglobin A1c 5.1 ?LAB: Glucose, finger stick (Collection Date & Time - 08/09/2024)* Value Reference Range V alue 86 Notes: a1c is good, no need for medicatin at this time, will continue to monitor??2.?Sciatica? Notes: no weakness, will continue to monitor??3.?Pacemaker? Notes: feels better??4.?Pure hypercholesterolemia? Continue Rosuvastatin Calcium Tablet, 20 MG, 1 tablet, Orally, Once a day.?? Notes: has gool ldl, will continue current regiment??5.?Others? Notes: is increase to 5.3 and is followed by dr vazquez?? * Procedure Codes: 8 2947 ASSAY, GLUCOSE, BLOOD QUANT, Modifiers: QW 34773 GLYCATED HEMOGLOBIN TEST, Modifiers: QW * * Sign off status: Completed true * Provider: Alvarado Dc MD Date: 0 08/09/2024 Generated for Natalya coker/Huseyin/Arielitting on: 05/30/2024 01:04 PM EST History and Physical Notes * HPI (History of Present Illness) Category Sub-Category Detail Notes Category Not es Symptom(s) patient is 74 y o male here for 6 month follow up visit/ has sciatica for couple days/ Examination Category Sub-Category Detail Notes Category Not es General Examination GENERAL APPEARANCE: alert, w ell hydrated, in no distress, male HEAD: normocephalic HEART: regular rate and rhy thm, no murmurs, rubs, gallops LUNGS: no wheezes, rales, r honchi, good air movement, clear to auscultation bilaterally SKIN: good turgor
--- OUTSIDE RECORDS SUMMARY | 2025-02-10 02:30 | XMS_ITS ---
Author Organization Billy Dc MD Address [address] [place], [place] [id number] Care Team Providers Care Metal Trades Instructor Name Role Phone Billy Dc Primary Care Provider [phone] Results Component Value Reference Range Notes Complete Blood Count Auto Di ff Reviewed date:02/10/2025 12:25:34 PM Interpretation: Performing Lab:[facility], [address] [place] [phone] Notes/Report: White Blood Count 6.3 4.8-10.8 X10*3/uL Red Blood Count 4.07 4.60-5.80 X10*6/uL Hemoglobin 12.4 14.0-18.0 g/dl Hematocrit 37.6 42.0-52.0 % Mean Corpuscular Volume 92.4 80.0-98.0 fL Mean Corpuscular Hemoglobin 30.5 27.0-33.0 pg Mean Corpuscular HGB Conc 33.0 31.0-36.0 g/dl Red Cell Distribution Width 14.6 11.0-16.0 % Platelet Count 234 160-400 X10*3/uL Mean Platelet Volume 9.2 9.4-12.4 fL Neutrophils Percent Auto 71.6 45-73 % Imm Gran Pct Auto 0.5 0.0-0.4 % Lymphocytes Percent Auto 14.3 20-40 % Monocytes Percent Auto 9.0 2-11 % Eosinophils Percent Auto 4.0 0-4 % Basophils Percent Auto 0.6 0-2 % NRBC Pct Auto 0.0 0.0-0.2 /100WBC Neutrophils Absolute Auto 4.5 2.0-8.3 x10*3/u L Imm Gran Abs Auto 0.03 0.00-0.03 X10*3/uL Lymphocytes Absolute Auto 0.9 1.2-4.9 X10*3/u L Monocytes Absolute Auto 0.6 0.1-1.2 X10*3/uL Eosinophils Absolute Auto 0.3 0.0-0.4 X10*3/u L Basophils Absolute Auto 0.0 0.0-0.2 X10*3/uL NRBC Abs Auto 0.000 0.0-0.012 X10*3/uL Lipid Panel Reviewed date:02/10/2025 12:17:48 PM Interpretation: Performing Lab:[facility], [address] [place] [phone] Notes/Report: Triglycerides 84 <150 mg/dL Desirable Triglyceride: less than 150 mg/dL Borderline High Triglyceride 150-199 mg/dL High Triglyceride: 200-499 mg/dL Very High Triglyceride: greater than or equal to 5OO mg/dL Cholesterol 117 <200 mg/dL Desirable Cholesterol: less than 200 mg/dL Borderline High Cholesterol: 200-239 mg/dL High Cholesterol: greater than 239 mg/dL LDL Cholesterol Calculated 64 <100 mg/dL Desirable LDL: less than 100 mg/dL Near Optimal/Above Optimal LDL: 110-129 mg/dL Borderline High LDL: 130-159 mg/dL High LDL: 160-189 mg/dL Very High LDL: greater than or equal to 190 mg/dL HDL Cholesterol 37 >40 mg/dL Desirable HDL: greater than 40 mg/dL Note: This HDL assay may give artificially low results in patients with liver disease. PSA,Total (Free>4and<10) Reviewed date:02/17/2025 10:20:41 AM Interpretation:FAYE 02/17/25 Performing Lab:[address] [phone] Notes/Report: PSA,Total (Free>4and<10) 17.74 0.00-4.00 ng/mL A Free PSA was not [...] Immunoassay (CMIA) TSH reflex Free T4 Reviewed date:02/10/2025 12:17:29 PM Interpretation: Performing Lab:[address] [phone] Notes/Report: TSH reflex Free T4 4.05 0.32-4.0 uIU/mL Microalbumin, Random Reviewed date:02/10/2025 12:25:09 PM Interpretation: Performing Lab:[address] [phone] Notes/Report: Creatinine Urine 191.98 Microalbumin Urine 53.0 Microalbum/Creatinine Ratio Ur 27.6 <30 ug/mg cr Albumin/Creatinine Ratio Reference Ranges: Normal: < 30 ug/mg creatinine Microalbuminuria: 30 - 300 ug/mg creatinine Clinical Albuminuria: > 300 ug/mg creatinine Hemoglobin A1c Reviewed date:02/10/2025 12:25:42 PM Interpretation: Performing Lab:[address] [phone] Notes/Report: Hemoglobin A1c % 5.1 <6.0 % Hemoglobin A1C Reference Range Adults: 4.8 - 6.0 % Non diabetic: < 6.0 % Goal: < 7.0 % Additional Action Suggested: > 8.0 % Note: Hemoglobin A1c results are invalid for patients with abnormal amounts of HbF. Blood transfusions may impact the HbA1c concentration in the patient sample. Estimated Average Glucose 100 eAG = Estimated average glucose which is %A1C expressed as average glucose, using the formula of the S6B-Vcaqxmi Average Glucose study (ADAG), Diabetes Care, Vol.31,#8, Dec. 2007 UA ClnCatch+Micro w/rflx Cul t Reviewed date:02/10/2025 04:27:47 PM Interpretation: Performing Lab:[facility], [address] [place] [address], [place] [address] Notes/Report: Urine, Clean Catch Color Urine Yellow Appearance Urine Clear PH 6.5 5.0-9.0 Glucose Urine UA Negative Negative mg/dL Urine Blood Negative Negative Specific [place] - Urine 1.020 1.005-1.025 Urine Protein 30 (1+) Neg-Trace mg/dL Urine Ketones Negative Negative mg/dL Nitrite Urine Negative Negative Leukocyte Esterase Urine Small (1+) Negative RBC Urine 0-2 0-2 /HPF WBC Urine 6-10 0-5 /HPF Squamous Epithelial Cell Urine 0-2 0-2 /HPF Bacteria Urine None Seen None Seen Hyaline Casts Urine 0-2 0-2 /LPF REASON FOR VISIT yearly fasting labs Immunizations Vaccine Route Administration Date Status Comme nts Influenza High Dose IM Intramuscular 02/10/2025 Administer ed Encounters Encounter Location Date Provider Diagnosis Billy Dc MD [address] [facility] [address] [place], [place] [phone] 02/10/2025 Billy Dc Essential hypertensi on I10 ; Encounter for administration of vaccine Z23 ; Prediabetes R73.09 ; Pure hypercholesterolemia E78.00 ; Elevated PSA R97.20 and Acquired hypothyroidism E03.9 Assessments Encounter Date Diagnosis (ICD Code) Assessment Notes Treatment Notes Treatment Clinical Notes Section Notes 02/10/2025 Essential hypertensi on (ICD-10 - I10) 02/10/2025 Encounter for administration of vaccine (ICD-10 - Z23) 02/10/2025 Prediabetes (ICD-10 - R73.09) 02/10/2025 Pure hypercholesterolemia (ICD-10 - E78.00) 02/10/2025 Elevated PSA (ICD-10 - R97.20) 02/10/2025 Acquired hypothyroid ism (ICD-10 - E03.9) Plan Of Treatment Pending Test Test Name Order Date Comprehensive [place]. Panel Fast Next Appt Details Provider Name:Billy Justin ier, 05/26/2025 09:00:00 AM, [address], [address], [place], [place], [phone], Provider Name:Billy Justin ier, 08/22/2025 07:00:00 AM, [address] [facility] [address], [address], [place], [phone], Provider Name:Billy Justin ier, 02/13/2026 07:00:00 AM, [address], [address], [place], [place], [id number], Provider Name:Billy Justin ier, 02/20/2026 09:30:00 AM, [address], [address], [place], [id number], Progress Notes * OPAL ChrisDOB: 2 (75 yo M)Acc No.[id number]:02/10/2025 Progress Note Patient: Chris BANEGAS Provider: Alvarado Dc MD :1950 A ge:75 Y S ex:Male Date:02/10/2025 Address:[address] [place] [address] [address] STEPHENW[place]riel [phone] Subjective: * Chief Complaints: * 1 . Yearly fasting labs. * Medical History: Objective: * Vitals: Assessment: * Assessment: 1. E ncounter for administration of vaccine - Z23 (Primary) 2 . E ssential hypertension - I10 3 . P rediabetes - R73.09 4 . P ure hypercholesterolemia - E78.00 5 . E levated PSA - R97.20 6 . A cquired hypothyroidism - E03.9 Plan: * Treatment: 2. P rediabetes L AB: Comprehensive [place]. Panel Fast L AB: Complete Blood Count Auto Diff (Collection Date & Time - 02/10/2025 07:30 AM) L AB: Lipid Panel (Collection Date & Time - 02/10/2025 07:30 AM) L AB: PSA,Total (Free>4and<10) (Collection Date & Time - 02/10/2025 07:30 AM) L AB: TSH reflex Free T4 (Collection Date & Time - 02/10/2025 07:30 AM) L AB: Microalbumin, Random (Collection Date & Time - 02/10/2025 07:30 AM) L AB: Hemoglobin A1c (Collection Date & Time - 02/10/2025 07:30 AM) L AB: UA ClnCatch+Micro w/rflx Cult (Collection Date & Time - 02/10/2025 07:30 AM) 3. P ure hypercholesterolemia L AB: Comprehensive [place]. Panel Fast L AB: Complete Blood Count Auto Diff (Collection Date & Time - 02/10/2025 07:30 AM) L AB: Lipid Panel (Collection Date & Time - 02/10/2025 07:30 AM) L AB: PSA,Total (Free>4and<10) (Collection Date & Time - 02/10/2025 07:30 AM) L AB: TSH reflex Free T4 (Collection Date & Time - 02/10/2025 07:30 AM) L AB: Microalbumin, Random (Collection Date & Time - 02/10/2025 07:30 AM) L AB: Hemoglobin A1c (Collection Date & Time - 02/10/2025 07:30 AM) L AB: UA ClnCatch+Micro w/rflx Cult (Collection Date & Time - 02/10/2025 07:30 AM) 4. E levated PSA L AB: Comprehensive [place]. Panel Fast L AB: Complete Blood Count Auto Diff (Collection Date & Time - 02/10/2025 07:30 AM) L AB: Lipid Panel (Collection Date & Time - 02/10/2025 07:30 AM) L AB: PSA,Total (Free>4and<10) (Collection Date & Time - 02/10/2025 07:30 AM) L AB: TSH reflex Free T4 (Collection Date & Time - 02/10/2025 07:30 AM) L AB: Microalbumin, Random (Collection Date & Time - 02/10/2025 07:30 AM) L AB: Hemoglobin A1c (Collection Date & Time - 02/10/2025 07:30 AM) L AB: UA ClnCatch+Micro w/rflx Cult (Collection Date & Time - 02/10/2025 07:30 AM) 5. A cquired hypothyroidism L AB: Comprehensive [place]. Panel Fast L AB: Complete Blood Count Auto Diff (Collection Date & Time - 02/10/2025 07:30 AM) L AB: Lipid Panel (Collection Date & Time - 02/10/2025 07:30 AM) L AB: PSA,Total (Free>4and<10) (Collection Date & Time - 02/10/2025 07:30 AM) L AB: TSH reflex Free T4 (Collection Date & Time - 02/10/2025 07:30 AM) L AB: Microalbumin, Random (Collection Date & Time - 02/10/2025 07:30 AM) L AB: Hemoglobin A1c (Collection Date & Time - 02/10/2025 07:30 AM) L AB: UA ClnCatch+Micro w/rflx Cult (Collection Date & Time - 02/10/2025 07:30 AM) * Immunizations: Influenza High Dose : 0.5 mL (Dose No:1) (Route: Intramuscular) given by Nancy Yanez , Office Staff on Left Deltoid * Procedure Codes: 9 0662 FLU VACC PRSV FREE INC ANTIG, [address]229 VENIPUNCT, ROUTINE*, G0008 ADMN FLU VAC NO FEE SCHED SAME DAY * * The named appointment provid er may or may not be the originator of this progress note, and it is not deemed complete until electronically signed by the appointment provider. Sign off status: Pending * Provider: Alvarado Dc MD Date: 0 02/10/2025 Generated for Natalya coker/Huseyin/Arielitting on: 05/30/2024 01:05 PM EST
--- OUTSIDE RECORDS SUMMARY | 2025-02-17 04:30 | XMS_ITS ---
Author Organization Billy Dc MD Address [address] [place], [place] [id number] Care Team Providers Care Negative Restorer Name Role Phone Billy Dc Primary Care Provider Allergies No Known Allergies Results Component Value Reference Range Notes Occult Blood, Stool, Guaiac Reviewed date:02/17/2025 12:13:38 PM Interpretation:Negative Performing Lab: Notes/Report: Negative Occult Blood, Stool, Guaiac Neg REASON FOR VISIT review labs, CBACK PSA Medications Medication SIG (Take, Route, Frequency, Duration) Notes Start Date End Date Status Allopurinol 300 MG TAKE ONE TABLET BY MOUTH EVERY DAY for 90 Active traMADol HCl 50 MG 1 tablet as needed Orally every 12 hrs as needed for 30 days 08/09/2024 Not-Taking LORazepam 0.5 MG 1 tablet Orally Once a day as needed for 30 days 02/17/2025 Active Percocet 5-325 MG 1 tablet as needed Orally every 6 hrs for 5 days 03/27/2016 Not-Taking Omeprazole 20 MG 1 capsule Orally Onc e a day for 30 day(s) 03/02/2014 Not-Taking amLODIPine Besylate 10 MG 1 tablet Orall y Once a day Active Rosuvastatin Calcium 20 MG 1 tablet Oral ly Once a day Active Levothyroxine Sodium 25 MCG TAKE ONE TABLET BY MOUTH EVERY DAY IN THE MORNING ON AN EMPTY STOMACH Active Carvedilol 3.125 MG 1 tablet with food Orally Twice a day Active Social History Tobacco Use: Social History [...] Problem Status W/U Status Risk Notes Problem Anxiety (78757544) Anxiety (F41.9) Active confirmed Vital Signs Blood pressure systolic 120 mm Hg 02/18/20 25 Blood pressure diastolic 64 mm Hg 025 Height 65.5 in 02/17/2025 Weight 245 lbs 02/17/2025 BMI 40.15 kg/m2 02/17/2025 weight is down 30 pounds [facility] emergency department 3-25-25 Encounters Encounter Location Date Provider Diagnosis Billy Dc MD [address] [place] [address] [place] [id number] 02/17/2025 Billy Dc Elevated PSA R97.20 ; Ascending aortic aneurysm I71.2 ; Anxiety F41.9 ; Essential hypertension I10 ; Prediabetes R73.09 ; Pure hypercholesterolemia E78.00 ; Acquired hypothyroidism E03.9 ; Colon cancer screening Z12.11 and Depression screening Z13.31 Assessments Encounter Date Diagnosis (ICD Code) Assessment Notes Treatment Notes Treatment Clinical Notes Section Notes 02/17/2025 Elevated PSA (ICD-10 - R97.20) will repeat PSA, pending PSA 02/17/2025 Ascending aortic aneurysm (ICD-10 - I71.2) need notes from dr vazquez at [facility]/ REQUEST MADE TO [facility] MED RECORDS 02/17/2025 Anxiety (ICD-10 - F41.9) patient verbalized understanding of medication and directions for use 02/17/2025 Essential hypertensi on (ICD-10 - I10) stable, will contiue current regiment 02/17/2025 Prediabetes (ICD-10 - R73.09) stable, no need for medication at this time 02/17/2025 Pure hypercholesterolemia (ICD-10 - E78.00) stable, will cntinue current regiment 02/17/2025 Acquired hypothyroid ism (ICD-10 - E03.9) doing well, will continue current regiment 02/17/2025 Colon cancer screeni ng (ICD-10 - Z12.11) guaiac negative 02/17/2025 Depression screening (ICD-10 - Z13.31) negative screen Plan Of Treatment Medication Medication Name Sig Start Date Stop Date Notes LORazepam 0.5 MG 1 tablet Orally Once a day as needed for 30 days 02/17/2025 amLODIPine Besylate 10 MG 1 tablet Orally Once a day Rosuvastatin Calcium 20 MG 1 tablet Orally Once a day Levothyroxine Sodium 25 MCG TAKE ONE TAB LET BY MOUTH EVERY DAY IN THE MORNING ON AN EMPTY STOMACH Carvedilol 3.125 MG 1 tablet with food O rally Twice a day Treatment Notes Assessment Notes Elevated PSA will repeat PSA, pen ding PSA Ascending aortic aneurysm need notes fro m dr vazquez at [facility]/ REQUEST MADE TO [facility] MED RECORDS Anxiety patient verbalized u nderstanding of medication and directions for use Essential hypertension stable, will cont iue current regiment Prediabetes stable, no need for medication at this time Pure hypercholesterolemia stable, will c ntinue current regiment Acquired hypothyroidism doing well, will continue current regiment Colon cancer screening guaiac negative Depression screening negative screen Pending Test Test Name Order Date PSA Free and Total 02/17/2025 Next Appt Details Follow Up: 3 Months, Reason: Provider Name:Billy delgado, 05/26/2025 09:00:00 AM, [address] [place] [address], [address], [place], [place], [phone], Provider Name:Billy bishopr, 08/22/2025 07:00:00 AM, [address], [address], [place], [phone], Provider Name:Billy Justin ier, 02/13/2026 07:00:00 AM, [address], [address], [place], [phone], Provider Name:Billy Justin ier, 02/20/2026 09:30:00 AM, [address], [address], [place], [phone], Progress Notes * Chris JOSEPHDOB: (75 yo M)Acc No.[id number]:02/17/2025 Patient: Chris BANEGAS Provider: Alvarado Dc MD :1950 A ge:75 Y S ex:Male Date:02/17/2025 Address:[address] [place] [address] , [id number] Subjective: * Chief Complaints: * R eview labsCBACK PSA * HPI: D epression Screening: here dfor yearly evaluation. may need heart surgery for dilated aorta. PHQ-9 L ittle interest or pleasure in [...] N one. S ymptom(s): patient is a 75 yo male here for review of recent labs and follow up of chronic issues. * ROS: G eneral/Constitutional: Change in appetite d enies. C hills d enies. F ever d enies. O phthalmologic: Blurred vision d enies. D ischarge d enies. P ain d enies. E NT: Decreased hearing d enies. S ore throat d enies.?Swollen glands d enies. E ndocrine: Cold intolerance d enies. E xcessive thirst d enies. H eat intolerance d enies. W eight loss d enies. R espiratory: Cough d enies. S hortness of breath at rest d enies. S hortness of breath with exertion d enies. W heezing d enies. C ardiovascular: Chest pain at rest d enies. C hest pain with exertion?denies. I rregular heartbeat d enies. S hortness of breath d enies. ? G astrointestinal: Abdominal pain d enies. C hange in bowel habits d enies. D iarrhea d enies. N ausea d enies. R ectal bleeding d enies. V omiting d enies . G enitourinary: Blood in urine d enies. D ifficulty urinating d enies. F requent urination d enies. M usculoskeletal: Painful joints d enies. W eakness d enies. ? S kin: Dry skin d enies. I tching d enies. D enies?Mole(s), changes in moles, new moles or any lesions of concern. D enies P hotosensitivity. R adi d enies. N eurologic: Dizziness d enies. F ainting d enies. H eadache?denies. * Medical History: * Surgical History: * Hospitalization/Major Diagno stic Procedure: * Family History: F ather: 76 yrs, diagnosed with CHF. M other: 92 yrs, diagnosed with CHF. 1 brother(s) , 1 sister(s) - healthy. 1 son(s) , 2 daughter(s) - healthy. . Father- old age Mother OR, No pertinent family medical history, No pertinent [...] N egative. M iscellaneous: C hildren: yes. Exercise: no. Home smoke detector use: yes. Housing: owning. Living with: spouse. Marital status: . Occupation: weeks/months/years, works full-time. * Medications: T akingCarvedilol 3.125 MG Tablet 1 tablet with food Orally Twice a day amLODIPine Besylate 10 MG Tablet 1 tablet Orally Once a day Allopurinol 300 MG Tablet TAKE ONE TABLET BY MOUTH EVERY DAY Rosuvastatin Calcium 20 MG Tablet 1 tablet Orally Once a day Levothyroxine Sodium 25 MCG Tablet TAKE ONE TABLET BY MOUTH EVERY DAY IN THE MORNING ON AN EMPTY STOMACH Taking Carvedilol 3.125 MG Tablet 1 tablet with food Orally Twice a day Taking amLODIPine Besylate 10 MG Tablet 1 tablet Orally Once a day Taking Allopurinol 300 MG Tablet TAKE ONE TABLET BY MOUTH EVERY DAY Taking Rosuvastatin Calcium 20 MG Tablet 1 tablet Orally Once a day Taking Levothyroxine Sodium 25 MCG Tablet TAKE ONE TABLET BY MOUTH EVERY DAY IN THE MORNING ON AN EMPTY STOMACH Not-Taking/PRNtraMADol HCl 50 MG Tablet 1 tablet as needed Orally every 12 hrs as needed Percocet 5-325 MG Tablet 1 tablet as needed Orally every 6 hrs Omeprazole 20 MG Capsule Delayed Release 1 capsule Orally Once a day Not- Taking/PRN traMADol HCl 50 MG Tablet 1 tablet as needed Orally every 12 hrs as needed Not-Taking/PRN Percocet 5-325 MG Tablet 1 tablet as needed Orally every 6 hrs Not-Taking/PRN Omeprazole 20 MG Capsule Delayed Release 1 capsule Orally Once a day * Allergies: N .K.D.A.yes[Allergies Verified] Objective: * Vitals: H t: 65.5, Wt: 245, BMI:40.15, BP:120/64, Wt-k.13. weight is down 30 pounds since 08-09-24. * P ast Orders: L ab:Free T4 (Free Thyroxine) (Order Date - 02/10/2025) (Collection Date & Time - 02/10/2025 07:30 AM) Value Reference Range Free T4 (Free Thyroxine) 0.73 0.71-1.85 - ng/ dL L ab:Lipid Panel (Order Date - 02/10/2025) (Collection Date & Time - 02/10/2025 07:30 AM) Value Reference Range Triglycerides 84 <150 - mg/dL Cholesterol 117 <200 - mg/dL LDL Cholesterol Calculated 64 <100 - mg/dL HDL Cholesterol 37 L >40 - mg/dL L ab:TSH reflex Free T4 (Order Date - 02/10/2025) (Collection Date & Time - 02/10/2025 07:30 AM) Value Reference Range TSH reflex Free T4 4.05 H 0.32-4.0 - uIU/mL L ab:Microalbumin, Random (Order Date - 02/10/2025) (Collection Date & Time - 02/10/2025 07:30 AM) Value Reference Range Creatinine Urine 191.98 - mg/dL Microalbumin Urine 53.0 - mg/L Microalbum Creatinine Ratio Ur 27.6 <30 - ug/ mg cr L ab:Hemoglobin A1c (Order Date - 02/10/2025) (Collection Date & Time - 02/10/2025 07:30 AM) Value Reference Range Hemoglobin A1c % 5.1 <6.0 - % Estimated Average Glucose 100 - mg/dL L ab:Comprehensive Met. Panel (Order Date - 02/10/2025) (Collection Date & Time - 02/10/2025 07:30 AM) Value Reference Range Sodium 141 135-145 - mmol/L Bilirubin Total 0.7 0.0-1.0 - mg/dL Aspartate Amino Transferase 65 H 5-37 - U/L Alanine Aminotransferase 21 0-40 - U/L Total Protein 7.4 6.5-8.0 - g/dL Albumin Level 4.3 3.5-5.0 - g/dL Alkaline Phosphatase 68 39-117 - U/L Potassium 3.9 3.3-5.1 - mmol/L Chloride 105 96-108 - mmol/L Carbon Dioxide 29 22-29 - mmol/L Anion Gap 11 L 12-20 - Blood Urea Nitrogen 17 H 9-16 - mg/dL Creatinine 1.40 0.5-1.4 - mg/dL Estimated Glomerular Filt Rate 50 - Glucose Random 90 60-115 - mg/dL Calcium 9.1 8.4-10.2 - mg/dL L ab:Complete Blood Count Auto Diff (Order Date - 02/10/2025) (Collection Date & Time - 02/10/2025 07:30 AM) Value Reference Range White Blood Count 6.3 4.8-10.8 - X10*3/uL Red Blood Count 4.07 L 4.60-5.80 - X10*6/uL Hemoglobin 12.4 L 14.0-18.0 - g/dl Hematocrit 37.6 L 42.0-52.0 - % Mean Corpuscular Volume 92.4 80.0-98.0 - fL Mean Corpuscular Hemoglobin 30.5 27.0-33.0 - pg Mean Corpuscular HGB Conc 33.0 31.0-36.0 - g/ dl Red Cell Distribution Width 14.6 11.0-16.0 - % Platelet Count 234 160-400 - X10*3/uL Mean Platelet Volume 9.2 L 9.4-12.4 - fL Neutrophils Percent Auto 71.6 45-73 - % Imm Gran Pct Auto 0.5 H 0.0-0.4 - % Lymphocytes Percent Auto 14.3 L 20-40 - % Monocytes Percent Auto 9.0 2-11 - % Eosinophils Percent Auto 4.0 0-4 - % Basophils Percent Auto 0.6 0-2 - % NRBC Pct Auto 0.0 0.0-0.2 - /100WBC Neutrophils Absolute Auto 4.5 2.0-8.3 - x10* 3/uL Imm Gran Abs Auto 0.03 0.00-0.03 - X10*3/uL Lymphocytes Absolute Auto 0.9 L 1.2-4.9 - X10* 3/uL Monocytes Absolute Auto 0.6 0.1-1.2 - X10*3/ uL Eosinophils Absolute Auto 0.3 0.0-0.4 - X10* 3/uL Basophils Absolute Auto 0.0 0.0-0.2 - X10*3/ uL NRBC Abs Auto 0.000 0.0-0.012 - X10*3/uL L ab:Urine Culture (Order Date - 02/10/2025) (Collection Date & Time - 02/10/2025) Value Reference Range Urine Culture < 10,000 cfu/ml - L ab:UA ClnCatch+Micro w/rflx Cult (Order Date - 02/10/2025) (Collection Date & Time - 02/10/2025 07:30 AM) Value Reference Range Color Urine Yellow - Appearance Urine Clear - PH 6.5 5.0-9.0 - Glucose Urine UA Negative Negative - mg/dL Urine Blood Negative Negative - Specific [place] - Urine 1.020 1.005-1.025 - Urine Protein 30 (1+) A Neg-Trace - mg/dL Urine Ketones Negative Negative - mg/dL Nitrite Urine Negative Negative - Leukocyte Esterase Urine Small (1+) A Negative - RBC Urine 0-2 0-2 - /HPF WBC Urine 6-10 A 0-5 - /HPF Squamous Epithelial Cell Urine 0-2 0-2 - /HP F Bacteria Urine None Seen None Seen - Hyaline Casts Urine 0-2 0-2 - /LPF * Examination: G eneral Examination: GENERAL APPEARANCE: w ell developed, well nourished, in no acute distress. HEAD: n ormocephalic, atraumatic. EYES: p upils equal, round, reactive to light and accommodation, sclera non-icteric. EARS: n ormal. ORAL CAVITY: m ucosa moist. THROAT: c lear. NECK/THYROID: n franko supple, full range of motion, no cervical lymphadenopathy, no bruits. SKIN: w arm and dry, no suspicious lesions. HEART: r egular rate and rhythm, S1, S2 normal, no murmurs.? LUNGS: c lear to auscultation bilaterally. ABDOMEN: s oft, nontender, nondistended, bowel sounds present, normal, no organomegaly , no masses palpable. RECTAL EXAM: n ormal tone, no external hemorrhoids, no masses palpable, prostate normal, stool guaiac negative. MALE GENITOURINARY: n ot examined. EXTREMITIES: n o clubbing, cyanosis, or edema. NEUROLOGIC: n onfocal, motor strength normal upper and lower extremities, sensory exam intact. Assessment: * Assessment: 1. A scending aortic aneurysm - I71.2 (Primary) 2 . E levated PSA - R97.20? 3. A nxiety - F41.9 4 . E ssential hypertension - I10 ? 5 . P rediabetes - R73.09 6 . P ure hypercholesterolemia - E78.00 7. A cquired hypothyroidism - E03.9 8 . C olon cancer screening - Z12.11 9 . D epression screening - Z13.31 Plan: * Treatment: 2. E levated PSA L AB: PSA Free and Total Notes: will repeat PSA, pending PSA 3. A nxiety Start LORazepam Tablet, 0.5 MG, 1 tablet, Orally, Once a day as needed, 30 days, 30, Refills 2.? Notes: patient verbalized understanding of medication and directions for use 4. E ssential hypertension Continue amLODIPine Besylate Tablet, 10 MG, 1 tablet, Orally, Once a day; C ontinue Carvedilol Tablet, 3.125 MG, 1 tablet with food, Orally, Twice a day. Notes: stable, will contiue current regiment 5. P rediabetes Notes: stable, no need for medication at this time 6. P ure hypercholesterolemia Continue Rosuvastatin Calcium Tablet, 20 MG, 1 tablet, Orally, Once a day. Notes: stable, will cntinue current regiment 7. A cquired hypothyroidism Continue Levothyroxine Sodium Tablet, 25 MCG, TAKE ONE TABLET BY MOUTH EVERY DAY IN THE MORNING ON AN EMPTY STOMACH. Notes: doing well, will continue current regiment 8. C olon cancer screening L AB: Occult Blood, Stool, Guaiac (Collection Date & Time - 02/17/2025) N egative Value Reference Range O ccult Blood, Stool, Guaiac Neg Notes: guaiac negative??9.?Depression screening? Notes: negative screen?? * Procedure Codes: 8 2270 TEST FOR BLOOD, [id number] Complex e/m visit add on * Follow Up: 3 Months * * Sign off status: Completed true * Provider: Alvarado Dc MD Date: Generated for Natalya coker/Huseyin/Bernardoransmitting on: 05/30/2024 01:03 PM EST History and Physical Notes * HPI (History of Present Illness) Category Sub-Category Detail Notes Category Not es Symptom(s) patient is a 75 yo male here for review of recent labs and follow up of chronic issues Depression Screening PHQ-9 Little inte rest or [...] Category Not es General Examination GENERAL APPEARANCE: well dev eloped, well nourished, in no acute distress HEAD: normocephalic, atrau matic EYES: pupils equal, round, reactive to light and accommodation, sclera non-icteric EARS: normal THROAT: clear NECK/THYROID: neck supple, full ra nge of motion, no cervical lymphadenopathy, no bruits HEART: regular rate and rhy thm, S1, S2 normal, no murmurs LUNGS: clear to auscultatio n bilaterally ABDOMEN: soft, nontender, non distended, bowel sounds present, normal, no organomegaly , no masses palpable NEUROLOGIC: nonfocal, motor stre ngth normal upper and lower extremities, sensory exam intact SKIN: warm and dry, no mamie picious lesions EXTREMITIES: no clubbing, cyanosi s, or edema MALE GENITOURINARY: not examined RECTAL EXAM: normal tone, no exte rnal hemorrhoids, no masses palpable, prostate normal, stool guaiac negative ORAL CAVITY: mucosa moist
--- OUTSIDE RECORDS SUMMARY | 2025-02-24 03:30 | XMS_ITS ---
Author Organization Billy Dc MD Address [address] [place], [place] [phone] Care Team Providers Care Production Quality Manager Name Role Phone Billy Dc Primary Care Provider [phone] Results Component Value Reference Range Notes PSA,Total (Free>4and<10) Reviewed date:02/28/2025 12:35:13 PM Interpretation: Performing Lab:[facility], [address] [place] [phone] Notes/Report: PSA,Total (Free>4and<10) 2.95 0.00-4.00 ng/mL A Free PSA was not [...] Barbosa Alinity i Chemiluminescent Microparticle Immunoassay (CMIA) REASON FOR VISIT PSA Encounters Encounter Location Date Provider Diagnosis Billy Dc MD [address] [place] [address] [place] [phone] 02/24/2025 Billy Dc Elevated PSA R97.20 Assessments Encounter Date Diagnosis (ICD Code) Assessment Notes Treatment Notes Treatment Clinical Notes Section Notes 02/24/2025 Elevated PSA (ICD-10 - R97.20) Plan Of Treatment Next Appt Details Provider Name:Billy delgado, 05/26/2025 09:00:00 AM, [address] [place] [address], Suite [facility], [place], [place], [phone], Provider Name:Billy delgado, 08/22/2025 07:00:00 AM, [address] [place] [address], [address], [phone], Provider Name:Billy delgado, 02/13/2026 07:00:00 AM, [address] [place] [address], Suite [facility], [place], [place], [phone], Provider Name:Billy delgado, 02/20/2026 09:30:00 AM, [address] [place] [address], [address], [phone], Progress Notes * CAROLYNNNED ChrisDOB: 2 (75 yo M)Acc No.[id number]:02/24/2025 Progress Note Patient: Chris BANEGAS Provider: Alvarado Dc MD :1950 A ge:75 Y S ex:Male Date:02/24/2025 Address: [address], [phone] Subjective: * Chief Complaints: * 1 . PSA. * Medical History: Objective: * Vitals: Assessment: * Assessment: 1. E levated PSA - R97.20 (Primary) Plan: * Treatment: * Procedure Codes: 3 6415 VENIPUNCT, ROUTINE* * * The named appointment provid er may or may not be the originator of this progress note, and it is not deemed complete until electronically signed by the appointment provider. Sign off status: Pending * Provider: Alvarado Dc MD Date: Generated for Natalya coker/Huseyin/Chava on: 05/30/2024 01:05 PM EST
--- OUTSIDE RECORDS SUMMARY | 2025-03-03 04:00 | XMS_ITS ---
Author Organization Billy Dc MD Address [address] [place], [place] [phone] Care Team Providers Care Electroslag Welding Machine Operator Name Role Phone Billy Dc Primary Care Provider Results Component Value Reference Range Notes PSA,Total (Free>4and<10) Reviewed date:03/03/2025 03:44:38 PM Interpretation: Performing Lab:[facility], [address] [place] [phone] Notes/Report: PSA,Total (Free>4and<10) 2.27 0.00-4.00 ng/mL A Free PSA was not [...] Location Date Provider Diagnosis Billy Dc MD [address] [place] [address] [place] [phone] 03/03/2025 Billy Dc Elevated PSA measurement R97.20 Assessments Encounter Date Diagnosis (ICD Code) Assessment Notes Treatment Notes Treatment Clinical Notes Section Notes 03/03/2025 Elevated PSA measurement (ICD-10 - R97.20) Plan Of Treatment Next Appt Details Provider Name:Billy delgado, 05/26/2025 09:00:00 AM, [address] [place] [address], Suite [facility], [place], [place], [phone], Provider Name:Billy delgado, 08/22/2025 07:00:00 AM, [address] [place] [address], Suite [facility], [place], [place], [phone], Provider Name:Billy delgado, 02/13/2026 07:00:00 AM, [address] [place] [address], Suite [facility], [place], [place], [phone], Provider Name:Billy delgado, 02/20/2026 09:30:00 AM, [address] [place] [address], Suite [facility], [place], [place], [phone], Progress Notes * CAROLYNNNED ChrisDOB: 2 (75 yo M)Acc No.[id number]:03/03/2025 Progress Note Patient: Chris BANEGAS Provider: Alvarado Dc MD :1950 A ge:75 Y S ex:Male Date:03/03/2025 Address: [address], [id number] Subjective: * Chief Complaints: * 1 . PSA. * Medical History: Objective: * Vitals: Assessment: * Assessment: 1. E levated PSA measurement - R97.20 (Primary) Plan: * Treatment: * Procedure Codes: 3 6415 VENIPUNCT, ROUTINE* * * The named appointment provid er may or may not be the originator of this progress note, and it is not deemed complete until electronically signed by the appointment provider. Sign off status: Pending * Provider: Alvarado Dc MD Date: Generated for Natalya coker/Huseyin/Chava on: 05/30/2024 01:02 PM EST
--- NOTE | 2025-03-30 10:47 | A.OFFVIS_ITS ---
Vital Signs 03/30/25 10:52 Height 5 ft 7 in Weight 245 lb BMI 38.4 BP 122/64 Blood Pressure Location Lt brachial Pulse 60 Pulse Source Pulse Oximeter Pulse Oximetry (%) 96 Oxygen Delivery Method Room Air Intake Visit Reasons: Obstructive sleep apnea Intake Note: pt is here for follow up and states he is feeling okay but machine keeps stating to adjust mask Online Trader Required: No Film Processing Shift Supervisor: Film Processing Shift Supervisor offered & declined Allergies No Known Allergies Allergy (Verified 03/30/25 10:59) Medication List - Last Reconciled 03/30/25 by Aamir Santos MD allopurinol 300 mg PO DAILY amlodipine 10 mg PO DAILY carvedilol 3.125 mg PO BID levothyroxine 25 mcg PO DAILY lorazepam 0.5 mg PO BEDTIME PRN rosuvastatin (Crestor) 20 mg PO DAILY Do you need a note to return to daycare/school/sports/work: No HPI HPI Obstructive sleep apnea: Details: 75 years old very pleasant gentleman who is grossly obese and is a case of obstructive sleep apnea, is here today for six-month follow-up. He uses CPAP very regularly every night at least for 8-9 hours per night. He is using nasal mask which fits okay but because of moustache there is some air leak which he can not stop. stop . He remains grossly overweight, as he is not able to do much walking or exercise. He denies any daytime sleepiness. [facility] Medical History JADEN on CPAP Essential hypertension Morbid obesity Hx of gout Arthritis Sleep apnea HTN (hypertension) Surgical History Hx of detached retina repair History of ankle surgery History of esophagogastroduodenoscopy (EGD) H/O colonoscopy Family History Mother HTN (hypertension) CVA (cerebral vascular accident) Social History Household Members: Spouse Housing: House Do you presently have visiting nurse or other home services: No Alcohol intake: never Patient Tobacco Use Status: Never used Tobacco Advance Directives Date on File: 09/20/20 service: No Review of Systems Const All systems reviewed & are unremarkable except as noted in HPI and below Eyes Reports no additional complaints ENT Reports no additional complaints Card Denies chest pain, Denies irregular heart rhythm and Reports dyspnea on exertion (MILD) Resp Denies cough, Reports dyspnea on exertion (MILD) and Denies wheezing GI Reports no additional complaints Reports no additional complaints Musc Reports back pain and Reports arthralgias Skin/Breast Reports system reviewed and no additional complaints, except as documented and Reports skin ulcer (ULCER ON THE RIGHT LEG HAS HEALED) Neuro Reports no additional complaints Psych Reports no additional complaints Aller/Immun Denies wheezing Physical Exam Const General: comfortable, no acute distress, alert, awake and other (MARKEDLY OBESE ESPECIALLY WITH A ROUND FACE AND VERY OBESE NECK) Orientation/consciousness: patient oriented x3 HEENT Head: Yes normal to inspection General nose exam: No nasal polyps present and No nasal discharge present Face and sinus: No normal facial exam (Patient has brownish pigmentation of the skin of his face and neck , ) and Yes sinuses nontender Mouth: oropharynx abnormals (VERY CROWDED AND NARROW, MALLAMPATI CLASS 4) Throat: Yes posterior oropharynx normal Eyes General: appearance normal, both eyes and all related structures Neck Neck: Yes normal visual inspection, Yes no lymphadenopathy, Yes trachea midline, Yes no JVD and Yes other (NECK CIRCUMFERENCE 22 IN,WITH EXCESSIVE LOOSE SKIN SKIN AND ADIPOSE TISSUE) Thyroid: Thyroid normal Chest Chest palpation & inspection: normal inspection of the chest, normal palpation of entire chest wall and no tenderness Resp Other: PERCUSSION NOTE NOT PERCEPTIBLE DUE TO THICK CHEST WALL. BREATH SOUNDS ARE QUITE DISTANT ESPECIALLY OVER THE BASILAR AREAS. NO WHEEZES RHONCHI ARE CREPS ARE HEARD. Effort & Inspection: normal respiratory effort Auscultation: clear to auscultation bilaterally Cardio Palpation: PMI not normal (NOT PALPABLE) Rate: regular rate Rhythm: regular rhythm Heart sounds: no gallops and no murmurs GI Palpation (GI): Soft to palpation, nontender, No hepatosplenomegaly present, no masses and Other GI palpation findings present (ABDOMEN GROSSLY OBESE AND PROTUBERANT) Auscultation: normal bowel sounds Back/Spine/Pelvis Thoracic/Lumbar Spine: thoracic and lumbar spine normal to inspection and thoraco-lumbar ROM limited Skin General skin exam: no rashes or lesions noted and other (CHRONIC ALSO ON THE LATERAL ASPECT OF RIGHT LEG) Neuro General: patient oriented x3 and no focal motor deficits Cranial nerves: Yes CN's II-XII intact bilaterally Extrem General: Yes normal to inspection, Yes no calf tenderness and Yes edema (CHRONIC STASIS EDEMA OF THE RIGHT LEG) Psych Appearance: grossly normal and well kempt Speech and movement: Normal speech and movement present Results Reviewed Results Reviewed: Compliance report for the last 30 nights reviewed and he has used 30/30 nights., 100% . His average use it per night is 9 hours 4 minutes which is excellent There is moderate amount of air leak and residual AHI is 8.3, probably related to air leak Assessment & Plan Assessment & Plan (1) Morbid obesity with BMI of 50.0-59.9, adult: Comment: HE HAS LOST SIGNIFICANT WEIGHT BUT STILL REMAINS OBESE. CURRENT BMI 38.4 , IS SIGNIFICANT WEIGHT LOSS SINCE LAST VISIT HE HAS DIFFICULTY IN LOSING MORE WEIGHT. HE HAS LOST A FEW MORE LB SINCE LAST VISIT. Code(s): E66.01 - Morbid (severe) obesity due to excess calories; Z68.43 - Body mass index [BMI] 50.0-59.9, adult Category: Medical Plan: COMMENDED FOR LOSING SOME WEIGHT AND ENCOURAGED TO KEEP ON CUTTING DOWN THE PORTIONS OF HIS MEALS AND ALSO TRY TO WALK AT LEAST 1 NH DAILY (2) JADEN (obstructive sleep apnea): Comment: HE IS A KNOWN CASE OF OBSTRUCTIVE SLEEP APNEA. FOR MANY YEARS CONTINUES TO USE THE CPAP VERY REGULARLY AND CONTINUES TO SLEEP WELL. HE KEEPS HIS OLD CPAP MACHINE [place] [facility] [place], AND USES THAT FOR A FEW NIGHTS THAT HE SPENDS AT THE [place] IN SUMMER. HIS COMPLIANCE IS EXCELLENT. Code(s): G47.33 - Obstructive sleep apnea (adult) (pediatric) Category: Medical Plan: COMMENDED FOR GOOD COMPLIANCE AND ADVISED TO KEEP ON USING THE MASK EVERY NIGHT LONG HE CAN. HE USES NASAL MASK , HE CAN NOT USE FULLFACE MASK. HE HAS AIR LEAK, AND THERE IS RESIDUAL AHI 8.3. Plan ADVISED TO KEEP THE MASK TIGHT POSSIBLE. KEEP ON USING IT REGULARLY. Coding Level of Care Code Est Pt Level 3 (04960) Diagnoses Morbid obesity with BMI of 50.0-59.9, adult E66.01; Z68.43 JADEN (obstructive sleep apnea) G47.33
[2025-03-30 10:52] VITALS: BP 122/64; PULSE 60; O2SAT 96; BMI 38.4
--- OUTSIDE RECORDS SUMMARY | 2025-03-30 13:03 | XMS_ITS | Clinical Summary ---
Author Organization [facility] Address [address] [address] Phone Care Team Providers Care Picking Table Worker Name Role Phone Billy Dc MD Primary [...] 5 mg before bedtime. Active nystatin (MYCOSTATIN) 880265 UNIT/ML suspension SWISH AND SPIT WITH 5ML [...] time each day Active ergocalciferol 1.25 MG (65565 UT) capsule Take 1 capsule (50,000 Units [...] day 45 capsule 01/04/20 25 025 Active amLODIPine (NORVASC) 10 MG tablet TAKE ONE TABLET BY MOUTH EVERY DAY 90 tablet 3 03/14/20 25 Active amLODIPine (NORVASC) 10 MG tablet Take 1 tablet (10 mg total) by mouth 1 (one) time each day 90 tablet 3 03/30/20 24 025 Discontinued Active Problems Problem Noted [...] Encounters Date Type Department Care Team Description 03/14/2025 Refill [facility] [address] [address] Balaji Collier MD 01/02/2025 2:30 PM EDT Office Visit [facility] [address] [place] [address] Balaji Collier MD Stage 3a chronic kidney disease (HCC) (Primary Dx); Renal osteodystrophy 12/28/2024 Orders Only [facility] [address] [address] Balaji Collier MD from Last 3 Months [...] Visit [facility] [address] [place] [address] Balaji Collier MD [address] [facility] [address] [place] [address] Health Maintenance Due Date Last [...] ORDERABLES Final Re sult Performing Organization Address [facility] de Phone Number [place] See order comments [place] [address] * (ABNORMAL) Albumin, urine, random (12/28/2024 10:47 [...] ORDERABLES Final Re sult Performing Organization Address [facility] Co de Phone Number [place] See order comments [place] [address] * Urinalysis with microscopic (12/28/2024 10:47 AM EDT) Color Urine Yellow See orde r comments Appearance Urine Clear See order comments pH Urine 8.0 5.0 - 9.0 See order comments Glucose Urine Negative Negative mg/dL See order comments Blood, Urine Negative Negative See ord er comments Specific [place] Urine 1.010 1.005 - 1.025 See order [...] ORDERABLES Final Re sult Performing Organization Address [facility] de Phone Number [place] See order comments [place] [address] * Creatinine (12/28/2024 9:52 AM EDT) Creatinine Serum 1.16 0.5 - 1.4 mg/dL See order comments eGFR (Calc) >60 See orde r comments Comment: Chronic Kidney Disease: Estimated GFR < 60 mL/min/1.73m2 Severe Kidney Disease: Estimated GFR < 15 mL/min/1.73m2 12/28/2024 9:52 AM EDT 12/28/2024 9:52 AM EDT us Balaji Collier MD LAB BLOOD ORDERABLES Final Re sult Performing Organization Address [facility] Co de Phone Number [place] See order comments [place] [address] * (ABNORMAL) PTH, Intact (12/28/2024 9:52 AM EDT) Parathyroid Hormone, Intact 197.5(H) 8.7 - 77.1 pg/mL See order comments 12/28/2024 9:52 AM EDT 12/28/2024 9:52 AM EDT us Balaji Collier MD LAB BLOOD ORDERABLES Final Re sult Performing Organization Address [facility] de Phone Number [place] See order comments [place] [address] * (ABNORMAL) Vitamin D 25 Hydroxy (12/28/2024 [...] ORDERABLES Final Re sult Performing Organization Address [facility] de Phone Number [place] See order comments [place] [address] * (ABNORMAL) CBC and Differential (12/28/2024 9:52 [...] order comments [place] [address] * BUN (12/28/2024 9:52 AM EDT) BUN 15 9 - 16 mg/dL See order comments 12/28/2024 9:52 AM EDT 12/28/2024 9:52 AM EDT us Balaji Collier MD LAB BLOOD ORDERABLES Final Re sult Performing Organization Address [facility] Phone Number [place] See order comments [place] [address] * Phosphorus (12/28/2024 9:52 AM EDT) Phosphorus, Serum 3.9 2.7 - 4.5 mg/dL See order comments 12/28/2024 9:52 AM EDT 12/28/2024 9:52 AM EDT us Balaji Collier MD LAB BLOOD ORDERABLES Final Re sult Performing Organization Address [facility] Phone Number [place] See order comments [place] [address] * Magnesium (12/28/2024 9:52 AM EDT) Magnesium 2.2 1.6 - 2.6 mg/dL See order comments 12/28/2024 9:52 AM EDT 12/28/2024 9:52 AM EDT us Balaji Collier MD LAB BLOOD ORDERABLES Final Re sult Performing Organization Address [facility] Phone Number [place] See order comments [place] [address] * Calcium (12/28/2024 9:52 AM EDT) Calcium 8.8 8.4 - 10.2 mg/dL See order comments 12/28/2024 9:52 AM EDT 12/28/2024 9:52 AM EDT us Balaji Collier MD LAB BLOOD ORDERABLES Final Re sult Performing Organization Address [facility] Phone Number [place] See order comments [place] [address] * Albumin (12/28/2024 9:52 AM EDT) Albumin 4.5 3.5 - 5.0 g/dL See order comments 12/28/2024 9:52 AM EDT 12/28/2024 9:52 AM EDT Balaji Collier MD LAB BLOOD ORDERABLES Final Re sult [place] See order comments [place] [address] * Electrolyte panel (12/28/2024 9:52 AM EDT) [...] ORDERABLES Final Re sult Performing Organization Address City/[facility]/ZIP Co de Phone Number [place] See order comments [place] [address] from Last 3 Months Insurance Medicare [facility] Medicare [facility] Care Teams Picking Table Worker Relationship Specialty Start Date End Date Billy Dc MD [address] [place], [place] PCP - General 05/28/20
--- OUTSIDE RECORDS SUMMARY | 2025-03-30 13:04 | XMS_ITS | Patient Health Record ---
Author Organization [facility] Address [address] [place] [address] Care Team Providers Care Phone Triage Specialist Name Role Phone Billy Dc MD Primary Care Provider Noreen Huber Unavailable [phone] Reason For Referral No Information Medications Medication [...] Problem Screening for malignant neoplasm of colon (169040408) Encounter for screening for malignant neoplasm of colon (Z12.11) Active confirmed Problem History of adenomatous polyp of colon (968627274) History of adenomatous polyp of colon (Z86.010) Active confirmed Problem Preprocedural examination (694945813292537) Preprocedural examination (Z01.818) Active confirmed Plan Of Treatment Future Test Test Name Order Date COLONOSCOPY 03/09/2020 Insurance Providers Payer Name Payer Address Payer Phone Subscriber Number Group Number Insured Name Patient Relationship to Insured Coverage Start Date Coverage End Date [facility] [address] [place] [phone] [id number] NOREEN JOSEPH Self - patient is the insured Medical (General) History Medical History History ICD Code Hypertension Sleep apnea- CPAP machine Tubular adenoma removed in 2002 and neg. colonoscopy in 2010 EGD in 2002-minimal gastritis-biopsies n egative for H. pylori Gout Denies AR,DM,CVA,Lung disease,renal dise ase Arthritis in ankles Surgical History Surgery Date(Month/Year) Broken ankles-has hardware Open wound on right pretibia l area--being [facility]--s/p debridement Detached retina OD
--- OUTSIDE RECORDS SUMMARY | 2025-03-30 13:05 | XMS_ITS | Continuity of Care Document ---
Author Organization [place] [facility], [facility] Address [address] [place] [address] Care Team Providers Care Operations And Maintenance Manager Name Role Phone WES SAHA Primary Care Provider ANALY SOLIS OTHER FRANCES GARDNER OTHER Assessment Encounter Date Assessment Date Assessment LastModified by Organization Details LastModified Time 12/29/2024 12/29/2024 No evidence of disease on examination today. Fiberoptic examination of nasopharynx, hypopharynx was stable. Cancer surveillance in 4 months was recommended. 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 - History of lymphedema, currently managed with self-massage. - Pacemaker in place, undergoing cardiac evaluations. The patient was educated on the potential benefits of esophageal dilation for improving swallowing safety and ease. He was advised to continue self-massage for lymphedema management and maintain hydration during meals to aid swallowing. Follow-up was scheduled for four months to reassess his condition and monitor progress. The patient was encouraged to proceed with the planned extensive echocardiogram and cardiac evaluations to ensure optimal cardiac health. [email or web address] Not available 12/29/2024 13:47:27 Plan of Treatment Reminders Order Date Submit Date Provider Last Modified By Organization Details Last Modified Time Details Appointments Establish ed 15 2024 01:45P Kayley DONG MD Not available Not available Not available Lab None recorded. Referral None recorded. Procedures None recorded. Surgeries None recorded. Imaging None recorded. Medication Orders None recorded. Patient TargetsNo targets recorded. Patient Instructions Encounter Date Encounter Id Patient Instructions Last Modified By Organization Details Last Modified Time 12/29/2024 [id number] Continue self-massage for lymphedema management. Maintain hydration during meals to aid swallowing. Proceed with the planned extensive echocardiogram and cardiac evaluations. Follow up in four months for reassessment. [email or web address] Not available 12/29/2024 13:47:26 Please note: Par ts of this encounter note have been generated by AI based on audio conversation. Patient consent was required prior to utilizing this technology. Content review was required prior to finalizing the note. [email or web address] Not available 12/29/2024 13:47:27 Reason for Referral None Reported. 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; Note: Date Diagnosed: 10/09/2021 6:46 PM (C11.1) Not Available [facility] 4 03:17:13 Mixed conductiv e and sensorine ural hearing loss, bilateral 847032570 Active 2021 Mixed conductive and sensorineu ral hearing loss, bilateral; Note: Date Diagnosed: 10/21/2021 11:45 AM (H90.6) Not Available [facility] 4 03:17:14 Follow-up visit Active 2022 Encounter for follow-up examinatio n after completed treatment for malignant neoplasm; Note: Date Diagnosed: 08/14/2022 11:05 AM (Z08) Not Available [facility] 4 03:17:14 Stomatiti s 00463951 Active 2022 Oral thrush; Note: Date Diagnosed: 12/12/2022 1:50 PM (B37.0) Not Available [facility] 4 03:17:13 Candidias is of mouth 34695937 Active 2022 Oral thrush; Note: Date Diagnosed: 12/12/2022 1:50 PM (B37.0) Not Available [facility] 4 03:17:13 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 Primary tumor location: Nasopharyn x Tumor staging: Stage II, T2N2 Treatment: chemo XRT Date of treatment completion : 04/07/22 Oncology team: Kendra Solis MD [address] [place] [address],[place] [address], [place], [address] , [place] - [facility] 4 15:28:48 Acute pansinusi tis 9661767 Active 2023 Acute pansinusit is, unspecifie d; Note: Date Diagnosed: 07/01/2023 10:53 AM (J01.40) Not Available [facility] 4 03:17:14 Dysphagia 74013278 Active 2024 MATHEW DONG MD [address] [place] [address],[place] [address], [place], [address] , [place] - [facility] 5 13:42:27 Problem Notes None recorded. Procedures Surgical History Date Name Laterality Status Provider Name and Address Organization Details Recorded Time 12/29/2024 Nasopharyn goscopy_DP completed MATHEW DONG MD [address] [place] [address],[address], [address], [place] - [facility] 12/26/2024 10:09:18 08/24/2024 Nasopharyn goscopy_DP completed MATHEW DONG MD [address] [place] [address],[address], [address], [place] - [facility] 08/24/2024 13:27:33 04/27/2024 FOL_DP completed MATHEW DONG MD [address] [place] [address],[address], [address], [place] - [facility] 04/26/2024 09:51:34 12/24/2023 FOL_DP completed MATHEW DONG MD [address] [place] [address],[address], [address], [place] - [facility] 12/23/2023 15:30:36 Imaging Results None recorded. Procedure Notes None recorded. Medical Equipment None Reported. Allergies No known drug allergies Medications Name Sig Start Date Stop Date Status Note LastModified by Organization Details LastModified Time furosemid e 40 mg tablet 10/14 completed Medicati on ID: [id number] B rand Name: furosemi de Send Method: E-Prescr ibed Sub s Allowed: subs OK Medic ationGen ericName : furosemi de Not Available Not Available Not Available pilocarpi ne 5 mg tablet 10/14 completed Medicati on ID: [id number] B rand Name: pilocarp ine HCl Send [...] mg tablet 08/14 completed Medicati on ID: [id number] B rand Name: amlodipi ne Send Method: [...] tablet TAKE ONE TABLET BY MOUTH EVERY MORNING ON AN EMPTY STOMACH active Not Available Not Available No t Available amlodipin e 10 mg tablet TAKE ONE TABLET BY MOUTH EVERY DAY active Not Available Not Available No t Available hydralazi ne 100 mg tablet 10/14 completed Medicati on ID: [id number] B rand Name: hydralaz ine Send Method: E-Prescr ibed Sub s Allowed: subs OK Medic ationGen ericName : hydralaz ine Not Available Not Available Not Available valsartan 320 mg tablet 10/14 completed Medicati on ID: [id number] B rand Name: valsarta n Send Method: E-Prescr ibed Sub s Allowed: subs OK Medic ationGen ericName : valsarta n Not Available Not Available Not Available allopurin ol 300 mg tablet TAKE ONE TABLET BY MOUTH EVERY DAY active Not Available Not Available No t Available lorazepam 1 mg tablet 12/23 completed Medicati on ID: [id number] B rand Name: heena kendrick Send Method: E-Prescr ibed Sub s Allowed: [...] t Available Vitals Date Recorded Body height Provider Name an d Address Organization Details Last Updated DateTime 12/29/2024 167.64 cm SERGIO HERCULES [place] [facility] 12/29/2024 13:20:46 Social History None recorded. Functional Status None recorded. Mental Status None recorded. Family History Nothing Reported. Medical History Condition Response Arthritis Y Hypertension Y Sleep Disorder Y Past Encounters Encounter ID Performer Location Encounter Start Date Encounter Closed Date Diagnosis/Indication Diagnosis SNOMED-CT Code Diagnosis ICD10 Code Diagnosis IMO Codes Diagnosis Note [id number] MATHEW DONG MD [facility] [address] [address] 12/29/2024 13:06:03 12/29/2024 13:48:06 History of malignant neoplasm of oral cavity 405855450 Z85.819 Dysphagia 92749685 R13.1 4 501923 Health Concerns Section Related Observation LastModified by Organization Detai ls LastModified Time None Recorded Concern Status LastModified by Organization Details LastModified Time None Recorded Payers Encounter Date Sequence Insurance Name Policy Number Policy Robertson Covered Member ID Robertson Member ID Guarantor Name 12/29/2024 1 [place]: [employer] Chris Simon [id number] Chris Simon 12/29/2024 2 [facility] ([place] SUPPLEMENT) [id number] Chris Simon [id number] Chris Simon Notes Date Note Type Note Provider Name and Address Organization Details Recorded Time 12/29/2024 text/html Primary tumor location: Nasopharynx Tumor staging: Stage II, T2N2 Treatment: chemo XRT Date of treatment completion: 04/07/22 Oncology team: Kendra Solis renal specialist started some vit D since prior visit got a pacemaker following aorta w repeat CT in 6 months Crhis Simon is a 74-year-old male who presents for evaluation of cancer surveillance and swallowing difficulties. He reports trouble swallowing pills over the past three to four weeks, noting that elevating his chin helps alleviate the issue. 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 He previously underwent therapy for lymphedema and now performs self-massage as recommended by Dr. Gardner, which has reduced the swelling. He also mentions difficulty eating certain foods, such as steak, and relies on water to aid swallowing. He feels generally well and has been consuming a diet rich in fruits. He has a pacemaker and is undergoing cardiac evaluations, including an echocardiogram and a planned extensive echo test. MATHEW DONG MD [address] [place] [address], [place], [address], [facility] - [facility] 12/29/2024 13:48:31
--- OUTSIDE RECORDS SUMMARY | 2025-03-30 13:06 | XMS_ITS | Encounter Summary ---
Author Organization [facility] Address [address] [facility] [address] [place] [address] Phone Care Team Providers Care Tenter Frame Back Tender Name Role Phone Billy Dc MD Primary Care Provider Encounter Details Date Type Department Care Team (Late st Contact Info) Description 02/07/2022 Documentation Only [facility] [address] [facility] [address] [place] [phone] Mikal Dias MD [address] [place] [address], [address] [place] [address] Social History Tobacco Use Types Packs/Day Years [...] Visit [facility] [address] [place] [address] Balaji Collier MD [address] [facility] [address] [place] [phone] documented as of this encounter Visit Diagnoses Not on filedocumented in this encounter Care Teams Tenter Frame Back Tender Relationship Specialty Start Date End Date Billy Dc MD [address] [place] [address] [address] [place] PCP - General 05/28/20 documented as of this encounter
--- OUTSIDE RECORDS SUMMARY | 2025-03-30 13:06 | XMS_ITS | Patient Health Record ---
Author Organization Billy Dc MD Address [address] [place], [place] [id number] Care Team Providers Care Charge Out Clerk Name Role Phone Billy Dc Primary Care Provider Allergies No Known Allergies Results Component Value Reference Range Notes Hemoglobin A1c Reviewed date:08/09/2024 08:25:30 AM Interpretation: Performing Lab: Notes/Report: Hemoglobin A1c 5.1 Liver Panel Reviewed date:08/03/2024 03:18:28 PM Interpretation: Performing Lab:[facility], [address] [place] [phone] Notes/Report: Bilirubin Total 0.6 0.0-1.0 mg/dL Bilirubin Direct 0.3 0.0-0.5 mg/dL Aspartate Amino Transferase 72 5-37 U/L Alanine Aminotransferase 28 0-40 U/L Total Protein 7.4 6.5-8.0 g/dL Albumin Level 4.1 3.5-5.0 g/dL Alkaline Phosphatase 73 39-117 U/L Lipid Panel with Reflex Reviewed date:08/03/2024 03:25:49 PM Interpretation: Performing Lab:[facility], [address] [place] [phone] Notes/Report: Triglycerides 93 <150 mg/dL Desirable Triglyceride: [...] ff Reviewed date:02/10/2025 12:25:34 PM Interpretation: Performing Lab:[facility], [address] [place] [phone] Notes/Report: White Blood Count 6.3 4.8-10.8 X10*3/uL [...] Panel Reviewed date:02/10/2025 12:17:48 PM Interpretation: Performing Lab:[address] [address] Notes/Report: Triglycerides 84 <150 mg/dL Desirable Triglyceride: [...] Reviewed date:02/17/2025 10:20:41 AM Interpretation:FAYE 02/17/25 Performing Lab:[address] [address] Notes/Report: PSA,Total (Free>4and<10) 17.74 0.00-4.00 ng/mL A [...] T4 Reviewed date:02/10/2025 12:17:29 PM Interpretation: Performing Lab:[address] [address] Notes/Report: TSH reflex Free T4 4.05 0.32-4.0 uIU/mL Microalbumin, Random Reviewed date:02/10/2025 12:25:09 PM Interpretation: Performing Lab:[address] [address] Notes/Report: Creatinine Urine 191.98 Microalbumin Urine 53.0 Microalbum/Creatinine Ratio Ur 27.6 <30 ug/mg cr Albumin/Creatinine Ratio Reference Ranges: Normal: < 30 ug/mg creatinine Microalbuminuria: 30 - 300 ug/mg creatinine Clinical Albuminuria: > 300 ug/mg creatinine Hemoglobin A1c Reviewed date:02/10/2025 12:25:42 PM Interpretation: Performing Lab:[address] [phone] Notes/Report: Hemoglobin A1c % 5.1 <6.0 % [...] average glucose, using the formula of the J0I-Jywclaz Average Glucose study (ADAG), Diabetes Care, Vol.31,#8, Dec. 2007 UA ClnCatch+Micro w/rflx Cul t Reviewed date:02/10/2025 04:27:47 PM Interpretation: Performing Lab:[address] [phone] Notes/Report: Urine, Clean Catch Color Urine Yellow Appearance Urine Clear PH 6.5 5.0-9.0 Glucose Urine UA Negative Negative mg/dL Urine Blood Negative Negative Specific Gilby - Urine 1.020 1.005-1.025 Urine Protein 30 (1+) Neg-Trace mg/dL Urine Ketones Negative Negative mg/dL Nitrite Urine Negative Negative Leukocyte Esterase Urine Small (1+) Negative RBC Urine 0-2 0-2 /HPF WBC Urine 6-10 0-5 /HPF Squamous Epithelial Cell Urine 0-2 0-2 /HPF Bacteria Urine None Seen None Seen Hyaline Casts Urine 0-2 0-2 /LPF PSA,Total (Free>4and<10) Reviewed date:02/28/2025 12:35:13 PM Interpretation: Performing Lab:[address] [address] Notes/Report: PSA,Total (Free>4and<10) 2.95 0.00-4.00 ng/mL A [...] 4.0 and 10.0 ng/mL. PSA methodology: Barbosa Primeloopnity i Chemiluminescent Microparticle Immunoassay (CMIA) PSA,Total (Free>4and<10) Reviewed date:03/03/2025 03:44:38 PM Interpretation: Performing Lab:[address] [address] Notes/Report: PSA,Total (Free>4and<10) 2.27 0.00-4.00 ng/mL A [...] Gold Reviewed date:08/02/2024 12:06:06 PM Interpretation: Performing Lab:[facility], [address] [place] [phone] Notes/Report: Hold Gold See Note Specimen held untested for 24 hours; Call to request Chemistry testing. Comprehensive Met. Panel Reviewed date:02/10/2025 12:41:00 PM Interpretation: Performing Lab:[facility], [address] [place] [phone] Notes/Report: Sodium 141 135-145 mmol/L Potassium 3.9 [...] Thyroxine) Reviewed date:02/10/2025 12:26:02 PM Interpretation: Performing Lab:[facility], [address] [place] [phone] Notes/Report: Free T4 (Free Thyroxine) 0.73 0.71-1.85 ng/dL Urine Culture Reviewed date:02/11/2025 04:15:27 PM Interpretation: Performing Lab:[facility], [address] [place] [address], [place] [address] Notes/Report: Urine Culture Report Result Urine Culture [...] as needed for 30 days 02/17/2025 Active Allopurinol 300 MG TAKE ONE TABLET BY MOUTH EVERY DAY for 90 Active Percocet 5-325 MG 1 tablet as [...] Status Risk Notes Problem Ascending aorta dilatation (929701444) Ascending aorta dilatation (447.71) Active confirmed Problem Sciatica (39718860) Sciatica (M54.30) Active confirmed Problem Anxiety (72839221) Anxiety (F41.9) Active confirmed Problem 955603024 Tubular adenoma of colon (D12.6) Active confirmed Problem 56272124 Essential hypert ension (I10) Active confirmed Problem 888816377 Acquired hypothy roidism (E03.9) Active confirmed Problem 2960756 Prediabetes (R73.09) Active confirmed Problem 818980460 Abnormal LFTs (R79.89) Active confirm ed Problem 636909254 History of gout (Z87.39) Active confirmed Problem 400052745 Morbid obesity d ue to excess calories (E66.01) Active confirmed Problem 92661609 Lymphadenopathy (R59.1) Active confirm ed Problem 648560950 Ascending aortic aneurysm (I71.2) Active confirmed Problem 07892045 Elevated uric ac id in blood (E79.0) Active confirmed Problem 328811003 Sensitivity to s unlight (Z91.09) Active confirmed Problem 154569247 Pure hypercholesterolemia (E78.00) Active confirmed Problem 880128976 Elevated PSA (R97.20) Active confirme d Problem 433720993 Arthritis of kne e (M17.10) Active confirmed Problem 709795131 Head and neck ca ncer (C76.0) Active confirmed Problem 198706820 Ankle arthritis (M19.079) Active confirmed Problem Cardiac pacemaker in situ (933237267) Pacemaker (Z95.0) Active confirmed Problem 381339730 Body mass index (BMI) 50.0-59.9, adult (Z68.43) Active confirmed Problem Anxiety about health (419454231) Anxiety about health (F41.8) Active confirmed Vital Signs Blood pressure diastolic 64 mm Hg 02/17/2025 angelita ght is down 30 pounds since 08-09-24 Height 65.5 in 02/17/2025 weight is down 30 pounds since 08-09-24 Blood pressure systolic 120 mm Hg 02/17/2025 weig ht is down 30 pounds since 08-09-24 Weight 245 lbs 02/17/2025 weight is down 30 pounds since 08-09-24 BMI 40.15 kg/m2 02/17/2025 weight is down 30 pounds since 08-09-24 Encounters Encounter Location Date Provider Diagnosis Billy Dc MD [address] [place] [id number] 08/02/2024 Billy Dc Pure hypercholestero lemia E78.00 Billy Dc MD [address] [place] [id number] 02/10/2025 Billy Dc Essential hypertensi on I10 ; Encounter for administration of vaccine Z23 ; Prediabetes R73.09 ; Pure hypercholesterolemia E78.00 ; Elevated PSA R97.20 and Acquired hypothyroidism E03.9 Billy Dc MD [address] [place] [id number] 02/24/2025 Blily Dc Elevated PSA R97.20 Billy Dc MD [address] [place] [id number] 03/03/2025 Billy Dc Elevated PSA measure ment R97.20 Billy Dc MD [address] [place] [id number] 08/09/2024 Billy Dc Prediabetes R73.09 ; Sciatica M54.30 ; Pacemaker Z95.0 and Pure hypercholesterolemia E78.00 Billy Dc MD [address] [place], [place] [id number] 02/17/2025 Billy Dc Elevated PSA R97.20 ; [...] I71.2) need notes from dr vazquez at [facility]/ REQUEST MADE TO [facility] MED RECORDS 02/10/2025 Prediabetes (ICD-10 - [...] Date ECHO EXAM OF HEART 06/23/2014 Comprehensive [place]. Panel Fast 5 PSA Free and Total 02/17/2025 CT angio chest 04/23/2021 CT soft tissue neck w con 06/06/2021 CT soft tissue neck wo/w con 04/23/2021 MR orbits face neck wo/w con 07/02/2021 US biopsy lymph node 07/30/2021 Future Test Test Name Order Date ECHO 01/02/2021 CT angio chest 01/23/2021 CT soft tissue neck wo/w con 01/23/2021 Next Appt Details Provider Name:Billy delgado, 05/26/2025 09:00:00 AM, [address] [place] [address], Suite [facility], [place], [place], [phone], Provider Name:Billy delgado, 08/22/2025 07:00:00 AM, [address] [place] [address], Suite [facility], [place], [place], [phone], Provider Name:Billy delgado, 02/13/2026 07:00:00 AM, [address] [place] [address], Suite [facility], [place], [phone], Provider Name:Billy delgado, 02/20/2026 09:30:00 AM, [address] [place] [address], Suite [facility], [place], [place], [phone], Insurance Providers Payer Name Payer Address Payer Phone Subscriber Number Group Number Insured Name Patient Relationship to Insured Coverage Start Date Coverage End Date MEDICARE NHIC [place] [place] [address] [id number] Chris Simon Self - patient is the insured MEDEX [employer] OF [place] [address] [place] [phone] [id number] Chris Simon Self - patient is the insured Medical (General) History Medical History History ICD Code COLONOSCOPY 07/2010 - due in 5 years (has CX 3 cololonscopy dates in 2016); Colonoscopy done 04/23/[address] Corey jones in 10 years NEEDS YEARLY ECHO - Due 06/2014 colonoscopy 2019 Surgical History Surgery Date(Month/Year) fusion of ankle 1989
--- OUTSIDE RECORDS SUMMARY | 2025-03-30 13:06 | XMS_ITS | Data Portability ---
Author Organization [place] - [facility], Allergy Address [address] [address] Care Team Providers Care Necktie Maker Name Role Phone WES SAHA Primary Care [...] was recommended. [email or web address] Not available 08/24/2024 13:28:10 12/29/2024 12/29/2024 No evidence of disease on [...] Details Appointments Establish ed 15 2024 01:45P M MATHEW DONG MD Not available Not available Not available Lab None recorded. Referral None recorded. Procedures None recorded. Surgeries None recorded. Imaging None recorded. Medication Orders None recorded. Patient TargetsNo targets recorded. Patient Instructions Encounter Date Encounter Id Patient Instructions Last Modified By Organization Details Last Modified Time 12/29/2024 [id number] Continue self-massage for lymphedema management. Maintain hydration [...] 12/29/2024 13:47:27 Reason for Referral None Reported. Results Created [...] ation record ed. 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; Note: Date Diagnosed: 10/09/2021 6:46 PM (C11.1) Not Available [facility] 4 03:17:13 Mixed conductiv e and sensorine ural hearing loss, bilateral 440703838 Active 2021 Mixed conductive and sensorineu ral hearing loss, bilateral; Note: Date Diagnosed: 10/21/2021 11:45 AM (H90.6) Not Available [facility] 4 03:17:14 Follow-up visit Active 2022 Encounter for follow-up examinatio n after completed treatment for malignant neoplasm; Note: Date Diagnosed: 08/14/2022 11:05 AM (Z08) Not Available [facility] 4 03:17:14 Stomatiti s 77886152 Active 2022 Oral thrush; Note: Date Diagnosed: 12/12/2022 1:50 PM (B37.0) Not Available [facility] 4 03:17:13 Candidias is of mouth 92704700 Active 2022 Oral thrush; Note: Date Diagnosed: 12/12/2022 1:50 PM (B37.0) Not Available [facility] 4 03:17:13 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 4 15:28:48 Acute pansinusi tis 6700280 Active 2023 Acute pansinusit is, unspecifie d; Note: Date Diagnosed: 07/01/2023 10:53 AM (J01.40) Not Available [facility] 4 03:17:14 Dysphagia 38011840 Active 2024 MATHEW DONG MD [address] [place] [address], [place], [phone] , [place] - [facility] 5 13:42:27 Problem Notes None recorded. Procedures Surgical History Date Name Laterality Status Provider Name and Address Organization Details Recorded Time 12/29/2024 Nasopharyn goscopy_DP completed MATHEW DONG MD [address] [place] [address], [phone], [facility] - [facility] 12/26/2024 10:09:18 08/24/2024 Nasopharyn goscopy_DP completed MATHEW DONG MD [address] [place] [address], [phone], [facility] - [facility] 08/24/2024 13:27:33 04/27/2024 FOL_DP completed MATHEW DONG MD [address] [place] [address], [phone], [facility] - [facility] 04/26/2024 09:51:34 12/24/2023 FOL_DP completed MATHEW DONG MD [address] [place] [address], [phone], [facility] - [facility] 12/23/2023 15:30:36 Imaging Results None recorded. Procedure Notes None recorded. Medical Equipment None Reported. Allergies No known drug allergies Medications Name Sig Start Date Stop Date Status Note LastModified by Organization Details LastModified Time furosemid e 40 mg tablet 10/14 completed Medicati on ID: [id number] B rand Name: furosemi de Send Method: E-Prescr ibed Sub s Allowed: subs [place] Medic ationGen ericName : furosemi de Not Available Not Available Not Available pilocarpi ne 5 mg tablet 10/14 completed Medicati on ID: [id number] B rand Name: pilocarp ine HCl Send [...] mg tablet 08/14 completed Medicati on ID: [id number] B rand Name: amlodipi ne Send Method: [...] mg tablet 10/14 completed Medicati on ID: [id number] B rand Name: hydralaz ine Send Method: E-Prescr ibed Sub s Allowed: subs [place] Medic ationGen ericName : hydralaz ine Not Available Not Available Not Available valsartan 320 mg tablet 10/14 completed Medicati on ID: [id number] B rand Name: valsarta n Send Method: E-Prescr ibed Sub s Allowed: subs [place] Medic ationGen ericName : valsarta n Not Available Not Available Not Available allopurin ol 300 mg tablet TAKE ONE TABLET BY MOUTH EVERY DAY active Not Available Not Available No t Available lorazepam 1 mg tablet 12/23 completed Medicati on ID: [id number] B rand Name: heena kendrick Send Method: E-Prescr ibed Sub s Allowed: subs [place] Medic ationGen ericName : heena kendrick Not Available Not Available Not Available Vitamin [...] Updated DateTime 08/24/2024 167.64 cm 43.6 kg/m2 287224.94 g SERGIO HERCULES [place] - [facility] 08/24/2024 13:16:40 Date Recorded Body weight Body mass index (BMI) Body height Provider Name and Address Organization Details Last Updated DateTime 12/24/2023 460931.94 g 43.6 kg/m2 167.64 cm Chasity Haynes [place] - [facility] 12/24/2023 13:29:13 Date Recorded Body height Provider Name an d Address Organization Details Last Updated DateTime 12/29/2024 167.64 cm SERGIO HERCULES [place] [facility] 12/29/2024 13:20:46 Date Recorded Body height Body mass index (BMI) Body weight Provider Name and Address Organization Details Last Updated DateTime 04/27/2024 167.64 cm 40.5 kg/m2 912329.68 g Gabbie Pickard [place] - [facility] 04/27/2024 12:59:44 Social History None recorded. Functional Status None recorded. Mental Status None recorded. Family History Nothing Reported. Medical History Condition Response Arthritis Y Hypertension Y Sleep Disorder Y Past Encounters Encounter ID Performer Location Encounter Start Date Encounter Closed Date Diagnosis/Indication Diagnosis SNOMED-CT Code Diagnosis ICD10 Code Diagnosis IMO Codes Diagnosis Note [id number] MATHEW DONG MD [facility] [address] [address] 12/24/2023 13:16:33 12/24/2023 13:44:00 History of malignant neoplasm of oral cavity 585421846 Z85.819 [id number] MATHEW DONG MD [facility] [address] [address] 04/27/2024 12:44:02 04/27/2024 13:25:43 History of malignant neoplasm of oral cavity 944896885 Z85.819 [id number] MATHEW DONG MD [facility] [address] [address] 08/24/2024 13:07:21 08/24/2024 13:28:54 History of malignant neoplasm of oral cavity 633152487 Z85.819 [id number] MATHEW DONG MD [facility] [address] [address] 12/29/2024 13:06:03 12/29/2024 13:48:06 History of malignant neoplasm of oral cavity 983662863 Z85.819 Dysphagia 48094472 R13.1 4 478166 Health Concerns Section Related Observation LastModified by Organization Detai ls LastModified Time None Recorded Concern Status LastModified by Organization Details LastModified Time None Recorded Advance Directives Directive None Recorded Payers Insurance Date Sequence Insurance Name Policy Number Policy Robertson Covered Member ID Robertson Member ID Guarantor Name 12/29/2024 1 [place] [employer] Chris Simon [id number] Chris Simon 12/29/2024 2 [place] [id number] Chris Simon [id number] Chris Simon Notes Date Note Type Note Provider Name and Address Organization Details Recorded Time 12/24/2023 text/html ROS as noted in the HPI Primary tumor location: NasopharynxTumor staging: Stage II, X0U5Zdpagazut: chemo XRTDate of treatment completion: 04/07/22Oncology team: Kendra Solis upcoming trip to [facility] MATHEW DONG MD [address] [facility],[address], [phone], [place] - [facility] 12/24/2023 13:43:52 04/27/2024 text/html ROS as noted in the HPI Primary tumor location: NasopharynxTumor staging: Stage II, W7B1Wzjvzedkx: chemo XRTDate of treatment completion: 04/07/22Oncology team: Kendra Solis renal specialist started some vit D MATHEW DONG MD [address] [facility],[address], [address], [place] - [facility] 04/27/2024 13:23:56 08/24/2024 text/html ROS as noted in the HPI Primary tumor location: NasopharynxTumor staging: Stage II, Z8I9Jesavqryl: chemo XRTDate of treatment completion: 04/07/22Oncology team: Kendra Solis renal specialist started some vit Dsince prior visit got a pacemakerfollowing aorta w repeat CT in 6 months MATHEW DONG MD [address] [facility],[address], [address], [place] - [facility] 08/24/2024 13:28:48 12/29/2024 text/html Primary tumor location: Nasopharynx Tumor staging: Stage II, T2N2 Treatment: chemo XRT Date of treatment completion: 04/07/22 Oncology team: Kendra Solis renal specialist started some vit D since prior visit got a pacemaker following aorta w repeat CT in 6 months Chris Simon is a 74-year-old male who presents [...] planned extensive echo test. MATHEW DONG MD [address] [place] [address], [phone], [facility] - [facility] 12/29/2024 13:48:31
== END 2025-03-30 11:07 | disposition home or self-care (01) ==
LOC: HO.HPS 10:40
PROVIDERS: PCP Internal Medicine; Visit Provider Internal Medicine
DX: E66.01 Morbid (severe) obesity due to excess calories (principal); Z68.43 Body mass index [BMI] 50.0-59.9, adult; G47.33 Obstructive sleep apnea (adult) (pediatric)
CPT/HCPCS: 99213

== ENCOUNTER → 2025-03-30 10:39 | Outpatient (BNVA) | payer MEDICARE, SELFPAY | PROVIDERS: PCP Internal Medicine; Visit Provider Internal Medicine | DX: G47.33 Obstructive sleep apnea (adult) (pediatric) (principal); Z99.89 Dependence on other enabling machines and devices; E66.01 Morbid (severe) obesity due to excess calories; Z68.38 Body mass index [BMI] 38.0-38.9, adult; I10 Essential (primary) hypertension | CPT/HCPCS: 99212 ==